=== PATIENT | female | born 1960 | race Caucasian/White ===

== ENCOUNTER 2020-09-02 09:09 | Outpatient (REF) | payer OTHER, SELFPAY ==
[2020-09-02 10:08] LABS: Estimated Average Glucose 140 mg/dL; Hemoglobin A1c % 6.5 %
[2020-09-02 11:08] LABS: Cholesterol 171 mg/dL; HDL Cholesterol 54 mg/dL; LDL Cholesterol Calculated 91 mg/dl; Triglycerides 130 mg/dL
[2020-09-03 11:12] LABS: Prolactin 9.6 ng/mL
== END 2020-09-02 09:10 | disposition home or self-care (01) ==
LOC: HO.LAB 09:09
PROVIDERS: PCP Internal Medicine; Visit Provider Internal Medicine
DX: E11.29 Type 2 diabetes mellitus with other diabetic kidney complication (principal)
CPT/HCPCS: 80061; 83036; 84146

== ENCOUNTER 2021-10-20 10:05 | Outpatient (REF) | payer OTHER, SELFPAY ==
[2021-10-20 12:15] LABS: Alanine Aminotransferase 40 U/L (0-31); Albumin Level 4.4 g/dL (3.5-5.0); Alkaline Phosphatase 80 U/L (39-117); Anion Gap 17 (12-20); Aspartate Amino Transferase 25 U/L (5-31); Bilirubin Total 0.5 mg/dL (0.0-1.0); Blood Urea Nitrogen 19 mg/dL (9-16); Calcium 10.1 mg/dL (8.4-10.2); Carbon Dioxide 27 mmol/L (22-29); Chloride 103 mmol/L (96-108); Cholesterol 171 mg/dL; Estimated Glomerular Filt Rate > 60; Glucose Fasting 125 mg/dL (60-99); HDL Cholesterol 50 mg/dL; LDL Cholesterol Calculated 96 mg/dl; Potassium 3.5 mmol/L (3.3-5.1); Sodium 143 mmol/L (135-145); Total Protein 7.7 g/dL (6.5-8.0); Triglycerides 127 mg/dL
[2021-10-20 13:30] LABS: Creatinine Urine 30.37 mg/dL; Microalbum/Creatinine Ratio Ur 391.8 ug/mg cr
== END 2021-10-20 10:06 | disposition home or self-care (01) ==
LOC: HO.LAB 10:05
PROVIDERS: PCP Internal Medicine; Visit Provider Internal Medicine
DX: E11.9 Type 2 diabetes mellitus without complications (principal); E78.5 Hyperlipidemia, unspecified
CPT/HCPCS: 36415; 80053; 80061; 82043

== ENCOUNTER 2021-11-12 10:55 | Outpatient (REF) | payer OTHER, SELFPAY | END 2021-11-12 10:56 | disposition home or self-care (01) | LOC: HO.HMGCLDS 10:55 | PROVIDERS: Visit Provider Internal Medicine | DX: Z20.822 Contact with and (suspected) exposure to COVID-19 (principal) | CPT/HCPCS: C9803; U0003; U0005 ==

== ENCOUNTER 2021-11-29 07:58 | Outpatient (REF) | payer OTHER, SELFPAY ==
--- NOTE | 2021-11-29 10:14 | PFT_ITS ---
INDICATION: Dyspnea. SPIROMETRY: FEV1 to FVC of 82% with an FEV1 of 1.87 L which is 81% predicted and FVC of 2.27 L which is 76% predicted. No significant response to bronchodilators noted. Maximum voluntary ventilation 104% predicted. LUNG VOLUMES: Total lung capacity 79% predicted with an expiratory reserve volume of 43% predicted. DIFFUSION CAPACITY: DLCO 75% predicted. COMPARISONS: None. INTERPRETATION: No obstructive ventilatory defect. No significant response to bronchodilators noted. Normal maximum voluntary ventilation suggesting good conditioning; however, the patient does have a mild restrictive ventilatory defect. In addition to that, has a decrease in the expiratory reserve volume secondary to an elevated BMI. Patient also has a mild diffusion impairment. Need to consider underlying parenchymal lung conditions and/or pulmonary vascular conditions. Should also correct for hemoglobin. Clinical correlation warranted. MD MIKY Carmona/MODL / [id number]
== END 2021-11-29 07:59 | disposition home or self-care (01) ==
LOC: HO.RESP 07:58
PROVIDERS: PCP Internal Medicine; Visit Provider Internal Medicine
DX: R06.00 Dyspnea, unspecified (principal)
CPT/HCPCS: 94060; 94727; 94729

== ENCOUNTER → 2021-12-28 13:23 | Outpatient (REF) | payer OTHER, SELFPAY ==
--- NOTE | 2021-12-28 13:25 | ECG_ITS ---
Hook-up date: 2021-12-28 13:39:00 Duration: 47:59:00 Test Indications: UNSPEC. TACHYCARDIA Medications: [id number] QRS complexes 401 Ventricular ectopics which represent <1 % of total QRS comp. 7827 Supraventricular ectopics which represent 3 % of total QRS comp. * Paced QRS complexs which represent % of total QRS comp. VENTRICULAR ECTOPY 392 Isolated 7 Bigeminal Cycles 1 Couplets 2 Runs 7 Beats in Runs 4 Beats LONGEST at 107 BPM at 05:43:24 2021-12-29 4 Beats FASTEST at 107 BPM at 05:43:24 2021-12-29 SUPRAVENTRICULAR ECTOPY 7622 Isolated 44 Couplets 27 Runs 117 Beats in Runs 14 Beats LONGEST at 108 BPM at 09:03:35 2021-12-30 3 Beats FASTEST at 151 BPM at 17:37:01 2021-12-29 HEART RATES 54 MIN at 06:33:55 2021-12-30 75 AVG 122 MAX at 13:41:04 2021-12-28 LONGEST RR 1.1120 secs at 09:58:27 2021-12-30 S-T LEVELS Channel 1 - 128 mm at 13:39:00 2021-12-28 - 128 mm at 13:39:00 2021-12-28 Channel 2 - 128 mm at 13:39:00 2021-12-28 - 128 mm at 13:39:00 2021-12-28 Channel 3 - 128 mm at 03:25:81 -- - 128 mm at 03:25:81 Underlying rhythm is sinus; Average ventricular rate 75/min; range 54-122/min; Frequent supraventricular ectopy (4% burden); short runs noted, longest 14 beats; Occasional ventricular ectopy; 2 short runs, longest 4 beats at 107/min; Symptoms documented include flutter, short of breath, chest pain, shoulder ache. Mostly corresponding to sinus and occasionally to atrial ectopy. Referred By: Rebecca Perera Overread By: JULIO CESAR HACKETT
== END ==
LOC: HO.CARD 13:23
PROVIDERS: PCP Internal Medicine; Visit Provider Internal Medicine
DX: R00.0 Tachycardia, unspecified (principal)
CPT/HCPCS: 93225; 93226

== ENCOUNTER → 2022-01-14 13:48 | Outpatient (REF) | payer OTHER, SELFPAY ==
--- NOTE | 2022-01-14 13:51 | CA_ITS ---
Transthoracic Echocardiogram Patient (Last, First, Middle): Taisha Berkowitz M Gender: Female Date of : 1960 Age: 61 Procedure Date: 01/14/2022 Procedure Type: Transthoracic Echocardiogram Location: OP Height: 154.94 cm Weight: 80.74 kg BSA: 1.80 m2 Heart Rate: bpm BP: 145 / 70 mmHg [employer]: ZULEYMA Referring MD: Rebecca Perera MD Symptoms: R01.1 - Cardiac murmur, unspecified Study Quality: Technically Difficult/contrast ECG Rhythm: Sinus Conclusions: - The left ventricular systolic function is hyperdynamic. The calculated ejection fraction is 71% by biplane method. - There is mild tricuspid valve regurgitation. Findings Procedure Information Contrast agent, definity, is being given per protocol without apparent complications. Left Ventricle Normal left ventricular cavity size. There is mildly increased left ventricular wall thickness. The left ventricular systolic function is hyperdynamic. The calculated ejection fraction is 71% by biplane method. There is no evidence of regional wall motion abnormalities. Diastolic function is normal for age. Right Ventricle Normal right ventricular cavity size and systolic function. Atria Both atria are normal in size. Aortic Valve There is a normal trileaflet aortic valve. There is no aortic valve stenosis. There is trace (trivial) aortic valve regurgitation. Mitral Valve The mitral valve appears normal. There is trace mitral valve regurgitation. There is no mitral valve stenosis. Pulmonic Valve The pulmonic valve is likely normal. Tricuspid Valve Normal tricuspid valve structure. There is mild tricuspid valve regurgitation. There is no evidence of pulmonary hypertension. Great Vessels The aortic annulus, sinuses of valsalva, and asc aorta are normal in size. Venous The inferior vena cava was not well visualized. Pericardium/Pleural There is no evidence of pericardial effusion. Prior Study Comparison No prior study available for comparison. Measurements 2D Linear Measurements IVSd: 1.03 0.6-0.9/0.6-1.0 cm LVIDd: 4.04 3.9-5.3/4.2-5.9 cm LVIDd Index: 2.24 2.4-3.2/2.2-3.1 cm/m2 LVIDs: 2.22 2.0-3.6 cm LVPWd: 1.08 0.7-1.1 cm Ao Root: 2.50 2.1-3.5 cm LA Diam: 3.70 2.7-3.8/3.0-4.0 cm LAIDs Index: 2.06 1.5-2.3 cm/m2 LV Mass: 173.34 67-162/88-224 g LV Mass Index: 96.30 43-95/49-115 g/m2 LVOT Diam: 2.00 3.0+(-)1.3 cm 2D Systolic Function EF 4C: 66.90 >55% EF 2C: 68.00 >55% EF BiP: 70.50 >55% Mitral Valve MV Pk E: 0.91 MV PK A: 0.85 MV Decel Time: 213.00 E/A: 1.10 E'Lateral: 7.83 E'Medial: 6.74 E/E' Med: 13.50 E/E' Lat: 11.60 PHT: 62.00 MVA PHT: 3.55 Decel Carroll: 4.27 Aortic Valve AoV Pk Hector: 1.54 AoV Mn Hector: 1.01 AoV VTI: 0.32 AoV Pk Grad: 9.00 Aov Mn Grad: 5.00 CAMERON Cont.VTI: 2.89 LVOT LVOT Pk Hector: 1.38 LVOT Mn Hector: 0.96 LVOT VTI: 0.29 LVOT Pk Grad: 8.00 LVOT Mn Grad: 4.00 LVOT Diam: 2.00 LVOT Area: 3.14 Diastolic Function MV Pk E: 0.91 MV Pk A: 0.85 E/A: 1.10 E'Medial: 6.74 E/E' Med: 13.50 E' Laterial: 7.83 E/E' Lat: 11.60 Right Ventricle TAPSE (mm): 20.30 TVS' Hector: 13.50 Tricuspid Valve TR Pk Hector: 2.84 TR Pk Grad: 32.00 Great Vessels Aorta Ao Root-2D: 2.50 2.0-3.7 cm Ao Asc: 2.70 2.1-3.4 cm Ao Arch: 3.30 Updated in Other Vendor System with Status of Final Dl Lee MD electronically signed on 01/15/2022 12:24:49 PM with status of Final
== END ==
LOC: HO.CARD 13:48
PROVIDERS: PCP Internal Medicine; Visit Provider Internal Medicine
DX: R01.1 Cardiac murmur, unspecified (principal)
CPT/HCPCS: 93306; Q9957

== ENCOUNTER → 2022-02-21 08:11 | Outpatient (BNVA) | payer OTHER, SELFPAY | PROVIDERS: PCP Internal Medicine; Referring Provider Internal Medicine; Visit Provider Nurse Practitioner | DX: Z13.89 Encounter for screening for other disorder (principal) ==

== ENCOUNTER → 2022-03-13 08:19 | Outpatient (BNVA) | payer OTHER, SELFPAY | PROVIDERS: PCP Internal Medicine; Referring Provider Internal Medicine; Visit Provider Internal Medicine Cardiovascular Disease | DX: I49.1 Atrial premature depolarization (principal); I07.1 Rheumatic tricuspid insufficiency; I10 Essential (primary) hypertension; R06.00 Dyspnea, unspecified | CPT/HCPCS: 93005 ==

== ENCOUNTER → 2022-03-14 10:24 | Outpatient (REF) | payer OTHER, SELFPAY ==
--- NOTE | 2022-03-14 10:28 | CA_ITS ---
Acquisition Time: 2022-03-14 10:30:55 Total Exercise Time: 00:03:20 Test Indications: Dyspnea Medications: SEE H Protocol: MANDO Max HR: 121 BPM 76% of Pred: 159 BPM Max BP: 190/070 mmHG Max Work Load: 5.0 METS Exercise stress test with exercise 3 min 20 sec of Mando protocol, achieving 70% MPHR, with moderate shortness of breath and request to stop exercise, once in recovery she did report anterior chest tightness with the sob, without arrythmia, with BP 148/60 at baseline and matt to 190/ 80 at start of recovery, with artifact at peak exercise and with EKG changes meeting criteria for ischemia in recovery: horizontal ST depressions 1.5 mm lead II, 1 mm leads III, aVF, V5-V6 with slow gradual improvement in recovery. Her symptoms resolved after 4 minutes of rest. EKG tracings reviewed with Dr Krause. Will cx nuclear stress test and plan for cardiac cath. Discussed findings and plan for cath with patient. She is agreeable to proceed. Will increase Atorvastatin to 40mg daily. Will add Imdur 30mg daily. Instructed on ED care if needed for symptoms not relieved with rest. Referred By: Lakhwinder Krause Overread By: KIM MURRAY
== END ==
LOC: HO.CARD 10:24
PROVIDERS: PCP Internal Medicine; Visit Provider Internal Medicine Cardiovascular Disease
DX: R06.00 Dyspnea, unspecified (principal); R07.9 Chest pain, unspecified
CPT/HCPCS: 93017; J0280; J2785

== ENCOUNTER → 2022-03-20 12:50 | Outpatient (BNVA) | payer OTHER, SELFPAY | PROVIDERS: PCP Internal Medicine; Referring Provider Internal Medicine; Visit Provider Internal Medicine Cardiovascular Disease | DX: I49.1 Atrial premature depolarization (principal) ==

== ENCOUNTER 2022-04-27 08:11 | Outpatient (REF) | payer OTHER, SELFPAY ==
[2022-04-27 09:43] LABS: Alanine Aminotransferase 23 U/L (0-31); Albumin Level 4.1 g/dL (3.5-5.0); Alkaline Phosphatase 92 U/L (39-117); Anion Gap 15 (12-20); Aspartate Amino Transferase 18 U/L (5-31); Bilirubin Total 0.5 mg/dL (0.0-1.0); Blood Urea Nitrogen 21 mg/dL (9-16); Calcium 9.2 mg/dL (8.4-10.2); Carbon Dioxide 26 mmol/L (22-29); Chloride 103 mmol/L (96-108); Cholesterol 141 mg/dL; Estimated Glomerular Filt Rate > 60; Glucose Fasting 137 mg/dL (60-99); HDL Cholesterol 43 mg/dL; LDL Cholesterol Calculated 81 mg/dl; Potassium 3.7 mmol/L (3.3-5.1); Sodium 140 mmol/L (135-145); Total Protein 7.3 g/dL (6.5-8.0); Triglycerides 86 mg/dL
[2022-04-27 10:18] LABS: Vitamin D 25-OH Total 46.8 ng/mL (>30)
[2022-04-27 10:19] LABS: Microalbum/Creatinine Ratio Ur 65.9 ug/mg cr
[2022-04-29 19:46] LABS: NT-proBNP 211 pg/mL
== END 2022-04-27 08:12 | disposition home or self-care (01) ==
LOC: HO.LAB 08:11
PROVIDERS: PCP Internal Medicine; Visit Provider Internal Medicine Cardiovascular Disease
DX: E55.9 Vitamin D deficiency, unspecified (principal); E11.9 Type 2 diabetes mellitus without complications; E78.5 Hyperlipidemia, unspecified; R01.1 Cardiac murmur, unspecified
CPT/HCPCS: 36415; 80053; 80061; 82043; 82306; 83880

== ENCOUNTER 2022-07-20 08:50 | Outpatient (REF) | payer OTHER, SELFPAY ==
[2022-07-20 10:03] LABS: Cholesterol 156 mg/dL; HDL Cholesterol 47 mg/dL; LDL Cholesterol Calculated 91 mg/dl; Triglycerides 93 mg/dL
== END 2022-07-20 08:51 | disposition home or self-care (01) ==
LOC: HO.LAB 08:50
PROVIDERS: PCP Internal Medicine; Visit Provider Internal Medicine Cardiovascular Disease
DX: I25.10 Atherosclerotic heart disease of native coronary artery without angina pectoris (principal)
CPT/HCPCS: 36415; 80061

== ENCOUNTER 2022-10-26 09:40 | Outpatient (REF) | payer OTHER, SELFPAY ==
[2022-10-26 11:09] LABS: Alanine Aminotransferase 23 U/L (0-31); Albumin Level 4.4 g/dL (3.5-5.0); Alkaline Phosphatase 82 U/L (39-117); Anion Gap 15 (12-20); Aspartate Amino Transferase 16 U/L (5-31); Bilirubin Total 0.4 mg/dL (0.0-1.0); Blood Urea Nitrogen 21 mg/dL (9-16); Calcium 9.7 mg/dL (8.4-10.2); Carbon Dioxide 25 mmol/L (22-29); Chloride 104 mmol/L (96-108); Cholesterol 132 mg/dL; Estimated Glomerular Filt Rate > 60; Glucose Fasting 138 mg/dL (60-99); HDL Cholesterol 46 mg/dL; Potassium 3.8 mmol/L (3.3-5.1); Sodium 140 mmol/L (135-145); Total Protein 7.5 g/dL (6.5-8.0); Vitamin D 25-OH Total 40.3 ng/mL (>30)
[2022-10-26 12:10] LABS: LDL Cholesterol Calculated 53 mg/dl; Triglycerides 166 mg/dL
== END 2022-10-26 09:41 | disposition home or self-care (01) ==
LOC: HO.LAB 09:40
PROVIDERS: Absent Provider Internal Medicine; PCP Internal Medicine; Visit Provider Internal Medicine Cardiovascular Disease
DX: I10 Essential (primary) hypertension (principal); E55.9 Vitamin D deficiency, unspecified; I25.10 Atherosclerotic heart disease of native coronary artery without angina pectoris
CPT/HCPCS: 36415; 80053; 80061; 82306

== ENCOUNTER → 2023-03-06 08:40 | Outpatient (BNVA) | payer OTHER, SELFPAY | PROVIDERS: PCP Internal Medicine; Referring Provider Internal Medicine; Visit Provider Internal Medicine Cardiovascular Disease | DX: I25.10 Atherosclerotic heart disease of native coronary artery without angina pectoris (principal); I49.1 Atrial premature depolarization; I10 Essential (primary) hypertension | CPT/HCPCS: 93005 ==

== ENCOUNTER 2023-05-03 09:25 | Outpatient (REF) | payer OTHER, SELFPAY ==
[2023-05-03 10:32] LABS: Alanine Aminotransferase 28 U/L (0-31); Albumin Level 4.1 g/dL (3.5-5.0); Alkaline Phosphatase 84 U/L (39-117); Anion Gap 17 (12-20); Aspartate Amino Transferase 18 U/L (5-31); Bilirubin Total 0.6 mg/dL (0.0-1.0); Blood Urea Nitrogen 16 mg/dL (9-16); Calcium 9.5 mg/dL (8.4-10.2); Carbon Dioxide 24 mmol/L (22-29); Chloride 101 mmol/L (96-108); Cholesterol 125 mg/dL; Estimated Glomerular Filt Rate > 60; Glucose Fasting 173 mg/dL (60-99); HDL Cholesterol 45 mg/dL; LDL Cholesterol Calculated 58 mg/dl; Potassium 3.6 mmol/L (3.3-5.1); Sodium 138 mmol/L (135-145); Total Protein 7.4 g/dL (6.5-8.0); Triglycerides 111 mg/dL
[2023-05-03 10:49] LABS: Vitamin D 25-OH Total 43.8 ng/mL (>30)
[2023-05-03 11:26] LABS: Creatinine Urine 47.51 mg/dL; Microalbum/Creatinine Ratio Ur 126.2 ug/mg cr
== END 2023-05-03 09:26 | disposition home or self-care (01) ==
LOC: HO.LAB 09:25
PROVIDERS: PCP Internal Medicine; Visit Provider Internal Medicine
DX: Z00.00 Encounter for general adult medical examination without abnormal findings (principal); E11.9 Type 2 diabetes mellitus without complications; E55.9 Vitamin D deficiency, unspecified; E78.5 Hyperlipidemia, unspecified
CPT/HCPCS: 36415; 80053; 80061; 82043; 82306

== ENCOUNTER 2023-12-19 08:16 | Outpatient (AMB) | payer OTHER, SELFPAY ==
[2023-12-19 08:34] VITALS: BP 112/68; PULSE 73; TEMP 36.4; O2SAT 98; BMI 31.0
--- NOTE | 2023-12-19 08:34 | AM.OFFWIN_ITS ---
Intake Vital Signs 12/19/23 08:34 Height 5 ft 1 in Weight 164 lb BMI 31.0 BP 112/68 Blood Pressure Location Lt brachial Position Sitting Pulse 73 Pulse Source Pulse Oximeter Temp 97.6 F Temp Source Temporal Artery Scan Pulse Oximetry (%) 98 Oxygen Delivery Method Room Air Intake Visit Reasons: EP ?Sinus infection [phone] Intake Note: pt is here today for sinus infection started yesterday Patient Tobacco Use Status: Former Tobacco user Allergies ciprofloxacin [From CIPRO] Allergy (Severe, Verified 12/19/23 08:35) ANAPHYLAXIS; RASH Do you need a note to return to daycare/school/sports/work: Yes HPI HPI Comments History of Present Illness Details This is a 63-year-old female who presents to the office complaining of sinus/nasal congestion, sore throat, bilateral otalgia, and headaches x 1 day. She states she started sneezing yesterday and then she developed sinus congestion with headache, mild sore throat, and ear pain last night. She denies any fever/chills. She denies any purulent nasal discharge. Patient is otherwise feeling well. [facility] Medical History CAD (coronary artery disease) Diabetes mellitus Dyslipidemia Dyspnea Encounter for diabetic foot exam High blood pressure High cholesterol Hypertension Microalbuminuria Murmur Obesity (BMI 30.0-34.9) PAC (premature atrial contraction) Physical exam Screen for colon cancer Tachycardia Tricuspid valve regurgitation Surgical History History of bladder surgery History of coronary artery stent placement History of hernia repair History of removal of cyst S/P skin biopsy S/P BLAIR-BSO (total abdominal hysterectomy and bilateral salpingo-oophorectomy) Stented coronary artery Family History Father CAD (coronary artery disease) CVD (cardiovascular disease) Myocardial infarction Substance use disorder Mother CVD (cardiovascular disease) Hypertension Brother Hypertension Sister Hypertension Daughter Obese Social History Housing: House Alcohol intake: current Alcohol intake frequency: holidays/special occasions only Alcohol type: hard liquor Patient Tobacco Use Status: Former Tobacco user Tobacco use type: Cigarette e-Cigarette/Vaping Use: Never Used Second Hand Smoke Exposure: No service: No Current occupational status: employed Current occupational exposures/hazards: No Cognitive needs: No Hearing needs: No Vision needs: Yes Review of Systems Const All systems reviewed & are unremarkable except as noted in HPI and below Reports no additional complaints Eyes Reports no additional complaints ENT Reports no additional complaints Card Reports no additional complaints Resp Reports no additional complaints GI Reports no additional complaints Reports no additional complaints Musc Reports no additional complaints Skin/Breast Reports system reviewed and no additional complaints, except as documented Neuro Reports no additional complaints Psych Reports no additional complaints Endo Reports no additional complaints Tee/Lymph Reports no additional complaints Aller/Immun Reports no additional complaints Physical Exam Vital Signs: Last Vital Signs Temp 97.6 F 12/19/23 08:34 Pulse 73 12/19/23 08:34 BP 112/68 12/19/23 08:34 Pulse Ox 98 12/19/23 08:34 Oxygen Delivery Method Room Air 12/19/23 08:34 BMI result Body Mass Index 31.0 Const Other: Vital signs reviewed. Constitutional: Non-toxic appearing. No acute distress. Well-developed and well-nourished. HEENT: Normocephalic and atraumatic. Tympanic membranes without erythema, edema, or bulging bilaterally. There is mild erythema and erythema of the external auditory canal bilaterally. Moist mucous membranes. Minimal posterior pharyngeal erythema without exudates, edema, or masses. Skin: Warm and dry. No rashes or lesions noted. Neck: Full and painless range of motion. No cervical lymphadenopathy. Cardio: Regular rate and rhythm. No murmurs, gallops, or rubs. No lower extremity edema. No JVD. Pulmonary: No respiratory distress. No accessory muscle usage. Clear to auscultation bilaterally without wheezing, crackles, or rhonchi. Gastrointestinal: Soft, nontender, and nondistended in all 4 quadrants. Musculoskeletal: Normal range of motion in joints throughout the body. No deformity or other signs of injury. Neuro: Alert and oriented x4. Cranial nerves 2-12 grossly intact. No focal deficits appreciated. Psych: Normal mood and affect. Assessment & Plan Assessment & Plan (1) Viral URI: Code(s): J06.9 - Acute upper respiratory infection, unspecified Plan This is a 63-year-old female who presented to the walk-in clinic complaining of mild viral URI symptoms including sinus/nasal congestion, sore throat, bilateral otalgia, and headaches. On physical examination, she has minimal posterior pharyngeal erythema as well as minimal erythema/edema of bilateral external auditory canals. Her history and physical are most consistent with acute res piratory tract infection versus acute viral rhinosinusitis versus acute otitis externa. Recommended symptomatic management including rest, increased fluids, advil/tylenol for pain/fever, over the counter throat lozenges/decongestants, fluticasone/normal saline nasal spray, and sinus rinses with a Neti pot. COVID/flu/RSV was sent. Patient advised to follow up here or go to the emergency room for worsening/persistent symptoms. Patient verbalized understanding and is agreeable with the plan. Orders: Orders SARS-CoV2/FLU/RSV Today R09.89 - Other specified symptoms and signs involving the circulatory and respiratory systems Medications: New [id number] 3.5-10,000-1 mg/mL-unit/mL-% 4 drps otic (ear) right QID 10 mL 0RF 10 days Coding Level of Care Code Est Pt Level 3 (25258) Diagnoses Viral URI J06.9
== END 2023-12-19 09:12 | disposition home or self-care (01) ==
PROVIDERS: PCP Internal Medicine; Visit Provider Physician Assistant Medical
DX: J06.9 Acute upper respiratory infection, unspecified (principal)
CPT/HCPCS: 99213

== ENCOUNTER 2023-12-19 15:16 | Outpatient (REF) | payer OTHER, SELFPAY ==
[2023-12-19 16:26] LABS: Influenza A PCR NEGATIVE (Negative); Influenza B PCR NEGATIVE (Negative); Resp Syncy Virus RNA Qual PCR NEGATIVE (Negative); SARS COV2 PCR INHOUSE POSITIVE (Negative)
== END 2023-12-19 15:17 | disposition home or self-care (01) ==
LOC: HO.HMGCLNP 15:16
PROVIDERS: Visit Provider Physician Assistant Medical
DX: Z11.52 Encounter for screening for COVID-19 (principal); Z20.822 Contact with and (suspected) exposure to COVID-19; R09.89 Other specified symptoms and signs involving the circulatory and respiratory systems
CPT/HCPCS: 0241U

== ENCOUNTER 2024-01-03 08:47 | Outpatient (REF) | payer OTHER, SELFPAY ==
[2024-01-03 10:38] LABS: Creatinine Urine 83.66 mg/dL; Microalbum/Creatinine Ratio Ur 108.7 ug/mg cr (<30)
[2024-01-03 10:43] LABS: Alanine Aminotransferase 19 U/L (0-31); Albumin Level 4.1 g/dL (3.5-5.0); Alkaline Phosphatase 83 U/L (39-117); Anion Gap 12 (12-20); Aspartate Amino Transferase 15 U/L (5-31); Bilirubin Total 0.5 mg/dL (0.0-1.0); Blood Urea Nitrogen 26 mg/dL (9-16); Calcium 9.5 mg/dL (8.4-10.2); Carbon Dioxide 29 mmol/L (22-29); Chloride 101 mmol/L (96-108); Cholesterol 129 mg/dL (<200); Estimated Glomerular Filt Rate > 60; Glucose Fasting 150 mg/dL (60-99); HDL Cholesterol 43 mg/dL (>40); LDL Cholesterol Calculated 65 mg/dL (<100); Sodium 139 mmol/L (135-145); Total Protein 7.6 g/dL (6.5-8.0); Triglycerides 105 mg/dL (<150)
[2024-01-03 10:58] LABS: Vitamin D 25-OH Total 37.1 ng/mL (>30)
== END 2024-01-03 08:48 | disposition home or self-care (01) ==
LOC: HO.LAB 08:47
PROVIDERS: PCP Internal Medicine; Visit Provider Internal Medicine
DX: E55.9 Vitamin D deficiency, unspecified (principal); E11.9 Type 2 diabetes mellitus without complications; E78.5 Hyperlipidemia, unspecified
CPT/HCPCS: 36415; 80053; 80061; 82043; 82306; 82570

== ENCOUNTER 2024-01-06 08:28 | Outpatient (AMB) | payer OTHER, SELFPAY ==
--- NOTE | 2024-01-06 08:35 | MHC.PC.OV ---
Vital Signs 01/06/24 08:41 Height 5 ft 1 in Weight 163 lb BMI 30.8 BP 118/64 Blood Pressure Location Rt brachial Position Sitting Intake Visit Reasons: Annual Exam Intake Note: Patient here for a physical exam, c/o dizziness after bending, sinuses, neuropathy on foot Manager Collection Required: No Accompanied by: Self / Same As Patient Allergies ciprofloxacin [From CIPRO] Allergy (Severe, Verified 01/06/24 08:53) ANAPHYLAXIS; RASH Medication List - Last Reconciled 01/06/24 by Rebecca Perera MD aspirin (Adult Low Dose Aspirin) 81 mg PO DAILY atorvastatin 40 mg PO DAILY 90 days blood sugar diagnostic (FreeStyle Lite Strips) Use 1 test strip once a day carvedilol 12.5 mg PO BID chlorthalidone 50 mg PO DAILY cholecalciferol (vitamin D3) 25 mcg PO DAILY 90 days dapagliflozin propanediol (Farxiga) 10 mg PO DAILY 30 days ezetimibe 10 mg PO DAILY fluticasone propionate 50 mcg/actuation (Flonase Allergy Relief) 2 sprays intranasal DAILY lancets (FreeStyle Lancets) Use 1 lancet once a day losartan 100 mg PO BID metformin ER 1,000 mg PO QPM Tobacco use date assessed: 01/06/24 Dental Screening Dental Screen Date: 01/06/24 Did you have a dental visit in the last 12 months?: No Did you have a dental problem in the last 6 months where you did not have access to dental care?: No Was dental information given to patient?: Patient has dentist HPI HPI Comments History of Present Illness Details This is a 63-year-old female with diabetes mellitus type 2 that comes for her physical exam. A1c slightly elevated and I will increase Farxiga from 5 mg to 10 mg. LDL within goal. Last mammogram was July 2023 and was normal. Had Cologuard 2022 that was negative. Had hysterectomy therefore no need to do Pap smears anymore. No chest pain or shortness of breath. Was positive for COVID-19 at the beginning of the month. Has some sinus pain with clear discharge. Has hearing loss and use hearing aids. Complains of dizziness when she moves her head while laying down. Will be referred to vestibular therapy. [facility] Medical History (Updated 01/06/24 @ 09:42 by Rebecca Perera MD) CAD (coronary artery disease) PAC (premature atrial contraction) Tricuspid valve regurgitation Physical exam Screen for colon cancer Tachycardia Murmur Dyspnea Microalbuminuria Obesity (BMI 30.0-34.9) Dyslipidemia Hypertension Encounter for diabetic foot exam High cholesterol High blood pressure Diabetes mellitus Surgical History Stented coronary artery History of coronary artery stent placement S/P skin biopsy History of hernia repair S/P BLAIR-BSO (total abdominal hysterectomy and bilateral salpingo-oophorectomy) History of removal of cyst History of bladder surgery Family History Father CAD (coronary artery disease) CVD (cardiovascular disease) Myocardial infarction Substance use disorder Mother CVD (cardiovascular disease) Hypertension Brother Hypertension Sister Hypertension Daughter Obese Social History Housing: House Alcohol intake: current Alcohol intake frequency: holidays/special occasions only Alcohol type: hard liquor Patient Tobacco Use Status: Former Tobacco user Tobacco use type: Cigarette e-Cigarette/Vaping Use: Never Used Second Hand Smoke Exposure: No service: No Current occupational status: employed Current occupational exposures/hazards: No Cognitive needs: No Hearing needs: No Vision needs: Yes Questionnaire PHQ-9 Over the last 2 weeks, how often have you been bothered by any of the following problems? 1. Little interest or pleasure in doing things: not at all 2. Feeling down, depressed, or hopeless: not at all 3. Trouble falling or staying asleep, or sleeping too much: not at all 4. Feeling tired or having little energy: not at all 5. Poor appetite or overeating: not at all 6. Feeling bad about yourself - or that you are a failure or have let yourself or your family down: not at all 7. Trouble concentrating on things, such as reading the newspaper or watching television: not at all 8. Moving or speaking so slowly that other people could have noticed. Or the opposite - being so fidgety or restless that you have been moving around a lot more than usual: not at all 9. Thoughts that you would be better off or of hurting yourself in some way: not at all Total score: 0 Depression Screening Interpretation: Negative Depression Screening Done: Yes 16476 - PHQ-9 Billing: Yes Source: Developed by Drs. Narendra Biggs, Puja Vidal, Edison Tapia and colleagues, with an educational leland from [employer]. Thrive Questionnaire Date Thrive assessed: 01/06/24 I am a: Patient What is your living situation today?: I have a steady place to live Within the past 12 months, did the food you bought not last and you didn't have the money to get more?: Never true Within the past 12 months, did you worry whether your food would run out before you got money to buy more?: Never true Do you have trouble paying for medicines?: No Do you have trouble getting transportation to medical appointments?: No Do you have trouble paying your heating and electricity bill?: No Do you have trouble taking care of your child, family member or friend?: No Do you have trouble with day-to-day activities such as bathing, preparing meals, shopping, managing finances, etc.?: No Are you currently unemployed and looking for a job?: No Are you interested in more education?: No Please select the resources that you would like help with: None Currently or been in a relationship where the following occur: no concerns reported THRIVE Score: 0 AUDIT C Alcohol Use Questionnaire (AUDIT-C) 1. How often do you have a drink containing alcohol?: Monthly or less 2. How many drinks containing alcohol do you have on a typical day when you are drinking?: 1 or 2 3. How often do you have six or more drinks on one occasion?: Never Total Score: 1 Score Reviewed/Action Taken: No ANDREA-7 AMB Questionnaire ANDREA-7 Date ANDREA - 7 assessed: 01/06/24 Feeling nervous, anxious, or on edge: 0 = Not at all Not being able to stop or control worryin = Not at all Worrying too much about different things: 0 = Not at all Trouble relaxin = Not at all Being so restless that it is hard to sit still: 0 = Not at all Becoming easily annoyed or irritable: 0 = Not at all Feeling afraid as if something awful might happen: 0 = Not at all Total ANDREA-7 score (0-4 normal; 5-9 mild; 10-14 moderate; 15-21 severe): 0 Source: Developed by Drs. Narendra Biggs, Puja Vidal, Edison Tapia and colleagues, with an educational leland from [employer]. ANDREA-7 Assessment Billing ANDREA-7 Assessment Tool: ANDREA-7 Assessment 01027 Review of Systems Const All systems reviewed & are unremarkable except as noted in HPI and below Eyes Reports no additional complaints, Denies change in vision and Denies other visual disturbances Card Denies chest pain at rest, Denies chest pain with activity, Denies edema, Denies irregular heart rhythm, Denies claudication, Denies dyspnea, Denies dyspnea on exertion, Denies orthopnea, Denies paroxysmal nocturnal dyspnea and Denies slow heart rate Resp Denies cough, Denies dyspnea and Denies dyspnea on exertion GI Denies abdominal pain, Denies change in bowel habits, Denies excessive flatus, Denies nausea and Denies vomiting Denies urinary incontinence, Denies urinary hesitancy and Denies urinary urgency Musc Denies abnormal gait, Denies atrophy, Denies deformity and Denies limited range of motion Skin/Breast Denies bleeding lesions, Denies changing lesions and Denies rash Neuro Denies abnormal gait, Denies behavioral changes, Denies confusion and Denies lack of coordination Psych Denies behavioral changes and Denies confusion Physical exam (Primary Care) Vital Signs: Last Vital Signs BP 118/64 01/06/24 08:41 BMI result Body Mass Index 30.8 Tobacco/Smoking Status: Tobacco use Status Tobacco use date assessed 01/06/24 01/06/24 08:47 Patient Tobacco Use Status Former Tobacco user 01/06/24 08:36 Tobacco use type Cigarette 01/06/24 08:36 e-Cigarette/Vaping Use Never Used 01/06/24 08:36 PHQ-9: PHQ-9 Score PHQ-9: Total score 0 01/06/24 09:03 Depression Screening Interpretation: Negative Thrive Assessment: Date of Thrive Assessment Date Thrive assessed 01/06/24 01/06/24 08:36 Currently or been in a relationship where the following occur: no concerns reported Const General: No confusion Orientation/consciousness: patient oriented x3 and No confusion HENMT Head: Yes normal to inspection, Yes normocephalic and Yes atraumatic Ears: external ears normal Eyes General: appearance normal, both eyes and all related structures Eyelids: Yes eyelids normal Conjunctivae: conjunctivae normal Neck Neck: Yes normal visual inspection and Yes supple Resp Effort & Inspection: normal respiratory effort Auscultation: clear to auscultation bilaterally Cardio Jugular venous distension: no JVD Rate: regular rate Rhythm: regular rhythm Heart sounds: S1 normal heart sound present and S2 normal heart sound present GI Inspection: Yes normal to inspection Palpation (GI): Soft to palpation and nontender Auscultation: normal bowel sounds Skin General skin exam: no rashes or lesions noted Neuro General: patient oriented x3, no focal motor deficits and No confusion Extrem General: Yes full ROM Psych Appearance: grossly normal Results AMB Hemoglobin A1c AMB Hemoglobin A1c 7.7 % Last Edit by KEILA Niño on 01/06/24 08:48 Results Reviewed Results Reviewed: Laboratory Last Values Hgb A1c (Clinic) 7.7 % (4.0-6.0) H 01/06/24 08:47 Assessment and Plan Assessment & Plan (1) Physical exam: Code(s): Z00.00 - Encounter for general adult medical examination without abnormal findings Plan: Repeat in a year. (2) Diabetes mellitus: Comment: has good control; doing well Code(s): E11.9 - Type 2 diabetes mellitus without complications Qualifiers: Diabetes mellitus type: type 2 Diabetes mellitus shelter insulin use: without intermediate manager use Diabetes mellitus complication status: without complication Qualified Code(s): E11.9 - Type 2 diabetes mellitus without complications Plan: Increase Farxiga. Continue metformin. A1c goal is equal or less than 7%. Diabetic eye exam was done recently. Orders: Orders PT Evaluation and Treatment Today H81.10 - Benign paroxysmal vertigo, unspecified ear Microalbumin, Random (w Creat) 6 Months E11.9 - Type 2 diabetes mellitus without complications Vitamin D 25-OH Total 6 Months E55.9 - Vitamin D deficiency, unspecified Comprehensive [place]. Panel Fast 6 Months Z00.00 - Encounter for general adult medical examination without abnormal findings AMB Hemoglobin A1c Today E11.9 - Type 2 diabetes mellitus without complications Lipid Panel 6 Months E78.5 - Hyperlipidemia, unspecified Medications: New dapagliflozin propanediol (Farxiga) 10 mg PO DAILY 30 tabs 6RF 30 days E11.9 - Type 2 diabetes mellitus without complications Changed From metformin ER 1,500 mg (3 x 500 mg) PO QPM 90 days 270 tabs 1RF To metformin ER 1,000 mg PO QPM Coding Level of Care Code Est Pt Prev Care 40-64y(98506) Diagnoses Physical exam Z00.00 Type 2 diabetes mellitus without complication, without long-term current use of insulin E11.9 Diabetes mellitus type: type 2 Diabetes mellitus intermediate manager insulin use: without intermediate manager use Diabetes mellitus complication status: without complication Additional Codes ANDREA-7 Assessment Billing - ANDREA-7 Assessment Tool: ANDREA-7 Assessment [id number] ([id number]) Time Spent (min) 33
[2024-01-06 08:41] VITALS: BP 118/64; BMI 30.8
== END 2024-01-06 09:12 | disposition home or self-care (01) ==
PROVIDERS: Visit Provider Internal Medicine
DX: Z00.00 Encounter for general adult medical examination without abnormal findings (principal); E11.9 Type 2 diabetes mellitus without complications
CPT/HCPCS: 83036; 99396

== ENCOUNTER 2024-02-26 09:00 | Outpatient (RCR) | payer OTHER, SELFPAY ==
[2024-02-16 08:03] VITALS: BP 105/55; PULSE 70
--- NOTE | 2024-02-18 14:34 | MHC.PT.EP ---
[facility] [place] Office [place] Office [place] Office [address] [phone] F: [phone] F: [phone] F: [phone] F: [phone] Physical Therapy Plan of Care Date of Evaluation: 02/16/24 Date of Surgery: Diagnosis: Benign paroxysmal vertigo, unspecified ear Vestibular therapy Assessment: Pt is a pleasant 63yo F who presents to PT with dizziness. Pt presents to PT with current impairments in dizziness, decreased balance/proprioception, and impaired gait. Upon assessment, pt tested positive for left posterior canal BPPV. She is limited functionally by bending forward, laying in bed, yoga. She is an excellent candidate for skilled PT in order to address current impairments and to treat BPPV. She is recommended to be seen 2x/week for 3 weeks and will be reassessed at that time Frequency and Duration: The patient will be seen 6 visits Short Term Goals: Pt will perform rolling in bed without dizziness or exacerbation of symptoms Pt will perform sit<>stand transfers without dizziness or instability Alf Goals: Pt will demonstrate ability to squat and parts picker object from the floor without reports of dizziness or instability Pt will return to her yoga routine without modification and without reports of dizziness or instability Treatment Plan: Modalities to reduce pain, spasms and effusion. Manual therapy to restore motion and function. Therapeutic exercise to improve strength and flexibility. Neuromuscular re-education for posture and balance. Therapeutic activities to return to functional activities of daily living. Electronically signed by: Karly Walls, PT, DPT Please sign and return to therapist. Thank you for your referral.
--- NOTE | 2024-06-21 08:47 | MHC.PT.DC ---
[facility] [place] Office [place] Office [place] Office [address] [phone] F: [phone] F: [phone] F: [phone] F: [phone] Physical Therapy Discharge Report Diagnosis: Benign paroxysmal vertigo, unspecified ear Vestibular therapy Date of Surgery: Date of Evaluation: 02/16/24 Date of Discharge: 06/21/24 Treatments to Date: 2 Cancellations to Date: No Shows to Date: Discharge Status: Discharge Summary: Pt was seen for PT from 02/16/24-02/24/24 for BPPV. At her last scheduled appointment on 02/24/24 she was feeling better and she tested negative for BPPV in all canals. Her chart was left open for 30 days in case her symptoms reoccurred however she is being D/C from PT as she did not call to schedule in that time Electronically signed by: Karly Walls, PT, DPT Please sign and return to therapist. Thank you for your referral.
== END 2024-06-21 08:47 | disposition home or self-care (01) ==
LOC: HO.PT 09:00
PROVIDERS: PCP Internal Medicine; Visit Provider Internal Medicine
DX: H81.10 Benign paroxysmal vertigo, unspecified ear (principal)
CPT/HCPCS: 95992; 97162; 97530

== ENCOUNTER 2024-03-15 08:44 | Outpatient (AMB) | payer OTHER, SELFPAY ==
[2024-03-15 08:49] VITALS: BP 110/66; PULSE 67; BMI 31.2
--- NOTE | 2024-03-15 08:49 | A.OFFVIS_ITS ---
Vital Signs 03/15/24 08:49 Height 5 ft 1 in Weight 165 lb 5.547 oz BMI 31.2 BP 110/66 Blood Pressure Location Rt brachial Position Sitting Pulse 67 Intake Visit Reasons: 1 YEAR FOLLOW UP Intake Note: 1 year follow-up with ekg feeling good Certified Orthotic Fitter Required: No Allergies ciprofloxacin [From CIPRO] Allergy (Severe, Verified 01/06/24 08:53) ANAPHYLAXIS; RASH Medication List - Last Reconciled 03/15/24 by Lakhwinder Krause MD ascorbic acid (vitamin C) mg PO aspirin (Adult Low Dose Aspirin) 81 mg PO DAILY atorvastatin 40 mg PO DAILY blood sugar diagnostic (FreeStyle Lite Strips) Use 1 test strip once a day carvedilol 12.5 mg PO BID chlorthalidone 50 mg PO DAILY cholecalciferol (vitamin D3) 25 mcg PO DAILY 90 days dapagliflozin propanediol (Farxiga) 10 mg PO DAILY 30 days ezetimibe 10 mg PO DAILY fluticasone propionate 50 mcg/actuation (Flonase Allergy Relief) 2 sprays intranasal DAILY lancets (FreeStyle Lancets) Use 1 lancet once a day losartan 100 mg PO BID metformin ER 1,000 mg PO QPM HPI Comments Details: Taisha comes for follow-up. Been noticing a little more shortness of breath with exertion recently over the last few months. No associated chest tightness. She denies any associated orthopnea, PND, leg edema. She has lost weight. However she has not been finding time to exercise routinely. Denies any prolonged palpitation irregular heartbeat. No lightheadedness, syncope. She has been taking all her medications. Last LDL is very well optimized. Hemoglobin A1c is at 7.7%. Denies any other new symptoms. [facility] Medical History CAD (coronary artery disease) PAC (premature atrial contraction) Tricuspid valve regurgitation Physical exam Screen for colon cancer Tachycardia Murmur Dyspnea Microalbuminuria Obesity (BMI 30.0-34.9) Dyslipidemia Hypertension Encounter for diabetic foot exam High cholesterol High blood pressure Diabetes mellitus Surgical History Stented coronary artery History of coronary artery stent placement S/P skin biopsy History of hernia repair S/P BLAIR-BSO (total abdominal hysterectomy and bilateral salpingo-oophorectomy) History of removal of cyst History of bladder surgery Family History Father CAD (coronary artery disease) CVD (cardiovascular disease) Myocardial infarction Substance use disorder Mother CVD (cardiovascular disease) Hypertension Brother Hypertension Sister Hypertension Daughter Obese Social History Housing: House Alcohol intake: current Alcohol intake frequency: holidays/special occasions only Alcohol type: hard liquor Patient Tobacco Use Status: Former Tobacco user Tobacco use type: Cigarette e-Cigarette/Vaping Use: Never Used Second Hand Smoke Exposure: No service: No Current occupational status: employed Current occupational exposures/hazards: No Cognitive needs: No Hearing needs: No Vision needs: Yes Review of Systems Const Denies chills, Denies fatigue, Denies fever(s), Denies frequent falls, Denies weakness, Denies weight gain and Denies weight loss ENT Denies dizziness Card Denies chest pain, Denies leg edema, Denies lightheadedness, Denies palpitations, Denies dyspnea, Denies dyspnea on exertion, Denies orthopnea and Denies other (loss of consciousness) Resp Denies cough, Denies dyspnea and Denies dyspnea on exertion GI Denies hematochezia and Denies change in stool character Musc Denies abnormal gait, Denies muscle weakness, Denies numbness, Denies radiating pain into limb and Denies tingling Neuro Denies Abnormal speech present, Denies abnormal gait, Denies dizziness, Denies frequent falls, Denies numbness, Denies tingling and Denies weakness Endo Denies fatigue and Denies palpitations Physical Exam Vital Signs: Last Vital Signs Pulse 67 03/15/24 08:49 BP 110/66 03/15/24 08:49 BMI result Body Mass Index 31.2 Const General: cooperative, comfortable, no acute distress, alert, awake, anxious and well groomed Nutritional Appearance: overweight Orientation/consciousness: patient oriented x3 Limitations: no limitations Neck Neck: Yes trachea midline, Yes supple and Yes no JVD Chest Chest palpation & inspection: normal inspection of the chest Resp Effort & Inspection: normal respiratory effort Auscultation: clear to auscultation bilaterally Cardio Jugular venous distension: no JVD Palpation: normal PMI Rate: regular rate Rhythm: regular rhythm Heart sounds: S1 normal heart sound present, S2 normal heart sound present, no click, no gallops, no murmurs and no rubs GI Auscultation: normal bowel sounds Skin General skin exam: no rashes or lesions noted Neuro General: patient oriented x3 and no focal motor deficits Speech: No Abnormal speech present Extrem General: Yes no clubbing, cyanosis or edema Psych Appearance: grossly normal Office Procedures EKG Details: EKG shows normal sinus rhythm with normal EKG [id number], Complete Assessment & Plan Assessment & Plan (1) SOB (shortness of breath) on exertion: Code(s): R06.02 - Shortness of breath Plan: New onset exertional shortness of breath in this middle-aged woman with mult ivessel PCI in the past along with risk factors for development further structural heart issues. Would suggest an echocardiogram to evaluate LV systolic and diastolic function to evaluate for worsening valvular issues and pulmonary hypertension. This test will be scheduled in near future. Will also suggest exercise myocardial perfusion imaging to rule out any significant myocardial ischemia. Management based on the finding of test results. Possible related to deconditioning. If cardiac tests are within normal limits would suggest to increase her activity level. (2) CAD (coronary artery disease): Code(s): I25.10 - Atherosclerotic heart disease of [place] coronary artery without angina pectoris Category: Medical Plan: CAD with PCI, last RCA in 2021. Symptoms exertional shortness of breath as above. Will pursue further workup with exercise myocardial perfusion imaging. Continue aspirin therapy for life. Continue intense lipid modification currently well optimized on ezetimibe and atorvastatin therapy. Recently for seizure was added to her regimen for better control of diabetes. Blood pressure is currently well optimized advised to monitor blood pressure at home maintain a log. Low-salt diet was discussed. Once the testing is completed and within acceptable limits advised to increase activity level and participate in further weight loss program. She understands agrees. Will follow up in the clinic in 1 year's time, sooner p.r.n.. Thank you for allowing me to partake in her care Coding Level of Care Code Est Pt Level 4 (69866) Diagnoses SOB (shortness of breath) on exertion R06.02 CAD (coronary artery disease) I25.10 CPT Codes EKG - CPT: 94449-[id number], Complete ([id number])
== END 2024-03-15 09:32 | disposition home or self-care (01) ==
PROVIDERS: Visit Provider Internal Medicine Cardiovascular Disease
DX: R06.02 Shortness of breath (principal); I25.10 Atherosclerotic heart disease of native coronary artery without angina pectoris
CPT/HCPCS: 93010; 99214

== ENCOUNTER → 2024-03-15 08:44 | Outpatient (BNVA) | payer OTHER, SELFPAY | PROVIDERS: Visit Provider Internal Medicine Cardiovascular Disease | DX: I25.10 Atherosclerotic heart disease of native coronary artery without angina pectoris (principal); R06.02 Shortness of breath; Z79.82 Long term (current) use of aspirin | CPT/HCPCS: 93005 ==

== ENCOUNTER 2024-07-03 09:00 | Outpatient (REF) | payer OTHER, SELFPAY ==
[2024-07-03 10:35] LABS: Creatinine Urine 110.28 mg/dL; Microalbum/Creatinine Ratio Ur 159.5 ug/mg cr (<30)
[2024-07-03 10:39] LABS: Alanine Aminotransferase 28 U/L (0-31); Albumin Level 4.2 g/dL (3.5-5.0); Alkaline Phosphatase 82 U/L (39-117); Anion Gap 15 (12-20); Aspartate Amino Transferase 21 U/L (5-31); Bilirubin Total 0.5 mg/dL (0.0-1.0); Blood Urea Nitrogen 18 mg/dL (9-16); Calcium 9.6 mg/dL (8.4-10.2); Carbon Dioxide 26 mmol/L (22-29); Chloride 102 mmol/L (96-108); Cholesterol 115 mg/dL (<200); Estimated Glomerular Filt Rate > 60; Glucose Fasting 176 mg/dL (60-99); HDL Cholesterol 44 mg/dL (>40); LDL Cholesterol Calculated 53 mg/dL (<100); Potassium 3.3 mmol/L (3.3-5.1); Sodium 140 mmol/L (135-145); Total Protein 7.6 g/dL (6.5-8.0); Triglycerides 91 mg/dL (<150)
[2024-07-03 10:56] LABS: Vitamin D 25-OH Total 39.9 ng/mL (>30)
== END 2024-07-03 09:01 | disposition home or self-care (01) ==
LOC: HO.LAB 09:00
PROVIDERS: PCP Internal Medicine; Visit Provider Internal Medicine
DX: Z00.00 Encounter for general adult medical examination without abnormal findings (principal); E78.5 Hyperlipidemia, unspecified; E11.9 Type 2 diabetes mellitus without complications; E55.9 Vitamin D deficiency, unspecified
CPT/HCPCS: 36415; 80053; 80061; 82043; 82306; 82570

== ENCOUNTER 2024-07-06 08:10 | Outpatient (AMB) | payer OTHER, SELFPAY ==
--- NOTE | 2024-07-06 08:13 | MHC.PC.OV ---
Vital Signs 07/06/24 08:20 Height 5 ft 1 in Weight 165 lb BMI 31.2 BP 120/68 Blood Pressure Location Rt brachial Position Sitting Intake Visit Reasons: 6mth f/u Intake Note: Patient here for a 6 month follow up Dampproofer Required: No Accompanied by: Self / Same As Patient Allergies ciprofloxacin [From CIPRO] Allergy (Severe, Verified 07/06/24 08:41) ANAPHYLAXIS; RASH Medication List - Last Reconciled 07/06/24 by Rebecca Perera MD ascorbic acid (vitamin C) mg PO aspirin (Adult Low Dose Aspirin) 81 mg PO DAILY atorvastatin 40 mg PO DAILY blood sugar diagnostic (FreeStyle Lite Strips) Use 1 test strip once a day carvedilol 12.5 mg PO BID chlorthalidone 50 mg PO DAILY cholecalciferol (vitamin D3) 25 mcg PO DAILY 90 days dapagliflozin propanediol (Farxiga) 10 mg PO DAILY 30 days ezetimibe 10 mg PO DAILY fluticasone propionate 50 mcg/actuation (Flonase Allergy Relief) 2 sprays intranasal DAILY lancets (FreeStyle Lancets) Use 1 lancet once a day losartan 100 mg PO BID metformin ER 1,000 mg PO QPM Tobacco use date assessed: 01/06/24 Dental Screening Dental Screen Date: 01/06/24 HPI HPI Comments History of Present Illness Details This is a 63-year-old female with diabetes mellitus type 2, hypertension, hyperlipidemia microalbuminuria that comes today for follow-up on her conditions. A1c elevated and I will add Rybelsus. I will not increase metformin because she used to be in 1500 mg and had diarrhea. Blood pressure stable. LDL within goal. Microalbumin has slightly worsened and this is follow by Nephrology. No chest pain or shortness on breath. [facility] Medical History CAD (coronary artery disease) PAC (premature atrial contraction) Tricuspid valve regurgitation Physical exam Screen for colon cancer Tachycardia Murmur Dyspnea Microalbuminuria Obesity (BMI 30.0-34.9) Dyslipidemia Hypertension Encounter for diabetic foot exam High cholesterol High blood pressure Diabetes mellitus Surgical History Stented coronary artery History of coronary artery stent placement S/P skin biopsy History of hernia repair S/P BLAIR-BSO (total abdominal hysterectomy and bilateral salpingo-oophorectomy) History of removal of cyst History of bladder surgery Family History Father CAD (coronary artery disease) CVD (cardiovascular disease) Myocardial infarction Substance use disorder Mother CVD (cardiovascular disease) Hypertension Brother Hypertension Sister Hypertension Daughter Obese Social History Housing: House Alcohol intake: current Alcohol intake frequency: holidays/special occasions only Alcohol type: hard liquor Patient Tobacco Use Status: Former Tobacco user Tobacco use type: Cigarette e-Cigarette/Vaping Use: Never Used Second Hand Smoke Exposure: No service: No Current occupational status: employed Current occupational exposures/hazards: No Cognitive needs: No Hearing needs: No Vision needs: Yes Questionnaire Thrive Questionnaire Date Thrive assessed: 01/06/24 ANDREA-7 AMB Questionnaire ANDREA-7 Date ANDREA - 7 assessed: 01/06/24 Source: Developed by Drs. Narendra Biggs, Puja Vidal, Edison Tapia and colleagues, with an educational leland from [employer]. Review of Systems Const All systems reviewed & are unremarkable except as noted in HPI and below Card Denies chest pain at rest, Denies chest pain with activity, Denies edema, Denies irregular heart rhythm, Denies claudication, Denies dyspnea, Denies dyspnea on exertion, Denies orthopnea, Denies paroxysmal nocturnal dyspnea and Denies slow heart rate Resp Denies cough, Denies dyspnea and Denies dyspnea on exertion Physical exam (Primary Care) Vital Signs: Last Vital Signs BP 120/68 07/06/24 08:20 BMI result Body Mass Index 31.2 BMI Assessment/Plan discussion: High BMI High, discussed plan: lifestyle, weight reduction, dietary and physical activity Tobacco/Smoking Status: Tobacco use Status Tobacco use date assessed 01/06/24 07/06/24 08:13 Patient Tobacco Use Status Former Tobacco user 07/06/24 08:13 Tobacco use type Cigarette 07/06/24 08:13 e-Cigarette/Vaping Use Never Used 07/06/24 08:13 Thrive Assessment: Date of Thrive Assessment Date Thrive assessed 01/06/24 07/06/24 08:13 Resp Effort & Inspection: normal respiratory effort Auscultation: clear to auscultation bilaterally Cardio Jugular venous distension: no JVD Rate: regular rate Rhythm: regular rhythm Heart sounds: S1 normal heart sound present and S2 normal heart sound present Extrem General: Yes full ROM Results AMB Hemoglobin A1c AMB Hemoglobin A1c 9.1 % Last Edit by KEILA Niño on 07/06/24 08:22 Results Reviewed Results Reviewed: Laboratory Last Values Hgb A1c (Clinic) 9.1 % (4.0-6.0) H 07/06/24 08:15 Assessment and Plan Assessment & Plan (1) Diabetes mellitus: Comment: has good control; doing well Code(s): E11.9 - Type 2 diabetes mellitus without complications Qualifiers: Diabetes mellitus type: type 2 Diabetes mellitus [facility] insulin use: without financial accounting manager use Diabetes mellitus complication status: without complication Qualified Code(s): E11.9 - Type 2 diabetes mellitus without complications Plan: Continue metformin and Farxiga. Start rybelsus. A1c goal is equal or less than 7%. (2) Hypertension: Code(s): I10 - Essential (primary) hypertension Qualifiers: Hypertension type: unspecified Qualified Code(s): I10 - Essential (primary) hypertension Plan: Continue chlorthalidone and losartan. Blood pressure goal is equal or less than 130/80. (3) Microalbuminuria: Code(s): R80.9 - Proteinuria, unspecified Plan: Follow-up with nephrology. (4) Hyperlipidemia LDL goal <70: Code(s): E78.5 - Hyperlipidemia, unspecified Plan: Continue statins. LDL goal is less than 70. Orders: Orders AMB Hemoglobin A1c Today E11.9 - Type 2 diabetes mellitus without complications Lipid Panel 4 Months E78.5 - Hyperlipidemia, unspecified Microalbumin, Random (w Creat) 4 Months E11.9 - Type 2 diabetes mellitus without complications Vitamin D 25-OH Total 4 Months E55.9 - Vitamin D deficiency, unspecified Comprehensive [place]. Panel Fast 4 Months E11.9 - Type 2 diabetes mellitus without complications Medications: New semaglutide (Rybelsus) 3 mg PO DAILY 30 days 30 tabs 0RF E11.9 - Type 2 diabetes mellitus without complications gabapentin 100 mg PO BEDTIME 90 days 90 caps 0RF Coding Level of Care Code Est Pt Level 4 (24521) Complex EM visit Add On G2211 Diagnoses Type 2 diabetes mellitus without complication, without long-term current use of insulin E11.9 Diabetes mellitus type: type 2 Diabetes mellitus financial accounting manager insulin use: without financial accounting manager use Diabetes mellitus complication status: without complication Hypertension, unspecified type I10 Hypertension type: unspecified Microalbuminuria R80.9 Hyperlipidemia LDL goal <70 E78.5 Time Spent (min) 23
[2024-07-06 08:20] VITALS: BP 120/68; BMI 31.2
== END 2024-07-06 09:00 | disposition home or self-care (01) ==
PROVIDERS: PCP Internal Medicine; Visit Provider Internal Medicine
DX: E11.9 Type 2 diabetes mellitus without complications (principal); I10 Essential (primary) hypertension; R80.9 Proteinuria, unspecified; E78.5 Hyperlipidemia, unspecified
CPT/HCPCS: 83036; 99214; G2211

== ENCOUNTER 2024-12-25 09:27 | Outpatient (REF) | payer OTHER, SELFPAY ==
--- OUTSIDE RECORDS SUMMARY | 2024-12-25 09:30 | XMS_ITS | Encounter Summary ---
Author Organization [facility] Address [address] [place] [address] Phone Care Team Providers Care Inspector Motor Vehicles Name Role Phone Rebecca Rudolph MD Primary Care Provider [phone] Encounter Details Date Type Department Care Team (Late st Contact Info) Description 05/24/2024 Documentation Only [facility] [address] [place] [address] Jojo Berry [address] [place] [address] Social History Tobacco Use Types Packs/Day Years Used Date Smoking Tobacco: Never Alcohol Use Standard Drinks/Week Comments No 0 (1 standard drink = 0.6 oz pure alcohol) Alcoholic Drinks/day: Occasional social drink Comments Unknown Sex and Gender Information Value Date Recorded Sex Assigned at Not on file Legal Sex Female 4:36 PM EST Gender Identity Not on file Sexual Orientation Not on file documented as of this encounter Plan of Treatment Upcoming Encounters Date Type Department Care Team (Late st Contact Info) Description 05/30/2025 3:30 PM EDT Office Visit [facility] [address] [place] [address] Jay Jay Jenkins MD [address] [place] [address] documented as of this encounter Visit Diagnoses Not on filedocumented in this encounter Care Teams Inspector Motor Vehicles Relationship Specialty Start Date End Date Rebecca Rudolph MD [address] [place] PCP - General Internal Medicine 01/10/22 documented as of this encounter
--- OUTSIDE RECORDS SUMMARY | 2024-12-25 09:30 | XMS_ITS | Encounter Summary ---
Author Organization [facility], Address [address] [place] [address] Phone Care Team Providers Care Software Test Automation Engineer Name Role Phone Rebecca Rduolph MD Primary Care Provider [phone] Encounter Details Date Type Department Care Team (Late st Contact Info) Description 12/17/2019 Orders Only [facility] [address] [place] [address] Jocelin Lester [address] [place] [phone] Social History Tobacco Use Types Packs/Day Years Used Date Smoking Tobacco: Never Alcohol Use Standard Drinks/Week Comments No 0 (1 standard drink = 0.6 oz pur e alcohol) Comments Unknown Sex and Gender Information Value Date Recorded Sex Assigned at Not on file Legal Sex Female 4:36 PM EST Gender Identity Not on file Sexual Orientation Not on file documented as of this encounter Plan of Treatment Upcoming Encounters Date Type Department Care Team (Late st Contact Info) Description 05/30/2025 3:30 PM EDT Office Visit [facility] [place], [address] [place] [address] Jay Jay Jenkins MD [address] [place] [address] documented as of this encounter Visit Diagnoses Not on filedocumented in this encounter Care Teams Software Test Automation Engineer Relationship Specialty Start Date End Date Rebecca Rudolph MD [address] [place] [address] PCP - General Internal Medicine 01/10/22 documented as of this encounter
--- OUTSIDE RECORDS SUMMARY | 2024-12-25 09:30 | XMS_ITS | Encounter Summary ---
Author Organization [facility], Address [address] [place] [address] Phone Care Team Providers Care Ditto Machine Operator Name Role Phone Rebecca Rudolph MD Primary Care Provider [phone] Reason for Visit * Reason Comments Med Refill Encounter Details Date Type Department Care Team (Late st Contact Info) Description 11/21/2024 Refill [facility] [place], [address] [place] [address] Jay Jay Jenkins MD [address] [place] [address] [place] [address] Social History Tobacco Use Types Packs/Day Years Used Date Smoking Tobacco: Former Cigarettes Alcohol Use Standard Drinks/Week Comments No 0 [...] Office Visit [facility] [address] [place] [address] Jay Jay Jenkins MD [address] [place] [address] documented as of this encounter Visit Diagnoses Not on filedocumented in this encounter Care Teams Ditto Machine Operator Relationship Specialty Start Date End Date Rebecca Rudolph MD [address] [place], [place] PCP - General Internal Medicine 01/10/22 documented as of this encounter
--- OUTSIDE RECORDS SUMMARY | 2024-12-25 09:30 | XMS_ITS | Encounter Summary ---
Author Organization [facility] [place], Address [address] [place] [address] Phone Care Team Providers Care Senior Manufacturing Engineer Name Role Phone Rebecca Rudolph MD Primary Care Provider [phone] Reason for Visit * Reason Onset Date Comments Med Refill 11/25/2024 Encounter Details Date Type Department Care Team (Late st Contact Info) Description 11/25/2024 Refill [facility] [place], [address] [address] Leena Rahman [address] [place] [phone] Social History Tobacco Use Types Packs/Day [...] Visit [facility] [place], [address] [facility] [address] Jay Jay Jenkins MD [address] [place] [address] documented as of this encounter Visit Diagnoses Not on filedocumented in this encounter Care Teams Senior Manufacturing Engineer Relationship Specialty Start Date End Date Roberto Trever, Rebecca, MD [address] [place], [place] PCP - General Internal Medicine 01/10/22 documented as of this encounter
--- OUTSIDE RECORDS SUMMARY | 2024-12-25 09:30 | XMS_ITS | Encounter Summary ---
Author Organization [facility] Address [address] [place] [address] Phone Care Team Providers Care Decorator Mannequin Name Role Phone Rebecca Rudolph MD Primary Care Provider [phone] Encounter Details Date Type Department Care Team (Late st Contact Info) Description 05/24/2024 Documentation Only [facility] [address] [place] [address] Jojo Berry [address] [place] [address] Social History Tobacco Use Types [...] Visit [facility] [address] [place] [address] Jay Jay Jenkins MD [address] [facility] [place] [address] documented as of this encounter Visit Diagnoses Not on filedocumented in this encounter Care Teams Decorator Mannequin Relationship Specialty Start Date End Date Rebecca Rudolph MD [address] [place] PCP - General Internal Medicine 01/10/22 documented as of this encounter
--- OUTSIDE RECORDS SUMMARY | 2024-12-25 09:30 | XMS_ITS | Patient Health Record ---
Author Organization [facility] Address [address] [place] [phone] Care Team Providers Care Load Out Supervisor Name Role Phone NONE, NONE Primary Care Provider Narendra Wilson Unavailable [phone] REASON FOR REFERRAL No Information SOCIAL HISTORY Sex Assigned At : Social History Observation Description Sex Assigned At Unknown PLAN OF TREATMENT No Information
--- OUTSIDE RECORDS SUMMARY | 2024-12-25 09:31 | XMS_ITS | Encounter Summary ---
Author Organization [facility], Address [address] [place] [address] Phone Care Team Providers Care Computer Operations Supervisor Name Role Phone Rebecca Rudolph MD Primary Care Provider [phone] Reason for Visit * Reason Comments Med Change Request Encounter Details Date Type Department Care Team (Late st Contact Info) Description 12/01/2024 Refill [facility] [address] [place] [address] Jay Jay Jenkins MD [address] [place] [address] [place] [address] Social History Tobacco Use Types [...] Office Visit [facility] [address] [place] [address] Jay Jay Jenkins MD [address] [place] [address] documented as of this encounter Visit Diagnoses Not on filedocumented in this encounter Care Teams Computer Operations Supervisor Relationship Specialty Start Date End Date Rebecca Rudolph MD [address] [place], [place] PCP - General Internal Medicine 01/10/22 documented as of this encounter
--- OUTSIDE RECORDS SUMMARY | 2024-12-25 09:31 | XMS_ITS | Encounter Summary ---
Author Organization [facility] [place], Address [address] [place] [address] Phone Care Team Providers Care Bee Breeder Name Role Phone Rebecca Rudolph MD Primary Care Provider [phone] Reason for Visit * Reason Onset Date Comments Med Refill 11/25/2024 Encounter Details Date Type Department Care Team (Late st Contact Info) Description 11/25/2024 Refill [facility] [place], [address] [place] [address] Jojo Berry [address] [place] [phone] Social History Tobacco Use Types Packs/Day [...] Visit [facility] [place], [address] [place] [place] [address] Jay Jay Jenkins MD [address] [place] [address] documented as of this encounter Visit Diagnoses Not on filedocumented in this encounter Care Teams Bee Breeder Relationship Specialty Start Date End Date Rebecca Rudolph MD [address] [place], [place] PCP - General Internal Medicine 01/10/22 documented as of this encounter
--- OUTSIDE RECORDS SUMMARY | 2024-12-25 09:31 | XMS_ITS | Encounter Summary ---
Author Organization [facility] [place], Address [address] [place] [address] Phone Care Team Providers Care Family Court Justice Name Role Phone Rebecca Rudolph MD Primary Care Provider [phone] Encounter Details Date Type Department Care Team (Late st Contact Info) Description 12/01/2024 Office Communication [facility] [place], [address] [place] [address] Jojo Berry [address] [place] [address] Social History Tobacco Use Types [...] on file documented as of this encounter Miscellaneous Notes * Telephone Encounter - Jojo Berry - 12/14/2024 4:33 PM EST Patient received Farxiga from pharmacy on 11/21. * Telephone Encounter - Destiney Phelps - 12/01/2024 2:46 PM EST The farxiga is covered, insurance says it is too soon to fill. Pharmacy will run when due. documented in this encounter Plan of Treatment Upcoming Encounters Date Type Department Care Team (Late st Contact Info) Description 05/30/2025 3:30 PM EDT Office Visit [facility] [address] [place] [address] Jay Jay Jenkins MD [address] [place] [address] [place] [phone] documented as of this encounter Visit Diagnoses Not on filedocumented in this encounter Care Teams Family Court Justice Relationship Specialty Start Date End Date Rebecca Rudolph MD [address] [place] [address] PCP - General Internal Medicine 01/10/22 documented as of this encounter
--- OUTSIDE RECORDS SUMMARY | 2024-12-25 09:31 | XMS_ITS | Encounter Summary ---
Author Organization [facility] [place], Address [address] [place] [address] Phone Care Team Providers Care Machinist Bench Name Role Phone Rebecca Rudolph MD Primary Care Provider [phone] Encounter Details Date Type Department Care Team (Late st Contact Info) Description 11/30/2024 Documentation Only [facility] [address] [place] [address] Jojo Berry [address] [place] [address] Social History Tobacco Use Types [...] Visit [facility] [address] [place] [address] Jay Jay Jenkins MD [address] [place] [address] [place] [address] documented as of this encounter Visit Diagnoses Not on filedocumented in this encounter Care Teams Machinist Bench Relationship Specialty Start Date End Date Rebecca Rudolph MD [address] [place], [place] PCP - General Internal Medicine 01/10/22 documented as of this encounter
--- OUTSIDE RECORDS SUMMARY | 2024-12-25 09:31 | XMS_ITS | Encounter Summary ---
Author Organization [facility], Address [address] [place] [address] Phone Care Team Providers Care Clinical Laboratory Technician Name Role Phone Rebecca Rudolph MD Primary Care Provider Encounter Details Date Type Department Care Team (Late st Contact Info) Description 11/29/2024 3:00 PM EST Office Visit [facility], [address] [place] [phone] Jose A Valdivia MD [address] [place] [address] Persistent proteinuria (Primary Dx) Social History Tobacco Use Types Packs/Day Years [...] on file documented as of this encounter Progress Notes * Jose A Valdivia MD - 11/29/2024 3:00 PM EST PATIENT: Taisha Berkowitz : 1960 ENCOUNTER: 11/29/2024 PCP: Rebecca Rudolph MD HPI: Taisha Berkowitz is a 64 y.o. year old female with a history of of mild proteinuria in the setting of metabolic syndrome. I have the pleasure of seeing her for a routine follow up of this. ROS: Constitutional: No fever. Respiratory: No shortness of breath. Cardiovascular: No chest pain. Gastrointestinal: No abdominal pain, nausea or vomiting. Genitourinary: No hematuria. All other systems reviewed and are negative. PAST MEDICAL HISTORY: Patient Active Problem List Diagnosis Date Noted Type 2 diabetes mellitus (HCC) Persistent proteinuria Microalbuminuria Dyslipidemia Hypercholesterolemia Essential (primary) hypertension 05/30/2020 PAST SURGICAL HISTORY: Past Surgical History: Procedure Laterality Date BLADDER SURGERY CORONARY STENT PLACEMENT HERNIA REPAIR OTHER SURGICAL HISTORY removal of cyst from unspecified location TOTAL ABDOMINAL HYSTERECTOMY W/ BILATERAL SALPINGOOPHORECTOMY SOCIAL HISTORY: Social History Tobacco Use Smoking status: Former Types: Cigarettes Smokeless tobacco: Not on file Substance Use Topics Alcohol use: No Comment: Alcoholic Drinks/day: Occasional social drink FAMILY HISTORY: Family History Problem Relation Age of Onset Other Mother cardiovascular disease Hypertension Mother Coronary artery disease Father Other Father cardiovascular disease, substance use disorder Heart attack Father Hypertension Sister Hypertension Brother MEDICATIONS: Outpatient Encounter Medications as of 11/29/2024 Medication Sig Dispense Refill carvedilol (COREG) 12.5 MG tablet Take 1 tablet (12.5 mg total) by mouth in the morning and 1 tablet (12.5 mg total) in the evening. Take with meals. 180 tablet 3 Dapagliflozin Propanediol (Farxiga) 5 MG tablet Take 5 mg by mouth 1 (one) time each day 30 tablet 11 aspirin 81 MG chewable tablet Chew 1 tablet 1 (one) time each day atorvastatin (LIPITOR) 10 MG tablet Comments: Filled Date: Jun 07 2017 12:00AM Patient Notes: TAKE 1 TABLET BY MOUTH EVERY DAY Duration: 30 chlorthalidone 25 MG tablet Take 2 tablets (50 mg total) by mouth 1 (one) time each day 60 tablet 11 ezetimibe (ZETIA) 10 MG tablet Take 10 mg by mouth 1 (one) time each day losartan (COZAAR) 100 MG tablet TAKE 1/2 TABLET BY MOUTH EVERY MORNING AND 1 TABLET EVERY NIGHT AT BEDTIME 135 tablet 3 metFORMIN XR (GLUCOPHATE-XR) 500 MG 24 hr tablet TAKE 2 TABLETS BY MOUTH EVERY DAY WITH EVENING MEAL No facility-administered encounter medications on file as of 11/29/2024. MEDICATION REVIEW: I have reviewed the patient's current medications. ALLERGIES: is allergic to ciprofloxacin, procardia [nifedipine], and sulfadiazine. PHYSICAL EXAM: There were no vitals taken for this visit. Constitutional: No apparent distress Cardiovascular: No friction rub. Pulmonary/Chest: No rales. Abdominal: Soft and non-tender. Extremities: Edema None LABS: Chemistry Lab Units 11/25/23 1607 CREATININE MG/DL 0.8 BUN MG/DL 19 POTASSIUM MMOL/L 3.8 SODIUM MMOL/L 141 CO2 MMOL/L 25 CHLORIDE MMOL/L 103 ALBUMIN GM/DL 4.4 EGFRNAFR ML/MIN/1.73 M2 87 HEMOGLOBIN A1C % 7.2* WBC AUTO K/MM3 13.3* HEMATOCRIT % 41.1 HEMOGLOBIN GM/DL 13.2 PLATELETS AUTO K/MM3 402 Bone Mineral Lab Units 11/25/23 1607 CALCIUM MG/DL 9.3 PHOSPHORUS MG/DL 2.5 VITAMIN D NG/ML 34.7 Urine Lab Units 11/25/23 1607 ALB MG/G CREAT UR MG/DL 438.2* 41.6 LABORATORY REVIEW: I have reviewed the labs noted above as well as in the chart, in CIS and in Care Everywhere. DOCUMENTATION REVIEW: I have reviewed the applicable outside notes located in the chart, in CIS and in Care Everywhere. ASSESSMENT: 1. Persistent proteinuria 64 year old lady we are seeing for proteinuria in the setting of metabolic syndrome. She is with hypertension. Proteinuria She is currently tolerating her losartan and dapagliflozin and denies any syncope or presyncope. She is with 0.7 grams of proteinuria when it was last checked. She has been on dapagliflozin with her losartan. No utis or rashes. 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 Her losartan carvedilol and chlorthalidone with some help from dapagliflozin is maintaining her at goal. I won't make any changes at this time. PLAN It's time for a repeat p/cr Return in 6 months to determine need for further intervention Jose A Valdivia MD Orders Placed This Encounter Urine Protein / creatinine ratio Urine Albumin / Creatinine Ratio Cosigned by Jay Jay Jenkins MD at 12/20/2024 8:11 AM EST Associated attestation - Jay Jay Jenkins MD - 12/20/2024 8:11 AM EST RENAL ATTENDING ADDENDUM: I have seen and evaluated this patient. I have discussed the case and itsmanagement with the resident/team as documented in the resident/team note on the day of service. The details of the case including pertinent labs and clinical findings were confirmed by me. The plan was formulated with the student/resident/fellow/PA/TYPIST as outlined below. documented in this encounter Plan of Treatment Upcoming Encounters Date Type Department Care Team (Late st Contact Info) Description 05/30/2025 3:30 PM EDT Office Visit [facility] [place], [address] [place] [phone] Jay Jay Jenkins MD [address] [place] [phone] Scheduled Orders Name Type Priority Associated Diagnoses Orde r Schedule Urine Protein / creatinine ratio Lab Routine Persistent proteinuria Expected: 11/29/2024, Expires: 12/30/2025 Urine Albumin / Creatinine Ratio Lab Routine Persistent proteinuria Expected: 11/29/2024, Expires: 12/30/2025 documented as of this encounter Visit Diagnoses Diagnosis Persistent proteinuria- Primary documented in this encounter Care Teams Clinical Laboratory Technician Relationship Specialty Start Date End Date Rebecca Rudolph MD [address] [place] [address] PCP - General Internal Medicine 01/10/22 documented as of this encounter
--- OUTSIDE RECORDS SUMMARY | 2024-12-25 09:31 | XMS_ITS | Clinical Summary ---
Author Organization [facility], Address [address] [place] [address] Phone Care Team Providers Care Office Clinician Name Role Phone Rebecca Rudolph MD Primary Care Provider [phone] Allergies Active Allergy Reactions Criticality Noted Date Comments Ciprofloxacin 01/10/2020 Nifedipine 01/10/2020 Sulfadiazine 11/23/2009 Other reaction(s): reash Medications aspirin 81 MG chewable tablet Chew 1 tablet 1 (one) time each day Active atorvastatin (LIPITOR) 10 MG tablet Comments: Filled Date: Jun 07 2017 12:00AM Patient Notes: TAKE 1 TABLET BY MOUTH EVERY DAY Duration: 30 08/12/2016 Active metFORMIN XR (GLUCOPHATE-XR) 500 MG 24 hr tablet TAKE 2 TABLETS BY MOUTH EVERY DAY WITH EVENING MEAL 01/24/2020 Active chlorthalidone 25 MG tablet Take 2 tablets (50 mg total) by mouth 1 (one) time each day 60 tablet 11 03/15/2024 Active losartan (COZAAR) 100 MG tablet TAKE 1/2 TABLET BY MOUTH EVERY MORNING AND 1 TABLET EVERY NIGHT AT BEDTIME 135 tablet 3 08/17/2024 Active carvedilol (COREG) 12.5 MG tablet Take 1 tablet (12.5 mg total) by mouth in the morning and 1 tablet (12.5 mg total) in the evening. Take with meals. 180 tablet 3 11/25/2024 11/25/19 26 Active Dapagliflozin Propanediol (Farxiga) 5 MG tablet Take 5 mg by mouth 1 (one) time each day 30 tablet 11 11/25/2024 Active ezetimibe (ZETIA) 10 MG tablet Take 10 mg by mouth 1 (one) time each day Active Active Problems Problem Noted Date Diagnosed Date Essential (primary) hypertension 05/30/2020 Type 2 diabetes mellitus Persistent proteinuria Microalbuminuria Dyslipidemia Hypercholesterolemia Encounters Date Type Department Care Team Description 12/14/2024 Documentation Only [facility] [address] [place] [address] KristiJojo bashir 12/01/2024 Refill [facility] [address] [place] [address] Jay Jay Jenkins MD 12/01/2024 Office Communication [facility] [address] [place] [address] KristiJojo bashir 11/30/2024 Documentation Only [facility] [address] [place] [address] KristiJojo bashir 11/29/2024 3:00 PM EST Office Visit [facility] [address] [place] [address] Jose A Valdivia MD Persistent proteinuria (Primary Dx) 11/25/2024 Refill [facility] [address] [place] [address] Jay Jay Jenkins MD 11/25/2024 Refill [facility] [address] [place] [address] KristiJojo bashir 11/25/2024 Refill [facility] [address] [place] [address] Rahman, Leena 11/21/2024 Refill [facility] [place] [address] [place] [address] Jay Jay Jenkins MD from Last 3 Months Immunizations Name Administration Dates Next Due Influenza, MDCK, PF, Quadrivalent 08/26/2020 Influenza, Unspecified 09/18/2021,11/24/2009 Liane SARS-COV-2 02/18/2021 Moderna SARS-COV-2 06/01/2022,12/08/2021 Pneumococcal Polysaccharide 11/17/2010 Shingrix 04/05/2018 Tdap 11/17/2010 Zoster 09/12/2018 Family History Medical History Relation Comments Hypertension Brother Coronary artery disease Father Heart attack Father Other Father cardiovascular d isease, substance use disorder Hypertension Mother Other Mother cardiovascular d isease Hypertension Sister Relation Status Comments Brother Father Mother Alive Sister Social History Tobacco Use Types Packs/Day Years Used Date Smoking Tobacco: Former Cigarettes Tobacco Cessation:Counseling Given: Not Answered Alcohol Use Standard Drinks/Week Comments No 0 (1 standard drink = 0.6 oz pure alcohol) Alcoholic Drinks/day: Occasional social drink Comments Unknown Sex and Gender Information Value Date Recorded Sex Assigned at Not on file Legal Sex Female 4:36 PM EST Gender Identity Not on file Sexual Orientation Not on file Last Filed Vital Signs Vital Sign Reading Time Taken Comments Blood Pressure 122/62 05/25/2024 4:10 PM EDT Pulse 63 11/25/2023 3:55 PM EST Temperature - - Respiratory Rate - - Oxygen Saturation - - Inhaled Oxygen Concentration - - Weight 77.6 kg (171 lb) 09/29/2019 12:00 PM EST Height 160 cm (5' 3 ) 09/29/2019 12:00 PM EST Body Mass Index 30.29 09/29/2019 12:00 PM EST Plan of Treatment Upcoming Encounters Date Type Department Care Team (Late st Contact Info) Description 05/30/2025 3:30 PM EDT Office Visit [facility] [place], [address] [place] [address] Jay Jay Jenkins MD [address] [place] [address] Health Maintenance Due Date Last Done Comments Breast Cancer Screening 1960 Colorectal Cancer Screening: Annual FOBT 2009 Colorectal Cancer Screening: Colonoscopy 2009 Colorectal Cancer Screening: Sigmoidoscopy 2009 Pneumococcal Vaccine: Pediatrics (0 to 5 Years) and At-Risk Patients (6 to 64 Years) (2 of 2 - PCV) 11/17/2011 11/17/2010 Diabetes: Ophthalmology Exam 02/07/2020 Diabetes: Pedal Pulse Checked 02/07/2020 Diabetes: Sensory Foot Exam 02/07/2020 Diabetes: Visual Foot Exam 02/07/2020 Diabetes: Hemoglobin A1C 02/24/2024 024, 02/21/2021 Influenza Vaccine (#1) 2024 1, 08/26/2020, 11/24/2009 Hepatitis B Vaccine Aged Out No longe r eligible based on patient's age to complete this topic Procedures Procedure Name Priority Date/Time Associated Diagnosis Comments HEMOGLOBIN A1C Routine 11/25/2023 4:07 PM EST Persistent proteinuria from Last 3 Months or Most Recently Relevant to Health Maintenance Results * (ABNORMAL) Hemoglobin A1c (11/25/2023 4:07 PM EST) Hemoglobin A1C 7.2(H) (4.0-5.6) % [facility] Comment: MONITORING: In known diabetic patients, hemoglobin A1c targets should be discussed with health care provider. DIAGNOSTIC USE: ??The [place] Diabetes Association (ADA) and the World Health Organization (WHO) recommend the use of HbA1c to diagnose diabetes using a threshold of 6.5%. Patients who have an HbA1c between 5.7% and 6.4% are considered at increased risk for developing diabetes in the future. CAUTION: Falsely low HbA1c results may be observed in patients with hemolytic anemia, homozygous forms of abnormal hemoglobin (e.g. SS, CC, SC), , recent blood loss or hemoglobin F greater than 7%. Fructosamine may be used as an alternate test in these cases. REFERENCE: ADA: Standards of Medical Care in Diabetes 2020, The Journal of Clinical and Applied Research and Education Volume 43, Supplement 1 Testing performed or reported by [facility], a Service of [facility], [address] [place] [address] Moi Apple MD, Language Pathologist [facility]# [id number] Blood (Blood, Venous) 11/25/2023 4:07 PM EST 11/25/2023 4:08 PM EST us Jay Jay Jenkins MD LAB BLOOD ORDERABLES Final Re sult [facility] from Last 3 Months or Most Recently Relevant to Health Maintenance Insurance [facility] Care Teams Office Clinician Relationship Specialty Start Date End Date Rebecca Rudolph MD [address] [place], [place] PCP - General Internal Medicine 01/10/22
--- OUTSIDE RECORDS SUMMARY | 2024-12-25 09:31 | XMS_ITS | Encounter Summary ---
Author Organization [facility], Address [address] [place] [address] Phone Care Team Providers Care Gear Changer Name Role Phone Rebecca Rudolph MD Primary Care Provider [phone] Reason for Visit * Reason Comments Med Change Request Encounter Details Date Type Department Care Team (Late st Contact Info) Description 11/25/2024 Refill [facility] [address] [address] Jay Jay Jenkins MD [address] [place] [address] [place] [address] Social History Tobacco Use Types [...] Office Visit [facility] [address] [place] [address] Jay Jay Jenkins MD [address] [place] [address] documented as of this encounter Visit Diagnoses Not on filedocumented in this encounter Care Teams Gear Changer Relationship Specialty Start Date End Date Rebecca Rudolph MD [address] [place], [place] PCP - General Internal Medicine 01/10/22 documented as of this encounter
--- OUTSIDE RECORDS SUMMARY | 2024-12-25 09:31 | XMS_ITS | Encounter Summary ---
Author Organization [facility] [place], Address [address] [place] [address] Phone Care Team Providers Care Sock Mender Name Role Phone Rebecca Rudolph MD Primary Care Provider [phone] Encounter Details Date Type Department Care Team (Late st Contact Info) Description 12/14/2024 Documentation Only [facility] [address] [place] [address] Jojo Berry [address] [place] [address] Social History Tobacco Use Types [...] Visit [facility] [address] [place] [address] Jay Jay Jenkins MD [address] [place] [address] [place] [address] documented as of this encounter Visit Diagnoses Not on filedocumented in this encounter Care Teams Sock Mender Relationship Specialty Start Date End Date Rebecca Rudolph MD [address] [place], [place] PCP - General Internal Medicine 01/10/22 documented as of this encounter
[2024-12-25 11:38] LABS: Creatinine Urine 92.68 mg/dL; Microalbum/Creatinine Ratio Ur 116.5 ug/mg cr (<30); Total Protein Urine Random 20 mg/dL (<12)
[2024-12-25 11:54] LABS: Alanine Aminotransferase 28 U/L (0-31); Albumin Level 4.4 g/dL (3.5-5.0); Alkaline Phosphatase 88 U/L (39-117); Anion Gap 14 (12-20); Aspartate Amino Transferase 21 U/L (5-31); Bilirubin Total 0.5 mg/dL (0.0-1.0); Blood Urea Nitrogen 27 mg/dL (9-16); Calcium 9.8 mg/dL (8.4-10.2); Carbon Dioxide 26 mmol/L (22-29); Chloride 105 mmol/L (96-108); Cholesterol 144 mg/dL (<200); Estimated Glomerular Filt Rate 56; Glucose Fasting 209 mg/dL (60-99); HDL Cholesterol 45 mg/dL (>40); LDL Cholesterol Calculated 76 mg/dL (<100); Potassium 3.5 mmol/L (3.3-5.1); Sodium 141 mmol/L (135-145); Total Protein 8.2 g/dL (6.5-8.0); Triglycerides 117 mg/dL (<150)
[2024-12-25 11:56] LABS: Vitamin D 25-OH Total 56.1 ng/mL (>30)
== END 2024-12-25 09:28 | disposition home or self-care (01) ==
LOC: HO.LAB 09:27
PROVIDERS: PCP Internal Medicine; Referring Provider Internal Medicine; Visit Provider Student in an Organized Health Care Education/Training Program
DX: E11.9 Type 2 diabetes mellitus without complications (principal); E78.5 Hyperlipidemia, unspecified; E55.9 Vitamin D deficiency, unspecified; R80.1 Persistent proteinuria, unspecified
CPT/HCPCS: 36415; 80053; 80061; 82043; 82306; 82570; 84156

== ENCOUNTER 2025-01-11 08:29 | Outpatient (AMB) | payer OTHER, SELFPAY ==
--- NOTE | 2025-01-11 08:31 | A.OFFPC_ITS ---
Vital Signs 01/11/25 08:34 Height 5 ft 1 in Weight 165 lb BMI 31.2 BP 128/70 Blood Pressure Location Lt brachial Position Sitting Intake Visit Reasons: Annual exam Intake Note: Patient here for an annual physical exam Psychologist Developmental Required: No Accompanied by: Self / Same As Patient Allergies ciprofloxacin [From CIPRO] Allergy (Severe, Verified 01/11/25 08:44) ANAPHYLAXIS; RASH semaglutide [From Rybelsus] Adverse Reaction (Intermediate, Verified 01/11/25 08:50) blurry vision Medication List - Last Reconciled 01/11/25 by Rebecca Perera MD ascorbic acid (vitamin C) mg PO aspirin (Adult Low Dose Aspirin) 81 mg PO DAILY atorvastatin 40 mg PO DAILY blood sugar diagnostic (FreeStyle Lite Strips) Use 1 test strip once a day carvedilol 12.5 mg PO BID chlorthalidone 50 mg PO DAILY cholecalciferol (vitamin D3) 25 mcg PO DAILY 90 days dapagliflozin propanediol (Farxiga) 10 mg PO DAILY 30 days ezetimibe 10 mg PO DAILY fluticasone propionate 50 mcg/actuation (Flonase Allergy Relief) 2 sprays intranasal DAILY gabapentin 100 mg PO BEDTIME 90 days lancets (FreeStyle Lancets) Use 1 lancet once a day losartan 100 mg PO BID metformin ER 1,000 mg (2 x 500 mg) PO QPM semaglutide (Rybelsus) 3 mg PO DAILY 30 days Tobacco use date assessed: 01/11/25 Fall risk assessment: No Falls in past year Last assessed Fall Risk: 01/11/25 Dental Screening Dental Screen Date: 01/11/25 Did you have a dental visit in the last 12 months?: Yes Did you have a dental problem in the last 6 months where you did not have access to dental care?: No Was dental information given to patient?: Patient has dentist HPI HPI Comments History of Present Illness Details The patient is a 64-year-old female presenting for a physical examination. Her medical history includes Diabetes Mellitus, which has shown a progression of worsened glycemic control with an A1c increase from 9.1 in June to 9.9 currently. Management has likely involved lifestyle modifications and potentially pharmacologic measures, though specific treatments were not mentioned in the discussion. She has also been managing microalbuminuria, with a protein level of 108 mg/dL in the urine, and follows with nephrology for this condition. Her most recent nephrology visit was last month, indicating continued monitoring and treatment, though specific details were not provided in the conversation. Additionally, there are no immediate complications or symptoms associated with her diabetes that were noted in this visit. Has skin lesions diffuse throughout the body and needs referral to Dermatology. - Last Tdap vaccination was in 2010. - Last mammogram in October, result neg ative. - Cologuard test was negative in 2022; t he next Cologuard is recommended for 2025. - LDL cholesterol level is 76 mg/dL, marin se to therapeutic target. - Bone density results not available; to be ordered. - Chronic disease management for Diabete s Mellitus with emphasis on glycemic control; HbA1c currently 9.9. [facility] Medical History CAD (coronary artery disease) PAC (premature atrial contraction) Tricuspid valve regurgitation Physical exam Screen for colon cancer Tachycardia Murmur Dyspnea Microalbuminuria Obesity (BMI 30.0-34.9) Dyslipidemia Hypertension Encounter for diabetic foot exam High cholesterol High blood pressure Diabetes mellitus Surgical History Stented coronary artery History of coronary artery stent placement S/P skin biopsy History of hernia repair S/P BLAIR-BSO (total abdominal hysterectomy and bilateral salpingo-oophorectomy) History of removal of cyst History of bladder surgery Family History Father CAD (coronary artery disease) CVD (cardiovascular disease) Myocardial infarction Substance use disorder Mother CVD (cardiovascular disease) Hypertension Brother Hypertension Sister Hypertension Daughter Obese Social History Housing: House Alcohol intake: current Alcohol intake frequency: holidays/special occasions only Alcohol type: hard liquor Patient Tobacco Use Status: Former Tobacco user Tobacco use type: Cigarette e-Cigarette/Vaping Use: Never Used Second Hand Smoke Exposure: No service: No Current occupational status: employed Current occupational exposures/hazards: No Cognitive needs: No Hearing needs: No Vision needs: Yes Questionnaire PHQ-9 Over the last 2 weeks, how often have you been bothered by any of the following problems? 1. Little interest or pleasure in doing things: not at all 2. Feeling down, depressed, or hopeless: not at all 3. Trouble falling or staying asleep, or sleeping too much: not at all 4. Feeling tired or having little energy: not at all 5. Poor appetite or overeating: not at all 6. Feeling bad about yourself - or that you are a failure or have let yourself or your family down: not at all 7. Trouble concentrating on things, such as reading the newspaper or watching television: not at all 8. Moving or speaking so slowly that other people could have noticed. Or the opposite - being so fidgety or restless that you have been moving around a lot more than usual: not at all 9. Thoughts that you would be better off or of hurting yourself in some way: not at all Total score: 0 Depression Screening Interpretation: Negative Depression Screening Done: Yes 66480 - PHQ-9 Billing: Yes Source: Developed by Drs. Narendra Biggs, Puja Vidal, Edison Tapia and colleagues, with an educational leland from [employer]. Thrive Questionnaire Date Thrive assessed: 01/11/25 I am a: Patient What is your living situation today?: I have a steady place to live Within the past 12 months, did the food you bought not last and you didn't have the money to get more?: Never true Within the past 12 months, did you worry whether your food would run out before you got money to buy more?: Never true Do you have trouble paying for medicines?: No Do you have trouble getting transportation to medical appointments?: No Do you have trouble paying your heating and electricity bill?: No Do you have trouble taking care of your child, family member or friend?: No Do you have trouble with day-to-day activities such as bathing, preparing meals, shopping, managing finances, etc.?: No Are you currently unemployed and looking for a job?: No Are you interested in more education?: No Please select the resources that you would like help with: None Currently or been in a relationship where the following occur: No concerns reported THRIVE Score: 0 AUDIT C Alcohol Use Questionnaire (AUDIT-C) 1. How often do you have a drink containing alcohol?: Monthly or less 2. How many drinks containing alcohol do you have on a typical day when you are drinking?: 1 or 2 3. How often do you have six or more drinks on one occasion?: Never Total Score: 1 Score Reviewed/Action Taken: No ANDREA-7 AMB Questionnaire ANDREA-7 Date ANDREA - 7 assessed: 01/11/25 Feeling nervous, anxious, or on edge: 0 = Not at all Not being able to stop or control worryin = Not at all Worrying too much about different things: 0 = Not at all Trouble relaxin = Not at all Being so restless that it is hard to sit still: 0 = Not at all Becoming easily annoyed or irritable: 0 = Not at all Feeling afraid as if something awful might happen: 0 = Not at all Total ANDREA-7 score (0-4 normal; 5-9 mild; 10-14 moderate; 15-21 severe): 0 Source: Developed by Drs. Narendra Biggs, Puja Vidal, Edison Tapia and colleagues, with an educational leland from [employer]. ANDREA-7 Assessment Billing ANDREA-7 Assessment Tool: ANDREA-7 Assessment 99458 Review of Systems Const All systems reviewed & are unremarkable except as noted in HPI and below Card Denies chest pain at rest, Denies chest pain with activity, Denies edema, Denies irregular heart rhythm, Denies claudication, Denies dyspnea, Denies dyspnea on exertion, Denies orthopnea, Denies paroxysmal nocturnal dyspnea and Denies slow heart rate Resp Denies cough, Denies dyspnea and Denies dyspnea on exertion GI Denies abdominal pain, Denies change in bowel habits, Denies excessive flatus, Denies nausea and Denies vomiting Denies urinary incontinence, Denies urinary hesitancy and Denies urinary urgency Musc Denies abnormal gait, Denies atrophy, Denies deformity and Denies limited range of motion Skin/Breast Denies bleeding lesions, Denies changing lesions and Denies rash Neuro Denies abnormal gait, Denies behavioral changes, Denies confusion and Denies lack of coordination Psych Denies behavioral changes and Denies confusion Physical exam (Primary Care) Vital Signs: Last Vital Signs BP 128/70 01/11/25 08:34 BMI result Body Mass Index 31.2 BMI Assessment/Plan discussion: High BMI High, discussed plan: lifestyle, weight reduction, dietary and physical activity Tobacco/Smoking Status: Tobacco use Status Tobacco use date assessed 01/11/25 01/11/25 08:38 Patient Tobacco Use Status Former Tobacco user 01/11/25 08:32 Tobacco use type Cigarette 01/11/25 08:32 e-Cigarette/Vaping Use Never Used 01/11/25 08:32 PHQ-9: PHQ-9 Score PHQ-9: Total score 0 01/11/25 09:03 Depression Screening Interpretation: Negative Thrive Assessment: Date of Thrive Assessment Date Thrive assessed 01/11/25 01/11/25 08:38 Currently or been in a relationship where the following occur: No concerns reported Const General: No confusion Orientation/consciousness: patient oriented x3 and No confusion HENMT Other: Bilateral hearing aids Head: Yes normal to inspection, Yes normocephalic and Yes atraumatic Ears: external ears normal Eyes General: appearance normal, both eyes and all related structures Eyelids: Yes eyelids normal Conjunctivae: conjunctivae normal Neck Neck: Yes normal visual inspection and Yes supple Resp Effort & Inspection: normal respiratory effort Auscultation: clear to auscultation bilaterally Cardio Jugular venous distension: no JVD Rate: regular rate Rhythm: regular rhythm Heart sounds: S1 normal heart sound present and S2 normal heart sound present GI Inspection: Yes normal to inspection Palpation (GI): Soft to palpation and nontender Auscultation: normal bowel sounds Skin General skin exam: no rashes or lesions noted Neuro General: patient oriented x3, no focal motor deficits and No confusion Extrem General: Yes full ROM Psych Appearance: grossly normal Results AMB Hemoglobin A1c AMB Hemoglobin A1c 9.9 % Last Edit by KEILA Niño on 01/11/25 08:4 2 Immunizations Boostrix Tdap 2.5 Lf unit-8 mcg-5 Lf/0.5 mL intramuscular syringe Performing Provider: Rebecca Perera MD Per[facility] Administered by: KEILA Niño on 01/11/25 09:03 Dose Route Admin Location Dispensed Lot Number Expiration Date [facility] Advertising Account Manager 0.5 mL IM Left Deltoid 0.5 mL [id number] 03/05/27 [id number] Facio VIS Given Date VIS Provided VIS Publication Date 01/11/25 Single Vaccine 21 Eligibility Eligibility Date Funding Source Not [facility] Eligible 01/11/25 Private Results Reviewed Results Reviewed: Laboratory Last Values Hgb A1c (Clinic) 9.9 % (4.0-6.0) H 01/11/25 08:31 Coding Level of Care Code Est Pt Level 3 (21937) Est Pt Prev Care 40-64y(61992) Diagnoses Physical exam Z00.00 Type 2 diabetes mellitus without complication, without long-term current use of insulin E11.9 Diabetes mellitus complication status: without complication Diabetes mellitus intermediate card tender insulin use: without intermediate card tender use Diabetes mellitus type: type 2 Skin lesion L98.9 Additional Codes ANDREA-7 Assessment Billing - ANDREA-7 Assessment Tool: ANDREA-7 Assessment 24325 ([id number]) PHQ-9 - 93033 - PHQ-9 Billing: Yes ([id number]) Time Spent (min) 33 Assessment & Plan Assessment & Plan (1) Physical exam: Code(s): Z00.00 - Encounter for general adult medical examination without abnormal findings Category: Medical (2) Diabetes mellitus: Comment: has good control; doing well Code(s): E11.9 - Type 2 diabetes mellitus without complications Category: Medical Qualifiers: Diabetes mellitus complication status: without complication Diabetes mellitus intermediate card tender insulin use: without intermediate card tender use Diabetes mellitus type: type 2 Qualified Code(s): E11.9 - Type 2 diabetes mellitus without complications (3) Skin lesion: Code(s): L98.9 - Disorder of the skin and subcutaneous tissue, unspecified Category: Medical Plan - Order bone density test due to absence of recent results. - Continue current management for Diabetes Mellitus, focusing on improved glycemic control. Referred to Endocrinology. A1c goal is equal or less than 7%. - Continue nephrology follow-up for microalbuminuria. - Schedule the next Cologuard screening for 2025. - Refer to Dermatology for skin lesion. Patient was informed and verbally consented to the use of an ambient scribe for clinic note documentation during this visit. I discussed with the patient the importance of maintaining glycemic control, considering the increase in her HbA1c level. We reviewed the current management strategies and emphasized the need for adhering to diabetic care, although specific medications were not mentioned. The role of nephrology in monitoring her microalbuminuria was reinforced. Additionally, I ensured that the patient was aware of the scheduling for her next mammogram and Cologuard screening. I informed her that we need to order a bone density test, since no recent results were available, to manage potential osteoporosis risk given her age and diabetic status. Orders: Orders Microalbumin, Random (w Creat) 4 Months R80.9 - Proteinuria, unspecified Comprehensive [place]. Panel Fast 4 Months E78.5 - Hyperlipidemia, unspecified TDaP Immunization Today Z23 - Encounter for immunization AMB Hemoglobin A1c Today E11.9 - Type 2 diabetes mellitus without complications XR DEXA axial skeleton Today Z78.0 - Asymptomatic menopausal state Vitamin D 25-OH Total 4 Months E55.9 - Vitamin D deficiency, unspecified Lipid Panel 4 Months E78.5 - Hyperlipidemia, unspecified Referrals Endocrinology Referral E11.9 - Type 2 diabetes mellitus without complications Dermatology Referral L98.9 - Disorder of the skin and subcutaneous tissue, unspecified Medications: New fluconazole 150 mg PO Q3D 2 tabs 0RF 2 doses Patient Instructions: - Continue monitoring blood glucose levels and follow diabetic management plan a s advised. - Adhere to any steps advised by nephrology for kidney health. - Schedule and attend next Cologuard screening in 2025. - Await call for scheduling bone density test.
[2025-01-11 08:34] VITALS: BP 128/70; BMI 31.2
--- OUTSIDE RECORDS SUMMARY | 2025-01-11 08:59 | XMS_ITS | Encounter Summary ---
Author Organization [facility] Address [address] [place] [address] Phone Care Team Providers Care Mailroom Manager Name Role Phone Rebecca Rudolph MD Primary Care Provider Encounter Details Date Type Department Care Team (Late st Contact Info) Description 05/24/2024 Documentation Only [facility] [address] [place] [address] Jojo Berry [address] [place] [address] Social History Tobacco Use Types [...] Visit [facility] [address] [place] [address] Jay Jay Jenkins MD [address] [place] [address] documented as of this encounter Visit Diagnoses Not on filedocumented in this encounter Care Teams Mailroom Manager Relationship Specialty Start Date End Date Rebecca Rudolph MD [address] [place] PCP - General Internal Medicine 01/10/22 documented as of this encounter
--- OUTSIDE RECORDS SUMMARY | 2025-01-11 08:59 | XMS_ITS | Encounter Summary ---
Author Organization [facility] [place], Address [address] [place] [address] Phone Care Team Providers Care Belt Loop Machine Operator Name Role Phone Rebecca Rudolph MD Primary Care Provider Encounter Details Date Type Department Care Team (Late st Contact Info) Description 12/14/2024 Documentation Only [facility] [address] [place] [address] Jojo Berry [address] [place] [address] Social History Tobacco Use Types [...] Visit [facility] [address] [place] [address] Jay Jay Jenkins MD [address] [place] [address] [place] [address] documented as of this encounter Visit Diagnoses Not on filedocumented in this encounter Care Teams Belt Loop Machine Operator Relationship Specialty Start Date End Date Rebecca Rudolph MD [address] [place], [place] PCP - General Internal Medicine 01/10/22 documented as of this encounter
--- OUTSIDE RECORDS SUMMARY | 2025-01-11 08:59 | XMS_ITS | Encounter Summary ---
Author Organization [facility], Address [address] [place] [address] Phone Care Team Providers Care String Top Sealer Name Role Phone Rebecca Rudolph MD Primary Care Provider [phone] Reason for Visit * Reason Comments Med Refill Encounter Details Date Type Department Care Team (Late st Contact Info) Description 11/21/2024 Refill [facility] [place], [address] [place] [address] Jay Jay Jenkins MD [address] [place] [address] [place] [address] Social History Tobacco Use Types [...] Office Visit [facility] [address] [place] [address] Jay Jay Jenkins MD [address] [facility] [place] [address] documented as of this encounter Visit Diagnoses Not on filedocumented in this encounter Care Teams String Top Sealer Relationship Specialty Start Date End Date Rebecca Rudolph MD [address] [place], [place] PCP - General Internal Medicine 01/10/22 documented as of this encounter
--- OUTSIDE RECORDS SUMMARY | 2025-01-11 08:59 | XMS_ITS | Patient Health Record ---
Author Organization [facility] Address [address] [place] [address] Care Team Providers Care Vat House Supervisor Name Role Phone NONE, NONE Primary Care Provider Narendra Wilson Unavailable [phone] REASON FOR REFERRAL No Information SOCIAL HISTORY Sex Assigned At : Social History Observation Description Sex Assigned At Unknown PLAN OF TREATMENT No Information
--- OUTSIDE RECORDS SUMMARY | 2025-01-11 08:59 | XMS_ITS | Encounter Summary ---
Author Organization [facility] Address [address] [place] [address] Phone Care Team Providers Care Obstetrical Tech Name Role Phone Rebecca Rudolph MD Primary Care Provider [phone] Encounter Details Date Type Department Care Team (Late st Contact Info) Description 05/24/2024 Documentation Only [facility] [address] [place] [place] [address] Jojo Berry [address] [place] [address] Social History Tobacco Use Types [...] Visit [facility] [address] [place] [address] Jay Jay Jenkins MD [address] [place] [address] documented as of this encounter Visit Diagnoses Not on filedocumented in this encounter Care Teams Obstetrical Tech Relationship Specialty Start Date End Date Rebecca Rudolph MD [address] [place] PCP - General Internal Medicine 01/10/22 documented as of this encounter
--- OUTSIDE RECORDS SUMMARY | 2025-01-11 08:59 | XMS_ITS | Encounter Summary ---
Author Organization [facility], Address [address] [place] [address] Phone Care Team Providers Care Performance Tester Name Role Phone Rebecca Rudolph MD Primary Care Provider [phone] Reason for Visit * Reason Comments Med Change Request Encounter Details Date Type Department Care Team (Late st Contact Info) Description 12/01/2024 Refill [facility] [address] [place] [address] Jay Jay Jenkins MD [address] [place] [address] [place] [address] Social History Tobacco Use Types [...] Office Visit [facility] [address] [place] [address] Jay Jay Jenkins MD [address] [facility] [place] [address] documented as of this encounter Visit Diagnoses Not on filedocumented in this encounter Care Teams Performance Tester Relationship Specialty Start Date End Date Rebecca Rudolph MD [address] [place], [place] PCP - General Internal Medicine 01/10/22 documented as of this encounter
--- OUTSIDE RECORDS SUMMARY | 2025-01-11 08:59 | XMS_ITS | Encounter Summary ---
Author Organization [facility], Address [address] [place] [address] Phone Care Team Providers Care Sailing Officer Name Role Phone Rebecca Rudolph MD Primary Care Provider [phone] Reason for Visit * Reason Comments Med Change Request Encounter Details Date Type Department Care Team (Late st Contact Info) Description 11/25/2024 Refill [facility] [address] [place] [address] Jay Jay Jenkins MD [address] [place] [address] [place] [address] Social History Tobacco Use Types [...] Office Visit [facility] [address] [place] [address] Jay Jay Jenkins MD [address] [place] [address] documented as of this encounter Visit Diagnoses Not on filedocumented in this encounter Care Teams Sailing Officer Relationship Specialty Start Date End Date Rebecca Rudolph MD [address] [place], [place] PCP - General Internal Medicine 01/10/22 documented as of this encounter
--- OUTSIDE RECORDS SUMMARY | 2025-01-11 08:59 | XMS_ITS | Encounter Summary ---
Author Organization [facility], Address [address] [place] [address] Phone Care Team Providers Care Protection Mgr Name Role Phone Rebecca Rudolph MD Primary Care Provider [phone] Encounter Details Date Type Department Care Team (Late st Contact Info) Description 12/17/2019 Orders Only [facility] [address] [place] [address] Jocelin Lester [address] [place] [phone] Social History Tobacco Use Types Packs/Day Years [...] Visit [facility] [place], [address] [place] [address] Jay Jay Jenkins MD [address] [place] [address] documented as of this encounter Visit Diagnoses Not on filedocumented in this encounter Care Teams Protection Mgr Relationship Specialty Start Date End Date Rebecca Rudolph MD [address] [place] [address] PCP - General Internal Medicine 01/10/22 documented as of this encounter
--- OUTSIDE RECORDS SUMMARY | 2025-01-11 08:59 | XMS_ITS | Encounter Summary ---
Author Organization [facility] [place], Address [address] [place] [address] Phone Care Team Providers Care Hydrometeorological Technician Name Role Phone Rebecca Rudolph MD Primary Care Provider [phone] Encounter Details Date Type Department Care Team (Late st Contact Info) Description 11/30/2024 Documentation Only [facility] [address] [place] [address] Jojo Berry [address] [place] [address] Social History Tobacco Use Types [...] Visit [facility] [address] [place] [address] Jay Jay Jenkins MD [address] [place] [address] [place] [address] documented as of this encounter Visit Diagnoses Not on filedocumented in this encounter Care Teams Hydrometeorological Technician Relationship Specialty Start Date End Date Rebecca Rudolph MD [address] [place], [place] PCP - General Internal Medicine 01/10/22 documented as of this encounter
--- OUTSIDE RECORDS SUMMARY | 2025-01-11 08:59 | XMS_ITS | Clinical Summary ---
Author Organization [facility], Address [address] [place] [address] Phone Care Team Providers Care Gardening Supervisor Name Role Phone Rebecca Rudolph MD Primary Care Provider Allergies Active Allergy Reactions Criticality Noted Date [...] Only [facility] [address] [place] [address] KristiJojo bashir 12/01/2024 Refill [facility] [address] [place] [address] Jay Jay Jenkins MD 12/01/2024 Office Communication [facility] [address] [place] [address] KristiJojo bashir 11/30/2024 Documentation Only [facility] [address] [place] [address] KristiJojo bashir 11/29/2024 3:00 PM EST Office Visit [facility] [address] [place] [address] Jose A Valdivia MD Persistent proteinuria (Primary Dx) 11/25/2024 Refill [facility] [address] [place] [address] Jay Jay Jenkins MD 11/25/2024 Refill [facility] [address] [place] [address] KristiJojo bashir 11/25/2024 Refill [facility] [address] [place] [address] Rahman, Leena 11/21/2024 Refill [facility] [address] [place] [address] Jay Jay Jenkins MD from Last 3 [...] Visit [facility] [place], [address] [place] [address] Jay Jay Jenkins MD [address] [place] [address] Health Maintenance Due Date [...] PM EST) Hemoglobin A1C 7.2(H) (4.0-5.6) % [facility] Comment: MONITORING: In known diabetic patients, hemoglobin A1c targets should be discussed with health care provider. DIAGNOSTIC USE: ??The [place] Diabetes Association (ADA) and the World Health [...] Supplement 1 Testing performed or reported by [facility], a Service of [facility], [address] [place] [address] Moi Apple MD, Rifle Case Repairer [facility]# [id number] Blood (Blood, Venous) 11/25/2023 4:07 PM EST 11/25/2023 4:08 PM EST us Jay Jay Jenkins MD LAB BLOOD ORDERABLES Final Re sult [facility] from Last 3 Months or Most Recently Relevant to Health Maintenance Insurance [facility] Care Teams Gardening Supervisor Relationship Specialty Start Date End Date Rebecca Rudolph MD [address] [place], [place] PCP - General Internal Medicine 01/10/22
--- OUTSIDE RECORDS SUMMARY | 2025-01-11 08:59 | XMS_ITS | Encounter Summary ---
Author Organization [facility] [place], Address [address] [place] [address] Phone Care Team Providers Care Cloth Cutting Inspector Name Role Phone Rebecca Rudolph MD Primary Care Provider [phone] Encounter Details Date Type Department Care Team (Late st Contact Info) Description 12/01/2024 Office Communication [facility] [place], [address] [place] [address] Jojo Berry [address] [place] [address] Social History Tobacco Use Types [...] Visit [facility] [address] [place] [address] Jay Jay Jenkins MD [address] [place] [address] [place] [id number] documented as of this encounter Visit Diagnoses Not on filedocumented in this encounter Care Teams Cloth Cutting Inspector Relationship Specialty Start Date End Date Rebecca Rudolph MD [address] [place] [address] PCP - General Internal Medicine 01/10/22 documented as of this encounter
== END 2025-01-11 09:34 | disposition home or self-care (01) ==
PROVIDERS: PCP Internal Medicine; Visit Provider Internal Medicine
DX: Z00.00 Encounter for general adult medical examination without abnormal findings (principal); E11.9 Type 2 diabetes mellitus without complications; L98.9 Disorder of the skin and subcutaneous tissue, unspecified; Z23 Encounter for immunization

== ENCOUNTER → 2025-01-11 08:29 | Outpatient (BNVA) | payer OTHER, SELFPAY | PROVIDERS: PCP Internal Medicine; Visit Provider Internal Medicine | DX: Z00.00 Encounter for general adult medical examination without abnormal findings (principal); Z23 Encounter for immunization; E11.9 Type 2 diabetes mellitus without complications; L98.9 Disorder of the skin and subcutaneous tissue, unspecified | CPT/HCPCS: 83036; 90471; 90715; 96127 ==

== ENCOUNTER 2025-01-24 08:24 | Outpatient (AMB) | payer OTHER, SELFPAY ==
[2025-01-24 08:28] VITALS: BP 116/60; PULSE 65; O2SAT 95; BMI 30.8
--- NOTE | 2025-01-24 08:28 | A.OFFVIS_ITS ---
Vital Signs 01/24/25 08:28 Height 5 ft 1 in Weight 163 lb 2.273 oz BMI 30.8 BP 116/60 Blood Pressure Location Rt brachial Position Sitting Pulse 65 Pulse Source Pulse Oximeter Pulse Oximetry (%) 95 Oxygen Delivery Method Room Air Intake Visit Reasons: Type 2 diabetes mellitus without complications Intake Note: NEW Patient presents today to establish treatment for Type 2 Diabetes Mellitus: Last Diabetic eye exam was on: April, Last Podiatry exam was on: Patient does not see a Overlock Hemmer Most recent HbA1c: 9.9%, 01/11/2025 Random Glucose- 358 mg/dL, Today Medical Clerical Assistant Required: No Accompanied by: Self / Same As Patient Allergies ciprofloxacin [From CIPRO] Allergy (Severe, Verified 01/24/25 08:36) ANAPHYLAXIS; RASH semaglutide [From Rybelsus] Adverse Reaction (Intermediate, Verified 01/24/25 08:36) blurry vision Medication List - Last Reconciled 01/24/25 by Cass Bateman PA-C ascorbic acid (vitamin C) mg PO aspirin (Adult Low Dose Aspirin) 81 mg PO DAILY atorvastatin 40 mg PO DAILY blood sugar diagnostic (FreeStyle Lite Strips) Use 1 test strip once a day carvedilol 12.5 mg PO BID chlorthalidone 50 mg PO DAILY cholecalciferol (vitamin D3) 25 mcg PO DAILY 90 days dapagliflozin propanediol (Farxiga) 10 mg PO DAILY 30 days ezetimibe 10 mg PO DAILY fluticasone propionate 50 mcg/actuation (Flonase Allergy Relief) 2 sprays intranasal DAILY gabapentin 100 mg PO BEDTIME 90 days lancets (FreeStyle Lancets) Use 1 lancet once a day losartan 100 mg PO BID metformin ER 1,000 mg (2 x 500 mg) PO QPM HPI HPI Type 2 diabetes mellitus without complications: Details: Patient is a 64-year-old female with a significant past medical history of hypertension, dyslipidemia, CAD, proteinuria, ckd and type 2 diabetes presenting today for an initial visit regarding her diabetes. Endo: Dm-diagnosed with diabetes around 2018 per pt. Last A1c was 9.9. She is currently on metformin 1000 mg nightly, farixga 10 mg daily. She does not tolerate higher doses of metformin. She has tried Farxiga in the past and was having UTIs and yeast infections so was taken off of this but recently restarted on it. She does want to stay on this. She does not like the idea of doing injections. She does report many dietary indiscretions. -rybelsus caused blurry vision (did see ophthamology who reports normal exam) Fam hx of t2dm CV: Blood pressure is managed with losartan 100 mg twice a day, carvedilol 12.5 mg twice a day, and chlorthalidone 50 mg daily. She is on atorvastatin 40 mg and Zetia 10 mg. Takes a daily aspirin. [facility] Medical History (Updated 01/24/25 @ 08:41 by Cass Bateman PA-C) CAD (coronary artery disease) PAC (premature atrial contraction) Tricuspid valve regurgitation Physical exam Screen for colon cancer Tachycardia Murmur Dyspnea Microalbuminuria Obesity (BMI 30.0-34.9) Dyslipidemia Hypertension Encounter for diabetic foot exam High cholesterol High blood pressure Diabetes mellitus Surgical History Stented coronary artery History of coronary artery stent placement S/P skin biopsy History of hernia repair S/P BLAIR-BSO (total abdominal hysterectomy and bilateral salpingo-oophorectomy) History of removal of cyst History of bladder surgery Family History Father CAD (coronary artery disease) CVD (cardiovascular disease) Myocardial infarction Substance use disorder Mother CVD (cardiovascular disease) Hypertension Brother Hypertension Sister Hypertension Daughter Obese Social History Housing: House Alcohol intake: current Alcohol intake frequency: holidays/special occasions only Alcohol type: hard liquor Patient Tobacco Use Status: Former Tobacco user Tobacco use type: Cigarette e-Cigarette/Vaping Use: Never Used Second Hand Smoke Exposure: No service: No Current occupational status: employed Current occupational exposures/hazards: No Cognitive needs: No Hearing needs: No Vision needs: Yes Physical Exam Const Orientation/consciousness: patient oriented x3 Neck Neck: Yes no lymphadenopathy Thyroid: Thyroid normal Carotids: no bruits Resp Auscultation: clear to auscultation bilaterally Cardio Rate: regular rate Rhythm: regular rhythm Heart sounds: S1 normal heart sound present and S2 normal heart sound present Peripheral pulses: dorsalis pedis present Neuro General: patient oriented x3, gait normal and no focal motor deficits Extrem Other: Monofilament sensation intact bilaterally. Vibratory sensation intact bilaterally. Skin intact. General: Yes normal to inspection Results Reviewed Results Reviewed: Laboratory Tests 07/03/24 07/06/24 12/25/24 09:12 08:15 10:33 Sodium 141 Potassium 3.5 Chloride 105 Carbon Dioxide 26 Anion Gap 14 BUN 27 H Creatinine 1.00 Estimated GFR > 60 56 Fasting Glucose 209 H Hgb A1c (Clinic) 9.1 H AST 21 ALT 28 Triglycerides 117 Cholesterol 144 LDL Cholesterol, Calc 76 HDL Cholesterol 45 01/11/25 08:31 Sodium Potassium Chloride Carbon Dioxide Anion Gap BUN Creatinine Estimated GFR Fasting Glucose Hgb A1c (Clinic) 9.9 H AST ALT Triglycerides Cholesterol LDL Cholesterol, Calc HDL Cholesterol Assessment & Plan Assessment & Plan (1) Uncontrolled type 2 diabetes mellitus with hyperglycemia: Code(s): E11.65 - Type 2 diabetes mellitus with hyperglycemia Category: Medical Plan: 75 minutes spent today in [id number] time with patient reviewing pathophysiology of diabetes, differences between type 1 and type 2 diabetes, complications associated with diabetes including but not limited to kidney disease, blindness, amputations, risk of infections, heart attacks and strokes. Labs ordered. We will start patient on Trulicity. We discussed risks and benefits and adverse effects such as nausea, vomiting, increased risk of pancreatitis. She will start Lantus daily at 10 units. Reviewed insulin pens and how to inject. She will continue with the metformin and Farxiga. She is aware that her blood sugars are high for her to take Farxiga. We did discuss that she has an increased risk of UTIs and yeast infections. We reviewed diet significantly and advised her to increase protein, reduce carbohydrate and sugar intake. Encouraged increased walking. She was provided a [employer] Chloe 3 and I applied it for her today. I did donovan nload the vielka on her phone for and paired it with the device. We reviewed how to use the vielka. Sensors ordered Rule of 15 discussed. Glucose tabs ordered (2) Microalbuminuria: Code(s): R80.9 - Proteinuria, unspecified Category: Medical Plan: Following with Nephrology (3) Hypertension: Code(s): I10 - Essential (primary) hypertension Category: Medical Qualifiers: Hypertension type: unspecified Qualified Code(s): I10 - Essential (primary) hypertension Plan: WNL. Continue current regimen (4) Hyperlipidemia LDL goal <70: Code(s): E78.5 - Hyperlipidemia, unspecified Category: Medical Plan: Close to goal but not yet at goal. Orders: Orders C Peptide Today E11.65 - Type 2 diabetes mellitus with hyperglycemia Insulinoma associated 2 aatb Today E11.65 - Type 2 diabetes mellitus with hyperglycemia Islet Cell Antibody Scrn/Titer Today E11.65 - Type 2 diabetes mellitus with hyperglycemia Comprehensive Central. Panel Fast Today E11.65 - Type 2 diabetes mellitus with hyperglycemia Referrals Diabetes Education Referral E11.65 - Type 2 diabetes mellitus with hyperglycemia Medications: New dulaglutide (Trulicity) 0.75 mg (0.5 mL) subcut QWEEK 2 mL 1RF glucose (Dex4 Glucose) until symptoms of low blood sugar are controlled 16 grams (4 x 4 gram) PO Q15M PRN 100 tabs 0RF hypoglycemia pen needle, diabetic (BD Betty 2nd Gen Pen Needle) Use daily As directed 100 ea 3RF blood-glucose sensor (FreeStyle Chloe 3 Plus Sensor device) Use daily As directed to monitor glucose 2 ea 5RF E08.29 - Diabetes mellitus due to underlying condition with other diabetic kidney complication, R80.9 - Proteinuria, unspecified, Z79.4 - superintendent marine oil terminal (current) use of insulin insulin glargine (Lantus Solostar U-100 Insulin) 10 units (0.1 mL) subcut QAM 15 mL 2RF Coding Level of Care Code New Pt Level 5 (37976) Complex EM visit Add On G2211 Diagnoses Uncontrolled type 2 diabetes mellitus with hyperglycemia E11.65 Microalbuminuria R80.9 Hypertension, unspecified type I10 Hypertension type: unspecified Hyperlipidemia LDL goal <70 E78.5
--- OUTSIDE RECORDS SUMMARY | 2025-01-24 08:34 | XMS_ITS | Clinical Summary ---
Author Organization [facility], Address [address] [place] [address] Phone Care Team Providers Care Professor Of Vegetable Science Name Role Phone Rebecca Rudolph MD Primary Care Provider [phone] Allergies Active Allergy Reactions Criticality Noted Date [...] Only [facility] [address] [place] [address] KristiJojo bashir 12/01/2024 Refill [facility] [address] [place] [address] Jay Jay Jenkins MD 12/01/2024 Office Communication [facility] [address] [place] [address] KristiJojo bashir 11/30/2024 Documentation Only [facility] [address] [place] [address] KristiJojo bashir 11/29/2024 3:00 PM EST Office Visit [facility] [address] [place] [address] Jose A Valdivia MD Persistent proteinuria (Primary Dx) 11/25/2024 Refill [facility] [address] [place] [address] Jay Jay Jenkins MD 11/25/2024 Refill [facility] [address] [place] [address] KristiJojo bashir 11/25/2024 Refill [facility] [address] [place] [address] Rahman, Leena 11/21/2024 Refill [facility] [address] [place] [address] Jay Jay Jenkins MD from Last 3 [...] Visit [facility] [place], [address] [place] [address] Jay Jay Jenkins MD [address] [place] [address] Health Maintenance Due Date [...] PM EST) Hemoglobin A1C 7.2(H) (4.0-5.6) % [facility] Comment: MONITORING: In known diabetic patients, hemoglobin A1c targets should be discussed with health care provider. DIAGNOSTIC USE: ??The [place] Diabetes Association (ADA) and the World Health [...] Supplement 1 Testing performed or reported by [facility], a Service of [facility], [address] [place] [address] Moi Apple MD, Associate Teacher [facility]# [id number] Blood (Blood, Venous) 11/25/2023 4:07 PM EST 11/25/2023 4:08 PM EST us Jay Jay Jenkins MD LAB BLOOD ORDERABLES Final Re sult [facility] from Last 3 Months or Most Recently Relevant to Health Maintenance Insurance [facility] Care Teams Professor Of Vegetable Science Relationship Specialty Start Date End Date Rebecca Rudolph MD [address] [place], [place] PCP - General Internal Medicine 01/10/22
--- OUTSIDE RECORDS SUMMARY | 2025-01-24 08:34 | XMS_ITS | Encounter Summary ---
Author Organization [facility] [place], Address [address] [place] [address] Phone Care Team Providers Care Project Surveyor Name Role Phone Rebecca Rudolph MD Primary Care Provider [phone] Encounter Details Date Type Department Care Team (Late st Contact Info) Description 12/17/2019 Orders Only [facility] [place] [address] [place] [address] Jocelin Lester [address] [place] [phone] Social History Tobacco Use Types Packs/Day Years [...] Visit [facility] [place], [address] [place] [address] Jay Jay Jenkins MD [address] [address] [place] [address] documented as of this encounter Visit Diagnoses Not on filedocumented in this encounter Care Teams Project Surveyor Relationship Specialty Start Date End Date Rebecca Rudolph MD [address] [place] [address] PCP - General Internal Medicine 01/10/22 documented as of this encounter
--- OUTSIDE RECORDS SUMMARY | 2025-01-24 08:34 | XMS_ITS | Encounter Summary ---
Author Organization [facility], Address [address] [place] [address] Phone Care Team Providers Care Base Wad Operator Adjuster Name Role Phone Rebecca Rudolph MD Primary Care Provider Reason for Visit * Reason Comments Med Refill Encounter Details Date Type Department Care Team (Late st Contact Info) Description 11/21/2024 Refill [facility] [address] [place] [address] Jay Jay Jenkins MD [address] [place] [address] [place] [address] Social History Tobacco Use Types [...] Office Visit [facility] [address] [place] [address] Jay Jay Jenkins MD [address] [facility] [place] [address] documented as of this encounter Visit Diagnoses Not on filedocumented in this encounter Care Teams Base Wad Operator Adjuster Relationship Specialty Start Date End Date Rebecca Rudolph MD [address] [place], [place] PCP - General Internal Medicine 01/10/22 documented as of this encounter
--- OUTSIDE RECORDS SUMMARY | 2025-01-24 08:34 | XMS_ITS | Encounter Summary ---
Author Organization [facility] Address [address] [place] [address] Phone Care Team Providers Care Dead Mail Checker Name Role Phone Rebecca Rudolph MD Primary Care Provider [phone] Encounter Details Date Type Department Care Team (Late st Contact Info) Description 05/24/2024 Documentation Only [facility] [address] [place] [address] Jojo Berry [address] [place] [address] Social History Tobacco Use Types [...] Visit [facility] [address] [place] [address] Jay Jay Jenkins MD [address] [place] [address] documented as of this encounter Visit Diagnoses Not on filedocumented in this encounter Care Teams Dead Mail Checker Relationship Specialty Start Date End Date Rebecca Rudolph MD [address] [place] PCP - General Internal Medicine 01/10/22 documented as of this encounter
--- OUTSIDE RECORDS SUMMARY | 2025-01-24 08:34 | XMS_ITS | Encounter Summary ---
Author Organization [facility], Address [address] [place] [address] Phone Care Team Providers Care Director Employment Name Role Phone Rebecca Rudolph MD Primary Care Provider [phone] Reason for Visit * Reason Comments Med Change Request Encounter Details Date Type Department Care Team (Late st Contact Info) Description 11/25/2024 Refill [facility] [address] [place] [address] Jay Jay Jenkins MD [address] [place] [address] [place] [address] Social History Tobacco Use Types [...] Office Visit [facility] [address] [place] [address] Jay Jay Jenkins MD [address] [place] [address] documented as of this encounter Visit Diagnoses Not on filedocumented in this encounter Care Teams Director Employment Relationship Specialty Start Date End Date Rebecca Rudolph MD [address] [place], [place] PCP - General Internal Medicine 01/10/22 documented as of this encounter
--- OUTSIDE RECORDS SUMMARY | 2025-01-24 08:34 | XMS_ITS | Encounter Summary ---
Author Organization [facility] [place], Address [address] [place] [address] Phone Care Team Providers Care Energy Professional Name Role Phone Rebecca Rudolph MD Primary Care Provider [phone] Encounter Details Date Type Department Care Team (Late st Contact Info) Description 12/14/2024 Documentation Only [facility] [address] [place] [place] [address] Jojo Berry [address] [place] [address] Social History Tobacco Use Types [...] Visit [facility] [address] [place] [address] Jay Jay Jenkins MD [address] [place] [address] [place] [address] documented as of this encounter Visit Diagnoses Not on filedocumented in this encounter Care Teams Energy Professional Relationship Specialty Start Date End Date Rebecca Rudolph MD [address] [place], [place] PCP - General Internal Medicine 01/10/22 documented as of this encounter
--- OUTSIDE RECORDS SUMMARY | 2025-01-24 08:34 | XMS_ITS | Encounter Summary ---
Author Organization [facility] Address [address] [place] [address] Phone Care Team Providers Care Mountain Guide Name Role Phone Rebecca Rudolph MD Primary Care Provider [phone] Encounter Details Date Type Department Care Team (Late st Contact Info) Description 05/24/2024 Documentation Only [facility] [address] [place] [address] Jojo Berry [address] [place] [address] Social History Tobacco Use Types [...] Visit [facility] [address] [place] [address] Jay Jay Jenkins MD [address] [place] [address] documented as of this encounter Visit Diagnoses Not on filedocumented in this encounter Care Teams Mountain Guide Relationship Specialty Start Date End Date Rebecca Rudolph MD [address] [place] PCP - General Internal Medicine 01/10/22 documented as of this encounter
--- OUTSIDE RECORDS SUMMARY | 2025-01-24 08:34 | XMS_ITS | Patient Health Record ---
Author Organization [facility] Address [address] [place] [address] Care Team Providers Care Hospitality Job Titles Name Role Phone NONE, NONE Primary Care Provider Narendra Wilson Unavailable [phone] Reason For Referral No Information Plan Of Treatment No Information
--- OUTSIDE RECORDS SUMMARY | 2025-01-24 08:35 | XMS_ITS | Encounter Summary ---
Author Organization [facility], Address [address] [place] [address] Phone Care Team Providers Care Casualty Insurance Claim Adjuster Name Role Phone Rebecca Rudolph MD Primary Care Provider [phone] Reason for Visit * Reason Comments Med Change Request Encounter Details Date Type Department Care Team (Late st Contact Info) Description 12/01/2024 Refill [facility] [address] [address] Jay Jay Jenkins MD [address] [place] [address] [place] [address] Social History Tobacco Use Types [...] Office Visit [facility] [address] [address] Jay Jay Jenkins MD [address] [place] [address] documented as of this encounter Visit Diagnoses Not on filedocumented in this encounter Care Teams Casualty Insurance Claim Adjuster Relationship Specialty Start Date End Date Rebecca Rudolph MD [address] [place], [place] PCP - General Internal Medicine 01/10/22 documented as of this encounter
--- OUTSIDE RECORDS SUMMARY | 2025-01-24 08:35 | XMS_ITS | Encounter Summary ---
Author Organization [facility] [place], Address [address] [place] [address] Phone Care Team Providers Care Tank Car Loader Name Role Phone Rebecca Rudolph MD Primary Care Provider [phone] Encounter Details Date Type Department Care Team (Late st Contact Info) Description 11/30/2024 Documentation Only [facility] [address] [place] [address] Jojo Berry [address] [place] [address] Social History Tobacco Use Types [...] Visit [facility] [address] [place] [address] Jay Jay Jenkins MD [address] [place] [address] [place] [address] documented as of this encounter Visit Diagnoses Not on filedocumented in this encounter Care Teams Tank Car Loader Relationship Specialty Start Date End Date Rebecca Rudolph MD [address] [place], [place] PCP - General Internal Medicine 01/10/22 documented as of this encounter
[2025-01-24 08:44] LABS: Glucose, Whole Blood 358 mg/dL (60-115)
== END 2025-01-24 09:32 | disposition home or self-care (01) ==
PROVIDERS: PCP Internal Medicine; Visit Provider Physician Assistant
DX: E11.65 Type 2 diabetes mellitus with hyperglycemia (principal); R80.9 Proteinuria, unspecified; I10 Essential (primary) hypertension; E78.5 Hyperlipidemia, unspecified

== ENCOUNTER → 2025-01-24 08:24 | Outpatient (BNVA) | payer OTHER, SELFPAY | PROVIDERS: PCP Internal Medicine; Visit Provider Physician Assistant | DX: E11.65 Type 2 diabetes mellitus with hyperglycemia (principal); E11.22 Type 2 diabetes mellitus with diabetic chronic kidney disease; E78.5 Hyperlipidemia, unspecified; I25.10 Atherosclerotic heart disease of native coronary artery without angina pectoris; R80.9 Proteinuria, unspecified; I12.9 Hypertensive chronic kidney disease with stage 1 through stage 4 chronic kidney disease, or unspecified chronic kidney disease; N18.9 Chronic kidney disease, unspecified | CPT/HCPCS: 82947 ==

== ENCOUNTER 2025-02-02 08:33 | Outpatient (REF) | payer OTHER, SELFPAY ==
--- NOTE | ~2025-02-02 | MM_ITS ---
EXAMINATION: DXA BONE DENSITY AXIAL HISTORY: Estrogen deficiency TECHNIQUE: [employer] Dual energy absorptiometry (DEXA) of the lumbar spine, total left hip, and femoral neck was performed. COMPARISON: There are no prior studies for comparison. FINDINGS: The bone mineral density of the lumbar spine is 1.509 with a T-score of 2.7, and a Z-score of 4.0. This is indicative of normal bone mineral density. The bone mineral density of the left total hip is 0.938 with a T-score of -0.6, and a Z-score of 0.4. This is indicative of normal bone mineral density. The bone mineral density of the left femoral neck is 0.894 with a T-score of -1.0, and a Z-score of 0.2. This is indicative of normal bone mineral density. MM/XR DEXA axial skeleton IMPRESSION: Based on bone mineral density, and according to World Health Organization (WHO) criteria, the diagnosis is consistent with normal bone mineral density. All bone density values are in grams per centimeter squared (g/cm2). Statistically, 68% of repeat scans fall within 1 SD (+/- 0.010 g/cm2 for AP spine L1-L4) and 1 SD (+/- 0.012 g/cm2 for femur total) FRAX is a trademark of the [employer] Metabolic Bone Disease, a World Health Organization (WHO) Collaborating Center. Electronically signed by: Narendra Land MD 02/02/2025 09:52 AM EDT
== END 2025-02-02 08:34 | disposition home or self-care (01) ==
LOC: HO.MAMMO 08:33
PROVIDERS: PCP Internal Medicine; Visit Provider Internal Medicine
DX: Z13.820 Encounter for screening for osteoporosis (principal); Z78.0 Asymptomatic menopausal state
CPT/HCPCS: 77080

== ENCOUNTER → 2025-02-02 08:45 | Outpatient (BNV) | payer OTHER, SELFPAY | PROVIDERS: PCP Internal Medicine; Visit Provider Radiology Diagnostic Radiology | DX: E28.39 Other primary ovarian failure (principal) | CPT/HCPCS: 77080 ==

== ENCOUNTER 2025-02-05 09:26 | Outpatient (REF) | payer OTHER, SELFPAY ==
[2025-02-05 10:55] LABS: Alanine Aminotransferase 37 U/L (0-31); Albumin Level 4.3 g/dL (3.5-5.0); Alkaline Phosphatase 84 U/L (39-117); Anion Gap 16 (12-20); Aspartate Amino Transferase 32 U/L (5-31); Bilirubin Total 0.7 mg/dL (0.0-1.0); Blood Urea Nitrogen 23 mg/dL (9-16); Calcium 9.7 mg/dL (8.4-10.2); Carbon Dioxide 25 mmol/L (22-29); Chloride 100 mmol/L (96-108); Estimated Glomerular Filt Rate > 60; Glucose Fasting 174 mg/dL (60-99); Potassium 3.2 mmol/L (3.3-5.1); Sodium 138 mmol/L (135-145); Total Protein 8.3 g/dL (6.5-8.0)
[2025-02-07 11:59] LABS: C Peptide 5.16 ng/mL (0.80-3.85)
[2025-02-11 03:14] LABS: Islet Cell Antibody Screen NEGATIVE (NEGATIVE)
[2025-02-11 22:53] LABS: Insulinoma associated 2 aatb <5.4 U/mL (<5.4)
== END 2025-02-05 09:27 | disposition home or self-care (01) ==
LOC: HO.LAB 09:26
PROVIDERS: PCP Internal Medicine; Visit Provider Physician Assistant
DX: E11.65 Type 2 diabetes mellitus with hyperglycemia (principal)
CPT/HCPCS: 36415; 80053; 84681; 86341

== ENCOUNTER 2025-02-07 07:30 | Outpatient (AMB) | payer OTHER, SELFPAY ==
--- NOTE | 2025-02-07 08:22 | A.OFFVIS_ITS ---
Vital Signs 02/07/25 08:27 Height 5 ft 1 in Weight 163 lb 2.273 oz BMI 30.8 BP 120/58 L Blood Pressure Location Rt brachial Position Sitting Pulse 60 Pulse Source Pulse Oximeter Pulse Oximetry (%) 98 Oxygen Delivery Method Room Air Intake Visit Reasons: T2DM Intake Note: Patient presents today for a follow-up on Type 2 Diabetes Mellitus: Last Diabetic eye exam was on: April, Last Podiatry exam was on: Patient does not see a Straightener Most recent HbA1c: 9.9%, 01/11/2025 Random Glucose- 218 mg/dL, Today Track Service Person Required: No Accompanied by: Self / Same As Patient Allergies ciprofloxacin [From CIPRO] Allergy (Severe, Verified 02/07/25 08:23) ANAPHYLAXIS; RASH semaglutide [From Rybelsus] Adverse Reaction (Intermediate, Verified 02/07/25 08:23) blurry vision HPI HPI T2DM: Details: Patient is a 64-year-old female with a significant past medical history of hypertension, dyslipidemia, CAD, proteinuria, ckd and type 2 diabetes presenting today for a diabetic consultation. She did just see diabetic Education prior to today's appointment. Endo: Dm-diagnosed with diabetes around 2018 per pt. Last A1c was 9.9. She is currently on metformin 1000 mg nightly, farixga 10 mg daily and I started her on trulicity 0.75 mg weekly and semglee 10 units daily. She states that she just started the Trulicity this week and appears to be tolerating it well. She is doing well with the daily insulin and has not noted any low blood sugars. She does not tolerate higher doses of metformin. She has tried Farxiga in the past and was having UTIs and yeast infections so was taken off of this but recently restarted on it. She does want to stay on this. -rybelsus caused blurry vision (did see ophthamology who reports normal exam) cgm-usage 98%, average glucose 177, G mi 7.5%, variability 23%. Very hyperglycemic 7%, hyperglycemic 29%, in range 64%, hypoglycemia 0 Most of the hyperglycemia is around mealtimes 09:00, 15:00, 21:00. Fam hx of t2dm CV: Blood pressure today is 120/58 and is managed with losartan 100 mg twice a day, carvedilol 12.5 mg twice a day, and chlorthalidone 50 mg daily. She is on atorvastatin 40 mg and Zetia 10 mg. Takes a daily aspirin. [facility] Medical History (Updated 02/07/25 @ 08:26 by Cass Bateman PA-C) CAD (coronary artery disease) PAC (premature atrial contraction) Tricuspid valve regurgitation Physical exam Screen for colon cancer Tachycardia Murmur Dyspnea Microalbuminuria Obesity (BMI 30.0-34.9) Dyslipidemia Hypertension Encounter for diabetic foot exam High cholesterol High blood pressure Diabetes mellitus Surgical History Stented coronary artery History of coronary artery stent placement S/P skin biopsy History of hernia repair S/P BLAIR-BSO (total abdominal hysterectomy and bilateral salpingo-oophorectomy) History of removal of cyst History of bladder surgery Family History Father CAD (coronary artery disease) CVD (cardiovascular disease) Myocardial infarction Substance use disorder Mother CVD (cardiovascular disease) Hypertension Brother Hypertension Sister Hypertension Daughter Obese Social History Housing: House Alcohol intake: current Alcohol intake frequency: holidays/special occasions only Alcohol type: hard liquor Patient Tobacco Use Status: Former Tobacco user Tobacco use type: Cigarette e-Cigarette/Vaping Use: Never Used Second Hand Smoke Exposure: No service: No Current occupational status: employed Current occupational exposures/hazards: No Cognitive needs: No Hearing needs: No Vision needs: Yes Physical Exam Const Orientation/consciousness: patient oriented x3 Neck Neck: Yes no lymphadenopathy Thyroid: Thyroid normal Carotids: no bruits Resp Auscultation: clear to auscultation bilaterally Cardio Rate: regular rate Rhythm: regular rhythm Heart sounds: S1 normal heart sound present and S2 normal heart sound present Peripheral pulses: dorsalis pedis present Neuro General: patient oriented x3, gait normal and no focal motor deficits Extrem Other: Monofilament sensation intact bilaterally. Vibratory sensation intact bilaterally. Skin intact. General: Yes normal to inspection Results Reviewed Results Reviewed: Laboratory Tests 12/25/24 12/25/24 01/11/25 10:04 10:33 08:31 Sodium Potassium Chloride Carbon Dioxide Anion Gap BUN Creatinine Estimated GFR Fasting Glucose Hgb A1c (Clinic) 9.9 H C-Peptide Calcium Total Bilirubin AST ALT Alkaline Phosphatase Total Protein Albumin Triglycerides 117 Cholesterol 144 LDL Cholesterol, Calc 76 HDL Cholesterol 45 U Random Total Protein 20 H Urine Creatinine 92.68 Urine Microalbumin 108.0 Microalb/Creat Ratio 116.5 H Islet Cell Ab Screen Islet Cell Ab Titer Anti-IA2 Antibody 02/05/25 09:38 Sodium 138 Potassium 3.2 L Chloride 100 Carbon Dioxide 25 Anion Gap 16 BUN 23 H Creatinine 0.84 Estimated GFR > 60 Fasting Glucose 174 H Hgb A1c (Clinic) C-Peptide Pending Calcium 9.7 Total Bilirubin 0.7 AST 32 H ALT 37 H Alkaline Phosphatase 84 Total Protein 8.3 H Albumin 4.3 Triglycerides Cholesterol LDL Cholesterol, Calc HDL Cholesterol U Random Total Protein Urine Creatinine Urine Microalbumin Microalb/Creat Ratio Islet Cell Ab Screen Pending Islet Cell Ab Titer Pending Anti-IA2 Antibody Pending Assessment & Plan Assessment & Plan (1) Uncontrolled type 2 diabetes mellitus with hyperglycemia: Code(s): E11.65 - Type 2 diabetes mellitus with hyperglycemia Category: Medical Plan: Continue current regimen (2) Hyperlipidemia LDL goal <70: Code(s): E78.5 - Hyperlipidemia, unspecified Category: Medical Plan: LDL not quite at goal. Continue on the atorvastatin 40 mg and zeita. She does have CAD and we did discuss possibly increasing the atorvastatin to 80 mg but she does not want to do this yet and has an upcoming appointment with Cardio logy. We did discuss monitoring this closely if the LDL is not less than 70 by the next time she should increase the atorvastatin. (3) Microalbuminuria: Code(s): R80.9 - Proteinuria, unspecified Category: Medical Plan: Following with Nephrology. (4) Elevated LFTs: Code(s): R79.89 - Other specified abnormal findings of blood chemistry Category: Medical Plan: Ultrasound ordered. We will follow up pending test results. Discussed the importance of a low-fat diet, reducing carbohydrates and weight loss. (5) Elevated total protein: Code(s): R77.8 - Other specified abnormalities of plasma proteins Category: Medical Plan: We will recheck when I check the potassium. She does have chronic hip and back pain without any changes. It was not every day. (6) Hypokalemia: Code(s): E87.6 - Hypokalemia Category: Medical Plan: Likely related to the chlorthalidone. Advised to increase potassium rich foods. Recheck in a couple weeks. Have ordered this for her today but advised that she should follow up with her PCP. (7) Hypertension: Code(s): I10 - Essential (primary) hypertension Category: Medical Qualifiers: Hypertension type: unspecified Qualified Code(s): I10 - Essential (p rimary) hypertension Plan: Continue current regimen at this point. Plan 60 minutes was spent today in ybto-sn-flow time discussing diet changes as listed below, signs and symptoms of hyper and hypoglycemia, reviewing labs, CGM and current medications. Orders: Orders Liver Panel Today E11.65 - Type 2 diabetes mellitus with hyperglycemia, E78.5 - Hyperlipidemia, unspecified, E87.6 - Hypokalemia, R77.8 - Other specified abnormalities of plasma proteins, R79.89 - Other specified abnormal findings of blood chemistry, R80.9 - Proteinuria, unspecified Basic Metabolic Panel Today E11.65 - Type 2 diabetes mellitus with hyperglycemia, E78.5 - Hyperlipidemia, unspecified, E87.6 - Hypokalemia, R77.8 - Other specified abnormalities of plasma proteins, R79.89 - Other specified abnormal findings of blood chemistry, R80.9 - Proteinuria, unspecified US abdomen comp w elastography Today E11.65 - Type 2 diabetes mellitus with hyperglycemia, E78.5 - Hyperlipidemia, unspecified, E87.6 - Hypokalemia, R77.8 - Other specified abnormalities of plasma proteins, R79.89 - Other specified abnormal findings of blood chemistry, R80.9 - Proteinuria, unspecified Complete Blood Count Auto Diff Today E11.65 - Type 2 diabetes mellitus with hyperglycemia, E87.6 - Hypokalemia, R77.8 - Other specified abnormalities of plasma proteins, R79.89 - Other specified abnormal findings of blood chemistry Patient Instructions: potassium is a little low please incorporate potassium rich foods such as avocados, leafy greens, legumes, coconut water etc. we will recheck this in 2-4 weeks Your total protein was a little bit elevated and has been the last couple times. Please make sure you are well hydrated I am going to recheck this at the same time as checking your potassium. If still elevated please follow with your primary care doctor to further discuss this. Summary your liver tests were a little elevated as well. As discussed work on the diet changes and controlling the diabetes as this is likely contributing. I have ordered a liver ultrasound and they will contact you about scheduling this. I will continue your current diabetic regimen as it appears to be working in you just started Trulicity. We will plan to follow up for diabetes in a couple of [facility] [place]. You will call me sooner if you develop any low blood sugars or high blood sugars or if you have any questions or concerns about the medications or any side effects. Coding Level of Care Code Est Pt Level 5 (25899) Complex EM visit Add On G2211 Diagnoses Uncontrolled type 2 diabetes mellitus with hyperglycemia E11.65 Hyperlipidemia LDL goal <70 E78.5 Microalbuminuria R80.9 Elevated LFTs R79.89 Elevated total protein R77.8 Hypokalemia E87.6 Hypertension, unspecified type I10 Hypertension type: unspecified
[2025-02-07 08:27] VITALS: BP 120/58; PULSE 60; O2SAT 98; BMI 30.8
[2025-02-07 08:35] LABS: Glucose, Whole Blood 218 mg/dL (60-115)
== END 2025-02-07 09:00 | disposition home or self-care (01) ==
LOC: HO.ENCR 07:31
PROVIDERS: PCP Internal Medicine; Visit Provider Physician Assistant
DX: E11.65 Type 2 diabetes mellitus with hyperglycemia (principal); E78.5 Hyperlipidemia, unspecified; R80.9 Proteinuria, unspecified; R79.89 Other specified abnormal findings of blood chemistry; R77.8 Other specified abnormalities of plasma proteins; E87.6 Hypokalemia; I10 Essential (primary) hypertension

== ENCOUNTER 2025-02-07 07:30 | Outpatient (AMB) | payer OTHER, SELFPAY ==
--- NOTE | 2025-02-07 07:46 | A.OFFVIS_ITS ---
Intake Intake Visit Reasons: T2DM Head Rigger Required: No Accompanied by: Self / Same As Patient Allergies ciprofloxacin [From CIPRO] Allergy (Severe, Verified 02/07/25 08:23) ANAPHYLAXIS; RASH semaglutide [From Rybelsus] Adverse Reaction (Intermediate, Verified 02/07/25 08:23) blurry vision HPI Comprehensive Diabetes Asmnt General Diabetes type type 2 Age of onset 55 Do any sikhism or cultural beliefs play a role in diabetes care No Comorbidities reports hypertension, hyperlipidemia, cardiovascular disease and obesity ANTONIETTA-I/ARB Yes Medications Current medications reviewed, see updated home meds list Long acting insulin treatment details Semglee 10 units daily Uses insulin pump No Past diabetes medications reports Metformin, SGLT-2 inhibitors, non-insulin injectables and long acting insulin Lifestyle Physical activity functional status independent ambulation Physical activity/Exercise details Pt reports she walks and does yoga Frequency 2-3 times weeky Most Recent Diabetes Results: Microalb/Creat Ratio 116.5 ug/mg cr (<30) H 12/25/24 Cholesterol 144 mg/dL (<200) 12/25/24 HDL Cholesterol 45 mg/dL (>40) 12/25/24 Triglycerides 117 mg/dL (<150) 12/25/24 Creatinine 0.84 mg/dL (0.5-1.4) 02/05/25 Blood Urea Nitrogen 23 mg/dL (9-16) H 02/05/25 Sodium 138 mmol/L (135-145) 02/05/25 Potassium 3.2 mmol/L (3.3-5.1) L 02/05/25 Chloride 100 mmol/L (96-108) 02/05/25 Carbon Dioxide 25 mmol/L (22-29) 02/05/25 Calcium 9.7 mg/dL (8.4-10.2) 02/05/25 AST 32 U/L (5-31) H 02/05/25 ALT 37 U/L (0-31) H 02/05/25 Total Protein 8.3 g/dL (6.5-8.0) H 02/05/25 Albumin 4.3 g/dL (3.5-5.0) 02/05/25 [facility] Medical History CAD (coronary artery disease) PAC (premature atrial contraction) Tricuspid valve regurgitation Physical exam Screen for colon cancer Tachycardia Murmur Dyspnea Microalbuminuria Obesity (BMI 30.0-34.9) Dyslipidemia Hypertension Encounter for diabetic foot exam High cholesterol High blood pressure Diabetes mellitus Surgical History Stented coronary artery History of coronary artery stent placement S/P skin biopsy History of hernia repair S/P BLAIR-BSO (total abdominal hysterectomy and bilateral salpingo-oophorectomy) History of removal of cyst History of bladder surgery Family History Father CAD (coronary artery disease) CVD (cardiovascular disease) Myocardial infarction Substance use disorder Mother CVD (cardiovascular disease) Hypertension Brother Hypertension Sister Hypertension Daughter Obese Social History Housing: House Alcohol intake: current Alcohol intake frequency: holidays/special occasions only Alcohol type: hard liquor Patient Tobacco Use Status: Former Tobacco user Tobacco use type: Cigarette e-Cigarette/Vaping Use: Never Used Second Hand Smoke Exposure: No service: No Current occupational status: employed Current occupational exposures/hazards: No Cognitive needs: No Hearing needs: No Vision needs: Yes Assessment & Plan Assessment & Plan (1) Uncontrolled type 2 diabetes mellitus with hyperglycemia: Code(s): E11.65 - Type 2 diabetes mellitus with hyperglycemia Plan: Diabetes self-management education and support participation record Assessment/scale: 1= needs instructed? 2= needs review? 3= comprehend keep point? 4= demonstrates understanding/ competent? NC= Not Covered Topics Learning Objective: Initial visit Initial or post srvc Initial or post srvc Initial or post srvc Initial or post srvc Initial or post srvc Post srvc Comments Pre Edu-assessment/plan Outcome or reassess Outcome or reassess Outcome or reassess Outcome or reassess Outcome or reassess Outcome or reassess Diabetes pathophysiology 1 Healthy eating 1 Being active 1 Taking medication 2 Monitoring glucose 2 Acute complication 1 Chronic complicated Lifestyle and healthy coping Diabetes distress in support 1 ?Diabetes pathophysiology: ?Defined diabetes med identify own type of diabetes; list 3 options for treating diabetes Healthy eating: ?Described effect of type, amount and ?timing of food on blood glucose; list 3 methods for planning meal Being active: ?State effect of exercise on blood glucose level Taking medication: ?State effect of diabetes medications on diabetes; name diabetes medications taking, action and side effects Monitoring glucose: ?Identify recommended blood glucose targets and personal target Acute complication: ?List symptoms and treatment of hyper and hypoglycemia, DKA, sick day guidelines and guidelines for severe weather or situations of crisis and diabetes supply manage Chronic complication: ?To find the relationship of blood glucose levels to long- term complications of diabetes in screening and preventative measures Lifestyle and healthy coping: ?Described lifestyle and healthy coping strategies to rule out diabetes self-management Diabetes to stress and support: ?Recognize Diabetes to stress and be able to identified support options Learning objectives: The patient was provided with verbal and written education on the following topics as outlined below. The patient met all learning objectives and was able to verbalize understanding and provide teach back of education topics discussed . The patient was provided with the opportunity to ask questions and all questions were answered. Patient Assessment Assess patient education level/literacy/barriers, patient lives with her who does the cooking in food shopping. Is diagnosed around 2018 Patient questions/concerns, patient's last A1c on 01/11/2025 9.9% Patient is currently on Trulicity 0.75 mg, weekly. Has only had 1 dose no complaint nausea vomiting or GI side Semglee 10 units daily Farxiga 10 mg daily Metformin 1000 mg daily, can not tolerate larger doses What is Diabetes? Pathophysiology How the body produces and uses insulin Identify type of DM Risk factors Signs of Diabetes Brief overview of Diabetes Management Monitoring blood sugar Following a meal plan Regular exercise Maintaining a healthy weight Taking medication as needed Members of the care team (PCP, RN, MA, RD, CDE, sdc teacher) Blood glucose monitoring When/how often to test Target blood sugar ranges Patient uses freestyle Chloe 3 sensor with phone Average glucose for past 14 days 177 mg/dL Patient above target 36% Patient at target 60% Below target 0% Introduction to Nutrition Importance of healthy diet in managing DM Diet is personalized to individual preference Review patient?s regular diet/food preferences Who prepares meals/does food shopping/ Dining out?/ Barriers? How diet effects glucose Eating 3 balanced meals a day with small, healthy snacks between meals Review food groups Carbohydrates: What is a carbohydrate/Which food/food groups are considered carbohydrates Effect of carbohydrates on blood glucose Portion sizes Reading food labels Basic carb counting (if applicable per nursing assessment) Plate method Meal planning Recommendations: Follow plate method, consistent carbs and read nutritional labels. Smart Goal: Patient will reduce portions to 30-45 g of carbohydrate per meal between now and next visit Educational Materials: The patient was provided with the following written educational materials: Planning Healthy Meals Handout Patient Response to instructions: Comprehension of Instructions: Fair Readiness to make changes: Contemplation How confident they feel about making changes: Positive Portions of this note were created using voice recognition software, please excuse any words or phrases that may have been misinterpreted. Patient Instructions: Include regular daily activity. ADA recommends 30 minutes of exercise 5 days a week. Weight loss talk to PCP or Director Of Strategic Programs before starting new plan. Test blood sugar as directed; Fasting and 2hpp largest meal. Watch trends in results. Utilize results and to assess how food, physical activity and medications affect blood sugar results. Bring glucometer or CGM to next visit. Be knowledgeable about diabetes medication, its action, side effects, efficacy, toxicity, prescribed dosage, appropriate timing and frequency of administration, effect of missed and delayed doses and instructions for storage, travel and safety. Problem solving techniques to monitor hypo/hyperglycemia episodes and treatments. Reduce risk reduction behaviors, smoking cessation, regular eye, foot and dental examinations. Coding Level of Care Code Est Pt Level 1 (44079) Diagnoses Uncontrolled type 2 diabetes mellitus with hyperglycemia E11.65
== END 2025-02-07 08:46 | disposition home or self-care (01) ==
LOC: HO.ENCR 07:31
PROVIDERS: PCP Internal Medicine; Visit Provider Registered Nurse Diabetes Educator
DX: E11.65 Type 2 diabetes mellitus with hyperglycemia (principal)

== ENCOUNTER → 2025-02-07 07:30 | Outpatient (BNVA) | payer OTHER, SELFPAY | PROVIDERS: PCP Internal Medicine; Visit Provider Physician Assistant | DX: E11.65 Type 2 diabetes mellitus with hyperglycemia (principal); E78.5 Hyperlipidemia, unspecified; R80.9 Proteinuria, unspecified; R79.89 Other specified abnormal findings of blood chemistry; R77.8 Other specified abnormalities of plasma proteins; E87.6 Hypokalemia; I10 Essential (primary) hypertension | CPT/HCPCS: 82947; 99211 ==

== ENCOUNTER 2025-03-05 10:00 | Outpatient (REF) | payer OTHER, SELFPAY ==
[2025-03-05 10:08] LABS: MANUAL DIFF FLAG NO
[2025-03-05 10:39] LABS: Basophils Absolute Auto 0.1 X10*3/uL (0.0-0.2); Basophils Percent Auto 0.6 % (0-2); Eosinophils Absolute Auto 0.1 X10*3/uL (0.0-0.4); Eosinophils Percent Auto 0.8 % (0-4); Hematocrit 44.2 % (37.0-47.0); Hemoglobin 14.7 g/dl (12.0-16.0); Imm Gran Abs Auto 0.03 X10*3/uL (0.00-0.03); Imm Gran Pct Auto 0.3 % (0.0-0.4); Lymphocytes Absolute Auto 3.6 X10*3/uL (1.2-4.9); Lymphocytes Percent Auto 32.5 % (20-40); Mean Corpuscular HGB Conc 33.3 g/dl (31.0-35.0); Mean Corpuscular Hemoglobin 29.5 pg (27.0-33.0); Mean Corpuscular Volume 88.8 fL (80.0-98.0); Mean Platelet Volume 9.4 fL (9.4-12.3); Monocytes Absolute Auto 0.7 X10*3/uL (0.1-1.2); Monocytes Percent Auto 6.7 % (2-11); Neutrophils Absolute Auto 6.5 x10*3/uL (2.0-8.3); Neutrophils Percent Auto 59.1 % (45-73); Platelet Count 370 X10*3/uL (160-400); Red Blood Count 4.98 X10*6/uL (4.20-5.50); Red Cell Distribution Width 12.6 % (11.0-16.0); White Blood Count 11.1 X10*3/uL (4.8-10.8)
[2025-03-05 11:13] LABS: Alanine Aminotransferase 22 U/L (0-31); Albumin Level 4.1 g/dL (3.5-5.0); Anion Gap 14 (12-20); Aspartate Amino Transferase 20 U/L (5-31); Bilirubin Direct 0.2 mg/dL (0.0-0.5); Bilirubin Total 0.5 mg/dL (0.0-1.0); Blood Urea Nitrogen 16 mg/dL (9-16); Calcium 9.5 mg/dL (8.4-10.2); Carbon Dioxide 26 mmol/L (22-29); Chloride 104 mmol/L (96-108); Estimated Glomerular Filt Rate > 60; Glucose Random 129 mg/dL (60-115); Potassium 3.1 mmol/L (3.3-5.1); Sodium 141 mmol/L (135-145); Total Protein 7.7 g/dL (6.5-8.0)
[2025-03-05 12:35] LABS: Alkaline Phosphatase 81 U/L (39-117)
== END 2025-03-05 10:01 | disposition home or self-care (01) ==
LOC: HO.LAB 10:00
PROVIDERS: PCP Internal Medicine; Visit Provider Physician Assistant
DX: E87.6 Hypokalemia (principal); R77.8 Other specified abnormalities of plasma proteins; R79.89 Other specified abnormal findings of blood chemistry; E11.65 Type 2 diabetes mellitus with hyperglycemia; E78.5 Hyperlipidemia, unspecified; R80.9 Proteinuria, unspecified
CPT/HCPCS: 36415; 80048; 80076; 85025

== ENCOUNTER 2025-03-10 08:00 | Outpatient (AMB) | payer OTHER, SELFPAY ==
--- OUTSIDE RECORDS SUMMARY | 2025-03-10 08:10 | XMS_ITS | Encounter Summary ---
Author Organization [facility] [place], Address [address] [place] [address] Phone Care Team Providers Care Senior Windows Administrator Name Role Phone Rebecca Rudolph MD Primary Care Provider [phone] Encounter Details Date Type Department Care Team (Late st Contact Info) Description 11/30/2024 Documentation Only [facility] [address] [place] [address] Jojo Berry [address] [place] [address] Social History Tobacco Use Types [...] Visit [facility] [address] [place] [address] Jay Jay Jenkins MD [address] [place] [address] [place] [address] documented as of this encounter Visit Diagnoses Not on filedocumented in this encounter Care Teams Senior Windows Administrator Relationship Specialty Start Date End Date Rebecca Rudolph MD [address] [place], [place] PCP - General Internal Medicine 01/10/22 documented as of this encounter
--- OUTSIDE RECORDS SUMMARY | 2025-03-10 08:10 | XMS_ITS | Clinical Summary ---
Author Organization [facility], Address [address] [place] [address] Phone Care Team Providers Care Youth Nutritional Monitor Name Role Phone Rebecca Rudolph MD Primary Care Provider [phone] Allergies Active Allergy Reactions Criticality Noted Date Comments Ciprofloxacin 01/10/2020 Nifedipine 01/10/2020 Sulfadiazine 11/23/2009 Other reaction(s): reash Medications aspirin 81 MG chewable tablet Chew 1 tablet 1 (one) time each day Active atorvastatin (LIPITOR) 10 MG tablet Comments: Filled Date: Jun 07 2017 12:00AM Patient Notes: TAKE 1 TABLET BY MOUTH EVERY DAY Duration: 30 6 Active metFORMIN XR (GLUCOPHATE-XR) 500 MG 24 hr tablet TAKE 2 TABLETS BY MOUTH EVERY DAY WITH EVENING MEAL 0 Active losartan (COZAAR) 100 MG tablet TAKE 1/2 TABLET BY MOUTH EVERY MORNING AND 1 TABLET EVERY NIGHT AT BEDTIME 135 tablet 3 4 Active carvedilol (COREG) 12.5 MG tablet Take 1 tablet (12.5 mg total) by mouth in the morning and 1 tablet (12.5 mg total) in the evening. Take with meals. 180 tablet 3 5 026 Active Dapagliflozin Propanediol (Farxiga) 5 MG tablet Take 5 mg by mouth 1 (one) time each day 30 tablet 11 5 Active ezetimibe (ZETIA) 10 MG tablet Take 10 mg by mouth 1 (one) time each day Active chlorthalidone 25 MG tablet TAKE 2 TABLETS BY MOUTH 1 TIME EACH DAY. 60 tablet 11 5 Active chlorthalidone 25 MG tablet Take 2 tablets (50 mg total) by mouth 1 (one) time each day 60 tablet 11 4 025 Discontinued Active Problems Problem Noted Date Diagnosed Date Essential (primary) hypertension 05/30/2020 Type 2 diabetes mellitus Persistent proteinuria Microalbuminuria Dyslipidemia Hypercholesterolemia Encounters Date Type Department Care Team Description 02/17/2025 Refill [facility] [address] [place] [id number] Jay Jay Jenkins MD 12/14/2024 Documentation Only [facility] [address] [place] [address] Jojo Berry from Last 3 Months Immunizations Immunization Administration Dates Next Due Influenza, MDCK, PF, [...] Visit [facility], [address] [place] [phone] Jay Jay Jenkins MD [address] [place] [phone] Health Maintenance Due Date Last Done Comments Breast Cancer Screening 1960 Colorectal Cancer Screening: Annual FOBT 2009 Colorectal Cancer Screening: Colonoscopy 2009 Colorectal Cancer Screening: Sigmoidoscopy 2009 Pneumococcal Vaccine: 50+ Years (2 of 2 - PCV) 11/17/2011 11/17/2010 Diabetes: Ophthalmology Exam 02/07/2020 Diabetes: Pedal Pulse Checked 02/07/2020 Diabetes: Sensory Foot Exam 02/07/2020 Diabetes: Visual Foot Exam 02/07/2020 Diabetes: Hemoglobin A1C 02/24/2024 024, 02/21/2021 Influenza Vaccine (Season Ended) 2025 09/18/2021, 08/26/2020, 11/24/2009 Pneumococcal Vaccine: Peds ( 0 to 5 Years) and At-Risk Patients (6 to 49 Years) Discontinued 11/17/2010 Hepatitis B Vaccine Aged Out No longe r eligible based on patient's age to complete this topic Procedures Procedure Name Priority Date/Time Associated Diagnosis Comments HEMOGLOBIN A1C Routine 11/25/2023 4:07 PM EST Persistent proteinuria from Last 3 Months or Most Recently Relevant to Health Maintenance Results * (ABNORMAL) Hemoglobin A1c (11/25/2023 4:07 PM EST) Hemoglobin A1C 7.2(H) (4.0-5.6) % [facility] Comment: MONITORING: In known diabetic patients, hemoglobin A1c targets should be discussed with health care provider. DIAGNOSTIC USE: ??The [place] Diabetes Association (ADA) and the World Health [...] Supplement 1 Testing performed or reported by [facility], a Service of [facility], [address] [place] [address] Moi Apple MD, Payroll Lead [facility]# [id number] Blood (Blood, Venous) 11/25/2023 4:07 PM EST 11/25/2023 4:08 PM EST us Jay Jay Jenkins MD LAB BLOOD ORDERABLES Final Re sult [facility] from Last 3 Months or Most Recently Relevant to Health Maintenance Insurance [id number] Care Teams Youth Nutritional Monitor Relationship Specialty Start Date End Date Rebecca Rudolph MD [address] [place] [address] PCP - General Internal Medicine 01/10/22
--- OUTSIDE RECORDS SUMMARY | 2025-03-10 08:10 | XMS_ITS | Encounter Summary ---
Author Organization [facility] [place], Address [address] [place] [address] Phone Care Team Providers Care Manager Of Change Name Role Phone Rebecca Rudolph MD Primary Care Provider [phone] Encounter Details Date Type Department Care Team (Late st Contact Info) Description 12/14/2024 Documentation Only [facility] [address] [place] [address] Jojo Berry [address] [place] [address] Social History Tobacco Use Types [...] Visit [facility] [address] [place] [address] Jay Jay Jenkins MD [address] [place] [address] [place] [address] documented as of this encounter Visit Diagnoses Not on filedocumented in this encounter Care Teams Manager Of Change Relationship Specialty Start Date End Date Rebecca Rudolph MD [address] [place], [place] PCP - General Internal Medicine 01/10/22 documented as of this encounter
--- OUTSIDE RECORDS SUMMARY | 2025-03-10 08:10 | XMS_ITS | Encounter Summary ---
Author Organization [facility], Address [address] [place] [address] Phone Care Team Providers Care Certified Home Health Aide Name Role Phone Rebecca Rudolph MD Primary Care Provider [phone] Reason for Visit * Reason Comments Med Change Request Encounter Details Date Type Department Care Team (Late st Contact Info) Description 11/25/2024 Refill [facility] [address] [place] [place] [address] Jay Jay Jenkins MD [address] [place] [address] [place] [address] Social History Tobacco Use Types [...] Office Visit [facility] [address] [place] [address] Jay Jay Jenkins MD [address] [place] [address] documented as of this encounter Visit Diagnoses Not on filedocumented in this encounter Care Teams Certified Home Health Aide Relationship Specialty Start Date End Date Rebecca Rudolph MD [address] [place], [place] PCP - General Internal Medicine 01/10/22 documented as of this encounter
--- OUTSIDE RECORDS SUMMARY | 2025-03-10 08:10 | XMS_ITS | Encounter Summary ---
Author Organization [facility], Address [address] [place] [address] Phone Care Team Providers Care General Accounting Manager Name Role Phone Rebecca Rudolph MD Primary Care Provider [phone] Reason for Visit * Reason Comments Med Refill Encounter Details Date Type Department Care Team (Late st Contact Info) Description 11/21/2024 Refill [facility] [address] [place] [address] Jay Jay Jenkins MD [address] [place] [address] [place] [address] Social History Tobacco Use Types [...] Office Visit [facility] [address] [place] [address] Jay Jay Jenkins MD [address] [place] [address] documented as of this encounter Visit Diagnoses Not on filedocumented in this encounter Care Teams General Accounting Manager Relationship Specialty Start Date End Date Rebecca Rudolph MD [address] [place], [place] PCP - General Internal Medicine 01/10/22 documented as of this encounter
--- OUTSIDE RECORDS SUMMARY | 2025-03-10 08:10 | XMS_ITS | Encounter Summary ---
Author Organization [facility] Address [address] [place] [address] Phone Care Team Providers Care Car Pre Cooler Name Role Phone Rebecca Rudolph MD Primary Care Provider [phone] Encounter Details Date Type Department Care Team (Late st Contact Info) Description 05/24/2024 Documentation Only [facility] [address] [place] [address] Jojo Berry [address] [place] [address] Social History Tobacco Use Types [...] Visit [facility] [address] [place] [address] Jay Jay Jenkins MD [address] [place] [address] documented as of this encounter Visit Diagnoses Not on filedocumented in this encounter Care Teams Car Pre Cooler Relationship Specialty Start Date End Date Rebecca Rudolph MD [address] [place] PCP - General Internal Medicine 01/10/22 documented as of this encounter
--- OUTSIDE RECORDS SUMMARY | 2025-03-10 08:10 | XMS_ITS | Encounter Summary ---
Author Organization [facility] [place], Address [address] [place] [address] Phone Care Team Providers Care Groover And Striper Operator Name Role Phone Rebecca Rudolph MD Primary Care Provider [phone] Encounter Details Date Type Department Care Team (Late st Contact Info) Description 12/17/2019 Orders Only [facility] [place] [address] [place] [address] Jocelin Lester [address] [place] [phone] Social History Tobacco Use Types Packs/Day Years [...] Visit [facility] [place], [address] [place] [address] Jay Jay Jenkins MD [address] [place] [address] documented as of this encounter Visit Diagnoses Not on filedocumented in this encounter Care Teams Groover And Striper Operator Relationship Specialty Start Date End Date Rebecca Rudolph MD [address] [place] [address] PCP - General Internal Medicine 01/10/22 documented as of this encounter
--- OUTSIDE RECORDS SUMMARY | 2025-03-10 08:10 | XMS_ITS | Patient Health Record ---
Author Organization [facility] Address [address] [place] [address] Care Team Providers Care Private Equity Analyst Name Role Phone NONE, NONE Primary Care Provider Narendra Wilson Unavailable [phone] Reason For Referral No Information Plan Of Treatment No Information
--- OUTSIDE RECORDS SUMMARY | 2025-03-10 08:10 | XMS_ITS | Encounter Summary ---
Author Organization [facility], Address [address] [place] [address] Phone Care Team Providers Care Commercial Roofing Estimator Name Role Phone Rebecca Rudolph MD Primary Care Provider [phone] Reason for Visit * Reason Comments Med Change Request Encounter Details Date Type Department Care Team (Late st Contact Info) Description 12/01/2024 Refill [facility] [address] [place] [address] Jay Jay Jenkins MD [address] [place] [address] [place] [address] Social History Tobacco Use Types [...] Office Visit [facility] [address] [place] [address] Jay Jay Jenkins MD [address] [place] [address] documented as of this encounter Visit Diagnoses Not on filedocumented in this encounter Care Teams Commercial Roofing Estimator Relationship Specialty Start Date End Date Rebecca Rudolph MD [address] [place], [place] PCP - General Internal Medicine 01/10/22 documented as of this encounter
--- OUTSIDE RECORDS SUMMARY | 2025-03-10 08:10 | XMS_ITS | Encounter Summary ---
Author Organization [facility] Address [address] [place] [address] Phone Care Team Providers Care Sales Enablement Lead Name Role Phone Rebecca Rudolph MD Primary Care Provider [phone] Encounter Details Date Type Department Care Team (Late st Contact Info) Description 05/24/2024 Documentation Only [facility] [address] [place] [address] Jojo Berry [address] [place] [address] Social History Tobacco Use Types [...] Visit [facility] [address] [place] [address] Jay Jay Jenkins MD [address] [facility] [place] [address] documented as of this encounter Visit Diagnoses Not on filedocumented in this encounter Care Teams Sales Enablement Lead Relationship Specialty Start Date End Date Rebecca Rudolph MD [address] [place] PCP - General Internal Medicine 01/10/22 documented as of this encounter
--- NOTE | 2025-03-10 08:15 | A.OFFVIS_ITS ---
Intake Intake Visit Reasons: 60 min Fire Control Mechanic Required: No Accompanied by: Self / Same As Patient Allergies ciprofloxacin [From CIPRO] Allergy (Severe, Verified 02/07/25 08:23) ANAPHYLAXIS; RASH semaglutide [From Rybelsus] Adverse Reaction (Intermediate, Verified 02/07/25 08:23) blurry vision HPI Comprehensive Diabetes Asmnt Most Recent Diabetes Results: 2 Hemoglobin A1c 5.8 % 01/29/20 Microalb/Creat Ratio 116.5 ug/mg cr (<30) H 12/25/24 Cholesterol 144 mg/dL (<200) 12/25/24 HDL Cholesterol 45 mg/dL (>40) 12/25/24 Triglycerides 117 mg/dL (<150) 12/25/24 Creatinine 0.78 mg/dL (0.5-1.4) 03/05/25 Blood Urea Nitrogen 16 mg/dL (9-16) 03/05/25 Sodium 141 mmol/L (135-145) 03/05/25 Potassium 3.1 mmol/L (3.3-5.1) L 03/05/25 Chloride 104 mmol/L (96-108) 03/05/25 Carbon Dioxide 26 mmol/L (22-29) 03/05/25 Calcium 9.5 mg/dL (8.4-10.2) 03/05/25 AST 20 U/L (5-31) 03/05/25 ALT 22 U/L (0-31) 03/05/25 Total Protein 7.7 g/dL (6.5-8.0) 03/05/25 Albumin 4.1 g/dL (3.5-5.0) 03/05/25 [facility] Medical History CAD (coronary artery disease) PAC (premature atrial contraction) Tricuspid valve regurgitation Physical exam Screen for colon cancer Tachycardia Murmur Dyspnea Microalbuminuria Obesity (BMI 30.0-34.9) Dyslipidemia Hypertension Encounter for diabetic foot exam High cholesterol High blood pressure Diabetes mellitus Surgical History Stented coronary artery History of coronary artery stent placement S/P skin biopsy History of hernia repair S/P BLAIR-BSO (total abdominal hysterectomy and bilateral salpingo-oophorectomy) History of removal of cyst History of bladder surgery Family History Father CAD (coronary artery disease) CVD (cardiovascular disease) Myocardial infarction Substance use disorder Mother CVD (cardiovascular disease) Hypertension Brother Hypertension Sister Hypertension Daughter Obese Social History Housing: House Alcohol intake: current Alcohol intake frequency: holidays/special occasions only Alcohol type: hard liquor Patient Tobacco Use Status: Former Tobacco user Tobacco use type: Cigarette e-Cigarette/Vaping Use: Never Used Second Hand Smoke Exposure: No service: No Current occupational status: employed Current occupational exposures/hazards: No Cognitive needs: No Hearing needs: No Vision needs: Yes Assessment & Plan Assessment & Plan (1) Uncontrolled type 2 diabetes mellitus with hyperglycemia: Code(s): E11.65 - Type 2 diabetes mellitus with hyperglycemia Plan: Diabetes self-management education and support participation record Assessment/scale: 1= needs instructed? 2= needs review? 3= comprehend keep point? 4= demonstrates understanding/ competent? NC= Not Covered Topics Learning Objective: Initial visit Initial or post srvc Initial or post srvc Initial or post srvc Initial or post srvc Initial or post srvc Post srvc Comments Pre Edu-assessment/plan Outcome or reassess O utcome or reassess Outcome or reassess Outcome or reassess Outcome or reassess Outcome or reassess Diabetes pathophysiology 1 3 Healthy eating 1 4 Being active 1 4 Taking medication 2 4 Monitoring glucose 2 4 Acute complication 1 3 Chronic complicated 1 Lifestyle and healthy coping 2 Diabetes distress in support 1 3 ?Diabetes pathophysiology: ?Defined diabetes med identify own type of diabetes; list 3 options for treating diabetes Healthy eating: ?Described effect of type, amount and ?timing of food on blood glucose; list 3 methods for planning meal Being active: ?State effect of exercise on blood glucose level Taking medication: ?State effect of diabetes medications on diabetes; name diabetes medications taking, action and side effects Monitoring glucose: ?Identify recommended blood glucose targets and personal target Acute complication: ?List symptoms and treatment of hyper and hypoglycemia, DKA, sick day guidelines and guidelines for severe weather or situations of crisis and diabetes supply manage Chronic complication: ?To find the relationship of blood glucose levels to long- term complications of diabetes in screening and preventative measures Lifestyle and healthy coping: ?Described lifestyle and healthy coping strategies to rule out diabetes self-management Diabetes to stress and support: ?Recognize Diabetes to stress and be able to identified support optionsLearning objectives: The patient was provided with verbal and written education on the following topics as outlined below. Patient has 1 episode of overnight hypoglycemia. Patient has low alert was off on in her cell phone vielka. turned it on at today's visit. Instructed patient if she continues or notices an increase pattern of hypoglycemia to contact provider or senior health educator for adjustment in basal insulin. The patient met all learning objectives and was able to verbalize understanding and provide teach back of education topics discussed . The patient was provided with the opportunity to ask questions and all questions were answered. Topics covered in today?s session included: Medications (If applicable) * Name of medication? * Dosing/administration instructions? * Mechanism of action? * Potential side effects? * Potential adverse reaction and appropriate treatment? * Review onset, peak, duration Assess for concerns re: insurance coverage, cost, barriers to compliance Insulin/Injectables (If applicable) * Storage/care of insulin?? * Injection sites? * Site rotation? * Onset, peak, duration * Drawing up insulin? * Injecting insulin/other injectables? * Sharps disposal Continuous blood glucose monitoring (if applicable) Hypoglycemia and Hyperglycemia * Signs and symptoms? * Causes?? * Treatment? * Preventing hypoglycemia? * When to seek medical attention Target Goals: * Blood glucose targets and how you feel when your blood glucose is in and out of your target ranges. * Monitoring and knowing your A1C. * What can make blood glucose go up and down and preventing high and low blood glucose. * Review of blood sugar targets in expected goal range and outside of expected goal range. * Problem solving and preventing hyper/hypoglycemia. * Sick day management of diabetes. * Using blood sugar results in decision making process in managing diabetes. ?Patient was receptive to information provided and participated in the discussion. Asked?appropriate questions and demonstrated good understanding of the topics discussed.? ? Educational Materials: The patient was provided with the following written educational materials: Target Goal handout Smart Goal Assessment:? Patient will reduce portions to 30-45 g of carbohydrate per meal between now and next visit Pt met goal 75% New Smart Goal:Pt will use rule of 15s to treat glucose levels under 70 mg/dL Patient Response to instructions: Comprehension of Instructions: good Readiness to make changes:? action How confident they feel about making changes:positive Portions of this note were created using voice recognition software, please excuse any words or phrases that may have been misinterpreted. Coding Level of Care Code Est Pt Level 1 (89597) Diagnoses Uncontrolled type 2 diabetes mellitus with hyperglycemia E11.65
== END 2025-03-10 08:47 | disposition home or self-care (01) ==
LOC: HO.ENCR 08:01
PROVIDERS: PCP Internal Medicine; Visit Provider Registered Nurse Diabetes Educator
DX: E11.65 Type 2 diabetes mellitus with hyperglycemia (principal)

== ENCOUNTER → 2025-03-10 08:00 | Outpatient (BNVA) | payer OTHER, SELFPAY | PROVIDERS: PCP Internal Medicine; Visit Provider Registered Nurse Diabetes Educator | DX: E11.65 Type 2 diabetes mellitus with hyperglycemia (principal) | CPT/HCPCS: 99211 ==

== ENCOUNTER 2025-03-15 08:25 | Outpatient (AMB) | payer OTHER, SELFPAY ==
[2025-03-15 08:28] VITALS: BP 120/72; PULSE 77; BMI 34.6
--- NOTE | 2025-03-15 08:28 | A.OFFVIS_ITS ---
Vital Signs 03/15/25 08:28 Height 5 ft 1 in Weight 182 lb 15.739 oz BMI 34.6 BP 120/72 Blood Pressure Location Lt brachial Position Sitting Pulse 77 Intake Visit Reasons: 1 yr /fup w/ ekg Intake Note: 1 year follow-up with ekg c/o sob and palpitations at times Diving Instructor Required: No Allergies ciprofloxacin [From CIPRO] Allergy (Severe, Verified 02/07/25 08:23) ANAPHYLAXIS; RASH semaglutide [From Rybelsus] Adverse Reaction (Intermediate, Verified 02/07/25 08:23) blurry vision Medication List - Last Reconciled 03/15/25 by Lakhwinder Krause MD aspirin (Adult Low Dose Aspirin) 81 mg PO DAILY atorvastatin 40 mg PO DAILY blood sugar diagnostic (FreeStyle Lite Strips) Use 1 test strip once a day blood-glucose sensor (Academicayle Chloe 3 Plus Sensor device) Use daily As directed to monitor glucose carvedilol 12.5 mg PO BID chlorthalidone 50 mg PO DAILY cholecalciferol (vitamin D3) 25 mcg PO DAILY 90 days dapagliflozin propanediol (Farxiga) 10 mg PO DAILY 30 days dulaglutide (Trulicity) 0.75 mg (0.5 mL) subcut QWEEK ezetimibe 10 mg PO DAILY fluticasone propionate 50 mcg/actuation (Flonase Allergy Relief) 2 sprays intranasal DAILY gabapentin 100 mg PO BEDTIME 90 days glucose (Dex4 Glucose) 16 grams (4 x 4 gram) PO Q15M PRN insulin glargine-yfgn (Semglee (insulin glargine-yfgn) Pen) 10 units (0.1 mL) subcut DAILY lancets (FreeStyle Lancets) Use 1 lancet once a day losartan 100 mg PO BID metformin ER 1,000 mg (2 x 500 mg) PO QPM pen needle, diabetic (BD Betty 2nd Gen Pen Needle) Use daily As directed HPI Comments Details: Taisha comes for follow-up. She continues to have symptoms exertional shortness of breath climbing a flight of stairs or walking a distance. She was no orthopnea, PND. No associated chest discomfort. Diabetes remains difficult to control. She also noticing increasing symptoms of palpitation with quick fast heart rate happening about once a week infrequently. Notices that her potassium level has been low for some time. She denies any lightheadedness, syncope. Takes all her medications. Last LDL is increased to 76 mg/dL but she says she eats eggs quite frequently. PENDING SALE TO [facility] Medical History CAD (coronary artery disease) PAC (premature atrial contraction) Tricuspid valve regurgitation Physical exam Screen for colon cancer Tachycardia Murmur Dyspnea Microalbuminuria Obesity (BMI 30.0-34.9) Dyslipidemia Hypertension Encounter for diabetic foot exam High cholesterol High blood pressure Diabetes mellitus Surgical History Stented coronary artery History of coronary artery stent placement S/P skin biopsy History of hernia repair S/P BLAIR-BSO (total abdominal hysterectomy and bilateral salpingo-oophorectomy) History of removal of cyst History of bladder surgery Family History Father CAD (coronary artery disease) CVD (cardiovascular disease) Myocardial infarction Substance use disorder Mother CVD (cardiovascular disease) Hypertension Brother Hypertension Sister Hypertension Daughter Obese Social History Housing: House Alcohol intake: current Alcohol intake frequency: holidays/special occasions only Alcohol type: hard liquor Patient Tobacco Use Status: Former Tobacco user Tobacco use type: Cigarette e-Cigarette/Vaping Use: Never Used Second Hand Smoke Exposure: No service: No Current occupational status: employed Current occupational exposures/hazards: No Cognitive needs: No Hearing needs: No Vision needs: Yes Review of Systems Const Denies chills, Denies fatigue, Denies fever(s), Denies frequent falls, Denies weakness, Denies weight gain and Denies weight loss ENT Denies dizziness Card Denies chest pain, Denies leg edema, Denies lightheadedness, Denies palpitations, Denies dyspnea, Denies dyspnea on exertion, Denies orthopnea and Denies other (loss of consciousness) Resp Denies cough, Denies dyspnea and Denies dyspnea on exertion GI Denies hematochezia and Denies change in stool character Musc Denies abnormal gait, Denies muscle weakness, Denies numbness, Denies radiating pain into limb and Denies tingling Neuro Denies Abnormal speech present, Denies abnormal gait, Denies dizziness, Denies frequent falls, Denies numbness, Denies tingling and Denies weakness Endo Denies fatigue and Denies palpitations Physical Exam Vital Signs: Last Vital Signs Pulse 77 03/15/25 08:28 BP 120/72 03/15/25 08:28 BMI result Body Mass Index 34.6 Const General: cooperative, comfortable, no acute distress, alert, awake, anxious and well groomed Nutritional Appearance: overweight Orientation/consciousness: patient oriented x3 Limitations: no limitations Neck Neck: Yes trachea midline, Yes supple and Yes no JVD Chest Chest palpation & inspection: normal inspection of the chest Resp Effort & Inspection: normal respiratory effort Auscultation: clear to auscultation bilaterally Cardio Jugular venous distension: no JVD Palpation: normal PMI Rate: regular rate Rhythm: regular rhythm Heart sounds: S1 normal heart sound present, S2 normal heart sound present, no click, no gallops, no murmurs and no rubs GI Auscultation: normal bowel sounds Skin General skin exam: no rashes or lesions noted Neuro General: patient oriented x3 and no focal motor deficits Speech: No Abnormal speech present Extrem General: Yes no clubbing, cyanosis or edema Psych Appearance: grossly normal Office Procedures EKG Details: EKG shows normal sinus rhythm nonspecific T-wave changes 69529-[id number], Complete Assessment & Plan Assessment & Plan (1) Short of breath on exertion: Code(s): R06.02 - Shortness of breath Category: Medical Plan: Persistent exertional shortness of breath with no so chest tightness with no signs or symptoms of heart failure. Need to rule out myocardial ischemia given her prior history of CAD with multivessel PCI. Recommend to undergo exercise myocardial perfusion imaging. Also suggest an echocardiogram to evaluate LV sy stolic and diastolic function to evaluate for pulmonary hypertension. These tests will be scheduled in near future. (2) CAD (coronary artery disease): Code(s): I25.10 - Atherosclerotic heart disease of [place] coronary artery without angina pectoris Category: Medical Plan: CAD with prior PCI last PCI to RCA in 2021. Symptoms as above will be worked up as above. Her LDL has risen. Most likely due to dietary indiscretion. Recommend to titrate up the diet. Continue high-intensity statin and ezetimibe therapy. Repeat lipids in 3 months. Also suggest to continue aggressive management diabetes goal hemoglobin A1c less than 7% being pursue through your office. Consider GLP 1 antagonist therapy. Blood pressure is well optimized although will change chlorthalidone 25 mg daily for her hypokalemia. See below. (3) PAC (premature atrial contraction): Code(s): I49.1 - Atrial premature depolarization Category: Medical Plan: Prior history of PACs with increasing symptoms of palpitations. Atrial fibrillation needs to be ruled out. Will suggest to week Holter monitor to assess for the same. Meanwhile hypokalemia probably makes her more excitable. At this point time would reduce chlorthalidone to 25 mg daily and add potassium supplement to her regimen. Repeat potassium level in 1 week's time. Also advise to monitor blood pressure at home maintain a log. If blood pressure starts increasing will need to add a potassium sparing diuretic such as spironolactone to her regimen in combination with hydrochlorothiazide. This was discussed with her. Will follow up in the clinic in 3 months time, sooner p.r.n.. Thank you for allowing me to partake in her care Orders: Orders CA stress test Today R06.02 - Shortness of breath ECG 14 day holter monitor Today I49.1 - Atrial premature depolarization Basic Metabolic Panel Today I10 - Essential (primary) hypertension NM cardiolite stress test 2 Weeks R06.02 - Shortness of breath, R07.9 - Chest pain, unspecified CA echo transthoracic complete Today R06.02 - Shortness of breath Medications: New potassium chloride 20 mEq PO DAILY 30 ea 2RF Changed From chlorthalidone 50 mg PO DAILY To chlorthalidone 25 mg PO DAILY Coding Level of Care Code Est Pt Level 4 (02985) Complex EM visit Add On G2211 Diagnoses Short of breath on exertion R06.02 CAD (coronary artery disease) I25.10 PAC (premature atrial contraction) I49.1 CPT Codes EKG - CPT: 77140-[id number], Complete ([id number])
--- OUTSIDE RECORDS SUMMARY | 2025-03-15 08:42 | XMS_ITS | Encounter Summary ---
Author Organization [facility], Address [address] [place] [address] Phone Care Team Providers Care Refrigeration Engineer Name Role Phone Rebecca Rudolph MD Primary Care Provider [phone] Encounter Details Date Type Department Care Team (Late st Contact Info) Description 12/17/2019 Orders Only [facility] [address] [place] [address] Jocelin Lester [address] [place] [phone] Social History Tobacco Use Types Packs/Day Years [...] Visit [facility], [address] [place] [address] Jay Jay Jenkins MD [address] [facility] [place] [address] documented as of this encounter Visit Diagnoses Not on filedocumented in this encounter Care Teams Refrigeration Engineer Relationship Specialty Start Date End Date Rebecca Rudolph MD [address] [place] [address] PCP - General Internal Medicine 01/10/22 documented as of this encounter
--- OUTSIDE RECORDS SUMMARY | 2025-03-15 08:43 | XMS_ITS | Encounter Summary ---
Author Organization [facility] Address [address] [place] [address] Phone Care Team Providers Care Parquet Floor Layer Name Role Phone Rebecca Rudolph MD Primary Care Provider [phone] Encounter Details Date Type Department Care Team (Late st Contact Info) Description 05/24/2024 Documentation Only [facility] [address] [place] [address] Jojo Berry [address] [place] [address] Social History Tobacco Use Types [...] Visit [facility] [address] [place] [address] Jay Jay Jenkins MD [address] [place] [address] documented as of this encounter Visit Diagnoses Not on filedocumented in this encounter Care Teams Parquet Floor Layer Relationship Specialty Start Date End Date Rebecca Rudolph MD [address] [place] PCP - General Internal Medicine 01/10/22 documented as of this encounter
--- OUTSIDE RECORDS SUMMARY | 2025-03-15 08:43 | XMS_ITS | Clinical Summary ---
Author Organization [facility], Address [address] [place] [address] Phone Care Team Providers Care Chain Maker Hand Name Role Phone Rebecca Rudolph MD Primary Care Provider [phone] Allergies Active Allergy Reactions Criticality Noted Date [...] 02/17/2025 Refill [facility], [address] [place] [address] Jay Jay Jenkins MD from Last 3 Months Immunizations Immunization Administration [...] Visit [facility] [place], [address] [place] [address] Jay Jay Jenkins MD [address] [place] [address] Health Maintenance Due Date Last Done [...] PM EST) Hemoglobin A1C 7.2(H) (4.0-5.6) % [facility] Comment: MONITORING: In known diabetic patients, hemoglobin A1c targets should be discussed with health care provider. DIAGNOSTIC USE: ??The Citizen [place] Diabetes Association (ADA) and the World Health [...] Supplement 1 Testing performed or reported by [facility], [facility], [address] [place] [address] Moi Apple MD, Car Dropper [facility]# [id number] Blood (Blood, Venous) 11/25/2023 4:07 PM EST 11/25/2023 4:08 PM EST us Jay Jay Jenkins MD LAB BLOOD ORDERABLES Final Re sult [facility] from Last 3 Months or Most Recently Relevant to Health Maintenance Insurance [facility] Care Teams Chain Maker Hand Relationship Specialty Start Date End Date Rebecca Rudolph MD [address] [place], [place] PCP - General Internal Medicine 01/10/22
--- OUTSIDE RECORDS SUMMARY | 2025-03-15 08:43 | XMS_ITS | Encounter Summary ---
Author Organization [facility], Address [address] [place] [address] Phone Care Team Providers Care Superintendent Stevedoring Name Role Phone Rebecca Rudolph MD Primary Care Provider [phone] Reason for Visit * Reason Comments Med Change Request Encounter Details Date Type Department Care Team (Late st Contact Info) Description 12/01/2024 Refill [facility] [address] [place] [address] Jay Jay Jenkins MD [address] [place] [address] [place] [address] Social History Tobacco Use Types [...] Office Visit [facility] [address] [place] [address] Jay Jay Jenkins MD [address] [place] [address] documented as of this encounter Visit Diagnoses Not on filedocumented in this encounter Care Teams Superintendent Stevedoring Relationship Specialty Start Date End Date Rebecca Rudolph MD [address] [place], [place] PCP - General Internal Medicine 01/10/22 documented as of this encounter
--- OUTSIDE RECORDS SUMMARY | 2025-03-15 08:43 | XMS_ITS | Encounter Summary ---
Author Organization [facility], Address [address] [place] [address] Phone Care Team Providers Care Design Assembler Name Role Phone Rebecca Rudolph MD Primary Care Provider [phone] Reason for Visit * Reason Comments Med Refill Encounter Details Date Type Department Care Team (Late st Contact Info) Description 11/21/2024 Refill [facility] [place], [address] [place] [address] Jay Jay Jenkins MD [address] [place] [address] [place] [address] Social History Tobacco Use Types [...] Office Visit [facility] [address] [place] [address] Jay Jay Jenkins MD [address] [facility] [place] [address] documented as of this encounter Visit Diagnoses Not on filedocumented in this encounter Care Teams Design Assembler Relationship Specialty Start Date End Date Rebecca Rudolph MD [address] [place], [place] PCP - General Internal Medicine 01/10/22 documented as of this encounter
--- OUTSIDE RECORDS SUMMARY | 2025-03-15 08:43 | XMS_ITS | Encounter Summary ---
Author Organization [facility] Address [address] [place] [address] Phone Care Team Providers Care Supervisor Road Administrator Name Role Phone Rebecca Rudolph MD Primary Care Provider [phone] Encounter Details Date Type Department Care Team (Late st Contact Info) Description 05/24/2024 Documentation Only [facility] [address] [place] [address] Jojo Berry [address] [place] [address] Social History Tobacco Use Types [...] Visit [facility] [address] [place] [address] Jay Jay Jenkins MD [address] [facility] [place] [address] documented as of this encounter Visit Diagnoses Not on filedocumented in this encounter Care Teams Supervisor Road Administrator Relationship Specialty Start Date End Date Rebecca Rudolph MD [address] [place] PCP - General Internal Medicine 01/10/22 documented as of this encounter
--- OUTSIDE RECORDS SUMMARY | 2025-03-15 08:43 | XMS_ITS | Encounter Summary ---
Author Organization [facility], Address [address] [place] [address] Phone Care Team Providers Care Environmental Services Worker Name Role Phone Rebecca Rudolph MD Primary Care Provider [phone] Reason for Visit * Reason Comments Med Change Request Encounter Details Date Type Department Care Team (Late st Contact Info) Description 11/25/2024 Refill [facility] [address] [place] [address] Jay Jay Jenkins MD [address] [place] [address] [place] [address] Social History Tobacco Use Types [...] Office Visit [facility] [address] [place] [address] Jay Jay Jenkins MD [address] [facility] [place] [address] documented as of this encounter Visit Diagnoses Not on filedocumented in this encounter Care Teams Environmental Services Worker Relationship Specialty Start Date End Date Rebecca Rudolph MD [address] [place], [place] PCP - General Internal Medicine 01/10/22 documented as of this encounter
--- OUTSIDE RECORDS SUMMARY | 2025-03-15 08:43 | XMS_ITS | Encounter Summary ---
Author Organization [facility] [place], Address [address] [place] [address] Phone Care Team Providers Care Temperature Regulator Pyrometer Name Role Phone Rebecca Rudolph MD Primary Care Provider Encounter Details Date Type Department Care Team (Late st Contact Info) Description 11/30/2024 Documentation Only [facility] [address] [place] [address] Jojo Berry [address] [place] [address] Social History Tobacco Use Types [...] Visit [facility] [address] [place] [address] Jay Jay Jenkins MD [address] [place] [address] [place] [address] documented as of this encounter Visit Diagnoses Not on filedocumented in this encounter Care Teams Temperature Regulator Pyrometer Relationship Specialty Start Date End Date Rebecca Rudolph MD [address] [place], [place] PCP - General Internal Medicine 01/10/22 documented as of this encounter
--- OUTSIDE RECORDS SUMMARY | 2025-03-15 08:43 | XMS_ITS | Encounter Summary ---
Author Organization [facility], Address [address] [place] [address] Phone Care Team Providers Care Horticultural Specialty Grower Inside Name Role Phone Rebecca Rudolph MD Primary Care Provider [phone] Encounter Details Date Type Department Care Team (Late st Contact Info) Description 12/14/2024 Documentation Only [facility] [address] [place] [address] Jojo Berry [address] [place] [address] Social History Tobacco Use Types [...] Visit [facility] [address] [place] [address] Jay Jay Jenkins MD [address] [place] [address] [place] [address] documented as of this encounter Visit Diagnoses Not on filedocumented in this encounter Care Teams Horticultural Specialty Grower Inside Relationship Specialty Start Date End Date Rebecca Rudolph MD [address] [place], [place] PCP - General Internal Medicine 01/10/22 documented as of this encounter
== END 2025-03-15 08:56 | disposition home or self-care (01) ==
LOC: HO.HCS 08:26
PROVIDERS: PCP Internal Medicine; Visit Provider Internal Medicine Cardiovascular Disease
DX: R06.02 Shortness of breath (principal); I25.10 Atherosclerotic heart disease of native coronary artery without angina pectoris; I49.1 Atrial premature depolarization
CPT/HCPCS: 93010; 99214; G2211

== ENCOUNTER → 2025-03-15 08:25 | Outpatient (BNVA) | payer OTHER, SELFPAY | PROVIDERS: PCP Internal Medicine; Visit Provider Internal Medicine Cardiovascular Disease | DX: R06.02 Shortness of breath (principal); I25.10 Atherosclerotic heart disease of native coronary artery without angina pectoris; I49.1 Atrial premature depolarization; Z79.899 Other long term (current) drug therapy | CPT/HCPCS: 93005 ==

== ENCOUNTER 2025-03-29 07:55 | Outpatient (REF) | payer OTHER, SELFPAY ==
--- NOTE | ~2025-03-29 | US_ITS ---
EXAMINATION: US ABDOMEN COMPLETE WITH LIVER ELASTOGRAPHY HISTORY: E87.6 - Hypokalemia TECHNIQUE: Real-time grayscale ultrasound imaging of the abdomen was performed and images were reviewed. COMPARISON: There are no prior studies for comparison. FINDINGS: Liver: The right lobe of the liver measures 15.7 cm in size. The left lobe of the liver measures 10.8 cm in size. The liver demonstrates increased echotexture, consistent with steatosis. No focal mass or intrahepatic biliary ductal dilatation is identified. There is normal hepatopedal flow in the portal vein. Ultrasound elastography of the liver was performed with 10 separate measurements of the liver parenchyma with the patient in the supine position. Measurements were obtained approximately 2 cm below Neftali's capsule and perpendicular to the capsule. Images are of satisfactory quality. The median shear wave velocity is 1.32 m/s. The interquartile range/median (IQR/median) is 0.31. Gallbladder and biliary tree: The gallbladder is unremarkable, without evidence of calculi, wall thickening, or pericholecystic fluid. There is no sonographic Ribeiro sign. The common bile duct is normal in caliber measuring 5 mm. Kidneys: The right kidney measures 14.1 cm in length and demonstrates a 6.7 x 6.2 x 6.2 cm upper pole cyst and a 1.0 x 0.8 x 1.2 cm lower pole cyst. The left kidney measures 12.4 cm in length and demonstrates a 1.1 x 0.8 x 0.8 cm hypoechoic focus with low-level internal echoes at the lower pole. No hydronephrosis or calculi are identified. Pancreas: The pancreatic head, neck, and body are hyperechoic and lobulated, but otherwise unremarkable in appearance. The pancreatic tail is obscured by bowel gas. Spleen: The spleen is normal in size and contour, measuring 9.6 cm in length. Abdominal aorta and inferior vena cava: The visualized portions of the abdominal aorta and inferior vena cava are normal in caliber. There is no free fluid in the abdomen. US/US abdomen comp w elastography IMPRESSION: 1. Hepatic steatosis. 2. 11 mm hypoechoic focus at the lower pole of the left kidney which could be a complicated cyst or possibly a small solid mass. Follow-up is recommended. The median shear wave velocity in the liver is 1.32 m/s, corresponding to a median liver stiffness of 5.2 kPa. The IQR/median value is 0.31. This is indicative of a poor quality data set, and the estimated liver stiffness may be unreliable. Findings are indicative of a low elastography value which rules out advanced chronic liver disease in asymptomatic patients. REFERENCE: Society of Radiologists in Ultrasound Liver Stiffness Thresholds (2019): LIVER STIFFNESS THRESHOLDS: *Shear wave velocity less than 1.3 m/s (Liver Stiffness equal or less than 5 kPa): High probability of being normal. *Shear wave velocity less than 1.7 m/s (Liver Stiffness less than 9 kPa): In the absence of other known clinical signs, rules out compensated advanced chronic liver disease. *Shear wave velocity between 1.7-2.1 m/s (Liver Stiffness 9-13 kPa): Suggestive of compensated advanced chronic liver disease but need further test for confirmation. *Shear wave velocity between 2.1-2.4 m/s (Liver Stiffness 13-17 kPa): Rules in compensated advanced chronic liver disease. *Shear wave velocity greater than 2.4 m/s (Liver Stiffness over 17 kPa): Suggestive of clinically significant portal hypertension. QUALITY OF DATA SET: *IQR/Median value equal or less than 0.30 implies a quality data set. *IQR/Median value over 0.30 implies a poor quality data set. SIGNIFICANT CHANGE FROM PRIOR EXAM: Significant change if liver stiffness measurement is 10% or greater from prior exam. OTHER CONSIDERATIONS: The stage of liver fibrosis may be overestimated in the setting of acute hepatitis, liver inflammation, elevated liver function tests, hepatic vascular congestion, obstructive cholestasis, non-fasting state, and infiltrative diseases such as amyloidosis and lymphoma. In some patients with NAFLD, the liver stiffness thresholds for compensated advanced chronic liver disease may be lower. In causes other than viral hepatitis and NAFLD, liver stiffness thresholds are not well established. Electronically signed by: Narendra Land MD 03/29/2025 08:42 AM EDT
--- OUTSIDE RECORDS SUMMARY | 2025-03-29 07:57 | XMS_ITS | Encounter Summary ---
Author Organization [facility] Address [address] [place] [address] Phone Care Team Providers Care Field Service Supervisor Name Role Phone Rebecca Rudolph MD Primary Care Provider [phone] Encounter Details Date Type Department Care Team (Late st Contact Info) Description 05/24/2024 Documentation Only [facility] [address] [place] [address] Jojo Berry [address] [place] [address] Social History Tobacco Use Types [...] Visit [facility] [address] [place] [address] Jay Jay Jenkins MD [address] [place] [address] documented as of this encounter Visit Diagnoses Not on filedocumented in this encounter Care Teams Field Service Supervisor Relationship Specialty Start Date End Date Rebecca Rudolph MD [address] [place] PCP - General Internal Medicine 01/10/22 documented as of this encounter
--- OUTSIDE RECORDS SUMMARY | 2025-03-29 07:57 | XMS_ITS | Encounter Summary ---
Author Organization [facility], Address [address] [place] [address] Phone Care Team Providers Care Ingot Weigher Name Role Phone Rebecca Rudolph MD Primary Care Provider [phone] Encounter Details Date Type Department Care Team (Late st Contact Info) Description 12/17/2019 Orders Only [facility] [address] [place] [address] Jocelin Lester [address] [place] [phone] Social History Tobacco Use Types Packs/Day Years [...] Visit [facility], [address] [place] [address] Jay Jay Jenkins MD [address] [place] [address] documented as of this encounter Visit Diagnoses Not on filedocumented in this encounter Care Teams Ingot Weigher Relationship Specialty Start Date End Date Rebecca Rudolph MD [address] [place] [address] PCP - General Internal Medicine 01/10/22 documented as of this encounter
--- OUTSIDE RECORDS SUMMARY | 2025-03-29 07:57 | XMS_ITS | Encounter Summary ---
Author Organization [facility] Address [address] [place] [address] Phone Care Team Providers Care Energy Operations Vice President Name Role Phone Rebecca Rudolph MD Primary Care Provider [phone] Encounter Details Date Type Department Care Team (Late st Contact Info) Description 05/24/2024 Documentation Only [facility] [address] [place] [place] [address] Jojo Berry [address] [place] [address] Social History Tobacco Use Types [...] [facility] [address] [place] [address] Jay Jay Jenkins MD [address] [facility] [place] [address] documented as of this encounter Visit Diagnoses Not on filedocumented in this encounter Care Teams Energy Operations Vice President Relationship Specialty Start Date End Date Rebecca Rudolph MD [address] [place] PCP - General Internal Medicine 01/10/22 documented as of this encounter
--- OUTSIDE RECORDS SUMMARY | 2025-03-29 07:57 | XMS_ITS | Patient Health Record ---
Author Organization [facility] Address [address] [place] [address] Care Team Providers Care Professor Of Industrial Technology Name Role Phone NONE, NONE Primary Care Provider Narendra Wilson Unavailable [phone] Reason For Referral No Information Plan Of Treatment No Information
--- OUTSIDE RECORDS SUMMARY | 2025-03-29 07:57 | XMS_ITS | Encounter Summary ---
Author Organization [facility] [place], Address [address] [place] [address] Phone Care Team Providers Care Textile Pin Worker Name Role Phone Rebecca Rudolph MD Primary Care Provider [phone] Encounter Details Date Type Department Care Team (Late st Contact Info) Description 12/14/2024 Documentation Only [facility] [address] [place] [address] Jojo Berry [address] [place] [address] Social History Tobacco Use Types [...] Visit [facility] [address] [place] [address] Jay Jay Jenkins MD [address] [place] [address] [place] [address] documented as of this encounter Visit Diagnoses Not on filedocumented in this encounter Care Teams Textile Pin Worker Relationship Specialty Start Date End Date Rebecca Rudolph MD [address] [place], [place] PCP - General Internal Medicine 01/10/22 documented as of this encounter
--- OUTSIDE RECORDS SUMMARY | 2025-03-29 07:57 | XMS_ITS | Encounter Summary ---
Author Organization [facility] [place], Address [address] [place] [address] Phone Care Team Providers Care Acid Mixer Name Role Phone Rebecca Rudolph MD Primary Care Provider [phone] Encounter Details Date Type Department Care Team (Late st Contact Info) Description 11/30/2024 Documentation Only [facility] [address] [place] [address] Jojo Berry [address] [place] [address] Social History Tobacco Use Types [...] Visit [facility] [address] [place] [address] Jay Jay Jenkins MD [address] [place] [address] [place] [address] documented as of this encounter Visit Diagnoses Not on filedocumented in this encounter Care Teams Acid Mixer Relationship Specialty Start Date End Date Rebecca Rudolph MD [address] [place], [place] PCP - General Internal Medicine 01/10/22 documented as of this encounter
--- OUTSIDE RECORDS SUMMARY | 2025-03-29 07:57 | XMS_ITS | Clinical Summary ---
Author Organization [facility], Address [address] [place] [address] Phone Care Team Providers Care Fusing Machine Tender Name Role Phone Rebecca Rudolph MD Primary Care Provider [phone] Allergies Active Allergy Reactions Criticality Noted Date [...] EVERY DAY WITH EVENING MEAL 01/24/2020 Active losartan (COZAAR) 100 MG tablet TAKE [...] 1 TIME EACH DAY. 60 tablet 11 02/22/2025 Active Active Problems Problem Noted Date Diagnosed Date Essential (primary) hypertension 05/30/2020 Type 2 diabetes mellitus Persistent proteinuria Microalbuminuria Dyslipidemia Hypercholesterolemia Encounters Date Type Department Care Team Description 02/17/2025 Refill [facility] [place], [address] [place] [address] Jay Jay Jenkins MD from Last 3 [...] [facility] [place], [address] [place] [phone] Jay Jay Jenkins MD [address] [place] [address] [place] [address] Health Maintenance Due Date Last Done Comments [...] PM EST) Hemoglobin A1C 7.2(H) (4.0-5.6) % [facility] Comment: MONITORING: In known diabetic patients, hemoglobin A1c targets should be discussed with health care provider. DIAGNOSTIC USE: ??The [place] Diabetes Association (ADA) and the World Health [...] Supplement 1 Testing performed or reported by [facility], a Service of [facility], [address] [place] [address] Moi Apple MD, Tie In Hand [facility]# [id number] Blood (Blood, Venous) 11/25/2023 4:07 PM EST 11/25/2023 4:08 PM EST us Jay Jay Jenkins MD LAB BLOOD ORDERABLES Final Re sult [facility] from Last 3 Months or Most Recently Relevant to Health Maintenance Insurance [facility] Care Teams Fusing Machine Tender Relationship Specialty Start Date End Date Rebecca Rudolph MD [address] [place] [address] PCP - General Internal Medicine 01/10/22
--- OUTSIDE RECORDS SUMMARY | 2025-03-29 07:57 | XMS_ITS | Encounter Summary ---
Author Organization [facility], Address [address] [place] [address] Phone Care Team Providers Care Ink Blender Name Role Phone Rebecca Rudolph MD Primary Care Provider [phone] Reason for Visit * Reason Comments Med Refill Encounter Details Date Type Department Care Team (Late st Contact Info) Description 11/21/2024 Refill [facility] [address] [place] [address] Jay Jay Jenkins MD [address] [place] [address] [place] [address] Social History Tobacco Use Types [...] Office Visit [facility] [address] [place] [address] Jay Jay Jenkins MD [address] [place] [address] documented as of this encounter Visit Diagnoses Not on filedocumented in this encounter Care Teams Ink Blender Relationship Specialty Start Date End Date Rebecca Rudolph MD [address] [place], [place] PCP - General Internal Medicine 01/10/22 documented as of this encounter
--- OUTSIDE RECORDS SUMMARY | 2025-03-29 07:57 | XMS_ITS | Encounter Summary ---
Author Organization [facility], Address [address] [place] [address] Phone Care Team Providers Care Bunch Breaker Name Role Phone Rebecca Rudolph MD Primary Care Provider [phone] Reason for Visit * Reason Comments Med Change Request Encounter Details Date Type Department Care Team (Late st Contact Info) Description 11/25/2024 Refill [facility] [address] [place] [address] Jay Jay Jenkins MD [address] [place] [address] [place] [address] Social History Tobacco Use Types [...] Office Visit [facility] [address] [place] [address] Jay Jay Jenkins MD [address] [place] [address] documented as of this encounter Visit Diagnoses Not on filedocumented in this encounter Care Teams Bunch Breaker Relationship Specialty Start Date End Date Rebecca Rudolph MD [address] [place], [place] PCP - General Internal Medicine 01/10/22 documented as of this encounter
--- OUTSIDE RECORDS SUMMARY | 2025-03-29 07:57 | XMS_ITS | Encounter Summary ---
Author Organization [facility], Address [address] [place] [address] Phone Care Team Providers Care Grouter Helper Name Role Phone Rebecca Rudolph MD Primary Care Provider [phone] Reason for Visit * Reason Comments Med Change Request Encounter Details Date Type Department Care Team (Late st Contact Info) Description 12/01/2024 Refill [facility] [address] [place] [address] Jay Jay Jenkins MD [address] [place] [address] [place] [address] Social History Tobacco Use Types [...] Office Visit [facility] [address] [place] [address] Jay Jay Jenkins MD [address] [place] [address] documented as of this encounter Visit Diagnoses Not on filedocumented in this encounter Care Teams Grouter Helper Relationship Specialty Start Date End Date Rebecca Rudolph MD [address] [place], [place] PCP - General Internal Medicine 01/10/22 documented as of this encounter
== END 2025-03-29 07:56 | disposition home or self-care (01) ==
LOC: HO.US 07:55
PROVIDERS: PCP Internal Medicine; Visit Provider Physician Assistant
DX: E87.6 Hypokalemia (principal); R77.8 Other specified abnormalities of plasma proteins; R79.89 Other specified abnormal findings of blood chemistry; E11.65 Type 2 diabetes mellitus with hyperglycemia; E78.5 Hyperlipidemia, unspecified; R80.9 Proteinuria, unspecified
CPT/HCPCS: 76700; 76981; 99211

== ENCOUNTER → 2025-03-29 07:56 | Outpatient (BNV) | payer OTHER, SELFPAY | PROVIDERS: PCP Internal Medicine; Visit Provider Radiology Diagnostic Radiology | DX: K76.0 Fatty (change of) liver, not elsewhere classified (principal); R93.422 Abnormal radiologic findings on diagnostic imaging of left kidney | CPT/HCPCS: 76700; 76981 ==

== ENCOUNTER 2025-03-29 12:20 | Outpatient (AMB) | payer OTHER, SELFPAY ==
--- NOTE | 2025-03-29 12:49 | A.OFFVIS_ITS ---
Intake Intake Visit Reasons: Issues with CGM Assistant Shift Supervisor Required: No Allergies ciprofloxacin [From CIPRO] Allergy (Severe, Verified 02/07/25 08:23) ANAPHYLAXIS; RASH semaglutide [From Rybelsus] Adverse Reaction (Intermediate, Verified 02/07/25 08:23) blurry vision HPI Comprehensive Diabetes Asmnt Most Recent Diabetes Results: Creatinine 0.78 mg/dL (0.5-1.4) 03/05/25 Blood Urea Nitrogen 16 mg/dL (9-16) 03/05/25 Sodium 141 mmol/L (135-145) 03/05/25 Potassium 3.1 mmol/L (3.3-5.1) L 03/05/25 Chloride 104 mmol/L (96-108) 03/05/25 Carbon Dioxide 26 mmol/L (22-29) 03/05/25 Calcium 9.5 mg/dL (8.4-10.2) 03/05/25 AST 20 U/L (5-31) 03/05/25 ALT 22 U/L (0-31) 03/05/25 Total Protein 7.7 g/dL (6.5-8.0) 03/05/25 Albumin 4.1 g/dL (3.5-5.0) 03/05/25 [facility] Medical History CAD (coronary artery disease) PAC (premature atrial contraction) Tricuspid valve regurgitation Physical exam Screen for colon cancer Tachycardia Murmur Dyspnea Microalbuminuria Obesity (BMI 30.0-34.9) Dyslipidemia Hypertension Encounter for diabetic foot exam High cholesterol High blood pressure Diabetes mellitus Surgical History Stented coronary artery History of coronary artery stent placement S/P skin biopsy History of hernia repair S/P BLAIR-BSO (total abdominal hysterectomy and bilateral salpingo-oophorectomy) History of removal of cyst History of bladder surgery Family History Father CAD (coronary artery disease) CVD (cardiovascular disease) Myocardial infarction Substance use disorder Mother CVD (cardiovascular disease) Hypertension Brother Hypertension Sister Hypertension Daughter Obese Social History Housing: House Alcohol intake: current Alcohol intake frequency: holidays/special occasions only Alcohol type: hard liquor Patient Tobacco Use Status: Former Tobacco user Tobacco use type: Cigarette e-Cigarette/Vaping Use: Never Used Second Hand Smoke Exposure: No service: No Current occupational status: employed Current occupational exposures/hazards: No Cognitive needs: No Hearing needs: No Vision needs: Yes Assessment & Plan Assessment & Plan (1) Uncontrolled type 2 diabetes mellitus with hyperglycemia: Code(s): E11.65 - Type 2 diabetes mellitus with hyperglycemia Plan: Patient was unable to use cell phone to start Chloe 3 sensor. She called [employer] and was told her cell phone is not compatible with cell phone vielka. Message sent to provider to send prescription for Chloe 3+ reader When patient gets reader she will contact staff development educator to set up appointment Coding Level of Care Code Est Pt Level 1 (78925) Diagnoses Uncontrolled type 2 diabetes mellitus with hyperglycemia E11.65
--- OUTSIDE RECORDS SUMMARY | 2025-03-29 13:28 | XMS_ITS | Encounter Summary ---
Author Organization [facility], Address [address] [place] [address] Phone Care Team Providers Care Journalism Professor Name Role Phone Rebecca Rudolph MD Primary Care Provider [phone] Reason for Visit * Reason Comments Med Change Request Encounter Details Date Type Department Care Team (Late st Contact Info) Description 11/25/2024 Refill [facility] [address] [place] [address] Jay Jay Jenkins MD [address] [place] [address] [place] [address] Social History Tobacco Use Types [...] Office Visit [facility] [address] [place] [address] Jay Jay Jenkins MD [address] [place] [address] documented as of this encounter Visit Diagnoses Not on filedocumented in this encounter Care Teams Journalism Professor Relationship Specialty Start Date End Date Rebecca Rudolph MD [address] [place], [place] PCP - General Internal Medicine 01/10/22 documented as of this encounter
--- OUTSIDE RECORDS SUMMARY | 2025-03-29 13:28 | XMS_ITS | Encounter Summary ---
Author Organization [facility] Address [address] [place] [address] Phone Care Team Providers Care Public Services Assistant Name Role Phone Rebecca Rudolph MD Primary Care Provider [phone] Encounter Details Date Type Department Care Team (Late st Contact Info) Description 05/24/2024 Documentation Only [facility] [address] [place] [address] Jojo Berry [address] [place] [address] Social History Tobacco Use Types [...] Visit [facility] [address] [address] Jay Jay Jenkins MD [address] [place] [address] documented as of this encounter Visit Diagnoses Not on filedocumented in this encounter Care Teams Public Services Assistant Relationship Specialty Start Date End Date Rebecca Rudolph MD [address] [place] PCP - General Internal Medicine 01/10/22 documented as of this encounter
--- OUTSIDE RECORDS SUMMARY | 2025-03-29 13:28 | XMS_ITS | Encounter Summary ---
Author Organization [facility], Address [address] [place] [address] Phone Care Team Providers Care Corporate Strategy Associate Name Role Phone Rebecca Rudolph MD Primary Care Provider [phone] Reason for Visit * Reason Comments Med Refill Encounter Details Date Type Department Care Team (Late st Contact Info) Description 11/21/2024 Refill [facility] [address] [place] [address] Jay Jay Jenkins MD [address] [place] [address] [place] [address] Social History Tobacco Use Types [...] Office Visit [facility] [address] [place] [address] Jay Jay Jenkins MD [address] [facility] [place] [address] documented as of this encounter Visit Diagnoses Not on filedocumented in this encounter Care Teams Corporate Strategy Associate Relationship Specialty Start Date End Date Rebecca Rudolph MD [address] [place], [place] PCP - General Internal Medicine 01/10/22 documented as of this encounter
--- OUTSIDE RECORDS SUMMARY | 2025-03-29 13:28 | XMS_ITS | Clinical Summary ---
Author Organization [facility], Address [address] [place] [address] Phone Care Team Providers Care Rivet Heater Gas Name Role Phone Rebecca Rudolph MD Primary Care Provider [phone] Allergies Active Allergy Reactions Criticality Noted Date [...] Refill [facility] [place], [address] [place] [address] Jay Jay Jenkins MD from Last [...] Visit [facility] [place], [address] [place] [address] Jay Jay Jenkins MD [address] [place] [address] [place] [address] Health Maintenance Due Date Last Done Comments [...] PM EST) Hemoglobin A1C 7.2(H) (4.0-5.6) % [facility] Comment: MONITORING: In known diabetic patients, hemoglobin A1c targets should be discussed with health care provider. DIAGNOSTIC USE: ??The [place] Diabetes Association (ADA) and the World Health [...] Supplement 1 Testing performed or reported by [facility], a Service of [facility], [address] [place] [address] Moi Apple MD, New Patient Escort [facility]# [id number] Blood (Blood, Venous) 11/25/2023 4:07 PM EST 11/25/2023 4:08 PM EST us Jay Jay Jenkins MD LAB BLOOD ORDERABLES Final Re sult [facility] from Last 3 Months or Most Recently Relevant to Health Maintenance Insurance [facility] Care Teams Rivet Heater Gas Relationship Specialty Start Date End Date Rebecca Rudolph MD [address] [place] [address] PCP - General Internal Medicine 01/10/22
--- OUTSIDE RECORDS SUMMARY | 2025-03-29 13:28 | XMS_ITS | Encounter Summary ---
Author Organization [facility] [place], Address [address] [place] [address] Phone Care Team Providers Care Designer Name Role Phone Rebecca Rudolph MD Primary Care Provider [phone] Encounter Details Date Type Department Care Team (Late st Contact Info) Description 12/14/2024 Documentation Only [facility] Of [address] [place] [address] Jojo Berry [address] [place] [address] Social History Tobacco Use Types [...] Visit [facility] [address] [place] [address] Jay Jay Jenkins MD [address] [place] [address] [place] [address] documented as of this encounter Visit Diagnoses Not on filedocumented in this encounter Care Teams Designer Relationship Specialty Start Date End Date Rebecca Rudolph MD [address] [place], [place] PCP - General Internal Medicine 01/10/22 documented as of this encounter
--- OUTSIDE RECORDS SUMMARY | 2025-03-29 13:28 | XMS_ITS | Encounter Summary ---
Author Organization [facility] Address [address] [place] [address] Phone Care Team Providers Care Truck Operator Name Role Phone Rebecca Rudolph MD Primary Care Provider [phone] Encounter Details Date Type Department Care Team (Late st Contact Info) Description 05/24/2024 Documentation Only [facility] Of [address] [place] [address] Jojo Berry [address] [place] [address] Social History Tobacco Use Types [...] Visit [facility] [address] [place] [address] Jay Jay Jenkins MD [address] [facility] [place] [address] documented as of this encounter Visit Diagnoses Not on filedocumented in this encounter Care Teams Truck Operator Relationship Specialty Start Date End Date Rebecca Rudolph MD [address] [place] PCP - General Internal Medicine 01/10/22 documented as of this encounter
--- OUTSIDE RECORDS SUMMARY | 2025-03-29 13:28 | XMS_ITS | Encounter Summary ---
Author Organization [facility] [place], Address [address] [place] [address] Phone Care Team Providers Care Train Crew Member Name Role Phone Rebecca Rudolph MD Primary Care Provider [phone] Encounter Details Date Type Department Care Team (Late st Contact Info) Description 12/17/2019 Orders Only [facility] [place] [address] [place] [address] Jocelin Lester [address] [place] [phone] Social History Tobacco Use Types Packs/Day Years [...] Visit [facility] [place], [address] [address] Jay Jay Jenkins MD [address] [place] [address] documented as of this encounter Visit Diagnoses Not on filedocumented in this encounter Care Teams Train Crew Member Relationship Specialty Start Date End Date Rebecca Rudolph MD [address] [place] [address] PCP - General Internal Medicine 01/10/22 documented as of this encounter
--- OUTSIDE RECORDS SUMMARY | 2025-03-29 13:28 | XMS_ITS | Encounter Summary ---
Author Organization [facility] [place], Address [address] [place] [address] Phone Care Team Providers Care Hydraulic Assembler Name Role Phone Rebecca Rudolph MD Primary Care Provider [phone] Encounter Details Date Type Department Care Team (Late st Contact Info) Description 11/30/2024 Documentation Only [facility] [address] [place] [address] Jojo Berry [address] [place] [address] Social History Tobacco Use Types [...] Visit [facility] Of [address] [place] [address] Jay Jay Jenkins MD [address] [place] [address] [place] [address] documented as of this encounter Visit Diagnoses Not on filedocumented in this encounter Care Teams Hydraulic Assembler Relationship Specialty Start Date End Date Rebecca Rudolph MD [address] [place], [place] PCP - General Internal Medicine 01/10/22 documented as of this encounter
--- OUTSIDE RECORDS SUMMARY | 2025-03-29 13:28 | XMS_ITS | Encounter Summary ---
Author Organization [facility], Address [address] [place] [address] Phone Care Team Providers Care Steel Chipper Name Role Phone Rebecca Rudolph MD Primary Care Provider [phone] Reason for Visit * Reason Comments Med Change Request Encounter Details Date Type Department Care Team (Late st Contact Info) Description 12/01/2024 Refill [facility] [address] [place] [address] Jay Jay Jenkins MD [address] [place] [address] [place] [address] Social History Tobacco Use Types [...] Office Visit [facility] [address] [place] [address] Jay Jay Jenkins MD [address] [facility] [place] [address] documented as of this encounter Visit Diagnoses Not on filedocumented in this encounter Care Teams Steel Chipper Relationship Specialty Start Date End Date Rebecca Rudolph MD [address] [place], [place] PCP - General Internal Medicine 01/10/22 documented as of this encounter
== END 2025-03-29 12:54 | disposition home or self-care (01) ==
LOC: HO.ENCR 12:20
PROVIDERS: PCP Internal Medicine; Visit Provider Registered Nurse Diabetes Educator
DX: E11.65 Type 2 diabetes mellitus with hyperglycemia (principal)

== ENCOUNTER 2025-04-08 07:59 | Outpatient (AMB) | payer OTHER, SELFPAY ==
--- OUTSIDE RECORDS SUMMARY | 2025-04-08 08:02 | XMS_ITS | Encounter Summary ---
Author Organization [facility], Address [address] [place] [address] Phone Care Team Providers Care Commercial Roofer Name Role Phone Rebecca Rudolph MD Primary Care Provider [phone] Encounter Details Date Type Department Care Team (Late st Contact Info) Description 12/17/2019 Orders Only [facility] [address] [place] [phone] Jocelin Lester [address] [place] [phone] Social History Tobacco Use Types Packs/Day Years [...] Visit [facility], [address] [place] [address] Jay Jay Jenkins MD [address] [place] [address] documented as of this encounter Visit Diagnoses Not on filedocumented in this encounter Care Teams Commercial Roofer Relationship Specialty Start Date End Date Rebecca Rudolph MD [address] [place] [address] PCP - General Internal Medicine 01/10/22 documented as of this encounter
[2025-04-08 08:04] VITALS: BP 124/54; PULSE 63; O2SAT 98; BMI 30.4
--- NOTE | 2025-04-08 08:04 | MHC.OFFVIS ---
Vital Signs 04/08/25 08:04 Height 5 ft 1 in Weight 161 lb 2.526 oz BMI 30.4 BP 124/54 L Blood Pressure Location Rt brachial Position Sitting Pulse 63 Pulse Source Pulse Oximeter Pulse Oximetry (%) 98 Oxygen Delivery Method Room Air Intake Visit Reasons: T2DM Intake Note: Patient present today for Type 2 Diabetes Mellitus Last Diabetic eye exam: 10/2024 Last Podiatry Visit: Doesn't have one Random Glucose: 188 mg/dl HgA1C: 6.9% Superintendent Horticulture Required: No Accompanied by: Self / Same As Patient Allergies ciprofloxacin [From CIPRO] Allergy (Severe, Verified 04/08/25 08:09) ANAPHYLAXIS; RASH semaglutide [From Rybelsus] Adverse Reaction (Intermediate, Verified 04/08/25 08:09) blurry vision Medication List - Last Reconciled 04/08/25 by Cass Bateman PA-C aspirin (Adult Low Dose Aspirin) 81 mg PO DAILY atorvastatin 40 mg PO DAILY blood sugar diagnostic (FreeStyle Lite Strips) Use 1 test strip once a day blood-glucose sensor (BloomerangStyle Chloe 3 Plus Sensor device) Use daily As directed to monitor glucose blood-glucose,welder shielded metal arc,cont (FreeStyle Chloe 3 [place]) Use daily As directed to monitor blood glucose carvedilol 12.5 mg PO BID chlorthalidone 25 mg PO DAILY cholecalciferol (vitamin D3) 25 mcg PO DAILY 90 days dapagliflozin propanediol (Farxiga) 10 mg PO DAILY 30 days ezetimibe 10 mg PO DAILY fluticasone propionate 50 mcg/actuation (Flonase Allergy Relief) 2 sprays intranasal DAILY gabapentin 100 mg PO BEDTIME 90 days glucose (Dex4 Glucose) 16 grams (4 x 4 gram) PO Q15M PRN insulin glargine-yfgn (Semglee (insulin glargine-yfgn) Pen) 10 units (0.1 mL) subcut DAILY lancets (FreeStyle Lancets) Use 1 lancet once a day losartan 100 mg PO BID metformin ER 1,000 mg (2 x 500 mg) PO QPM pen needle, diabetic (BD Betty 2nd Gen Pen Needle) Use daily As directed potassium chloride 20 mEq PO DAILY HPI HPI T2DM: Details: Patient is a 64-year-old female with a significant past medical history of hypertension, dyslipidemia, CAD, proteinuria, ckd and type 2 diabetes presenting today for a diabetic consultation. Endo: Dm-diagnosed with diabetes around 2018 per pt. A1c today is 6.9 (previous 9.9). She is currently on metformin 1000 mg nightly, farixga 10 mg daily and I started her on trulicity 0.75 mg weekly and semglee 8 units daily. She does not tolerate higher doses of metformin. She has tried Farxiga in the past and was having UTIs and yeast infections so was taken off of this but recently restarted on it. She does want to stay on this as no sx. -rybelsus caused blurry vision (did see ophthamology who reports normal exam) cgm-brought in her reader to pair with sensor today. does not know how to set this up. Fam hx of t2dm CV: Blood pressure today is 124/54 and is managed with losartan 100 mg twice a day, carvedilol 12.5 mg twice a day, and chlorthalidone 50 mg daily. She is on atorvastatin 40 mg and Zetia 10 mg. Takes a daily aspirin. [facility] Medical History CAD (coronary artery disease) PAC (premature atrial contraction) Tricuspid valve regurgitation Physical exam Screen for colon cancer Tachycardia Murmur Dyspnea Microalbuminuria Obesity (BMI 30.0-34.9) Dyslipidemia Hypertension Encounter for diabetic foot exam High cholesterol High blood pressure Diabetes mellitus Surgical History Stented coronary artery History of coronary artery stent placement S/P skin biopsy History of hernia repair S/P BLAIR-BSO (total abdominal hysterectomy and bilateral salpingo-oophorectomy) History of removal of cyst History of bladder surgery Family History Father CAD (coronary artery disease) CVD (cardiovascular disease) Myocardial infarction Substance use disorder Mother CVD (cardiovascular disease) Hypertension Brother Hypertension Sister Hypertension Daughter Obese Social History Housing: House Alcohol intake: current Alcohol intake frequency: holidays/special occasions only Alcohol type: hard liquor Patient Tobacco Use Status: Former Tobacco user Tobacco use type: Cigarette e-Cigarette/Vaping Use: Never Used Second Hand Smoke Exposure: No service: No Current occupational status: employed Current occupational exposures/hazards: No Cognitive needs: No Hearing needs: No Vision needs: Yes Physical Exam Vital Signs: Last Vital Signs Pulse 63 04/08/25 08:04 BP 124/54 L 04/08/25 08:04 Pulse Ox 98 04/08/25 08:04 Oxygen Delivery Method Room Air 04/08/25 08:04 BMI result Body Mass Index 30.4 Const Orientation/consciousness: patient oriented x3 HEENT Ears: hearing grossly normal bilaterally Neck Thyroid: Thyroid normal Lymphatic: no lymphadenopathy noted Resp Auscultation: clear to auscultation bilaterally Cardio Rate: regular rate Rhythm: regular rhythm Heart sounds: S1 normal heart sound present and S2 normal heart sound present Skin General skin exam: no rashes or lesions noted Neuro General: patient oriented x3, gait normal and no focal motor deficits Results AMB Hemoglobin A1c AMB Hemoglobin A1c 6.9 % Last Edit by KEILA Clay on 04/08/25 08:28 Results Reviewed Results Reviewed: Laboratory Last Values Glucose (Clinic) 188 mg/dL (60-115) H 04/08/25 08:11 Laboratory Tests 12/25/24 12/25/24 03/05/25 10:04 10:33 10:06 Estimated GFR > 60 Random Glucose 129 H AST 20 ALT 22 Alkaline Phosphatase 81 Triglycerides 117 Cholesterol 144 LDL Cholesterol, Calc 76 HDL Cholesterol 45 Urine Creatinine 92.68 Urine Microalbumin 108.0 Microalb/Creat Ratio 116.5 H Assessment & Plan Assessment & Plan (1) Uncontrolled type 2 diabetes mellitus with hyperglycemia: Code(s): E11.65 - Type 2 diabetes mellitus with hyperglycemia Category: Medical Plan: I will increase Trulicity to 1.5 mg weekly. We discussed when she gets the increased dose she will discontinue the insulin. She will continue with the metformin 1000 mg nightly and Farxiga 10 mg daily. I have applied the sensor to her arm today and set up the reader for her. We reviewed how to use this. She will bring this in to her next appointment. She would like a short term follow up as she has only recently been well-controlled and wants to make sure that she stays this way. We will do a 6 week follow up. Sooner if needed. Reviewed signs and symptoms of hyper and hypoglycemia that would require emergent medical treatment. (2) Dyslipidemia: Code(s): E78.5 - Hyperlipidemia, unspecified Category: Medical Plan: Well-controlled. Continue current regimen (3) Microalbuminuria: Code(s): R80.9 - Proteinuria, unspecified Category: Medical Plan: On Farxiga and losartan. BP WNL. Follows with Nephrology. (4) Hypertension: Code(s): I10 - Essential (primary) hypertension Category: Medical Qualifiers: Hypertension type: unspecified Qualified Code(s): I10 - Essential (primary) hypertension Plan: WNL. Continue current regimen Orders: Orders AMB Hemoglobin A1c Today E11.65 - Type 2 diabetes mellitus with hyperglycemia, Z13.9 - Encounter for screening, unspecified Medications: New dulaglutide (Trulicity) 1.5 mg (0.5 mL) subcut QWEEK 2 mL 3RF Changed From insulin glargine-yfgn (Semglee (insulin glargine-yfgn) Pen) 10 units (0.1 mL) subcut DAILY 15 mL 2RF To insulin glargine-yfgn (Semglee (insulin glargine-yfgn) Pen) 8 units (0.08 mL) subcut DAILY 15 mL 2RF Coding Level of Care Code Est Pt Level 4 (95056) Complex EM visit Add On G2211 Diagnoses Uncontrolled type 2 diabetes mellitus with hyperglycemia E11.65 Dyslipidemia E78.5 Microalbuminuria R80.9 Hypertension, unspecified type I10 Hypertension type: unspecified
[2025-04-08 08:15] LABS: Glucose, Whole Blood 188 mg/dL (60-115)
== END 2025-04-08 08:38 | disposition home or self-care (01) ==
LOC: HO.ENCR 08:00
PROVIDERS: PCP Internal Medicine; Visit Provider Physician Assistant
DX: E11.65 Type 2 diabetes mellitus with hyperglycemia (principal); E78.5 Hyperlipidemia, unspecified; R80.9 Proteinuria, unspecified; I10 Essential (primary) hypertension; Z13.9 Encounter for screening, unspecified

== ENCOUNTER → 2025-04-08 07:59 | Outpatient (BNVA) | payer OTHER, SELFPAY | PROVIDERS: PCP Internal Medicine; Visit Provider Physician Assistant | DX: E11.65 Type 2 diabetes mellitus with hyperglycemia (principal); E78.5 Hyperlipidemia, unspecified; R80.9 Proteinuria, unspecified; I10 Essential (primary) hypertension; Z79.84 Long term (current) use of oral hypoglycemic drugs; Z79.85 Long-term (current) use of injectable non-insulin antidiabetic drugs | CPT/HCPCS: 82947; 83036 ==

== ENCOUNTER → 2025-04-15 13:50 | Outpatient (REF) | payer OTHER, SELFPAY ==
--- NOTE | 2025-04-15 13:57 | CA_ITS ---
Transthoracic Echocardiogram Patient (Last, First, Middle): Taisha Berkowitz M Gender: Female Date of : 1960 Age: 64 Procedure Date: 04/15/2025 Procedure Type: Transthoracic Echocardiogram Location: OP Height: 154.94 cm Weight: 70.31 kg BSA: 1.70 m2 Heart Rate: bpm BP: 118 / 58 mmHg Heading Pinner: TO Referring MD: Lakhwinder Krause MD Publication Distributor: Lakhwinder Krause MD Symptoms: R06.02 - Shortness of breath Study Quality: Fair/Contrast ECG Rhythm: Sinus Conclusions: - 1. Normal LV ejection fraction of 60 65% with pseudonormal filling pattern 2. Normal cardiac valvular Dopplers next 3. Normal RV systolic pressure 4. No gross pericardial effusion Findings Procedure Information Contrast agent, definity, is being given per protocol without apparent complications. Left Ventricle Normal left ventricular size, thickness, and systolic function. The visually estimated ejection fraction is between 60-65%. Spectral Doppler is indicative of a pseudonormal filling pattern. Right Ventricle Normal right ventricular cavity size and systolic function. Atria Both atria are normal in size. There is no evidence of interatrial shunt. Aortic Valve Normal aortic valve structure and function. There is no aortic valve stenosis. There is no aortic valve regurgitation. Mitral Valve Normal mitral valve structure and function. There is trace mitral valve regurgitation. There is no mitral valve stenosis. Pulmonic Valve The pulmonic valve was not well visualized. Tricuspid Valve Normal tricuspid valve structure. There is trace tricuspid valve regurgitation. The right ventricular systolic pressure is normal. The right ventricular systolic pressure is 28 mmHg. Normal right atrial pressure. There is no evidence of pulmonary hypertension. Great Vessels All visible segments of the aorta are normal in size. The pulmonary artery was not well visualized. There is no dilatation of the ascending aorta measuring 2.60 cm. Venous The inferior vena cava is normal in size and collapses greater than 50% with inspiration. Pericardium/Pleural There is no evidence of pericardial effusion. Prior Study Comparison No significant change compared to prior study dated: 01/14/2022. Measurements 2D Linear Measurements IVSd: 0.86 0.6-0.9/0.6-1.0 cm LVIDd: 3.96 3.9-5.3/4.2-5.9 cm LVIDd Index: 2.33 2.4-3.2/2.2-3.1 cm/m2 LVIDs: 2.49 2.0-3.6 cm LVPWd: 0.86 0.7-1.1 cm LA Diam: 3.30 2.7-3.8/3.0-4.0 cm LAIDs Index: 1.94 1.5-2.3 cm/m2 LV Mass: 126.40 67-162/88-224 g LV Mass Index: 74.35 43-95/49-115 g/m2 LVOT Diam: 2.00 3.0+(-)1.3 cm 2D Systolic Function EF 4C: 61.90 >55% Mitral Valve MV Pk E: 0.78 MV PK A: 0.71 MV Decel Time: 295.00 E/A: 1.10 E'Lateral: 6.74 E'Medial: 5.22 E/E' Med: 14.90 E/E' Lat: 11.60 PHT: 87.00 MVA PHT: 2.53 Decel [place]: 2.64 Aortic Valve AoV Pk Hector: 1.57 AoV Mn Hector: 0.97 AoV VTI: 0.29 AoV Pk Grad: 10.00 Aov Mn Grad: 4.00 CAMERON Cont.VTI: 1.96 LVOT LVOT Pk Hector: 0.92 LVOT Mn Hector: 0.61 LVOT VTI: 0.18 LVOT Pk Grad: 3.00 LVOT Mn Grad: 2.00 LVOT Diam: 2.00 LVOT Area: 3.14 Diastolic Function MV Pk E: 0.78 MV Pk A: 0.71 E/A: 1.10 E'Medial: 5.22 E/E' Med: 14.90 E' Laterial: 6.74 E/E' Lat: 11.60 Right Ventricle TAPSE (mm): 17.50 TVS' Hector: 11.40 Tricuspid Valve TR Pk Hector: 2.52 TR Pk Grad: 25.00 RA Press: 3.00 RVSP: 28.00 Great Vessels Aorta Sinus of Valsalva: 2.52 2.0-3.5 cm Ao Asc: 2.60 2.1-3.4 cm Updated in Other Vendor System with Status of Final Lakhwinder Krause MD electronically signed on 04/16/2025 11:36:58 AM with status of Final
--- OUTSIDE RECORDS SUMMARY | 2025-04-15 13:58 | XMS_ITS | Encounter Summary ---
Author Organization [facility], Address [address] [place] [address] Phone Care Team Providers Care Laborer Poultry Hatchery Name Role Phone Rebecca Rudolph MD Primary Care Provider [phone] Encounter Details Date Type Department Care Team (Late st Contact Info) Description 12/17/2019 Orders Only [facility] [address] [place] [phone] Jocelin Lester [address] [place] [phone] Social History Tobacco Use Types Packs/Day Years [...] Visit [facility], [address] [place] [address] Jay Jay Jenkins MD [address] [place] [address] documented as of this encounter Visit Diagnoses Not on filedocumented in this encounter Care Teams Laborer Poultry Hatchery Relationship Specialty Start Date End Date Rebecca Rudolph MD [address] [place] [address] PCP - General Internal Medicine 01/10/22 documented as of this encounter
== END ==
LOC: HO.CARD 13:50
PROVIDERS: PCP Internal Medicine; Visit Provider Internal Medicine Cardiovascular Disease
DX: R06.02 Shortness of breath (principal); I49.1 Atrial premature depolarization
CPT/HCPCS: 93246; 93306; Q9957

== ENCOUNTER → 2025-04-15 13:57 | Outpatient (BNV) | payer OTHER, SELFPAY | PROVIDERS: PCP Internal Medicine; Visit Provider Internal Medicine Cardiovascular Disease | DX: R06.02 Shortness of breath (principal) | CPT/HCPCS: 93306 ==

== ENCOUNTER → 2025-05-02 08:17 | Outpatient (BNV) | payer OTHER, SELFPAY | PROVIDERS: PCP Physician Assistant; Visit Provider Radiology Diagnostic Radiology | DX: N28.1 Cyst of kidney, acquired (principal) | CPT/HCPCS: 74181 ==

== ENCOUNTER 2025-05-02 08:30 | Outpatient (REF) | payer OTHER, SELFPAY ==
--- NOTE | ~2025-05-02 | MR_ITS ---
CLINICAL HISTORY: N28.89 - Other specified disorders of kidney and ureter --- Additional Notes or Spe cial Instructions: No contrast administrated. Pt was claustrophobic, she aborted the scan after the 1 st picture. MR abdomen without gadolinium Comparison: None Findings: The visualized lungs are unremarkable. This is a markedly limited examination as the patient was claustrophobic and aborted the examination before completion. Only 1 sequences provided a coronal T2 weighted sequence demonstrating a large benign cyst arising from the upper pole of the right kidney measuring up to 6.6 cm in greatest diameter. A small hypointense lesion is seen in the lower pole of the left kidney measuring up to 9 mm in greatest diameter. This could represent a hemorrhagic cyst. The rest of the solid organs are unremarkable. The gallbladder is unremarkable. There are scattered colonic diverticula. No ascites. The patient is status post hysterectomy. The bones and soft tissues are within normal limits. IMPRESSION: Markedly limited study as above. Large right renal cyst. Small hypointense lesion lower pole left kidney is indeterminate but likely represents a hemorrhagic cyst. This document has been electronically signed by: Kiran Garcia MD on 05/02/2025 12:05:48
--- OUTSIDE RECORDS SUMMARY | 2025-05-02 08:56 | XMS_ITS | Encounter Summary ---
Author Organization [facility], Address [address] [place] [address] Phone Care Team Providers Care Oyster Planter Name Role Phone Rebecca Rudolph MD Primary Care Provider [phone] Encounter Details Date Type Department Care Team (Late st Contact Info) Description 12/17/2019 Orders Only [facility] [address] [place] [phone] Jocelin Lester [address] [place] [phone] Social History Tobacco Use Types Packs/Day Years [...] Visit [facility], [address] [address] Jay Jay Jenkins MD [address] [place] [address] documented as of this encounter Visit Diagnoses Not on filedocumented in this encounter Care Teams Oyster Planter Relationship Specialty Start Date End Date Rebecca Rudolph MD [address] [place] [address] PCP - General Internal Medicine 01/10/22 documented as of this encounter
== END 2025-05-02 08:31 | disposition home or self-care (01) ==
LOC: HO.MRI 08:30
PROVIDERS: PCP Physician Assistant; Visit Provider Physician Assistant
DX: N28.89 Other specified disorders of kidney and ureter (principal)
CPT/HCPCS: 74181

== ENCOUNTER 2025-05-07 08:28 | Outpatient (REF) | payer OTHER, SELFPAY ==
[2025-05-07 09:45] LABS: Creatinine Urine 103.37 mg/dL; Microalbum/Creatinine Ratio Ur 71.5 ug/mg cr (<30)
[2025-05-07 09:51] LABS: Alanine Aminotransferase 20 U/L (0-31); Albumin Level 4.3 g/dL (3.5-5.0); Alkaline Phosphatase 86 U/L (39-117); Anion Gap 12 (12-20); Aspartate Amino Transferase 19 U/L (5-31); Bilirubin Total 0.4 mg/dL (0.0-1.0); Blood Urea Nitrogen 20 mg/dL (9-16); Carbon Dioxide 27 mmol/L (22-29); Chloride 104 mmol/L (96-108); Cholesterol 109 mg/dL (<200); Estimated Glomerular Filt Rate > 60; Glucose Fasting 117 mg/dL (60-99); HDL Cholesterol 40 mg/dL (>40); LDL Cholesterol Calculated 51 mg/dL (<100); Potassium 3.2 mmol/L (3.3-5.1); Sodium 140 mmol/L (135-145); Total Protein 7.4 g/dL (6.5-8.0); Triglycerides 91 mg/dL (<150)
[2025-05-07 10:07] LABS: Vitamin D 25-OH Total 36.1 ng/mL (>30)
== END 2025-05-07 08:29 | disposition home or self-care (01) ==
LOC: HO.LAB 08:28
PROVIDERS: Absent Provider Internal Medicine Cardiovascular Disease; PCP Internal Medicine; Visit Provider Internal Medicine
DX: R80.9 Proteinuria, unspecified (principal); E78.5 Hyperlipidemia, unspecified; E55.9 Vitamin D deficiency, unspecified
CPT/HCPCS: 36415; 80053; 80061; 82043; 82306; 82570

== ENCOUNTER 2025-05-12 07:58 | Outpatient (AMB) | payer OTHER, SELFPAY ==
--- OUTSIDE RECORDS SUMMARY | 2025-05-12 08:05 | XMS_ITS | Encounter Summary ---
Author Organization [facility], Address [address] [place] [address] Phone Care Team Providers Care Contact Lens Technician Name Role Phone Rebecca Rudolph MD Primary Care Provider [phone] Encounter Details Date Type Department Care Team (Late st Contact Info) Description 12/17/2019 Orders Only [facility] [address] [place] [phone] Jocelin Lester [address] [place] [phone] Social History Tobacco Use Types Packs/Day Years [...] Visit [facility], [address] [place] [address] Jay Jay Jenkins MD [address] [address] [place] [address] documented as of this encounter Visit Diagnoses Not on filedocumented in this encounter Care Teams Contact Lens Technician Relationship Specialty Start Date End Date Rebecca Rudolph MD [address] [place] [address] PCP - General Internal Medicine 01/10/22 documented as of this encounter
--- NOTE | 2025-05-12 08:15 | A.OFFVIS_ITS ---
Intake Vital Signs 05/12/25 08:17 Weight 157 lb Intake Visit Reasons: 60 min Allergies ciprofloxacin (From CIPRO) Allergy (Severe, Verified 04/08/25 08:09) ANAPHYLAXIS; RASH semaglutide (From Rybelsus) Adverse Reaction (Intermediate, Verified 04/08/25 08:09) blurry vision HPI Comprehensive Diabetes Asmnt Most Recent Diabetes Results: Microalb/Creat Ratio, (<30) 71.5 ug/mg cr H 05/07/25 Cholesterol, (<200) 109 mg/dL 05/07/25 HDL Cholesterol, (>40) 40 mg/dL L 05/07/25 Triglycerides, (<150) 91 mg/dL 05/07/25 Creatinine, (0.5-1.4) 0.86 mg/dL 05/07/25 BUN, (9-16) 20 mg/dL H 05/07/25 Sodium, (135-145) 140 mmol/L 05/07/25 Potassium, (3.3-5.1) 3.2 mmol/L L 05/07/25 Chloride, (96-108) 104 mmol/L 05/07/25 Carbon Dioxide, (22-29) 27 mmol/L 05/07/25 Calcium, (8.4-10.2) 9.0 mg/dL 05/07/25 AST, (5-31) 19 U/L 05/07/25 ALT, (0-31) 20 U/L 05/07/25 Total Protein, (6.5-8.0) 7.4 g/dL 05/07/25 Albumin, (3.5-5.0) 4.3 g/dL 05/07/25 [facility] Medical History CAD (coronary artery disease) PAC (premature atrial contraction) Tricuspid valve regurgitation Physical exam Screen for colon cancer Tachycardia Murmur Dyspnea Microalbuminuria Obesity (BMI 30.0-34.9) Dyslipidemia Hypertension Encounter for diabetic foot exam High cholesterol High blood pressure Diabetes mellitus Surgical History Stented coronary artery History of coronary artery stent placement S/P skin biopsy History of hernia repair S/P BLAIR-BSO (total abdominal hysterectomy and bilateral salpingo-oophorectomy) History of removal of cyst History of bladder surgery Family History Father CAD (coronary artery disease) CVD (cardiovascular disease) Myocardial infarction Substance use disorder Mother CVD (cardiovascular disease) Hypertension Brother Hypertension Sister Hypertension Daughter Obese Social History Housing: House Alcohol intake: current Alcohol intake frequency: holidays/special occasions only Alcohol type: hard liquor Patient Tobacco Use Status: Former Tobacco user Tobacco use type: Cigarette e-Cigarette/Vaping Use: Never Used Second Hand Smoke Exposure: No service: No Current occupational status: employed Current occupational exposures/hazards: No Cognitive needs: No Hearing needs: No Vision needs: Yes Assessment & Plan Assessment & Plan (1) Uncontrolled type 2 diabetes mellitus with hyperglycemia: Code(s): E11.65 - Type 2 diabetes mellitus with hyperglycemia Plan: Diabetes self-management education and support participation record Assessment/scale: 1= needs instructed? 2= needs review? 3= comprehend keep point? 4= demonstrates understanding/ competent? NC= Not Covered Topics Learning Objective: Initial visit Initial or post srvc Initial or post srvc Initial or post srvc Initial or post srvc Initial or post srvc Post srvc Comments Pre Edu-assessment/plan Outcome or reassess Outcome or reassess Outcome or reassess Outcome or reassess Outcome or reassess Outcome or reassess Diabetes pathophysiology 1 3 Healthy eating 1 4 Being active 1 4 Taking medication 2 4 Monitoring glucose 2 4 Acute complication 1 3 Chronic complicated 1 3 Lifestyle and healthy coping 2 3 Diabetes distress in support 1 3 ?Diabetes pathophysiology: ?Defined diabetes med identify own type of diabetes; list 3 options for treating diabetes Healthy eating: ?Described effect of type, amount and ?timing of food on blood glucose; list 3 methods for planning meal Being active: ?State effect of exercise on blood glucose level Taking medication: ?State effect of diabetes medications on diabetes; name diabetes medications taking, action and side effects Monitoring glucose: ?Identify recommended blood glucose targets and personal target Acute complication: ?List symptoms and treatment of hyper and hypoglycemia, DKA, sick day guidelines and guidelines for severe weather or situations of crisis and diabetes supply manage Chronic complication: ?To find the relationship of blood glucose levels to long- term complications of diabetes in screening and preventative measures Lifestyle and healthy coping: ?Described lifestyle and healthy coping strategies to rule out diabetes self-management Diabetes to stress and support: ?Recognize Diabetes to stress and be able to identified support options Learning objectives: The patient was provided with verbal and written education on the following topics as outlined below. The patient met all learning objectives and was able to verbalize understanding and provide teach back of education topics discussed . The patient was provided with the opportunity to ask questions and all questions were answered. Patient Assessment Patient questions/concerns, patient's A1c on 01/24/2025 9.9% A1c on 04/08/25 6.9% Exercise Medical clearance Effect of exercise on blood sugar Start slowly and gradually increase pace/duration over time Goal amount of exercise Checking blood glucose/have a source of carbs with you Diabetes Complications: ?Nephropathy :Kidney Disease ?diabetes can damage the kidneys, which is not only can cause them to fail but can make them lose their ability to filter waste from the blood? ?Retinopathy: Eye complications ?Retinopathy? is the commonest long-term complication of diabetes. It is leading cause of blindness Besides, Retinopathy- People with diabetes? are also prone to cataract and Glaucoma. ?Neuropathy: Nerve damage -It involves temporary or permanent damage to nerve tissue. Nerve tissue gets injured mainly due to decreased blood flow and rise in blood glucose levels. This damage can lead to pain , or loss of sensation it can also include sexual dysfunction in both men and women ? Infections poor healing: People with diabetes? have increased susceptibility to various infections, such as? pneumonias, pyelonephritis, carbuncles and diabetic ulcers. This may be due to poor blood supply, reduced cellular immunity or hyperglycemia. ?Heart Disease And Stroke: People with diabetes are four times more prone to develop Heart disease than those who do not have diabetes ?Depression: Feeling down once in awhile is normal, but some people feel sadness that just won't go away. Life for them seems hopeless. Feeling this way most of the day for two weeks or more is a sign of serious depression ?Gum Disease: People get gum disease when plaque destroys the gums and bone around the teeth. People with diabetes can get gum disease from having high blood glucose levels for a long time Lifestyle * Work * Travel * Stress management * Problem solving Know your goals * A1C * Blood sugar targets * Blood pressure * Cholesterol/LDL Urine microalbumin Smart Goal Assessment: Patient will use rule 15 to treat hypoglycemia Pt met goal 100% Educational Materials: The patient was provided with the following written educational materials: ADCES 7 Healthy Behaviors Reducing Risks handout Patient Response to instructions: Comprehension of Instructions: good Readiness to make changes: action How confident they feel about making changes: Positive Letter of completion of diabetes Education program will be sent to referring provider Portions of this note were created using voice recognition software, please excuse any words or phrases that may have been misinterpreted. Patient Instructions: Include regular daily activity. ADA recommends 30 minutes of exercise 5 days a week. Weight loss talk to PCP or Steel Die Engraver before starting new plan. Test blood sugar as directed; Fasting and 2hpp largest meal. Watch trends in results. Utilize results and to assess how food, physical activity and medications affect blood sugar results. Bring glucometer or CGM to next visit. Be knowledgeable about diabetes medication, its action, side effects, efficacy, toxicity, prescribed dosage, appropriate timing and frequency of administration, effect of missed and delayed doses and instructions for storage, travel and safety. Problem solving techniques to monitor hypo/hyperglycemia episodes and treatments. Reduce risk reduction behaviors, smoking cessation, regular eye, foot and dental examinations. Coding Level of Care Code Est Pt Level 1 (79848) Diagnoses Uncontrolled type 2 diabetes mellitus with hyperglycemia E11.65
== END 2025-05-12 08:53 | disposition home or self-care (01) ==
LOC: HO.ENCR 07:59
PROVIDERS: PCP Internal Medicine; Visit Provider Registered Nurse Diabetes Educator
DX: E11.65 Type 2 diabetes mellitus with hyperglycemia (principal)

== ENCOUNTER → 2025-05-12 07:58 | Outpatient (BNVA) | payer OTHER, SELFPAY | PROVIDERS: PCP Internal Medicine; Visit Provider Registered Nurse Diabetes Educator | DX: E11.65 Type 2 diabetes mellitus with hyperglycemia (principal) | CPT/HCPCS: 99211 ==

== ENCOUNTER → 2025-05-18 09:37 | Outpatient (REF) | payer OTHER, SELFPAY ==
--- NOTE | ~2025-05-18 | NM_ITS ---
EXERCISE MYOCARDIAL PERFUSION STUDY INDICATION: Chest pain to evaluate for myocardial ischemia TECHNIQUE: The patient was brought in for an exercise perfusion study on May 18, 2025. Patient performed exercise as per Mando protocol and was injected 25 mCi of sestamibi once target heart rate was achieved. Images were obtained using the SPECT gamma camera interlaced with the gating device. Images were obtained in supine position. Resting perfusion study was performed on May 19, 2025. Patient was administered 25 mCi of sestamibi intravenously at rest. Images were then obtained in supine position. Images obtained without without CT attenuation. Total DLP 158 mGy-cm Images were processed with the software and compared side to side in short axis, horizontal long axis and vertical long axis views. FINDINGS: Raw images were reviewed The stress perfusion study showed nonattenuated show mildly to moderate intensity distal lateral as well as inferoapical reduced uptake. Remainder of the LV myocardium is normally perfused. There is suggestion of left ventricular hypertrophy. Attenuated corrected images show normal uptake in all segments of the LV myocardium. The gated study shows normal LV systolic function with calculated LVEF of 65%. LV cavity is normal in size. The gated study shows normal systolic wall thickening and contraction of segments. Resting study shows nonattenuated images show normal uptake of radiotracer in all segments of the LV myocardium. Gating at rest reveals normal systolic wall motion with ejection fraction at greater than 60%. The findings are consistent with small area of moderate intensity distal lateral and infero apical ischemia most likely in circumflex distribution. NM/NM cardiolite stress test IMPRESSION: 1. Myocardial perfusion imaging study shows small area of moderate intensity distal lateral and inferoapical ischemia. 2. Gated LVEF is 65%. 3. Transient ischemic dilatation not present. EKG revealed suggestive of ischemia. Electronically signed by: Lakhwinder Krause MD 05/19/2025 04:50 PM EDT
--- NOTE | 2025-05-18 09:39 | CA_ITS ---
Acquisition Time: 2025-05-18 09:54:03 Total Exercise Time: 00:07:15 Test Indications: CHEST PAIN Medications: CARVEDILOL ASA ATROVASTATIN METFORMIN Protocol: JAVI Max HR: 136 BPM 87% of Pred: 156 BPM Max BP: 138/80 mmHG Max Work Load: 8.3 METS Exercise stress tets with exercise 7 mins 15 secs of Javi Protocol, achieving 85% MPHR, with reports of SOB and 5/10 mid chest tightness, with isolated PVCs and frequent PVCs- atrial run max beat 4, with normotenisve response to exercise. With ST depression inferiorly and in leads V4 to V6, possibly suggesting ischemia. In recovery, pt's breathing returned to baseline and chest tightness resolved gradually. ST segment improved. Nuclear images pending. Test reviewed with Dr. Krause. Referred By: Lakhwinder Krause Electronically Signed By: Rick Wilkes
--- OUTSIDE RECORDS SUMMARY | 2025-05-18 09:57 | XMS_ITS | Patient Health Record ---
Author Organization [facility] Address [address] [place] [id number] Care Team Providers Care Rock Cutter Name Role Phone NONE, NONE Primary Care Provider Narendra Wilson Unavailable [phone] Reason For Referral No Information Plan Of Treatment No Information
--- OUTSIDE RECORDS SUMMARY | 2025-05-18 09:57 | XMS_ITS | Encounter Summary ---
Author Organization [facility], Address [address] [place] [address] Phone Care Team Providers Care Prototype Assembler Electronics Name Role Phone Rebecca Rudolph MD Primary Care Provider [phone] Encounter Details Date Type Department Care Team (Late st Contact Info) Description 12/17/2019 Orders Only [facility] [address] [place] [phone] Jocelin Lester [address] [place] [phone] Social History Tobacco Use Types Packs/Day Years [...] Visit [facility], [address] [place] [address] Jay Jay Jenkins MD [address] [place] [address] documented as of this encounter Visit Diagnoses Not on filedocumented in this encounter Care Teams Prototype Assembler Electronics Relationship Specialty Start Date End Date Rebecca Rudolph MD [address] [place] [address] PCP - General Internal Medicine 01/10/22 documented as of this encounter
== END ==
LOC: HO.CARD 09:37
PROVIDERS: PCP Internal Medicine; Visit Provider Internal Medicine Cardiovascular Disease
DX: R06.02 Shortness of breath (principal); R07.9 Chest pain, unspecified
CPT/HCPCS: 78452; 93017; A9500; J0280; J2785

== ENCOUNTER → 2025-05-18 09:39 | Outpatient (BNV) | payer OTHER, SELFPAY | PROVIDERS: PCP Internal Medicine | DX: I25.5 Ischemic cardiomyopathy (principal) | CPT/HCPCS: 78452; 93016; 93018 ==

== ENCOUNTER 2025-05-19 13:58 | Outpatient (AMB) | payer OTHER, SELFPAY ==
--- NOTE | 2025-05-19 13:59 | MHC.PC.OV ---
Vital Signs 05/19/25 14:00 Height 5 ft 1 in Weight 155 lb BMI 29.3 BP 130/62 Blood Pressure Location Lt brachial Position Sitting Intake Visit Reasons: dm Intake Note: Patient here for a follow up DM Mechanical Maintenance Supervisor Required: No Accompanied by: Self / Same As Patient Allergies ciprofloxacin (From CIPRO) Allergy (Severe, Verified 05/19/25 14:09) ANAPHYLAXIS; RASH semaglutide (From Rybelsus) Adverse Reaction (Intermediate, Verified 05/19/25 14:09) blurry vision Medication List - Last Reconciled 05/19/25 by Rebecca Perera MD aspirin (Adult Low Dose Aspirin) 81 mg PO DAILY atorvastatin 40 mg PO DAILY blood sugar diagnostic (FreeStyle Lite Strips) Use 1 test strip once a day blood-glucose sensor ([employer] Chloe 3 Plus Sensor device) Use daily As directed to monitor glucose blood-glucose,ultrasonic solderer,cont (FreeStyle Chloe 3 [place]) Use daily As directed to monitor blood glucose carvedilol 12.5 mg PO BID chlorthalidone 25 mg PO DAILY cholecalciferol (vitamin D3) 25 mcg PO DAILY 90 days dapagliflozin propanediol (Farxiga) 10 mg PO DAILY 30 days dulaglutide (Trulicity) 1.5 mg (0.5 mL) subcut QWEEK ezetimibe 10 mg PO DAILY fluticasone propionate 50 mcg/actuation (Flonase Allergy Relief) 2 sprays intranasal DAILY gabapentin 100 mg PO BEDTIME 90 days glucose (Dex4 Glucose) 16 grams (4 x 4 gram) PO Q15M PRN insulin glargine (Basaglar KwikPen U-100 Insulin) 8 units (0.08 mL) subcut DAILY lancets (FreeStyle Lancets) Use 1 lancet once a day losartan 100 mg PO BID metformin ER 1,000 mg (2 x 500 mg) PO QPM pen needle, diabetic (BD Betty 2nd Gen Pen Needle) Use daily As directed potassium chloride 20 mEq PO DAILY Tobacco use date assessed: 01/11/25 Fall risk assessment: No Falls in past year Last assessed Fall Risk: 05/19/25 Dental Screening Dental Screen Date: 05/19/25 Did you have a dental visit in the last 12 months?: Yes Did you have a dental problem in the last 6 months where you did not have access to dental care?: No Was dental information given to patient?: Patient has dentist HPI HPI Comments History of Present Illness Details The patient is a 64-year-old female presenting with follow-up for her chronic conditions, including diabetes and hyperlipidemia. Her diabetes management includes monitoring of her A1c, which was last recorded at 6.9% in March. She is currently on medications including Metformin and Trulicity, with adjustments made to her insulin regimen. The patient has hyperlipidemia, managed with atorvastatin and ezetimibe, resulting in an LDL level of 51 mg/dL. Her HDL cholesterol is 40 mg/dL, which is within normal limits. She has a history of hypertension, currently managed with carvedilol, chlorthalidone, and losartan. Adjustments were made to her chlorthalidone dosage due to low potassium levels. The patient has renal cysts identified on an MRI, with a follow-up appointment scheduled with urology. She experiences hypokalemia, with recent potassium levels at 3.2 mmol/L, and continues potassium supplementation. Dietary modifications have been attempted to increase potassium intake. The patient is on baby aspirin for secondary prophylaxis of coronary artery disease. She underwent a recent stress test and resting scans. [facility] Medical History (Updated 05/19/25 @ 14:24 by Rebecca Perera MD) CAD (coronary artery disease) PAC (premature atrial contraction) Tricuspid valve regurgitation Physical exam Screen for colon cancer Tachycardia Murmur Dyspnea Microalbuminuria Obesity (BMI 30.0-34.9) Dyslipidemia Hypertension Encounter for diabetic foot exam High cholesterol High blood pressure Diabetes mellitus Surgical History Stented coronary artery History of coronary artery stent placement S/P skin biopsy History of hernia repair S/P BLAIR-BSO (total abdominal hysterectomy and bilateral salpingo-oophorectomy) History of removal of cyst History of bladder surgery Family History Father CAD (coronary artery disease) CVD (cardiovascular disease) Myocardial infarction Substance use disorder Mother CVD (cardiovascular disease) Hypertension Brother Hypertension Sister Hypertension Daughter Obese Social History Housing: House Alcohol intake: current Alcohol intake frequency: holidays/special occasions only Alcohol type: hard liquor Patient Tobacco Use Status: Former Tobacco user Tobacco use type: Cigarette e-Cigarette/Vaping Use: Never Used Second Hand Smoke Exposure: No service: No Current occupational status: employed Current occupational exposures/hazards: No Cognitive needs: No Hearing needs: No Vision needs: Yes Questionnaire PHQ-9 Over the last 2 weeks, how often have you been bothered by any of the following problems? 1. Little interest or pleasure in doing things: not at all 2. Feeling down, depressed, or hopeless: not at all 3. Trouble falling or staying asleep, or sleeping too much: not at all 4. Feeling tired or having little energy: not at all 5. Poor appetite or overeating: not at all 6. Feeling bad about yourself - or that you are a failure or have let yourself or your family down: not at all 7. Trouble concentrating on things, such as reading the newspaper or watching television: not at all 8. Moving or speaking so slowly that other people could have noticed. Or the opposite - being so fidgety or restless that you have been moving around a lot more than usual: not at all 9. Thoughts that you would be better off or of hurting yourself in some way: not at all Total score: 0 Depression Screening Interpretation: Negative Depression Screening Done: Yes 22196 - PHQ-9 Billing: Yes Source: Developed by Drs. Narendra Biggs, Edison August and colleagues, with an educational leland from [employer]. Thrive Questionnaire Date Thrive assessed: 01/11/25 ANDREA-7 AMB Questionnaire ANDREA-7 Date ANDREA - 7 assessed: 01/11/25 Source: Developed by Drs. Narendra Biggs, Edison August and colleagues, with an educational leland from [employer]. Review of Systems Const All systems reviewed & are unremarkable except as noted in HPI and below Card Denies chest pain at rest, Denies chest pain with activity, Denies edema, Denies irregular heart rhythm, Denies claudication, Denies dyspnea, Denies dyspnea on exertion, Denies orthopnea, Denies paroxysmal nocturnal dyspnea and Denies slow heart rate Resp Denies cough, Denies dyspnea and Denies dyspnea on exertion GI Denies abdominal pain, Denies change in bowel habits, Denies excessive flatus, Denies nausea and Denies vomiting Denies urinary incontinence, Denies urinary hesitancy and Denies urinary urgency Physical exam (Primary Care) Vital Signs: Last Vital Signs BP 130/62 05/19/25 14:00 BMI result Body Mass Index 29.3 Tobacco/Smoking Status: Tobacco use Status Tobacco use date assessed 01/11/25 05/19/25 14:05 Patient Tobacco Use Status Former Tobacco user 05/19/25 14:05 Tobacco use type Cigarette 05/19/25 14:05 e-Cigarette/Vaping Use Never Used 05/19/25 14:05 PHQ-9: PHQ-9 Score PHQ-9: Total score 0 05/19/25 14:05 Depression Screening Interpretation: Negative Thrive Assessment: Date of Thrive Assessment Date Thrive assessed 01/11/25 05/19/25 14:05 Resp Effort & Inspection: normal respiratory effort Auscultation: clear to auscultation bilaterally Cardio Jugular venous distension: no JVD Rate: regular rate Rhythm: regular rhythm Heart sounds: S1 normal heart sound present and S2 normal heart sound present Extrem General: Yes full ROM Coding Level of Care Code Est Pt Level 4 (94418) Complex EM visit Add On G2211 Diagnoses Diabetes mellitus, without long-term current use of insulin E11.9 Hyperlipidemia LDL goal <70 E78.5 Hypertension, unspecified type I10 Hypertension type: unspecified CAD (coronary artery disease) I25.10 Left renal mass N28.89 Additional Codes PHQ-9 - 26058 - PHQ-9 Billing: Yes ([id number]) Time Spent (min) 22 Assessment & Plan Assessment & Plan (1) Diabetes mellitus, without long-term current use of insulin: Code(s): E11.9 - Type 2 diabetes mellitus without complications Category: Medical (2) Hyperlipidemia LDL goal <70: Code(s): E78.5 - Hyperlipidemia, unspecified Category: Medical (3) Hypertension: Code(s): I10 - Essential (primary) hypertension Category: Medical Qualifiers: Hypertension type: unspecified Qualified Code(s): I10 - Essential (primary) hypertension (4) CAD (coronary artery disease): Code(s): I25.10 - Atherosclerotic heart disease of [place] coronary artery without angina pectoris Category: Medical (5) Left renal mass: Code(s): N28.89 - Other specified disorders of kidney and ureter Category: Medical Plan The patient's diabetes management will continue with current medications, including Metformin and Trulicity, with a plan to monitor A1c levels in the future. Her hyperlipidemia is well-controlled with atorvastatin and ezetimibe, maintaining LDL levels below 70 mg/dL. For hypertension, adjustments to chlorthalidone have been made to address hypokalemia, with continued monitoring of potassium levels. The patient is advised to continue dietary modifications to increase potassium intake. The renal cysts will be further evaluated by urology, with an appointment scheduled for June. The patient is on baby aspirin for coronary artery disease prophylaxis and has recently undergone a stress test and resting scans. Patient was informed and verbally consented to the use of an ambient scribe for clinic note documentation during this visit. Orders: Orders Vitamin D 25-OH Total 4 Months E55.9 - Vitamin D deficiency, unspecified Lipid Panel 4 Months E78.5 - Hyperlipidemia, unspecified Microalbumin, Random (w Creat) 4 Months R80.9 - Proteinuria, unspecified Comprehensive [place]. Panel Fast 4 Months E11.65 - Type 2 diabetes mellitus with hyperglycemia Medications: New benzonatate 100 mg PO BID PRN 10 caps 0RF cough 5 days Changed From chlorthalidone 25 mg PO DAILY To chlorthalidone 25 mg PO DAILY 90 tabs 1RF 90 days Refilled potassium chloride 20 mEq PO DAILY 30 ea 2RF Discontinued insulin glargine (Basaglar KwikPen U-100 Insulin) Discontinued Reason: Patient Completed Course 8 units (0.08 mL) subcut DAILY 15 mL 3RF
[2025-05-19 14:00] VITALS: BP 130/62; BMI 29.3
--- OUTSIDE RECORDS SUMMARY | 2025-05-19 14:00 | XMS_ITS | Encounter Summary ---
Author Organization [facility], Address [address] [place] [address] Phone Care Team Providers Care Avionics Technician Name Role Phone Rebecca Rudolph MD Primary Care Provider [phone] Encounter Details Date Type Department Care Team (Late st Contact Info) Description 12/17/2019 Orders Only [facility] [address] [place] [phone] Jocelin Lester [address] [place] [phone] Social History Tobacco Use Types Packs/Day Years [...] Visit [facility], [address] [place] [address] Jay Jay Jenkins MD [address] [place] [address] documented as of this encounter Visit Diagnoses Not on filedocumented in this encounter Care Teams Avionics Technician Relationship Specialty Start Date End Date Rebecca Rudolph MD [address] [place] [address] PCP - General Internal Medicine 01/10/22 documented as of this encounter
--- OUTSIDE RECORDS SUMMARY | 2025-05-19 14:01 | XMS_ITS | Patient Health Record ---
Author Organization [facility] Address [address] [place] [id number] Care Team Providers Care Fit Model Name Role Phone NONE, NONE Primary Care Provider Narendra Wilson Unavailable [phone] Reason For Referral No Information Plan Of Treatment No Information
== END 2025-05-19 14:22 | disposition home or self-care (01) ==
LOC: HO.HMCH 13:58
PROVIDERS: PCP Internal Medicine; Visit Provider Internal Medicine
DX: E11.9 Type 2 diabetes mellitus without complications (principal); E78.5 Hyperlipidemia, unspecified; I10 Essential (primary) hypertension; I25.10 Atherosclerotic heart disease of native coronary artery without angina pectoris; N28.89 Other specified disorders of kidney and ureter

== ENCOUNTER → 2025-05-19 13:58 | Outpatient (BNVA) | payer OTHER, SELFPAY | PROVIDERS: PCP Internal Medicine; Visit Provider Internal Medicine | DX: E11.65 Type 2 diabetes mellitus with hyperglycemia (principal); E78.5 Hyperlipidemia, unspecified; I10 Essential (primary) hypertension; I25.10 Atherosclerotic heart disease of native coronary artery without angina pectoris; E87.6 Hypokalemia; N28.89 Other specified disorders of kidney and ureter; E55.9 Vitamin D deficiency, unspecified; R80.9 Proteinuria, unspecified | CPT/HCPCS: 96127 ==

== ENCOUNTER 2025-06-06 08:11 | Outpatient (AMB) | payer OTHER, SELFPAY ==
[2025-06-06 08:15] VITALS: BP 126/66; PULSE 78
--- NOTE | 2025-06-06 08:15 | A.OFFVIS_ITS ---
Vital Signs 06/06/25 08:15 Height 5 ft 1 in Weight 158 lb 11.725 oz BMI 30.0 BP 126/66 Blood Pressure Location Rt brachial Position Sitting Pulse 78 Pulse Source Pulse Oximeter Intake Visit Reasons: T2DM Intake Note: Patient present today for Type 2 Diabetes Mellitus Last Diabetic eye exam: 09/2024 Last Podiatry Visit: no Random Glucose: 198 mg/dL HgA1C: 6.9% 04/08/25 Communications Superintendent Required: No Accompanied by: Self / Same As Patient Allergies ciprofloxacin (From CIPRO) Allergy (Severe, Verified 06/06/25 08:21) ANAPHYLAXIS; RASH semaglutide (From Rybelsus) Adverse Reaction (Intermediate, Verified 06/06/25 08:21) blurry vision Medication List - Last Reconciled 06/06/25 by Cass Bateman PA-C aspirin (Adult Low Dose Aspirin) 81 mg PO DAILY atorvastatin 40 mg PO DAILY benzonatate 100 mg PO BID PRN 5 days blood sugar diagnostic (FreeStyle Lite Strips) Use 1 test strip once a day blood-glucose sensor (FreeStyle Chloe 3 Plus Sensor device) Use daily As directed to monitor glucose blood-glucose,seat cover installer,cont (FreeStyle Chloe 3 [place]) Use daily As directed to monitor blood glucose carvedilol 12.5 mg PO BID chlorthalidone 25 mg PO DAILY 90 days cholecalciferol (vitamin D3) 25 mcg PO DAILY 90 days dapagliflozin propanediol (Farxiga) 10 mg PO DAILY 30 days ezetimibe 10 mg PO DAILY fluticasone propionate 50 mcg/actuation (Flonase Allergy Relief) 2 sprays intranasal DAILY gabapentin 100 mg PO BEDTIME 90 days glucose (Dex4 Glucose) 16 grams (4 x 4 gram) PO Q15M PRN lancets (FreeStyle Lancets) Use 1 lancet once a day losartan 100 mg PO BID metformin ER 1,000 mg (2 x 500 mg) PO QPM pen needle, diabetic (BD Betty 2nd Gen Pen Needle) Use daily As directed potassium chloride 20 mEq PO DAILY HPI HPI T2DM: Details: Patient is a 64-year-old female with a significant past medical history of hypertension, dyslipidemia, CAD, proteinuria, ckd and type 2 diabetes presenting today for a diabetic consultation. Endo: Dm-diagnosed with diabetes around 2018 per pt. A1c today is 6.9 (previous 9.9). She is currently on metformin 1000 mg nightly, farixga 10 mg daily and trulicity 1.5 mg weekly. -she does have nausea with the Trulicity at the higher doses. She says that she does feel sick for a few days with it and would be worried to increase her dose She does not tolerate higher doses of metformin. Tried semaglutide in the past and was very nauseous with this and had blurred vision with a Rybelsus. She has tried Farxiga in the past and was having UTIs and yeast infections so was taken off of this but recently restarted on it. She does not have any more sx. -rybelsus caused blurry vision (did see ophthamology who reports normal exam) cgm-avg glucose 127, gmi 6.3%, variability 22%. 0% very hyperglycemic. 7% hyperglycemic, 93% in range, 0% hypoglycemia States that sometimes her sensor tells her that she is low at night but when she checks her blood sugars she is really 120. Fam hx of t2dm CV: Blood pressure today is 126/66 and is managed with losartan 100 mg twice a day, carvedilol 12.5 mg twice a day, and chlorthalidone 50 mg daily. She is on atorvastatin 40 mg and Zetia 10 mg. Takes a daily aspirin. [facility] Medical History CAD (coronary artery disease) PAC (premature atrial contraction) Tricuspid valve regurgitation Physical exam Screen for colon cancer Tachycardia Murmur Dyspnea Microalbuminuria Obesity (BMI 30.0-34.9) Dyslipidemia Hypertension Encounter for diabetic foot exam High cholesterol High blood pressure Diabetes mellitus Surgical History Stented coronary artery History of coronary artery stent placement S/P skin biopsy History of hernia repair S/P BLAIR-BSO (total abdominal hysterectomy and bilateral salpingo-oophorectomy) History of removal of cyst History of bladder surgery Family History Father CAD (coronary artery disease) CVD (cardiovascular disease) Myocardial infarction Substance use disorder Mother CVD (cardiovascular disease) Hypertension Brother Hypertension Sister Hypertension Daughter Obese Social History Housing: House Alcohol intake: current Alcohol intake frequency: holidays/special occasions only Alcohol type: hard liquor Patient Tobacco Use Status: Former Tobacco user Tobacco use type: Cigarette e-Cigarette/Vaping Use: Never Used Second Hand Smoke Exposure: No service: No Current occupational status: employed Current occupational exposures/hazards: No Cognitive needs: No Hearing needs: No Vision needs: Yes Physical Exam Vital Signs: Last Vital Signs Pulse 78 06/06/25 08:15 BP 126/66 06/06/25 08:15 Const Orientation/consciousness: patient oriented x3 HEENT Ears: hearing grossly normal bilaterally Neck Thyroid: Thyroid normal Lymphatic: no lymphadenopathy noted Resp Auscultation: clear to auscultation bilaterally Cardio Rate: regular rate Rhythm: regular rhythm Heart sounds: S1 normal heart sound present and S2 normal heart sound present GI Inspection: Yes normal to inspection Palpation (GI): Soft to palpation and Other GI palpation findings present (nontender, no cva tenderness) Auscultation: normoactive bowel sounds Rectal Exam - Female: deferred Skin General skin exam: no rashes or lesions noted Neuro General: patient oriented x3, gait normal and no focal motor deficits Results Reviewed Results Reviewed: Laboratory Tests 04/08/25 05/07/25 05/07/25 08:14 08:49 08:50 Sodium 140 Potassium 3.2 L Chloride 104 Carbon Dioxide 27 Anion Gap 12 BUN 20 H Creatinine 0.86 Estimated GFR > 60 Fasting Glucose 117 H Hgb A1c (Clinic) 6.9 H Calcium 9.0 Total Bilirubin 0.4 AST 19 ALT 20 Alkaline Phosphatase 86 Total Protein 7.4 Albumin 4.3 Triglycerides 91 Cholesterol 109 LDL Cholesterol, Calc 51 HDL Cholesterol 40 L Urine Creatinine 103.37 Urine Microalbumin 74.0 Microalb/Creat Ratio 71.5 H Assessment & Plan Assessment & Plan (1) Uncontrolled type 2 diabetes mellitus with hyperglycemia: Code(s): E11.65 - Type 2 diabetes mellitus with hyperglycemia Category: Medical Plan: We will stop the Trulicity and switch to Mounjaro. We discussed risks and benefits and adverse effects of this medication. Given the better control of her blood sugars and lower glucose readings in the evening I will reduce her dose of metformin to 500 mg as she also recently just started the increased dosage of Farxiga yesterday I will have her do a short term follow up to be reassessed or sooner if needed (2) Hypertension: Code(s): I10 - Essential (primary) hypertension Category: Medical Qualifiers: Hypertension type: unspecified Qualified Code(s): I10 - Essential (primary) hypertension Plan: WNL. Continue current regimen (3) Hyperlipidemia LDL goal <70: Code(s): E78.5 - Hyperlipidemia, unspecified Category: Medical Plan: At goal. Medications: New tirzepatide (Mounjaro) for 4 weeks 2.5 mg (0.5 mL) subcut QWEEK 2 mL 3RF Changed From metformin ER 1,000 mg (2 x 500 mg) PO QPM 90 tabs 5RF To metformin ER 500 mg PO QPM 90 tabs 5RF Patient Instructions: switch from trulicity to mounajro take 500 mg of metformin at night (reduced from 1000 mg aka 2 pills) start farxiga tomorrow morning at 10 mg follow up in 6 weeks Coding Level of Care Code Est Pt Level 4 (57359) Complex EM visit Add On G2211 Diagnoses Uncontrolled type 2 diabetes mellitus with hyperglycemia E11.65 Hypertension, unspecified type I10 Hypertension type: unspecified Hyperlipidemia LDL goal <70 E78.5
--- OUTSIDE RECORDS SUMMARY | 2025-06-06 08:16 | XMS_ITS | Patient Health Record ---
Author Organization [facility] Address [address] [place] [phone] Care Team Providers Care Channel Lip Wetter Name Role Phone NONE, NONE Primary Care Provider Narendra Wilson Unavailable [phone] Reason For Referral No Information Plan Of Treatment No Information
--- OUTSIDE RECORDS SUMMARY | 2025-06-06 08:16 | XMS_ITS | Encounter Summary ---
Author Organization [facility], Address [address] [place] [address] Phone Care Team Providers Care Chip Machine Operator Name Role Phone Rebecca Rudolph MD Primary Care Provider [phone] Encounter Details Date Type Department Care Team (Late st Contact Info) Description 12/17/2019 Orders Only [facility] [address] [place] [phone] Jocelin Lester [address] [place] [phone] Social History Tobacco Use Types Packs/Day Years [...] Care Team (Late st Contact Info) Description 11/24/2025 3:45 PM EST Office Visit [facility], [address] [place] [address] Jay Jay Jenkins MD [address] [place] [address] documented as of this encounter Visit Diagnoses Not on filedocumented in this encounter Care Teams Chip Machine Operator Relationship Specialty Start Date End Date Rebecca Rudolph MD [address] [place], [place] PCP - General Internal Medicine 01/10/22 documented as of this encounter
[2025-06-06 08:22] LABS: Glucose, Whole Blood 198 mg/dL (60-115)
== END 2025-06-06 08:44 | disposition home or self-care (01) ==
LOC: HO.ENCR 08:12
PROVIDERS: PCP Internal Medicine; Visit Provider Physician Assistant
DX: E11.65 Type 2 diabetes mellitus with hyperglycemia (principal); I10 Essential (primary) hypertension; E78.5 Hyperlipidemia, unspecified

== ENCOUNTER → 2025-06-06 08:11 | Outpatient (BNVA) | payer OTHER, SELFPAY | PROVIDERS: PCP Internal Medicine; Visit Provider Physician Assistant | DX: E11.22 Type 2 diabetes mellitus with diabetic chronic kidney disease (principal); E11.65 Type 2 diabetes mellitus with hyperglycemia; I12.9 Hypertensive chronic kidney disease with stage 1 through stage 4 chronic kidney disease, or unspecified chronic kidney disease; N18.9 Chronic kidney disease, unspecified; E78.5 Hyperlipidemia, unspecified; I25.10 Atherosclerotic heart disease of native coronary artery without angina pectoris; R80.9 Proteinuria, unspecified; Z79.84 Long term (current) use of oral hypoglycemic drugs | CPT/HCPCS: 82947 ==

== ENCOUNTER 2025-06-07 14:48 | Outpatient (AMB) | payer OTHER, SELFPAY ==
[2025-06-07 15:05] VITALS: BP 118/60; PULSE 89; BMI 29.2
--- NOTE | 2025-06-07 15:05 | MHC.OFFVIS ---
Vital Signs 06/07/25 15:05 Height 5 ft 1 in Weight 154 lb 5.177 oz BMI 29.2 BP 118/60 Blood Pressure Location Lt brachial Position Sitting Pulse 89 Pulse Source Pulse Oximeter Intake Visit Reasons: 3 mth s/p mibi/ echo/ meds/ labs NS Allergies ciprofloxacin (From CIPRO) Allergy (Severe, Verified 06/06/25 08:21) ANAPHYLAXIS; RASH semaglutide (From Rybelsus) Adverse Reaction (Intermediate, Verified 06/06/25 08:21) blurry vision Medication List - Last Reconciled 06/07/25 by Rick Wilkse NP aspirin (Adult Low Dose Aspirin) 81 mg PO DAILY atorvastatin 40 mg PO DAILY benzonatate 100 mg PO BID PRN 5 days blood sugar diagnostic (FreeStyle Lite Strips) Use 1 test strip once a day blood-glucose sensor (Easy TempoStyle Chloe 3 Plus Sensor device) Use daily As directed to monitor glucose blood-glucose,cartridge loader,cont (FreeStyle Chloe 3 [place]) Use daily As directed to monitor blood glucose carvedilol 12.5 mg PO BID chlorthalidone 25 mg PO DAILY 90 days cholecalciferol (vitamin D3) 25 mcg PO DAILY 90 days dapagliflozin propanediol (Farxiga) 10 mg PO DAILY 30 days ezetimibe 10 mg PO DAILY fluticasone propionate 50 mcg/actuation (Flonase Allergy Relief) 2 sprays intranasal DAILY gabapentin 100 mg PO BEDTIME 90 days glucose (Dex4 Glucose) 16 grams (4 x 4 gram) PO Q15M PRN lancets (FreeStyle Lancets) Use 1 lancet once a day losartan 100 mg PO BID metformin ER 500 mg PO QPM pen needle, diabetic (BD Betty 2nd Gen Pen Needle) Use daily As directed potassium chloride 20 mEq PO DAILY tirzepatide (Mounjaro) 2.5 mg (0.5 mL) subcut QWEEK HPI Comments Details: This is a 64-year-old female patient coming in for a follow-up visit. Patient with a history of hypertension, hyperlipidemia, coronary artery disease with prior PCI in 2021, and diabetes. Patient was previously seen in the office for shortness of breath with exertion for which patient underwent Holter, echo, and a myocardial perfusion study. Today, patient is here to review those results. Patient continues to report the shortness of breath with exertion with no associated symptoms of chest pain, palpitations, dizziness, orthopnea, PND, leg edema, presyncope or syncope. Patient is reporting compliance with all her medications. [facility] Medical History CAD (coronary artery disease) PAC (premature atrial contraction) Tricuspid valve regurgitation Physical exam Screen for colon cancer Tachycardia Murmur Dyspnea Microalbuminuria Obesity (BMI 30.0-34.9) Dyslipidemia Hypertension Encounter for diabetic foot exam High cholesterol High blood pressure Diabetes mellitus Surgical History Stented coronary artery History of coronary artery stent placement S/P skin biopsy History of hernia repair S/P BLAIR-BSO (total abdominal hysterectomy and bilateral salpingo-oophorectomy) History of removal of cyst History of bladder surgery Family History Father CAD (coronary artery disease) CVD (cardiovascular disease) Myocardial infarction Substance use disorder Mother CVD (cardiovascular disease) Hypertension Brother Hypertension Sister Hypertension Daughter Obese Social History Housing: House Alcohol intake: current Alcohol intake frequency: holidays/special occasions only Alcohol type: hard liquor Patient Tobacco Use Status: Former Tobacco user Tobacco use type: Cigarette e-Cigarette/Vaping Use: Never Used Second Hand Smoke Exposure: No service: No Current occupational status: employed Current occupational exposures/hazards: No Cognitive needs: No Hearing needs: No Vision needs: Yes Review of Systems Const Denies weakness ENT Denies dizziness Card Denies chest pain, Denies chest pain with activity, Denies syncope, Denies rapid heart rate, Denies pedal edema, Denies edema, Denies leg edema, Denies lightheadedness, Denies palpitations, Denies dyspnea, Denies dyspnea on exertion and Denies orthopnea Resp Denies cough, Denies dyspnea and Denies dyspnea on exertion GI Denies hematochezia and Denies change in stool character Musc Denies abnormal gait, Denies muscle cramps, Denies muscle weakness, Denies numbness, Denies radiating pain into limb and Denies tingling Neuro Denies abnormal gait, Denies dizziness, Denies syncope, Denies numbness, Denies tingling and Denies weakness Endo Denies palpitations Physical Exam Vital Signs: Last Vital Signs Pulse 89 06/07/25 15:05 BP 118/60 06/07/25 15:05 BMI result Body Mass Index 29.2 Const General: cooperative, healthy appearing, comfortable and no acute distress Orientation/consciousness: patient oriented x3 HEENT Head: Yes normal to inspection Neck Neck: Yes normal visual inspection, Yes trachea midline and Yes supple Chest Chest palpation & inspection: normal inspection of the chest Resp Effort & Inspection: normal respiratory effort Auscultation: clear to auscultation bilaterally, no crackles, no rales, no rhonchi and no wheezes Cardio Jugular venous distension: no JVD Palpation: normal PMI Rate: regular rate Rhythm: regular rhythm Heart sounds: S1 normal heart sound present, S2 normal heart sound present, no click, no gallops, no murmurs and no rubs Peripheral pulses: Peripheral pulses 2+ throughout GI Inspection: Yes normal to inspection Palpation (GI): Soft to palpation Auscultation: normal bowel sounds Skin General skin exam: no rashes or lesions noted Neuro General: patient oriented x3 Extrem General: Yes normal to inspection, No no pedal edema and No calf tenderness Psych Appearance: grossly normal Mental Status: mental status grossly normal Speech and movement: Normal speech and movement present Assessment & Plan Assessment & Plan (1) Short of breath on exertion: Code(s): R06.02 - Shortness of breath Category: Medical Plan: 04/15/2025-echo study showed a normal LV systolic function with an ejection fraction between 60-65% with pseudo normal filling pattern. 05/18/2025-myocardial perfusion study showed a small area of moderate intensity distal lateral and inferior apical ischemia. For the stress portion of the test, patient developed shortness of breath and chest tightness with ST-depression inferiorly and in leads V4 to V6. Given above findings and ongoing symptoms of shortness of breath with exertion, we will proceed with a cardiac catheterization to further assess the coronary arteries and evaluate the extent of ischemic changes. The procedure along with its indications, risks, and potential benefits was thoroughly discussed with the patient. The patient was informed about potential need for stent placement. Patient expresses understanding and agrees to proceed with the planned cardiac catheterization. Patient with a history of coronary artery disease with prior PCI to RCA and LCX [place] [address] Sanchez. Patient would like to pursue the repeat cardiac catheterization with their office. I have personally contacted Dr. Hoffmann's office in regards to this. Continue aspirin couple atorvastatin, Zetia, and carvedilol therapy. We will also start patient on isosorbide in the meanwhile. (2) Abnormal stress ECG: Code(s): R94.39 - Abnormal result of other cardiovascular function study Category: Medical Plan: As above. (3) CAD (coronary artery disease): Code(s): I25.10 - Atherosclerotic heart disease of [place] coronary artery without angina pectoris Category: Medical Plan: As above. (4) Hypertension: Code(s): I10 - Essential (primary) hypertension Category: Medical Qualifiers: Hypertension type: unspecified Qualified Code(s): I10 - Essential (primary) hypertension Plan: Blood pressure is within normal limits. Continue current regimen. Advised monitoring blood pressure with a goal less than 130/80. (5) PAC (premature atrial contraction): Code(s): I49.1 - Atrial premature depolarization Category: Medical Plan: History of PACs. 04/15/2025-Holter study showed baseline rhythm of sinus with an average rate of 71 beats per minute, rare supraventricular ectopy with a burden of 0.9%, short runs noted, and rare ventricular ectopies. Patient previously had a lower potassium levels for which she was started on potassium chloride. We will recheck labs. Advised heart healthy diet, laying low until further examination, medication compliance, and management of vascular risk factors. Follow-up after cardiac catheterization. In the interim, patient will call the office with any concerns or change in symptoms. Advised to seek ER care in case of exertional chest pain not resolved with rest. This note was generated using voice recognition software. While every effort has been made to ensure accuracy and proper shooter's helper, there may be occasional errors that could affect the content or meaning of the described symptoms. Orders: Orders Cardiac Cath LT w PCI Today I25.10 - Atherosclerotic heart disease of [place] coronary artery without angina pectoris, R06.02 - Shortness of breath Basic Metabolic Panel Today I25.10 - Atherosclerotic heart disease of [place] coronary artery without angina pectoris, R06.02 - Shortness of breath Complete Blood Count no Diff Today R06.02 - Shortness of breath Prothrombin Time INR Today R06.02 - Shortness of breath Medications: New isosorbide mononitrate ER 30 mg PO DAILY 90 tabs 3RF Coding Level of Care Code Est Pt Level 4 (98888) Complex EM visit Add On G2211 Diagnoses Short of breath on exertion R06.02 Abnormal stress ECG R94.39 CAD (coronary artery disease) I25.10 Hypertension, unspecified type I10 Hypertension type: unspecified PAC (premature atrial contraction) I49.1 Time Spent (min) 34 Comment Time spent in reviewing the chart, test results, assessment, counseling and documentation.
--- OUTSIDE RECORDS SUMMARY | 2025-06-07 15:56 | XMS_ITS | Encounter Summary ---
Author Organization [facility], Address [address] [place] [address] Phone Care Team Providers Care Pelt Salter Name Role Phone Rebecca Rudolph MD Primary Care Provider [phone] Encounter Details Date Type Department Care Team (Late st Contact Info) Description 12/17/2019 Orders Only [facility] [address] [place] [phone] Jocelin Lester [address] [place] [phone] Social History Tobacco Use Types Packs/Day Years [...] Visit [facility], [address] [place] [address] Jay Jay Jenkins MD [address] [place] [address] documented as of this encounter Visit Diagnoses Not on filedocumented in this encounter Care Teams Pelt Salter Relationship Specialty Start Date End Date Rebecca Rudolph MD [address] [place], [place] PCP - General Internal Medicine 01/10/22 documented as of this encounter
--- OUTSIDE RECORDS SUMMARY | 2025-06-07 15:57 | XMS_ITS | Patient Health Record ---
Author Organization [facility] Address [address] [place] [address] Care Team Providers Care Site Operations Manager Name Role Phone NONE, NONE Primary Care Provider Narendra Wilson Unavailable [phone] Reason For Referral No Information Plan Of Treatment No Information
== END 2025-06-07 15:46 | disposition home or self-care (01) ==
LOC: HO.HCS 14:49
PROVIDERS: PCP Internal Medicine
DX: R06.02 Shortness of breath (principal); R94.39 Abnormal result of other cardiovascular function study; I25.10 Atherosclerotic heart disease of native coronary artery without angina pectoris; I10 Essential (primary) hypertension; I49.1 Atrial premature depolarization
CPT/HCPCS: 99214; G2211

== ENCOUNTER 2025-06-22 07:45 | Inpatient (IN) | payer OTHER, SELFPAY ==
--- NOTE | 2025-06-22 | ECG_ITS ---
Test Reason : rule out prolonged QTC Blood Pressure : */* mmHG Vent. Rate : 61 BPM Atrial Rate : 61 BPM P-R Int : 164 ms QRS Dur : 88 ms QT Int : 404 ms P-R-T Axes : 66 -10 4 degrees QTcB Int : 406 ms Artifact in tracing Normal sinus rhythm Nonspecific ST abnormality Abnormal ECG When compared with ECG of 06-Oct-2015 07:23, No significant change was found Referred By: Venita Hargrove Electronically Signed By: JULIO CESAR HACKETT
[2025-06-22 07:52] VITALS: BP 180/76; PULSE 56; RESP 18; TEMP 36.6; O2SAT 98; BMI 27.6
[2025-06-22 08:00] VITALS: RESP 16
--- NOTE | 2025-06-22 08:20 | PC.NURSE ---
Taisha comes to the ED today reporting increasing life stressors that are causing her to have vague suicidal thoughts. She reports to this RN that she is feeling more overwhelmed lately and has thoughts of not wanting to live anymore but denies plan/intent to harm herself. Pt denies HI as well. Pt is calm and cooperative, currently resting in bed with her brother at the bedside.
[2025-06-22 08:38] LABS: Appearance Urine Clear; Glucose Urine UA >=1000 mg/dL (Negative); PH 7.5 (5.0-9.0); Specific Gravity - Urine 1.025 (1.005-1.025); UMIC TRIGGER UACC YES
[2025-06-22 08:46] LABS: MANUAL DIFF FLAG NO
[2025-06-22 08:49] LABS: Cannabinoid Screen Urine Not Detected (Not Detect)
[2025-06-22 08:49] LABS: Hematocrit 45.2 % (37.0-47.0); Hemoglobin 15.6 g/dl (12.0-16.0); Imm Gran Abs Auto 0.03 X10*3/uL (0.00-0.03); Imm Gran Pct Auto 0.2 % (0.0-0.4); Lymphocytes Absolute Auto 2.7 X10*3/uL (1.2-4.9); Mean Corpuscular HGB Conc 34.5 g/dl (31.0-35.0); Mean Corpuscular Hemoglobin 28.1 pg (27.0-33.0); Mean Corpuscular Volume 81.4 fL (80.0-98.0); NRBC Abs Auto 0.000 X10*3/uL (0.0-0.012); NRBC Pct Auto 0.0 /100WBC (0.0-0.2); Platelet Count 390 X10*3/uL (160-400); Red Blood Count 5.55 X10*6/uL (4.20-5.50); White Blood Count 12.2 X10*3/uL (4.8-10.8)
--- NOTE | 2025-06-22 09:00 | ED_ITS ---
HPI - General Adult General Chief complaint: Psychiatric Symptoms Stated complaint: Crisis, Weak, Med reaction? Time Seen by Provider: 06/22/25 08:59 Source: patient Mode of arrival: ambulatory Limitations: no limitations History of Present Illness ED Provider: Venita Hargrove PA-C HPI narrative: Patient is a 64 year old assigned female at with a history of DM, BPPV, HTN, and dyslipidemia presenting to the emergency department today with increased stress and suicidal ideation. Patient states that she has had a lot going on and has thoughts of hurting herself but not others. Patient denies any dizziness, lightheadedness, abdominal pain, nausea, vomiting, fever, chills, blurry vision, double vision, loss of vision, chest pain, difficulty breathing, shortness of breath, back pain, night sweats, pain with urination, increased urinary frequency, increased urinary urgency, blood in her urine or stool, syncope or a near syncopal episode, recent trauma or falls, bowel incontinence, bladder incontinence, or any other complaints at this time. Relieving factors: none Exacerbating factors: none Associated symptoms: denies other symptoms Treatments prior to arrival: none Related Data Home Medications ?Medication ?Instructions ?Recorded ?Confirmed aspirin 81 mg tablet,delayed 81 mg PO DAILY 09/29/20 0 06/22/25 release (Adult Low Dose Aspirin) losartan 100 mg tablet 100 mg PO BEDTIME 03/13/22 0 06/22/25 carvedilol 12.5 mg tablet 12.5 mg PO BIDWM 12/19/23 atorvastatin 40 mg tablet 40 mg PO BEDTIME 06/22/25 losartan 50 mg tablet 50 mg PO DAILY 06/22/2505/11 Previous Rx's ?Medication ?Instructions ?Recorded dapagliflozin propanediol 10 mg 10 mg PO DAILY 30 days #30 tabs 01/06/24 tablet (Farxiga) ezetimibe 10 mg tablet 10 mg PO DAILY #90 tabs 12/18 chlorthalidone 25 mg tablet 25 mg PO DAILY 90 days #90 tabs 05/19/25 potassium chloride 20 mEq oral 20 meq PO DAILY #30 ea 05/19/25 packet metformin 500 mg tablet,extended 500 mg PO QPM #90 tab s 06/06/25 release 24 hr tirzepatide 2.5 mg/0.5 mL 2.5 mg (0.5 mL) subcut QWEEK #2 mL 06/06/25 subcutaneous pen injector (Mounjaro) isosorbide mononitrate 30 mg 30 mg PO DAILY #90 tabs 0 06/07/25 tablet,extended release 24 hr Allergies Allergy/AdvReac Type Severity Reaction Status Date / Time ciprofloxacin (From CIPRO) Allergy Severe ANAPHYLAXIS; Verified 06/22/25 07:54 RASH semaglutide (From Rybelsus) AdvReac Intermediate blurry Verified 06/22/25 07:54 vision Review of Systems 2 Constitutional: Constitutional: Reports no additional constitutional complaints, Denies chills, Denies fever(s) and Denies night sweats Eyes: Eyes: Reports no additional eye complaints, Denies blurry vision, Denies change in vision, Denies diplopia, Denies eye discharge, Denies loss of vision and Denies eye pain ENT: Denies dizziness Cardiovascular: Cardiovascular: Reports no additional cardiovascular complaints, Denies chest pain, Denies lightheadedness, Denies Loss of Consciousness and Denies dyspnea Respiratory: Respiratory: Reports no additional respiratory complaints and Denies dyspnea Gastrointestinal: Gastrointestinal: Reports no additional gastrointestinal complaints, Denies abdominal pain, Denies melena, Denies hematochezia, Denies change in bowel habits and Denies change in stool character Genitourinary: Genitourinary: Denies hematuria, Denies urinary frequency, Denies dysuria, Denies urinary incontinence, Denies urinary hesitancy and Denies urinary urgency Musculoskeletal: Musculoskeletal: Reports no additional musculoskeletal complaints, Denies numbness and Denies tingling Neurologic: Denies dizziness, Denies loss of vision, Denies numbness and Denies tingling Psychiatric: Psychiatric: Reports depression, Denies homicidal ideation and Reports suicidal ideation Endocrine: Endocrine: Reports no additional endocrine complaints Hematologic/Lymphatic: Hematologic/Lymphatic: Reports no additional hematologic/lymphatic complaints Allergic/Immunologic: Allergic/Immunologic: Reports no additional allergic/immunologic complaints PMFSH Past Medical History Attestation statement: The following information was validated with the patient. Source: old records reviewed and nursing notes reviewed Medical History CAD (coronary artery disease) PAC (premature atrial contraction) Tricuspid valve regurgitation Physical exam Screen for colon cancer Tachycardia Murmur Dyspnea Microalbuminuria Obesity (BMI 30.0-34.9) Dyslipidemia Hypertension Encounter for diabetic foot exam High cholesterol High blood pressure Diabetes mellitus Surgical History Stented coronary artery History of coronary artery stent placement S/P skin biopsy History of hernia repair S/P BLAIR-BSO (total abdominal hysterectomy and bilateral salpingo-oophorectomy) History of removal of cyst History of bladder surgery Family History Family History Father CAD (coronary artery disease) CVD (cardiovascular disease) Myocardial infarction Substance use disorder Mother CVD (cardiovascular disease) Hypertension Brother Hypertension Sister Hypertension Daughter Obese Social History Social History Household Members: Spouse Housing: [facility] Do you presently have visiting nurse or other home services: No Alcohol intake: current Alcohol intake frequency: holidays/special occasions only Alcohol type: hard liquor Patient Tobacco Use Status: Never used Tobacco Tobacco use type: Cigarette Smoked in Last 30 Days: No e-Cigarette/Vaping Use: Never Used Patient Interested in Nicotine Replacement: No Patient Given Instructions on How to Stop Smoking: No Second Hand Smoke Exposure: No Use of substances other than those prescribed or required for medical reasons: No Have you been hit, kicked, punched, or otherwise hurt by someone within the past year? If so, by whom?: No Do you feel safe in your current relationship?: Yes Is there a partner from a previous relationship who is making you feel unsafe now?: No Are you made to feel afraid or neglected: No Advance Directives: No Advance Directives Information Provided: Yes Do you have a plan to hurt others: No Plan Recently lost weight without trying: Yes How much weight loss: 2-13 pounds Eating poorly because of decreased appetite: No Nutrition screen score: 3 Nutrition Risks: No Nutritional Risk Patient : No : No Poor oral hygiene: No service: No Current occupational status: employed Current occupational exposures/hazards: No Cognitive needs: No Hearing needs: No Vision needs: Yes Physical Exam ED Vital Signs: Vital Signs - 24 hr 06/22/25 07:52 06/22/25 08:00 Temperature 98 F Pulse Rate 56 Respiratory Rate 18 16 Blood Pressure 180/76 H Pulse Oximetry 98 Oxygen Delivery Method Room Air BMI result Body Mass Index 27.6 Const General: cooperative, no acute distress, alert and awake Nutritional Appearance: well nourished Orientation/consciousness: patient oriented x3 HENMT Head: Yes normal to inspection and Yes atraumatic Ears: hearing grossly normal bilaterally and external ears normal General nose exam: Normal external nose present, no nasal discharge noted and no epistaxis Face and sinus: Yes normal facial exam, No abrasion and No laceration Mouth: Normal oral and palatal mucosa present, no drooling and no muffled voice Eyes General: appearance normal, both eyes and all related structures Periorbital: periorbital findings normal Eyelids: Yes eyelids normal Conjunctivae: conjunctivae normal Pupils: Equal, round and reactive pupils present EOM: EOMs intact bilaterally Neck Neck: Yes normal visual inspection, Yes full ROM and Yes no lymphadenopathy Resp Effort & Inspection: normal respiratory effort and able to speak in complete sentences Neuro General: patient oriented x3, moves all extremities and CN's II-XI intact bilaterally Cranial nerves: Yes Equal, round and reactive pupils present Cognition (Neuro): normal cognition Extrem General: Yes normal to inspection, Yes full ROM and Yes capillary refill normal Psych Appearance: grossly normal Mental Status: mental status grossly normal Affect: Sad affect present Thought content: Suicidality present Medications Administered Discontinued Medications Generic Name Dose Route Start Last Admin Trade Name Freq PRN Reason Stop Dose Admin Potassium Chloride 40 meq 06/22/25 09:29 06/22/25 09:39 Potassium Chloride Er 20 Meq Tab.Er.Prt PO 06/22/25 09:30 40 meq ONCE ONE Administration Potassium Chloride 40 meq 06/22/25 09:29 06/22/25 09:39 Potassium Chloride Packet 20 Meq Packet PO 06/22/25 09:30 40 meq ONCE ONE Administration Medical Decision Making Medical Decision Making MDM Narrative: Patient is a 64 year old assigned female at with a history of DM, BPPV, HTN, and dyslipidemia presenting to the emergency department today with increased stress and suicidal ideation. Patient's physical exam was as noted in the physical exam portion of this note. Patient's blood work showed a potassium of 2.9 and sodium of 130 but otherwise normal. Patient's urine showed no acute process. Patient was given a total of 80meq of potassium. Patient is medically cleared. Patient's disposition is pending CARE team evaluation. Observation started 0900 on 06/22/2025. 06/22/2025 1055 Venita Hargrove PA-C ---> Patient evaluated by the CARE team. Patient will be either admitted to the psychiatric floor here at [facility] or transferred to an appropriate inpatient psychiatric unit. 06/22/2025 1204 Venita CECILIA Hargrove ---> Patient admitted to the [facility] psychiatric floor. Observation ended at 1204 given the patient met inpatient psychiatric criteria and was accepted here at [facility]. Differential Diagnosis Differential Diagnoses: The differential diagnosis associated with the presentation includes SI Depression Hypokalemia Admission/Observation Consideration of admission/observation: Escalation of care including admission/observation considered Patient admitted to [facility] Psychiatry as noted in the MDM Rationale portion of this note. Consult Healthcare Provider Management of the patient was discussed with: Behavioral Health Provider (Spoke with the CARE team who recommended inpatient level of psychiatric care. ) Lab Data [facility] Lab Attestation statement: I reviewed the patient's lab results. My interpretation of these results are in the MDM Rationale portion of this note. 06/22/25 08:41 06/22/25 13:36 Labs: Lab Results 06/22/25 06/22/25 Range/Units 08:27 08:41 WBC 12.2 H (4.8-10.8) X10*3/uL RBC 5.55 H (4.20-5.50) X10*6/uL Hgb 15.6 (12.0-16.0) g/dl Hct 45.2 (37.0-47.0) % MCV 81.4 (80.0-98.0) fL MCH 28.1 (27.0-33.0) pg MCHC 34.5 (31.0-35.0) g/dl RDW 13.4 (11.0-16.0) % Plt Count 390 (160-400) X10*3/uL MPV 8.6 L (9.4-12.3) fL Immature Gran % (Auto) 0.2 (0.0-0.4) % Neut % (Auto) 68.1 (45-73) % Lymph % (Auto) 22.1 (20-40) % [place] % (Auto) 8.7 (2-11) % Eos % (Auto) 0.2 (0-4) % Baso % (Auto) 0.7 (0-2) % Lymph # (Auto) 2.7 (1.2-4.9) X10*3/uL [place] # (Auto) 1.1 (0.1-1.2) X10*3/uL Eos # (Auto) 0.0 (0.0-0.4) X10*3/uL Baso # (Auto) 0.1 (0.0-0.2) X10*3/uL Abs Immat Gran (auto) 0.03 (0.00-0.03) X10*3/uL Absolute Neuts (auto) 8.3 (2.0-8.3) x10*3/uL Absolute Nucleated RBC 0.000 (0.0-0.012) X10*3/uL Nucleated RBC % (auto) 0.0 (0.0-0.2) /100WBC Sodium 130 L (135-145) mmol/L Potassium 2.9 L* (3.3-5.1) mmol/L Chloride 96 (96-108) mmol/L Carbon Dioxide 22 (22-29) mmol/L Anion Gap 15 (12-20) BUN 14 (9-16) mg/dL Creatinine 0.76 (0.5-1.4) mg/dL Estim Creat Clear Calc 65.1 Estimated GFR > 60 Random Glucose 146 H (60-115) mg/dL Calcium 9.5 (8.4-10.2) mg/dL Magnesium 1.7 (1.6-2.6) mg/dL Urine Color Yellow Urine Appearance Clear Urine pH 7.5 (5.0-9.0) Ur Specific [place] 1.025 (1.005-1.025) Urine Protein Trace (Neg-Trace) mg/dL Urine Glucose (UA) >=1000 H (Negative) mg/dL Urine Ketones Negative (Negative) mg/dL Urine Blood Negative (Negative) Urine Nitrite Negative (Negative) Ur Leukocyte Esterase Negative (Negative) Urine RBC 0-2 (0-2) /HPF Urine WBC 0-5 (0-5) /HPF Ur Squamous Epith Cells 3-5 (0-2) /HPF Urine Bacteria None Seen (None Seen) Hyaline Casts 0-2 (0-2) /LPF Salicylates < 5.0 L (15-30) mg/dL Urine Opiates Screen Not Detected (Not Detect) Ur Buprenorphine Scrn Not Detected (Not Detect) ng/mL Ur Oxycodone Screen Not Detected (Not Detect) ng/mL Urine Methadone Screen Not Detected (Not Detect) ng/mL Urine Fentanyl Screen Not Detected (Not Detect) Acetaminophen < 3 (<30) mcg/mL Ur Barbiturates Screen Not Detected (Not Detect) Ur Phencyclidine Scrn Not Detected (Not Detect) Ur Amphetamines Screen Not Detected (Not Detect) U Benzodiazepines Scrn Not Detected (Not Detect) Urine Cocaine Screen Not Detected (Not Detect) U Marijuana (THC) Screen Not Detected (Not Detect) Ethyl Alcohol < 10 mg/dL Critical Care Time Critical Care Time Critical Care Time: Yes Total Critical Care Time: 31 Attestation: I spent 31 minutes of Critical Care Time with this patient. This does not include time spent on separately reported billable procedures. Discharge Plan Discharge Clinical Impression: Depression, Suicidal ideation, Acute hypokalemia Patient Disposition: Admitted As Inpatient Interventions: [place]-Suicide Risk Severity Scale Last Done: 06/22/25 16:00 Admission Worksheet (ED) Last Done: 06/22/25 12:47 Discharge Date/Time: 06/22/25 12:48
[2025-06-22 09:17] LABS: Acetaminophen LAB < 3 mcg/mL (<30); Salicylate < 5.0 mg/dL (15-30)
[2025-06-22 09:21] LABS: Anion Gap 15 (12-20); Blood Urea Nitrogen 14 mg/dL (9-16); Calcium 9.5 mg/dL (8.4-10.2); Carbon Dioxide 22 mmol/L (22-29); Chloride 96 mmol/L (96-108); Creatinine Clr Calc Pharmacy 65.1; Estimated Glomerular Filt Rate > 60; Potassium 2.9 mmol/L (3.3-5.1); Sodium 130 mmol/L (135-145)
[2025-06-22] MEDS: Potassium Chloride ER 20 MEQ TAB.ER.PRT 40 MEQ PO (09:39)
[2025-06-22] MEDS: Potassium Chloride Packet 20 MEQ PACKET 40 MEQ PO (09:39)
--- NOTE | 2025-06-22 09:43 | PC.NURSE ---
pt given potassium supplement
[2025-06-22 10:00] LABS: Magnesium 1.7 mg/dL (1.6-2.6)
--- OUTSIDE RECORDS SUMMARY | 2025-06-22 10:31 | XMS_ITS | Patient Health Record ---
Author Organization [facility] Address [address] [place] [id number] Care Team Providers Care Fishing Rod Trimmer Name Role Phone NONE, NONE Primary Care Provider Narendra Wilson Unavailable [phone] Reason For Referral No Information Plan Of Treatment No Information
--- OUTSIDE RECORDS SUMMARY | 2025-06-22 10:31 | XMS_ITS | Encounter Summary ---
Author Organization [facility], Address [address] [place] [address] Phone Care Team Providers Care Faculty Dean Name Role Phone Rebecca Rudolph MD Primary Care Provider [phone] Encounter Details Date Type Department Care Team (Late st Contact Info) Description 12/17/2019 Orders Only [facility] [address] [place] [phone] Jocelin Lester [address] [place] [phone] Social History Tobacco Use Types Packs/Day Years [...] Visit [facility], [address] [place] [address] Jay Jay Jenkins MD [address] [place] [address] documented as of this encounter Visit Diagnoses Not on filedocumented in this encounter Care Teams Faculty Dean Relationship Specialty Start Date End Date Rebecca Rudolph MD [address] [place], [place] PCP - General Internal Medicine 01/10/22 documented as of this encounter
--- NOTE | 2025-06-22 11:05 | MHC.CARE ---
Pt meets the criteria for IPLOC. Section 12a in chart although Pt is voluntary for TX. ED provider in agreement.
--- NOTE | 2025-06-22 11:32 | PC.NURSE ---
RE: med rec This RN completed med rec with patient verbal verification as well as medical records. Pt reports her metformin dose has been decreased from 1,000mg to 500mg at bedtime. She also reports she has stopped her Trulicity with Mounjaro replacing it which she takes on Sundays. Pt also reports she is still taking Farxiga daily (picks up from [facility] [address]) For the Losartan dose, instructions state to take 1/2 tablet (50mg) in am and 1 tablet (100mg) pm, this was reflected with two separate doses in the med rec
--- NOTE | 2025-06-22 13:05 | P.HPPS_ITS ---
HPI Date of Service: 06/22/25 Chief Complaint: SI Sources of Information: patient interviewed, chart reviewed and crisis/core team assessment reviewed HPI Subjective Notes: Lai Warning and Conditional Voluntary Narrative: Patient is a 64 year old woman with no prior psychiatric history who self presented to ER endorsing vague SI with no plan or intent secondary to increased life stressors. Per crisis report, patient reports thoughts of not wanting to live anymore due to feeling overwhelmed with life stressors. Patient is currently being evicted from her apartment secondary to her wandering into other tenants apartments. She reports increased depression, anxiety, racing thoughts and poor sleep. She denied SI/HI/VH/AH. Patient reports she has never received mental health treatment of any kind. Denies history of substance use. Denies history of trauma. During admission assessment, patient presents alert and oriented x3. Calm and cooperative. Patient reports feeling depressed; patient stated, our landlord is trying to evict us. My went into my neighbor's house without being invited. I don't know why he was doing that, he may have dementia. We have to leave in 30 days . Patient denies SI/HI/VH/AH. Patient stated, I felt like I did not want to live, but I didn't have a plan or anything. I have never felt suicidal in the past. I'm feeling hopeful since I'm here to get help . Patient reports difficulty staying asleep. She would like a referral to an outpatient therapist. Discussed starting on Remeron; risks/benefits reviewed, pt agreed to trial. Past Psychiatric History: denies psychiatric hx. denies hx of psychiatric medications denies hx of SA/SIB. Medical Evaluation Reviewed: Yes [facility] Medical History CAD (coronary artery disease) PAC (premature atrial contraction) Tricuspid valve regurgitation Physical exam Screen for colon cancer Tachycardia Murmur Dyspnea Microalbuminuria Obesity (BMI 30.0-34.9) Dyslipidemia Hypertension Encounter for diabetic foot exam High cholesterol High blood pressure Diabetes mellitus Surgical History Stented coronary artery History of coronary artery stent placement S/P skin biopsy History of hernia repair S/P BLAIR-BSO (total abdominal hysterectomy and bilateral salpingo-oophorectomy) History of removal of cyst History of bladder surgery Family History: denies Social History: Lives with ( for 46 years), 1 adult daughter. some college. 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 Substance History: denies Trauma History: denies Diagnostics Vital Signs (24Hr): Vital Signs - 24 hr 06/22/25 07:52 06/22/25 08:00 Temperature 98 F Pulse Rate 56 Respiratory Rate 18 16 Blood Pressure 180/76 H Pulse Oximetry 98 Oxygen Delivery Method Room Air BMI result Body Mass Index 27.6 Labs 06/22/25 08:41 06/22/25 08:41 Labs: Laboratory Results - last 48 hr 06/22/25 06/22/25 08:27 08:41 WBC 12.2 H RBC 5.55 H Hgb 15.6 Hct 45.2 MCV 81.4 MCH 28.1 MCHC 34.5 RDW 13.4 Plt Count 390 MPV 8.6 L Immature Gran % (Auto) 0.2 Neut % (Auto) 68.1 Lymph % (Auto) 22.1 Iron % (Auto) 8.7 Eos % (Auto) 0.2 Baso % (Auto) 0.7 Lymph # (Auto) 2.7 Iron # (Auto) 1.1 Eos # (Auto) 0.0 Baso # (Auto) 0.1 Abs Immat Gran (auto) 0.03 Absolute Neuts (auto) 8.3 Absolute Nucleated RBC 0.000 Nucleated RBC % (auto) 0.0 Sodium 130 L Potassium 2.9 L* Chloride 96 Carbon Dioxide 22 Anion Gap 15 BUN 14 Creatinine 0.76 Estim Creat Clear Calc 65.1 Estimated GFR > 60 Random Glucose 146 H Calcium 9.5 Magnesium 1.7 Urine Color Yellow Urine Appearance Clear Urine pH 7.5 Ur Specific [place] 1.025 Urine Protein Trace Urine Glucose (UA) >=1000 H Urine Ketones Negative Urine Blood Negative Urine Nitrite Negative Ur Leukocyte Esterase Negative Urine RBC 0-2 Urine WBC 0-5 Ur Squamous Epith Cells 3-5 Urine Bacteria None Seen Hyaline Casts 0-2 Salicylates < 5.0 L Urine Opiates Screen Not Detected Ur Buprenorphine Scrn Not Detected Ur Oxycodone Screen Not Detected Urine Methadone Screen Not Detected Urine Fentanyl Screen Not Detected Acetaminophen < 3 Ur Barbiturates Screen Not Detected Ur Phencyclidine Scrn Not Detected Ur Amphetamines Screen Not Detected U Benzodiazepines Scrn Not Detected Urine Cocaine Screen Not Detected U Marijuana (THC) Screen Not Detected Ethyl Alcohol < 10 Meds/Allergies Meds Home Medications ?Medication ?Instructions ?Recorded ?Confirmed ?Type aspirin 81 mg tablet,delayed 81 mg PO DAILY 09/29/20 0 06/22/25 History release (Adult Low Dose Aspirin) losartan 100 mg tablet 100 mg PO BEDTIME 03/13/22 0 06/22/25 History carvedilol 12.5 mg tablet 12.5 mg PO BIDWM 12/19/23 History atorvastatin 40 mg tablet 40 mg PO BEDTIME 06/22/25 History losartan 50 mg tablet 50 mg PO DAILY 06/22/2505/11 History Allergies Allergies Allergy/AdvReac Type Severity Reaction Status Date / Time ciprofloxacin (From CIPRO) Allergy Severe ANAPHYLAXIS; Verified 06/22/25 07:54 RASH semaglutide (From Rybelsus) AdvReac Intermediate blurry Verified 06/22/25 07:54 vision Mental Status Exam Mental Status Exam Narrative: Pt is alert and oriented; behavior is cooperative and calm; dressed in casual attire; mood is described as good ; eye contact appropriate; Speech is normal rate, volume and not pressured; thought process is organized; Thought content is on tx; denies SI/HI/VH/AH. Assessment & Plan Assessment & Plan (1) Adjustment disorder: Status: Acute Code(s): F43.20 - Adjustment disorder, unspecified Plan Patient is a 64 year old woman with no prior psychiatric history who self presented to ER endorsing vague SI with no plan or intent secondary to increased life stressors. Plan: CV 15 minute safety checks Obtain collateral Start: Remeron 7.5mg PO bedtime; risk/benefits reviewed, pt agreed to trial Referral to outpatient psychiatric provider Encourage groups Discharge planning Patient educated on: diagnosis and medication risk/benefits Reason for continued inpatient stay Substantial Risk for: med/psych decompensation Statement Statement: I have reviewed the history and physical and performed a pertinent examination on my patient. No changes have occurred unless specified. If the History and Physical was not performed prior to admission, the Hospitalist's service will be consulted for completing the admission physical. Time Spent With Patient Time: Total time managing care of this patient today _60___ minutes.
[2025-06-22 13:26] VITALS: BP 157/70; PULSE 59; RESP 17; TEMP 36.4; O2SAT 99; BMI 28.2
[2025-06-22 13:59] LABS: Alanine Aminotransferase 33 U/L (0-31); Albumin Level 4.4 g/dL (3.5-5.0); Alkaline Phosphatase 77 U/L (39-117); Anion Gap 14 (12-20); Aspartate Amino Transferase 26 U/L (5-31); Blood Urea Nitrogen 14 mg/dL (9-16); Calcium 8.9 mg/dL (8.4-10.2); Carbon Dioxide 24 mmol/L (22-29); Chloride 94 mmol/L (96-108); Creatinine Clr Calc Pharmacy 63.2; Estimated Glomerular Filt Rate > 60; Magnesium 1.6 mg/dL (1.6-2.6); Potassium 3.6 mmol/L (3.3-5.1); Sodium 128 mmol/L (135-145); Total Protein 7.5 g/dL (6.5-8.0)
--- NOTE | 2025-06-22 16:53 | PC.ADMIT ---
Patient is a 64 year old female admitted from the ED POD on a CV with a dx of Unspecified Anxiety and Depressive Disorder. Patient self presented to the ED with vague SI without a plan secondary to increased recent life stressors, of which include being evicted from her house after her with Parkinson's (and possibly Dementia) has been wandering into other apartments. Upon assessment, patient is pleasant, calm and cooperative. She is A&Ox4 with clear and linear thought process. Patient's insight and judgment are fair, but she reports difficulty sleeping at night, and poor appetite (which she believes is related to recently starting Mounjaro for her diabetes). Patient denies SI/HI/AVH, endorses mild depression r/t adjusting to the unit , as this is her first inpatient psychiatric admission. Patient stated I think I was just overwhelmed about everything going on at home. I don't feel depressed or want to hurt myself . Patient denies any hx of trauma or substance use, and UTOX was negative. Skin check unremarkable and pt placed on 15 minute checks for safety.
[2025-06-22 18:12] VITALS: BP 156/70; PULSE 74
[2025-06-22 19:00] VITALS: BP 134/61; PULSE 72; RESP 16; TEMP 36.4; O2SAT 97
[2025-06-22 21:46] VITALS: BP 149/72
[2025-06-23] VITALS (7 sets, daily range): BP systolic 108–153; BP diastolic 53–67; PULSE 71–73; RESP 16–20; TEMP 36.6–36.7; O2SAT 98; BMI 27.1
[2025-06-23 08:39] LABS: Alanine Aminotransferase 39 U/L (0-31); Albumin Level 4.6 g/dL (3.5-5.0); Alkaline Phosphatase 83 U/L (39-117); Anion Gap 13 (12-20); Aspartate Amino Transferase 30 U/L (5-31); Blood Urea Nitrogen 14 mg/dL (9-16); Calcium 9.3 mg/dL (8.4-10.2); Carbon Dioxide 26 mmol/L (22-29); Chloride 95 mmol/L (96-108); Cholesterol 103 mg/dL (<200); Creatinine Clr Calc Pharmacy 59.5; Estimated Glomerular Filt Rate > 60; HDL Cholesterol 41 mg/dL (>40); Hemoglobin A1C 198.7154 umol/L; Potassium 3.4 mmol/L (3.3-5.1); Sodium 131 mmol/L (135-145); Total Hemoglobin (HGBA1C) 4019.5969 umol/L; Total Protein 7.8 g/dL (6.5-8.0); Triglycerides 91 mg/dL (<150)
--- NOTE | 2025-06-23 08:53 | P.PNPSI_ITS ---
Subjective Subjective Date of Service: 06/23/25 Reason For Visit: SI Subjective Notes: 3 Day Interim History: Active on unit. social with peers. attending groups. signed 3 day notice, up on 06/28/25. Patient reports feeling better ; pt stated, I slept great last night. The medication worked well . Per nursing, slept 8 hours last night. denies any side effects. denies SI/HI/VH/AH. Continue current tx plan. Medication Compliance: Yes Side effects from medications: No Attending Groups: Yes Mental Status Exam Mental Status Exam Narrative: Pt is alert and oriented; behavior is cooperative and calm; dressed in casual attire; mood is described as better ; eye contact appropriate; Speech is normal rate, volume and not pressured; thought process is organized; Thought content is on tx; denies SI/HI/VH/AH. Diagnostics Vital Signs (24Hr): Vital Signs - 24 hr 06/22/25 13:26 06/22/25 18:12 06/22/25 19:00 Temperature 97.5 F 97.5 F Pulse Rate 59 74 72 Respiratory Rate 17 16 Blood Pressure 157/70 H 156/70 H 134/61 Pulse Oximetry 99 97 Oxygen Delivery Method Room Air Room Air 06/22/25 21:46 06/23/25 07:39 Temperature 97.8 F Pulse Rate 73 Respiratory Rate 20 Blood Pressure 149/72 H 153/67 H Pulse Oximetry 98 Oxygen Delivery Method Room Air BMI result Body Mass Index 28.2 Labs 06/22/25 08:41 06/23/25 07:56 Labs: Laboratory Results - last 48 hr 06/22/25 06/22/25 06/22/25 08:27 08:41 13:36 WBC 12.2 H RBC 5.55 H Hgb 15.6 Hct 45.2 MCV 81.4 MCH 28.1 MCHC 34.5 RDW 13.4 Plt Count 390 MPV 8.6 L Immature Gran % (Auto) 0.2 Neut % (Auto) 68.1 Lymph % (Auto) 22.1 [place] % (Auto) 8.7 Eos % (Auto) 0.2 Baso % (Auto) 0.7 Lymph # (Auto) 2.7 [place] # (Auto) 1.1 Eos # (Auto) 0.0 Baso # (Auto) 0.1 Abs Immat Gran (auto) 0.03 Absolute Neuts (auto) 8.3 Absolute Nucleated RBC 0.000 Nucleated RBC % (auto) 0.0 Sodium 130 L 128 L Potassium 2.9 L* 3.6 D Chloride 96 94 L Carbon Dioxide 22 24 Anion Gap 15 14 BUN 14 14 Creatinine 0.76 0.79 Estim Creat Clear Calc 65.1 63.2 Estimated GFR > 60 > 60 Random Glucose 146 H 148 H Estimat Average Glucose Hemoglobin A1c % Calcium 9.5 8.9 D Magnesium 1.7 1.6 Total Bilirubin 0.7 AST 26 ALT 33 H Alkaline Phosphatase 77 Total Protein 7.5 Albumin 4.4 Triglycerides Cholesterol LDL Cholesterol, Calc HDL Cholesterol Urine Color Yellow Urine Appearance Clear Urine pH 7.5 Ur Specific [place] 1.025 Urine Protein Trace Urine Glucose (UA) >=1000 H Urine Ketones Negative Urine Blood Negative Urine Nitrite Negative Ur Leukocyte Esterase Negative Urine RBC 0-2 Urine WBC 0-5 Ur Squamous Epith Cells 3-5 Urine Bacteria None Seen Hyaline Casts 0-2 Salicylates < 5.0 L Urine Opiates Screen Not Detected Ur Buprenorphine Scrn Not Detected Ur Oxycodone Screen Not Detected Urine Methadone Screen Not Detected Urine Fentanyl Screen Not Detected Acetaminophen < 3 Ur Barbiturates Screen Not Detected Ur Phencyclidine Scrn Not Detected Ur Amphetamines Screen Not Detected U Benzodiazepines Scrn Not Detected Urine Cocaine Screen Not Detected U Marijuana (THC) Screen Not Detected Ethyl Alcohol < 10 06/23/25 07:56 WBC RBC Hgb Hct MCV MCH MCHC RDW Plt Count MPV Immature Gran % (Auto) Neut % (Auto) Lymph % (Auto) [place] % (Auto) Eos % (Auto) Baso % (Auto) Lymph # (Auto) [place] # (Auto) Eos # (Auto) Baso # (Auto) Abs Immat Gran (auto) Absolute Neuts (auto) Absolute Nucleated RBC Nucleated RBC % (auto) Sodium 131 L Potassium 3.4 Chloride 95 L Carbon Dioxide 26 Anion Gap 13 BUN 14 Creatinine 0.84 Estim Creat Clear Calc 59.5 Estimated GFR > 60 Random Glucose 123 H Estimat Average Glucose 146 Hemoglobin A1c % 6.7 H Calcium 9.3 Magnesium Total Bilirubin 0.8 AST 30 ALT 39 H Alkaline Phosphatase 83 Total Protein 7.8 Albumin 4.6 Triglycerides 91 Cholesterol 103 LDL Cholesterol, Calc 44 HDL Cholesterol 41 Urine Color Urine Appearance Urine pH Ur Specific [place] Urine Protein Urine Glucose (UA) Urine Ketones Urine Blood Urine Nitrite Ur Leukocyte Esterase Urine RBC Urine WBC Ur Squamous Epith Cells Urine Bacteria Hyaline Casts Salicylates Urine Opiates Screen Ur Buprenorphine Scrn Ur Oxycodone Screen Urine Methadone Screen Urine Fentanyl Screen Acetaminophen Ur Barbiturates Screen Ur Phencyclidine Scrn Ur Amphetamines Screen U Benzodiazepines Scrn Urine Cocaine Screen U Marijuana (THC) Screen Ethyl Alcohol Medications Medications Current Medications Acetaminophen (Acetaminophen 325 Mg Tablet) 650 mg PO Q6H PRN PRN Reason: Headache/Pain, Scale 1-10 Al Hydroxide/Mg Hydroxide (Magnesium Hydrox/Alum Hydrox 30 Ml Oral.Susp) 30 ml PO Q6H PRN PRN Reason: Heartburn/Nausea Aspirin (Aspirin Enteric Coated 81 Mg Tablet.Dr) 81 mg PO DAILY [facility] Atorvastatin Calcium (Atorvastatin Calcium 40 Mg Tablet) 40 mg PO BEDTIME [facility] Last Admin: 06/22/25 21:45 Dose: 40 mg Carvedilol (Carvedilol 12.5 Mg Tablet) 12.5 mg PO BIDWM [facility]; Protocol Last Admin: 06/22/25 18:13 Dose: 12.5 mg Ezetimibe (Ezetimibe 10 Mg Tablet) 10 mg PO DAILY [facility] Empagliflozin (Empagliflozin 10 Mg Tablet) 10 mg PO DAILY [facility] Hydrochlorothiazide (Hydrochlorothiazide 25 Mg Tablet) 25 mg PO DAILY [facility] Hydroxyzine HCl (Hydroxyzine Hcl 25 Mg Tablet) 25 mg PO Q6H PRN PRN Reason: mild anxiety Isosorbide Mononitrate (Isosorbide Mononitrate 30 Mg Tab.Er.24h) 30 mg PO DAILY [facility]; Protocol Losartan Potassium (Losartan Potassium 50 Mg Tablet) 50 mg PO DAILY [facility]; Protocol Losartan Potassium (Losartan Potassium 50 Mg Tablet) 100 mg PO BEDTIME [facility]; Protocol Last Admin: 06/22/25 21:46 Dose: 100 mg Magnesium Hydroxide (Milk Of Magnesia 30 Ml Oral.Susp) 30 ml PO DAILY PRN PRN Reason: Constipation Metformin HCl (Metformin Hcl Er 500 Mg Tab.Er.24h) 500 mg PO DAILY@1800 [facility] Last Admin: 06/22/25 18:13 Dose: 500 mg Mirtazapine (Mirtazapine 7.5 Mg Tablet) 7.5 mg PO BEDTIME [facility] Last Admin: 06/22/25 21:45 Dose: 7.5 mg Nicotine Polacrilex (Nicotine Polacrilex 2 Mg Gum) 4 mg BUCCAL Q2H PRN PRN Reason: Nicotine Cravings Non-Formulary Medication (Tirzepatide [Mounjaro]) 2.5 mg SUBCUT Q7D [facility] Potassium Chloride (Potassium Chloride Packet 20 Meq Packet) 20 meq PO DAILY [facility] Trazodone HCl (Trazodone Hcl 50 Mg Tablet) 50 mg PO BEDTIME MRX1 PRN PRN Reason: Insomnia Allergies Allergies Allergy/AdvReac Type Severity Reaction Status Date / Time ciprofloxacin (From CIPRO) Allergy Severe ANAPHYLAXIS; Verified 06/22/25 07:54 RASH semaglutide (From Rybelsus) AdvReac Intermediate blurry Verified 06/22/25 07:54 vision Assessment & Plan Assessment & Plan (1) Adjustment disorder: Status: Acute Code(s): F43.20 - Adjustment disorder, unspecified Plan Patient is a 64 year old woman with no prior psychiatric history who self presented to ER endorsing vague SI with no plan or intent secondary to increased life stressors. Plan: CV 15 minute safety checks Obtain collateral Start: Remeron 7.5mg PO bedtime; risk/benefits reviewed, pt agreed to trial Referral to outpatient psychiatric provider Encourage groups Discharge planning 06/23: Active on unit. social with peers. attending groups. signed 3 day notice, up on 06/28/25. Patient reports feeling better ; pt stated, I slept great last night. The medication worked well . Per nursing, slept 8 hours last night. denies any side effects. denies SI/HI/VH/AH. Continue current tx plan. Patient educated on: diagnosis and medication risk/benefits Reason for continued inpatient stay Substantial Risk for: med/psych decompensation Time Spent With Patient Time: Total time managing care of this patient today _20___ minutes.
[2025-06-23] MEDS: Aspirin Enteric Coated 81 MG TABLET.DR PO (09:14)
[2025-06-23] MEDS: Potassium Chloride Packet 20 MEQ PACKET PO (09:15)
[2025-06-24 08:42] VITALS: BP 144/67; PULSE 66; RESP 16; TEMP 36.3; O2SAT 100
[2025-06-24] MEDS: Aspirin Enteric Coated 81 MG TABLET.DR PO (08:54)
[2025-06-24] MEDS: Potassium Chloride Packet 20 MEQ PACKET PO (08:54)
--- NOTE | 2025-06-24 10:25 | HO.PSYCHPN ---
Subjective Subjective Date of Service: 06/24/25 Reason For Visit: SI Subjective Notes: 3 Day Interim History: Active on unit. social with peers. attending groups. 3 day notice up on 06/28/25. Patient reports feeling good ; denies SI/HI/VH/AH. plan to discharge on Friday if continues to improve over the weekend; pt aware. Continue current tx plan. Medication Compliance: Yes Side effects from medications: No Attending Groups: Yes Mental Status Exam Mental Status Exam Narrative: Pt is alert and oriented; behavior is cooperative and calm; dressed in casual attire; mood is described as good ; eye contact appropriate; Speech is normal rate, volume and not pressured; thought process is organized; Thought content is on discharge; denies SI/HI/VH/AH. Diagnostics Vital Signs (24Hr): Vital Signs - 24 hr 06/23/25 17:45 06/23/25 20:00 06/23/25 21:59 Temperature 98.0 F Pulse Rate 71 73 Respiratory Rate 16 Blood Pressure 127/61 108/53 L 122/64 Pulse Oximetry 98 Oxygen Delivery Method Room Air 06/24/25 08:42 Temperature 97.4 F Pulse Rate 66 Respiratory Rate 16 Blood Pressure 144/67 H Pulse Oximetry 100 Oxygen Delivery Method Room Air BMI result Body Mass Index 27.1 Labs 06/22/25 08:41 06/23/25 07:56 Labs: Laboratory Results - last 48 hr 06/22/25 06/23/25 13:36 07:56 Sodium 128 L 131 L Potassium 3.6 D 3.4 Chloride 94 L 95 L Carbon Dioxide 24 26 Anion Gap 14 13 BUN 14 14 Creatinine 0.79 0.84 Estim Creat Clear Calc 63.2 59.5 Estimated GFR > 60 > 60 Random Glucose 148 H 123 H Estimat Average Glucose 146 Hemoglobin A1c % 6.7 H Calcium 8.9 D 9.3 Magnesium 1.6 Total Bilirubin 0.7 0.8 AST 26 30 ALT 33 H 39 H Alkaline Phosphatase 77 83 Total Protein 7.5 7.8 Albumin 4.4 4.6 Triglycerides 91 Cholesterol 103 LDL Cholesterol, Calc 44 HDL Cholesterol 41 Medications Medications Current Medications Acetaminophen (Acetaminophen 325 Mg Tablet) 650 mg PO Q6H PRN PRN Reason: Headache/Pain, Scale 1-10 Al Hydroxide/Mg Hydroxide (Magnesium Hydrox/Alum Hydrox 30 Ml Oral.Susp) 30 ml PO Q6H PRN PRN Reason: Heartburn/Nausea Aspirin (Aspirin Enteric Coated 81 Mg Tablet.Dr) 81 mg PO DAILY [facility] Last Admin: 06/24/25 08:54 Dose: 81 mg Atorvastatin Calcium (Atorvastatin Calcium 40 Mg Tablet) 40 mg PO BEDTIME [facility] Last Admin: 06/23/25 22:11 Dose: 40 mg Carvedilol (Carvedilol 12.5 Mg Tablet) 12.5 mg PO BIDWM [facility]; Protocol Last Admin: 06/24/25 08:54 Dose: 12.5 mg Ezetimibe (Ezetimibe 10 Mg Tablet) 10 mg PO DAILY [facility] Last Admin: 06/24/25 08:55 Dose: 10 mg Empagliflozin (Empagliflozin 10 Mg Tablet) 10 mg PO DAILY [facility] Last Admin: 06/24/25 08:54 Dose: 10 mg Hydrochlorothiazide (Hydrochlorothiazide 25 Mg Tablet) 25 mg PO DAILY [facility] Last Admin: 06/24/25 08:55 Dose: 25 mg Hydroxyzine HCl (Hydroxyzine Hcl 25 Mg Tablet) 25 mg PO Q6H PRN PRN Reason: mild anxiety Isosorbide Mononitrate (Isosorbide Mononitrate 30 Mg Tab.Er.24h) 30 mg PO DAILY [facility]; Protocol Last Admin: 06/24/25 08:56 Dose: 30 mg Losartan Potassium (Losartan Potassium 50 Mg Tablet) 50 mg PO DAILY [facility]; Protocol Last Admin: 06/24/25 08:58 Dose: 50 mg Losartan Potassium (Losartan Potassium 50 Mg Tablet) 100 mg PO BEDTIME [facility]; Protocol Last Admin: 06/23/25 22:13 Dose: 100 mg Magnesium Hydroxide (Milk Of Magnesia 30 Ml Oral.Susp) 30 ml PO DAILY PRN PRN Reason: Constipation Metformin HCl (Metformin Hcl Er 500 Mg Tab.Er.24h) 500 mg PO DAILY@1800 [facility] Last Admin: 06/23/25 17:45 Dose: 500 mg Mirtazapine (Mirtazapine 7.5 Mg Tablet) 7.5 mg PO BEDTIME [facility] Last Admin: 06/23/25 21:59 Dose: 7.5 mg Nicotine Polacrilex (Nicotine Polacrilex 2 Mg Gum) 4 mg BUCCAL Q2H PRN PRN Reason: Nicotine Cravings Non-Formulary Medication (Tirzepatide [Mounjaro]) 2.5 mg SUBCUT Q7D [facility] Potassium Chloride (Potassium Chloride Packet 20 Meq Packet) 20 meq PO DAILY [facility] Last Admin: 06/24/25 08:54 Dose: 20 meq Trazodone HCl (Trazodone Hcl 50 Mg Tablet) 50 mg PO BEDTIME MRX1 PRN PRN Reason: Insomnia Allergies Allergies Allergy/AdvReac Type Severity Reaction Status Date / Time ciprofloxacin (From CIPRO) Allergy Severe ANAPHYLAXIS; Verified 06/22/25 07:54 RASH semaglutide (From Rybelsus) AdvReac Intermediate blurry Verified 06/22/25 07:54 vision Assessment & Plan Assessment & Plan (1) Adjustment disorder: Status: Acute Code(s): F43.20 - Adjustment disorder, unspecified Plan Patient is a 64 year old woman with no prior psychiatric history who self presented to ER endorsing vague SI with no plan or intent secondary to increased life stressors. Plan: CV 15 minute safety checks Obtain collateral Start: Remeron 7.5mg PO bedtime; risk/benefits reviewed, pt agreed to trial Referral to outpatient psychiatric provider Encourage groups Discharge planning 06/23: Active on unit. social with peers. attending groups. signed 3 day notice, up on 06/28/25. Patient reports feeling better ; pt stated, I slept great last night. The medication worked well . Per nursing, slept 8 hours last night. denies any side effects. denies SI/HI/VH/AH. Continue current tx plan. 06/24: Active on unit. social with peers. attending groups. 3 day notice up on 06/28/25. Patient reports feeling good ; denies SI/HI/VH/AH. plan to discharge on Friday if continues to improve over the weekend; pt aware. Continue current tx plan. Patient educated on: diagnosis, medication risk/benefits and therapeutic strategies Reason for continued inpatient stay Substantial Risk for: med/psych decompensation Time Spent With Patient Time: Total time managing care of this patient today _20___ minutes.
[2025-06-24 17:21] VITALS: BP 140/63; PULSE 64
[2025-06-24 20:29] VITALS: BP 141/68; PULSE 62; RESP 16; TEMP 36.3; O2SAT 94
[2025-06-25 07:10] VITALS: BP 155/71; PULSE 68; RESP 20; TEMP 36.8; O2SAT 98
[2025-06-25 08:58] VITALS: BP 155/71; PULSE 68
[2025-06-25 09:01] VITALS: BP 155/71
[2025-06-25 09:02] VITALS: BP 155/71
[2025-06-25] MEDS: Aspirin Enteric Coated 81 MG TABLET.DR PO (09:02)
[2025-06-25] MEDS: Potassium Chloride Packet 20 MEQ PACKET PO (09:03)
--- NOTE | 2025-06-25 09:47 | P.PNPSI_ITS ---
Subjective Subjective Date of Service: 06/25/25 Reason For Visit: SI Subjective Notes: Conditional Voluntary and 3 Day Interim History: Patient was seen and discussed in rounds today. Records and plans were reviewed. She has been stable, eating and sleeping adequately. Brighter affect. Medication compliant with no side effects. She talked about being very anxious last night after an interaction with her roommate but does not want me to change anything. No SI. No changes were made today Review of Systems Review of Systems Yes all other systems are reviewed and are negative Mental Status Exam Mental Status Exam Narrative: In today's visit she is alert, oriented and pleasant. Normal speech. Good eye contact. Affect is appropriate and subdued. No acute signs of psychosis. No AVH. No changes were made today Diagnostics Vital Signs (24Hr): Vital Signs - 24 hr 06/24/25 17:21 06/24/25 20:29 06/25/25 07:10 Temperature 97.4 F 98.2 F Pulse Rate 64 62 68 Respiratory Rate 16 20 Blood Pressure 140/63 H 141/68 H 155/71 H Pulse Oximetry 94 98 Oxygen Delivery Method Room Air Room Air 06/25/25 08:58 06/25/25 09:01 06/25/25 09:01 Temperature Pulse Rate 68 Respiratory Rate Blood Pressure 155/71 H 155/71 H 155/71 H Pulse Oximetry Oxygen Delivery Method 06/25/25 09:02 Temperature Pulse Rate Respiratory Rate Blood Pressure 155/71 H Pulse Oximetry Oxygen Delivery Method BMI result Body Mass Index 27.1 Labs 06/22/25 08:41 06/23/25 07:56 Medications Medications Current Medications Acetaminophen (Acetaminophen 325 Mg Tablet) 650 mg PO Q6H PRN PRN Reason: Headache/Pain, Scale 1-10 Al Hydroxide/Mg Hydroxide (Magnesium Hydrox/Alum Hydrox 30 Ml Oral.Susp) 30 ml PO Q6H PRN PRN Reason: Heartburn/Nausea Aspirin (Aspirin Enteric Coated 81 Mg Tablet.) 81 mg PO DAILY [facility] Last Admin: 06/25/25 09:02 Dose: 81 mg Atorvastatin Calcium (Atorvastatin Calcium 40 Mg Tablet) 40 mg PO BEDTIME [facility] Last Admin: 06/24/25 21:15 Dose: 40 mg Carvedilol (Carvedilol 12.5 Mg Tablet) 12.5 mg PO BIDWM [facility]; Protocol Last Admin: 06/25/25 08:58 Dose: 12.5 mg Ezetimibe (Ezetimibe 10 Mg Tablet) 10 mg PO DAILY [facility] Last Admin: 06/25/25 09:00 Dose: 10 mg Empagliflozin (Empagliflozin 10 Mg Tablet) 10 mg PO DAILY [facility] Last Admin: 06/25/25 09:00 Dose: 10 mg Hydrochlorothiazide (Hydrochlorothiazide 25 Mg Tablet) 25 mg PO DAILY [facility] Last Admin: 06/25/25 09:01 Dose: 25 mg Hydroxyzine HCl (Hydroxyzine Hcl 25 Mg Tablet) 25 mg PO Q6H PRN PRN Reason: mild anxiety Isosorbide Mononitrate (Isosorbide Mononitrate 30 Mg Tab.Er.24h) 30 mg PO DAILY [facility]; Protocol Last Admin: 06/25/25 09:02 Dose: 30 mg Losartan Potassium (Losartan Potassium 50 Mg Tablet) 50 mg PO DAILY [facility]; Protocol Last Admin: 06/25/25 09:01 Dose: 50 mg Losartan Potassium (Losartan Potassium 50 Mg Tablet) 100 mg PO BEDTIME [facility]; Protocol Last Admin: 06/24/25 21:16 Dose: 100 mg Magnesium Hydroxide (Milk Of Magnesia 30 Ml Oral.Susp) 30 ml PO DAILY PRN PRN Reason: Constipation Metformin HCl (Metformin Hcl Er 500 Mg Tab.Er.24h) 500 mg PO DAILY@1800 [facility] Last Admin: 06/24/25 17:21 Dose: 500 mg Mirtazapine (Mirtazapine 7.5 Mg Tablet) 7.5 mg PO BEDTIME [facility] Last Admin: 06/24/25 21:16 Dose: 7.5 mg Nicotine Polacrilex (Nicotine Polacrilex 2 Mg Gum) 4 mg BUCCAL Q2H PRN PRN Reason: Nicotine Cravings Non-Formulary Medication (Tirzepatide [Mounjaro]) 2.5 mg SUBCUT Q7D [facility] Potassium Chloride (Potassium Chloride Packet 20 Meq Packet) 20 meq PO DAILY [facility] Last Admin: 06/25/25 09:03 Dose: 20 meq Trazodone HCl (Trazodone Hcl 50 Mg Tablet) 50 mg PO BEDTIME MRX1 PRN PRN Reason: Insomnia Allergies Allergies Allergy/AdvReac Type Severity Reaction Status Date / Time ciprofloxacin (From CIPRO) Allergy Severe ANAPHYLAXIS; Verified 06/22/25 07:54 RASH semaglutide (From Rybelsus) AdvReac Intermediate blurry Verified 06/22/25 07:54 vision Assessment & Plan Assessment & Plan (1) Adjustment disorder: Status: Acute Code(s): F43.20 - Adjustment disorder, unspecified Plan Patient is a 64 year old woman with no prior psychiatric history who self presented to ER endorsing vague SI with no plan or intent secondary to increased life stressors. Plan: CV 15 minute safety checks Obtain collateral Start: Remeron 7.5mg PO bedtime; risk/benefits reviewed, pt agreed to trial Referral to outpatient psychiatric provider Encourage groups Discharge planning 06/23: Active on unit. social with peers. attending groups. signed 3 day notice, up on 06/28/25. Patient reports feeling better ; pt stated, I slept great last night. The medication worked well . Per nursing, slept 8 hours last night. denies any side effects. denies SI/HI/VH/AH. Continue current tx plan. 06/24: Active on unit. social with peers. attending groups. 3 day notice up on 06/28/25. Patient reports feeling good ; denies SI/HI/VH/AH. plan to discharge on Friday if continues to improve over the weekend; pt aware. Continue current tx plan. 06/25: Continue current regimen and plans Reason for continued inpatient stay Substantial Risk for: med/psych decompensation Time Spent With Patient Time: Total time managing care of this patient today ____ minutes.
[2025-06-25 12:01] LABS: Glucose, Whole Blood 129 mg/dL (60-115)
[2025-06-25 17:00] LABS: Glucose, Whole Blood 117 mg/dL (60-115)
[2025-06-25 17:38] VITALS: BP 143/65; PULSE 67
[2025-06-25 21:43] VITALS: BP 133/60; PULSE 67; RESP 16; TEMP 36.6; O2SAT 98
[2025-06-25 22:36] LABS: Glucose, Whole Blood 124 mg/dL (60-115)
[2025-06-26 07:10] VITALS: BP 121/58; PULSE 67; RESP 16; TEMP 36.3; O2SAT 99
[2025-06-26 07:22] LABS: Glucose, Whole Blood 141 mg/dL (60-115)
[2025-06-26 08:41] VITALS: BP 121/58
[2025-06-26] MEDS: Aspirin Enteric Coated 81 MG TABLET.DR PO (08:41)
[2025-06-26] MEDS: Potassium Chloride Packet 20 MEQ PACKET PO (08:41)
[2025-06-26 08:42] VITALS: BP 121/58; PULSE 67
--- NOTE | 2025-06-26 08:45 | P.PNPSI_ITS ---
Subjective Subjective Date of Service: 06/26/25 Reason For Visit: SI Subjective Notes: Conditional Voluntary and 3 Day Interim History: Patient was seen and discussed in rounds today. Records and plans were reviewed. She had a better day yesterday. Decreased anxiety. No issues with her roommate or other patients. Her blood sugars have been within acceptable range. Still endorses some anxiety and depression but improved. Slept 8 hours. Affect is. No SI. No changes were made today Review of Systems Review of Systems Yes all other systems are reviewed and are negative Mental Status Exam Mental Status Exam Narrative: In today's visit she is alert, oriented and pleasant. Normal speech. Good eye contact. Affect is appropriate and improved. No acute signs of psychosis. No AVH. Cognitively intact. Judgment is intact Diagnostics Vital Signs (24Hr): Vital Signs - 24 hr 06/25/25 08:58 06/25/25 09:01 06/25/25 09:01 Temperature Pulse Rate 68 Respiratory Rate Blood Pressure 155/71 H 155/71 H 155/71 H Pulse Oximetry Oxygen Delivery Method 06/25/25 09:02 06/25/25 17:38 06/25/25 21:43 Temperature 98 F Pulse Rate 67 67 Respiratory Rate 16 Blood Pressure 155/71 H 143/65 H 133/60 Pulse Oximetry 98 Oxygen Delivery Method Room Air 06/26/25 07:10 Temperature 97.3 F Pulse Rate 67 Respiratory Rate 16 Blood Pressure 121/58 L Pulse Oximetry 99 Oxygen Delivery Method Room Air BMI result Body Mass Index 27.1 Labs 06/22/25 08:41 06/23/25 07:56 Labs: Laboratory Results - last 48 hr 06/25/25 06/25/25 06/25/25 11:56 16:51 22:30 POC Glucose 129 H 117 H 124 H 06/26/25 07:13 POC Glucose 141 H Medications Medications Current Medications Acetaminophen (Acetaminophen 325 Mg Tablet) 650 mg PO Q6H PRN PRN Reason: Headache/Pain, Scale 1-10 Al Hydroxide/Mg Hydroxide (Magnesium Hydrox/Alum Hydrox 30 Ml Oral.Susp) 30 ml PO Q6H PRN PRN Reason: Heartburn/Nausea Aspirin (Aspirin Enteric Coated 81 Mg Tablet.) 81 mg PO DAILY [facility] Last Admin: 06/25/25 09:02 Dose: 81 mg Atorvastatin Calcium (Atorvastatin Calcium 40 Mg Tablet) 40 mg PO BEDTIME [facility] Last Admin: 06/25/25 21:46 Dose: 40 mg Carvedilol (Carvedilol 12.5 Mg Tablet) 12.5 mg PO BIDWM [facility]; Protocol Last Admin: 06/25/25 17:38 Dose: 12.5 mg Ezetimibe (Ezetimibe 10 Mg Tablet) 10 mg PO DAILY [facility] Last Admin: 06/25/25 09:00 Dose: 10 mg Empagliflozin (Empagliflozin 10 Mg Tablet) 10 mg PO DAILY [facility] Last Admin: 06/25/25 09:00 Dose: 10 mg Hydrochlorothiazide (Hydrochlorothiazide 25 Mg Tablet) 25 mg PO DAILY [facility] Last Admin: 06/25/25 09:01 Dose: 25 mg Hydroxyzine HCl (Hydroxyzine Hcl 25 Mg Tablet) 25 mg PO Q6H PRN PRN Reason: mild anxiety Isosorbide Mononitrate (Isosorbide Mononitrate 30 Mg Tab.Er.24h) 30 mg PO DAILY [facility]; Protocol Last Admin: 06/25/25 09:02 Dose: 30 mg Lactic Acid (Ammonium Lactate 12 % Cream 140 Gm Tube) 1 appl TOPICAL BID PRN; Protocol PRN Reason: Dry Skin Losartan Potassium (Losartan Potassium 50 Mg Tablet) 50 mg PO DAILY [facility]; Protocol Last Admin: 06/25/25 09:01 Dose: 50 mg Losartan Potassium (Losartan Potassium 50 Mg Tablet) 100 mg PO BEDTIME [facility]; Protocol Last Admin: 06/25/25 21:45 Dose: 100 mg Magnesium Hydroxide (Milk Of Magnesia 30 Ml Oral.Susp) 30 ml PO DAILY PRN PRN Reason: Constipation Metformin HCl (Metformin Hcl Er 500 Mg Tab.Er.24h) 500 mg PO DAILY@1800 [facility] Last Admin: 06/25/25 17:38 Dose: 500 mg Mirtazapine (Mirtazapine 7.5 Mg Tablet) 7.5 mg PO BEDTIME [facility] Last Admin: 06/25/25 21:45 Dose: 7.5 mg Nicotine Polacrilex (Nicotine Polacrilex 2 Mg Gum) 4 mg BUCCAL Q2H PRN PRN Reason: Nicotine Cravings Non-Formulary Medication (Tirzepatide [Mounjaro]) 2.5 mg SUBCUT Q7D [facility] Potassium Chloride (Potassium Chloride Packet 20 Meq Packet) 20 meq PO DAILY [facility] Last Admin: 06/25/25 09:03 Dose: 20 meq Trazodone HCl (Trazodone Hcl 50 Mg Tablet) 50 mg PO BEDTIME MRX1 PRN PRN Reason: Insomnia Allergies Allergies Allergy/AdvReac Type Severity Reaction Status Date / Time ciprofloxacin (From CIPRO) Allergy Severe ANAPHYLAXIS; Verified 06/22/25 07:54 RASH semaglutide (From Rybelsus) AdvReac Intermediate blurry Verified 06/22/25 07:54 vision Assessment & Plan Assessment & Plan (1) Adjustment disorder: Status: Acute Code(s): F43.20 - Adjustment disorder, unspecified Plan Patient is a 64 year old woman with no prior psychiatric history who self presented to ER endorsing vague SI with no plan or intent secondary to increased life stressors. Plan: CV 15 minute safety checks Obtain collateral Start: Remeron 7.5mg PO bedtime; risk/benefits reviewed, pt agreed to trial Referral to outpatient psychiatric provider Encourage groups Discharge planning 06/23: Active on unit. social with peers. attending groups. signed 3 day notice, up on 06/28/25. Patient reports feeling better ; pt stated, I slept great last night. The medication worked well . Per nursing, slept 8 hours last night. denies any side effects. denies SI/HI/VH/AH. Continue current tx plan. 06/24: Active on unit. social with peers. attending groups. 3 day notice up on 06/28/25. Patient reports feeling good ; denies SI/HI/VH/AH. plan to discharge on Friday if continues to improve over the weekend; pt aware. Continue current tx plan. 06/25: Continue current regimen and plans 06/26: Continue current plans and regimen Reason for continued inpatient stay Substantial Risk for: med/psych decompensation Time Spent With Patient Time: Total time managing care of this patient today ____ minutes.
[2025-06-26 11:49] LABS: Glucose, Whole Blood 128 mg/dL (60-115)
[2025-06-26 16:33] LABS: Glucose, Whole Blood 160 mg/dL (60-115)
[2025-06-26 17:20] VITALS: BP 146/64; PULSE 67
[2025-06-26 20:00] VITALS: BP 140/67; PULSE 58; RESP 16; TEMP 36.6; O2SAT 99
[2025-06-27 07:30] VITALS: BP 129/61; PULSE 65; RESP 16; TEMP 36.4; O2SAT 98
[2025-06-27 07:36] LABS: Glucose, Whole Blood 158 mg/dL (60-115)
[2025-06-27 08:06] VITALS: BP 129/61
[2025-06-27 08:07] VITALS: BP 129/61; PULSE 65
[2025-06-27] MEDS: Potassium Chloride Packet 20 MEQ PACKET PO (08:08)
[2025-06-27] MEDS: Aspirin Enteric Coated 81 MG TABLET.DR PO (08:08)
--- NOTE | 2025-06-27 08:51 | P.DS_ITS ---
DS: Providers Provider Date of Service: 06/27/25 Date of admission: 06/22/25 12:04 Date of discharge: 06/27/25 Primary care physician: Jose Antonio Mejia MD Admitting clinician: Neeru Keys Attending physician on admission: Yuriy Castillo Attending physician on discharge: Yuriy Castillo Discharging clinician: Neeru Keys DS: Diagnosis Discharge Diagnosis (1) Adjustment disorder: Status: Acute DS: Medications Discharge Medications Home Medications: Home Medications ?Medication ?Instructions ?Recorded ?Confirmed aspirin 81 mg tablet,delayed 81 mg PO DAILY 09/29/20 0 06/22/25 release (Adult Low Dose Aspirin) losartan 100 mg tablet 100 mg PO BEDTIME 03/13/22 0 06/22/25 carvedilol 12.5 mg tablet 12.5 mg PO BIDWM 12/19/23 atorvastatin 40 mg tablet 40 mg PO BEDTIME 06/22/25 losartan 50 mg tablet 50 mg PO DAILY 06/22/2505/11 Previous Rx's ?Medication ?Instructions ?Recorded dapagliflozin propanediol 10 mg 10 mg PO DAILY 30 days #30 tabs 01/06/24 tablet (Farxiga) ezetimibe 10 mg tablet 10 mg PO DAILY #90 tabs 12/18 chlorthalidone 25 mg tablet 25 mg PO DAILY 90 days #90 tabs 05/19/25 potassium chloride 20 mEq oral 20 meq PO DAILY #30 ea 05/19/25 packet metformin 500 mg tablet,extended 500 mg PO QPM #90 tab s 06/06/25 release 24 hr tirzepatide 2.5 mg/0.5 mL 2.5 mg (0.5 mL) subcut QWEEK #2 mL 06/06/25 subcutaneous pen injector (Mounjaro) isosorbide mononitrate 30 mg 30 mg PO DAILY #90 tabs 0 06/07/25 tablet,extended release 24 hr Mental Status Exam Mental Status Exam Narrative: Pt is alert and oriented; behavior is cooperative and calm; dressed in casual attire; mood is described as good ; eye contact appropriate; Speech is normal rate, volume and not pressured; thought process is organized; Thought content is on discharge; denies SI/HI/VH/AH. Data Data Completed and Pending Completed studies during hospitalization [Text1]: 06/22/25 06/22/25 06/22/25 08:27 08:41 13:36 WBC 12.2 H RBC 5.55 H Hgb 15.6 Hct 45.2 MCV 81.4 MCH 28.1 MCHC 34.5 RDW 13.4 Plt Count 390 MPV 8.6 L Immature Gran % (Auto) 0.2 Neut % (Auto) 68.1 Lymph % (Auto) 22.1 Henderson % (Auto) 8.7 Eos % (Auto) 0.2 Baso % (Auto) 0.7 Lymph # (Auto) 2.7 Henderson # (Auto) 1.1 Eos # (Auto) 0.0 Baso # (Auto) 0.1 Abs Immat Gran (auto) 0.03 Absolute Neuts (auto) 8.3 Absolute Nucleated RBC 0.000 Nucleated RBC % (auto) 0.0 Sodium 130 L 128 L Potassium 2.9 L* 3.6 D Chloride 96 94 L Carbon Dioxide 22 24 Anion Gap 15 14 BUN 14 14 Creatinine 0.76 0.79 Estim Creat Clear Calc 65.1 63.2 Estimated GFR > 60 > 60 POC Glucose Random Glucose 146 H 148 H Estimat Average Glucose Hemoglobin A1c % Calcium 9.5 8.9 D Magnesium 1.7 1.6 Total Bilirubin 0.7 AST 26 ALT 33 H Alkaline Phosphatase 77 Total Protein 7.5 Albumin 4.4 Triglycerides Cholesterol LDL Cholesterol, Calc HDL Cholesterol Urine Color Yellow Urine Appearance Clear Urine pH 7.5 Ur Specific Sterling 1.025 Urine Protein Trace Urine Glucose (UA) >=1000 H Urine Ketones Negative Urine Blood Negative Urine Nitrite Negative Ur Leukocyte Esterase Negative Urine RBC 0-2 Urine WBC 0-5 Ur Squamous Epith Cells 3-5 Urine Bacteria None Seen Hyaline Casts 0-2 Salicylates < 5.0 L Urine Opiates Screen Not Detected Ur Buprenorphine Scrn Not Detected Ur Oxycodone Screen Not Detected Urine Methadone Screen Not Detected Urine Fentanyl Screen Not Detected Acetaminophen < 3 Ur Barbiturates Screen Not Detected Ur Phencyclidine Scrn Not Detected Ur Amphetamines Screen Not Detected U Benzodiazepines Scrn Not Detected Urine Cocaine Screen Not Detected U Marijuana (THC) Screen Not Detected Ethyl Alcohol < 10 06/23/25 06/25/25 06/25/25 07:56 11:56 16:51 WBC RBC Hgb Hct MCV MCH MCHC RDW Plt Count MPV Immature Gran % (Auto) Neut % (Auto) Lymph % (Auto) Henderson % (Auto) Eos % (Auto) Baso % (Auto) Lymph # (Auto) Henderson # (Auto) Eos # (Auto) Baso # (Auto) Abs Immat Gran (auto) Absolute Neuts (auto) Absolute Nucleated RBC Nucleated RBC % (auto) Sodium 131 L Potassium 3.4 Chloride 95 L Carbon Dioxide 26 Anion Gap 13 BUN 14 Creatinine 0.84 Estim Creat Clear Calc 59.5 Estimated GFR > 60 POC Glucose 129 H 117 H Random Glucose 123 H Estimat Average Glucose 146 Hemoglobin A1c % 6.7 H Calcium 9.3 Magnesium Total Bilirubin 0.8 AST 30 ALT 39 H Alkaline Phosphatase 83 Total Protein 7.8 Albumin 4.6 Triglycerides 91 Cholesterol 103 LDL Cholesterol, Calc 44 HDL Cholesterol 41 Urine Color Urine Appearance Urine pH Ur Specific Sterling Urine Protein Urine Glucose (UA) Urine Ketones Urine Blood Urine Nitrite Ur Leukocyte Esterase Urine RBC Urine WBC Ur Squamous Epith Cells Urine Bacteria Hyaline Casts Salicylates Urine Opiates Screen Ur Buprenorphine Scrn Ur Oxycodone Screen Urine Methadone Screen Urine Fentanyl Screen Acetaminophen Ur Barbiturates Screen Ur Phencyclidine Scrn Ur Amphetamines Screen U Benzodiazepines Scrn Urine Cocaine Screen U Marijuana (THC) Screen Ethyl Alcohol 06/25/25 06/26/25 06/26/25 22:30 07:13 11:45 WBC RBC Hgb Hct MCV MCH MCHC RDW Plt Count MPV Immature Gran % (Auto) Neut % (Auto) Lymph % (Auto) Henderson % (Auto) Eos % (Auto) Baso % (Auto) Lymph # (Auto) Henderson # (Auto) Eos # (Auto) Baso # (Auto) Abs Immat Gran (auto) Absolute Neuts (auto) Absolute Nucleated RBC Nucleated RBC % (auto) Sodium Potassium Chloride Carbon Dioxide Anion Gap BUN Creatinine Estim Creat Clear Calc Estimated GFR POC Glucose 124 H 141 H 128 H Random Glucose Estimat Average Glucose Hemoglobin A1c % Calcium Magnesium Total Bilirubin AST ALT Alkaline Phosphatase Total Protein Albumin Triglycerides Cholesterol LDL Cholesterol, Calc HDL Cholesterol Urine Color Urine Appearance Urine pH Ur Specific Sterling Urine Protein Urine Glucose (UA) Urine Ketones Urine Blood Urine Nitrite Ur Leukocyte Esterase Urine RBC Urine WBC Ur Squamous Epith Cells Urine Bacteria Hyaline Casts Salicylates Urine Opiates Screen Ur Buprenorphine Scrn Ur Oxycodone Screen Urine Methadone Screen Urine Fentanyl Screen Acetaminophen Ur Barbiturates Screen Ur Phencyclidine Scrn Ur Amphetamines Screen U Benzodiazepines Scrn Urine Cocaine Screen U Marijuana (THC) Screen Ethyl Alcohol 06/26/25 06/27/25 16:30 07:30 WBC RBC Hgb Hct MCV MCH MCHC RDW Plt Count MPV Immature Gran % (Auto) Neut % (Auto) Lymph % (Auto) Henderson % (Auto) Eos % (Auto) Baso % (Auto) Lymph # (Auto) Henderson # (Auto) Eos # (Auto) Baso # (Auto) Abs Immat Gran (auto) Absolute Neuts (auto) Absolute Nucleated RBC Nucleated RBC % (auto) Sodium Potassium Chloride Carbon Dioxide Anion Gap BUN Creatinine Estim Creat Clear Calc Estimated GFR POC Glucose 160 H 158 H Random Glucose Estimat Average Glucose Hemoglobin A1c % Calcium Magnesium Total Bilirubin AST ALT Alkaline Phosphatase Total Protein Albumin Triglycerides Cholesterol LDL Cholesterol, Calc HDL Cholesterol Urine Color Urine Appearance Urine pH Ur Specific Sterling Urine Protein Urine Glucose (UA) Urine Ketones Urine Blood Urine Nitrite Ur Leukocyte Esterase Urine RBC Urine WBC Ur Squamous Epith Cells Urine Bacteria Hyaline Casts Salicylates Urine Opiates Screen Ur Buprenorphine Scrn Ur Oxycodone Screen Urine Methadone Screen Urine Fentanyl Screen Acetaminophen Ur Barbiturates Screen Ur Phencyclidine Scrn Ur Amphetamines Screen U Benzodiazepines Scrn Urine Cocaine Screen U Marijuana (THC) Screen Ethyl Alcohol DS: Summary Hospital Course Hospital Course: Patient is a 64 year old woman with no prior psychiatric history who self presented to ER endorsing vague SI with no plan or intent secondary to increased life stressors. Per crisis report, patient reports thoughts of not wanting to live anymore due to feeling overwhelmed with life stressors. Patient is currently being evicted from her apartment secondary to her wandering into other tenants apartments. She reports increased depression, anxiety, racing thoughts and poor sleep. She denied SI/HI/VH/AH. Patient reports she has never received mental health treatment of any kind. Denies history of substance use. Denies history of trauma. During admission assessment, patient presents alert and oriented x3. Calm and cooperative. Patient reports feeling depressed; patient stated, our landlord is trying to evict us. My went into my neighbor's house without being invited. I don't know why he was doing that, he may have dementia. We have to leave in 30 days . Patient denies SI/HI/VH/AH. Patient stated, I felt like I did not want to live, but I didn't have a plan or anything. I have never felt suicidal in the past. I'm feeling hopeful since I'm here to get help . Patient reports difficulty staying asleep. She would like a referral to an outpatient therapist. Discussed starting on Remeron; risks/benefits reviewed, pt agreed to trial. Plan: CV 15 minute safety checks Obtain collateral Start: Remeron 7.5mg PO bedtime; risk/benefits reviewed, pt agreed to trial Referral to outpatient psychiatric provider Encourage groups Discharge planning Active on unit. social with peers. attending groups. signed 3 day notice, up on 06/28/25. Patient reports feeling better ; pt stated, I slept great last night. The medication worked well . Per nursing, slept 8 hours last night. denies any side effects. denies SI/HI/VH/AH. Continue current tx plan. Active on unit. social with peers. attending groups. 3 day notice up on 06/28/25. Patient reports feeling good ; denies SI/HI/VH/AH. plan to discharge on Friday if continues to improve over the weekend; pt aware. Continue current tx plan. She has been stable, eating and sleeping adequately. Brighter affect. Medication compliant with no side effects. She talked about being very anxious last night after an interaction with her roommate but does not want me to change anything. No SI. She had a better day yesterday. Decreased anxiety. No issues with her roommate or other patients. Her blood sugars have been within acceptable range. Still endorses some anxiety and depression but improved. Slept 8 hours. No SI. No changes were made today. Patient reports feeling good and ready to return home. denies SI/HI/VH/AH. Patient reports she plans on following up with her outpatient providers. Status at Discharge Cognitive/behavioral status at discharge: Patient has insight and demonstrates good judgment in terms of wanting to pursue treatment. Patient has a safety plan that includes presenting to the closest ER or calling 911 if feeling unsafe. Functional status at discharge: independent ambulation Overall status at discharge: patient is back to baseline Time Spent with Patient Time attestation: Total time managing care of this patient today __20__ minutes. Time spent: Less than 30 minutes Discharge Plan Discharge Anticipated Discharge Date/Time: 06/27/25 11:30 Patient Disposition: Home, Self-Care Discharge Diagnosis: Adjustment d/o Referrals: Micki Carter (Therapy) [Other] - 07/01/25 10:00 am Referral Note: TELEHEALTH APPOINTMENT -You can talk with the therapist during this appointment regarding future vielka ointments taking place in the office. [facility] ([facility]) [Other] - 1 Week Referral Note: *Please follow up with the agency listed above for resources and support in the community. Rebecca Rudolph MD [Physician, Internal Medicine] - 1 Week Referral Note: 06-23-25 Your primary care physician has been notified of your discharge and will be in contact with the date and time of your follow up appt. Discharge Medications: New mirtazapine 7.5 mg Tablet 7.5 mg PO BEDTIME 30 Days Qty: 30 0RF Continued ezetimibe 10 mg tablet 10 mg PO DAILY Qty: 90 3RF atorvastatin 40 mg tablet 40 mg PO BEDTIME losartan 50 mg Tablet 50 mg PO DAILY aspirin [Adult Low Dose Aspirin] 81 mg tablet,delayed release (DR/EC) 81 mg PO DAILY losartan 100 mg tablet 100 mg PO BEDTIME carvedilol 12.5 mg tablet 12.5 mg PO BIDWM dapagliflozin propanediol [Farxiga] 10 mg tablet 10 mg PO DAILY 30 Days Qty: 30 6RF isosorbide mononitrate 30 mg tablet extended release 24 hr 30 mg PO DAILY Qty: 90 3RF Mounjaro 2.5 mg/0.5 mL pen injector 2.5 mg subcut QWEEK Qty: 2 3RF Rx Instructions: for 4 weeks metformin 500 mg tablet extended release 24 hr 500 mg PO QPM Qty: 90 5RF potassium chloride 20 mEq packet 20 meq PO DAILY Qty: 30 2RF chlorthalidone 25 mg tablet 25 mg PO DAILY 90 Days Qty: 90 1RF Discharge Orders: Discharge Order (Routine); Ordered 06/27/25 Ordered By: Neeru Keys Diet: Regular diet Activity on Discharge: As tolerated Stand Alone Forms: Patient Portal Discharge page, Community Support Print Language: Sinhala Care Plan Goals: Maintain mood and safe behaviors Take medications as prescribed Practice coping skills Continue with outpatient providers and reach out to them as needed Health Concerns: Mood stability and behaviors Plan of Treatment: Follow up with your PCP, psychiatric provider and other outpatient providers regarding above concerns Take medications as prescribed Assessment: Patient has insight and demonstrates good judgment in terms of wanting to pursue treatment. Patient has a safety plan that includes presenting to the closest ER or calling 911 if feeling unsafe.
== END 2025-06-27 10:33 | disposition home or self-care (01) | DRG 882 ==
LOC: HO.ED 10:01 → HO.PADLT16 12:18
PROVIDERS: Physician Assistant Medical; Admitting Provider Registered Nurse; Emergency Provider Emergency Medicine; PCP Student in an Organized Health Care Education/Training Program; Responsible Provider Registered Nurse; Visit Provider Psychiatry & Neurology Psychiatry
DX: F43.20 Adjustment disorder, unspecified (principal); R45.851 Suicidal ideations; Z59.811 Housing instability, housed, with risk of homelessness; I25.10 Atherosclerotic heart disease of native coronary artery without angina pectoris; E11.9 Type 2 diabetes mellitus without complications; I10 Essential (primary) hypertension; E87.6 Hypokalemia; Z79.84 Long term (current) use of oral hypoglycemic drugs; Z79.899 Other long term (current) drug therapy
CPT/HCPCS: 36415; 80048; 80053; 80061; 80143; 80179; 80307; 81001; 82947; 83036; 83735; 85025; 93005; 99285; S9485

== ENCOUNTER 2025-06-22 12:04 | Outpatient (BNV) | payer OTHER, SELFPAY | END 2025-06-22 16:39 | PROVIDERS: Admitting Provider Registered Nurse; Emergency Provider Emergency Medicine; PCP Student in an Organized Health Care Education/Training Program; Responsible Provider Registered Nurse; Visit Provider Internal Medicine | DX: R94.31 Abnormal electrocardiogram [ECG] [EKG] (principal); Z13.6 Encounter for screening for cardiovascular disorders | CPT/HCPCS: 93010 ==

== ENCOUNTER → 2025-06-22 12:04 | Outpatient (BNV) | payer OTHER, SELFPAY | PROVIDERS: Admitting Provider Registered Nurse; Emergency Provider Emergency Medicine; PCP Student in an Organized Health Care Education/Training Program; Responsible Provider Registered Nurse; Visit Provider Registered Nurse | DX: F43.20 Adjustment disorder, unspecified (principal) | CPT/HCPCS: 90792 ==

== ENCOUNTER 2025-07-08 10:59 | Outpatient (AMB) | payer OTHER, SELFPAY ==
--- OUTSIDE RECORDS SUMMARY | 2025-07-08 11:05 | XMS_ITS | Encounter Summary ---
Author Organization [facility], Address [address] [place] [address] Phone Care Team Providers Care Analytical Lead Name Role Phone Rebecca Rudolph MD Primary Care Provider [phone] Encounter Details Date Type Department Care Team (Late st Contact Info) Description 12/17/2019 Orders Only [facility] [address] [place] [id number] Jocelin Lester [address] [place] [phone] Social History Tobacco Use Types Packs/Day Years [...] Visit [facility], [address] [place] [address] Jay Jay Jenkins MD [address] [place] [address] documented as of this encounter Visit Diagnoses Not on filedocumented in this encounter Care Teams Analytical Lead Relationship Specialty Start Date End Date Rebecca Rudolph MD [address] [place], [place] PCP - General Internal Medicine 01/10/22 documented as of this encounter
--- OUTSIDE RECORDS SUMMARY | 2025-07-08 11:05 | XMS_ITS | Patient Health Record ---
Author Organization [facility] Address [address] [place] [id number] Care Team Providers Care Steamfitter Name Role Phone NONE, NONE Primary Care Provider Narendra Wilson Unavailable [phone] Reason For Referral No Information Plan Of Treatment No Information
--- NOTE | 2025-07-08 11:10 | A.OFFPC_ITS ---
Vital Signs 07/08/25 11:11 Height 5 ft 1 in Weight 148 lb 4 oz BMI 28.0 BP 120/60 Blood Pressure Location Rt brachial Position Sitting Pulse 72 Pulse Source Pulse Oximeter Temp 97.1 F Temp Source Temporal Artery Scan Pulse Oximetry (%) 98 Oxygen Delivery Method Room Air Intake Visit Reasons: [facility] 06/27 Psych Intake Note: Patient is here for hospital discharge follow up. Patient was discharged from [facility] on 06/27/25. Eye Dropper Assembler Required: No Associate Veterinarian: Not Required per policy Accompanied by: Self / Same As Patient Allergies ciprofloxacin (From CIPRO) Allergy (Severe, Verified 07/08/25 11:11) ANAPHYLAXIS; RASH semaglutide (From Rybelsus) Adverse Reaction (Intermediate, Verified 07/08/25 11:11) blurry vision Medication List - Last Reconciled 07/08/25 by Ayah Rhodes NP atorvastatin 40 mg PO BEDTIME carvedilol 12.5 mg PO BIDWM chlorthalidone 25 mg PO DAILY 90 days dapagliflozin propanediol (Farxiga) 10 mg PO DAILY 30 days escitalopram oxalate 5 mg PO DAILY ezetimibe 10 mg PO DAILY isosorbide mononitrate ER 30 mg PO DAILY losartan 50 mg PO DAILY losartan 100 mg PO BEDTIME metformin ER 500 mg PO QPM potassium chloride 20 mEq PO DAILY tirzepatide (Mounjaro) 2.5 mg (0.5 mL) subcut QWEEK Tobacco use date assessed: 07/08/25 Fall risk assessment: No Falls in past year Last assessed Fall Risk: 07/08/25 Dental Screening Dental Screen Date: 05/19/25 HPI HPI Comments History of Present Illness Details 64 y/o Female patient who presents to [facility] today for HDF. Pt was admitted at [facility] on 06/22 -06/27 after presenting herself to the ED endorsing vague SI with no plan or intent secondary to increased life stressors. She is currently receiving care at [facility] - she was started on Escitalopram 5 mg daily. She is waiting to establish care with in-person Therapist. Today denies SA or SI. [facility] Medical History CAD (coronary artery disease) PAC (premature atrial contraction) Tricuspid valve regurgitation Physical exam Screen for colon cancer Tachycardia Murmur Dyspnea Microalbuminuria Obesity (BMI 30.0-34.9) Dyslipidemia Hypertension Encounter for diabetic foot exam High cholesterol High blood pressure Diabetes mellitus Surgical History Stented coronary artery History of coronary artery stent placement S/P skin biopsy History of hernia repair S/P BLAIR-BSO (total abdominal hysterectomy and bilateral salpingo-oophorectomy) History of removal of cyst History of bladder surgery Family History Father CAD (coronary artery disease) CVD (cardiovascular disease) Myocardial infarction Substance use disorder Mother CVD (cardiovascular disease) Hypertension Brother Hypertension Sister Hypertension Daughter Obese Social History Household Members: Spouse Housing: Condominium Do you presently have visiting nurse or other home services: No Alcohol intake: current Alcohol intake frequency: holidays/special occasions only Alcohol type: hard liquor Patient Tobacco Use Status: Never used Tobacco Tobacco use type: Cigarette e-Cigarette/Vaping Use: Never Used Second Hand Smoke Exposure: No service: No Current occupational status: employed Current occupational exposures/hazards: No Sexual orientation: Straight/Heterosexual Cognitive needs: No Hearing needs: No Vision needs: Yes Questionnaire Thrive Questionnaire Date Thrive assessed: 06/23/25 ANDREA-7 AMB Questionnaire ANDREA-7 Date ANDREA - 7 assessed: 01/11/25 Source: Developed by Drs. Narendra Biggs, Puja Vidal, Edison Tapia and colleagues, with an educational leland from [email or web address]. Review of Systems Const All systems reviewed & are unremarkable except as noted in HPI and below Physical exam (Primary Care) Vital Signs: Last Vital Signs Temp 97.1 F 07/08/25 11:11 Pulse 72 07/08/25 11:11 BP 120/60 07/08/25 11:11 Pulse Ox 98 07/08/25 11:11 Oxygen Delivery Method Room Air 07/08/25 11:11 BMI result Body Mass Index 28.0 Tobacco/Smoking Status: Tobacco use Status Tobacco use date assessed 07/08/25 07/08/25 11:15 Patient Tobacco Use Status Never used Tobacco 07/08/25 11:15 Tobacco use type Cigarette 07/08/25 11:15 e-Cigarette/Vaping Use Never Used 07/08/25 11:15 Thrive Assessment: Date of Thrive Assessment Date Thrive assessed 06/23/25 07/08/25 11:15 Const General: no acute distress Nutritional Appearance: overweight Orientation/consciousness: patient oriented x3 Resp Effort & Inspection: normal respiratory effort Auscultation: clear to auscultation bilaterally Cardio Heart sounds: S1 normal heart sound present and S2 normal heart sound present Neuro General: patient oriented x3, gait normal and moves all extremities Psych Speech and movement: Normal speech and movement present Affect: Sad affect present Thought process: Normal thought process present Thought content: Normal thought content present, suicidality and no homicidality Insight: Good insight present (Psych) Judgement: Good judgement present (Psych) Coding Level of Care Code Est Pt Level 4 (12214) Diagnoses Adjustment disorder with anxiety F43.22 Adjustment disorder type: with anxiety Time Spent (min) 20 Assessment & Plan Assessment & Plan (1) Adjustment disorder: Code(s): F43.20 - Adjustment disorder, unspecified Category: Medical Qualifiers: Adjustment disorder type: with anxiety Qualified Code(s): F43.22 - Adjustment disorder with anxiety Plan: Stable, denies SA or SI. Continue following with [facility] clinic. Continue taking Escitalopram as prescribed. Medications: Discontinued mirtazapine Discontinued Reason: Doctor's Order 7.5 mg PO BEDTIME 30 days 30 tabs 0RF
[2025-07-08 11:11] VITALS: BP 120/60; PULSE 72; TEMP 36.2; O2SAT 98; BMI 28.0
== END 2025-07-08 12:32 | disposition home or self-care (01) ==
LOC: HO.HMCH 10:59
PROVIDERS: PCP Internal Medicine; Visit Provider Nurse Practitioner Family
DX: F43.22 Adjustment disorder with anxiety (principal)

== ENCOUNTER 2025-07-22 09:39 | Outpatient (REF) | payer OTHER, SELFPAY ==
--- OUTSIDE RECORDS SUMMARY | 2025-07-22 10:23 | XMS_ITS | Clinical Summary ---
Author Organization [facility], Address [address] [place] [address] Phone Care Team Providers Care Investor Relations Specialist Name Role Phone Rebecca Rudolph MD Primary Care Provider [phone] Allergies Active Allergy Reactions Criticality Noted Date [...] 180 tablet 3 11/25/2024 11/25/19 26 Active ezetimibe (ZETIA) 10 MG tablet Take 10 mg by mouth 1 (one) time each day Active chlorthalidone 25 MG tablet TAKE 2 TABLETS BY MOUTH 1 TIME EACH DAY. 60 tablet 11 02/22/2025 Active Dapagliflozin Propanediol 10 MG tablet Take 10 mg by mouth 1 (one) time each day in the morning 30 tablet 11 05/30/2025 Active Active Problems Problem Noted Date Diagnosed Date Essential (primary) hypertension 05/30/2020 Type 2 diabetes mellitus Persistent proteinuria Microalbuminuria Dyslipidemia Hypercholesterolemia Encounters Date Type Department Care Team Description 07/06/2025 Documentation Only [facility] [address] [place] [address] Jojo Berry 06/02/2025 Documentation Only [facility] [address] [place] [address] Jojo Berry 05/30/2025 3:30 PM EDT Office Visit [facility] [address] [place] [phone] Jay Jay Jenkins MD Persistent proteinuria (Primary Dx) from Last 3 Months Immunizations Immunization Administration [...] Visit [facility] [place], [address] [place] [address] Jay Jay Jenkins MD [address] [place] [phone] Health Maintenance Due Date Last Done Comments Breast Cancer Screening 1960 Colorectal Cancer Screening: Annual FOBT 2009 Colorectal Cancer Screening: Colonoscopy 2009 Colorectal Cancer Screening: Sigmoidoscopy 2009 Pneumococcal Vaccine: 50+ Years (2 of 2 - PCV) 11/17/2011 11/17/2010 Diabetes: Ophthalmology Exam 02/07/2020 Diabetes: Pedal Pulse Checked 02/07/2020 Diabetes: Sensory Foot Exam 02/07/2020 Diabetes: Visual Foot Exam 02/07/2020 Diabetes: Hemoglobin A1C 02/24/2024 11/25/2023, 0405/2021 Influenza Vaccine (#1) 2025 , 08/26/2020, 08/23/2018, Additional history exists Pneumococcal Vaccine: Peds (0 to 5 Years) and At-Risk Patients [...] PM EST) Hemoglobin A1C 7.2(H) (4.0-5.6) % [facility] Comment: MONITORING: In known diabetic patients, hemoglobin A1c targets should be discussed with health care provider. DIAGNOSTIC USE: The [place] Diabetes Association (ADA) and the World Health [...] Supplement 1 Testing performed or reported by [facility] Reference [employer], a Service of [facility], [address] [place] [address] Moi Apple MD, Construction Plumber [facility]# [id number] Blood specimen (specimen) Venous blood / Unknown 11/25/2023 4:07 PM EST 11/25/2023 4:08 PM EST us Jay Jay Jenkins MD LAB BLOOD ORDERABLES Final Re sult [facility] from Last 3 Months or Most Recently Relevant to Health Maintenance Insurance [facility] Care Teams Investor Relations Specialist Relationship Specialty Start Date End Date Rebecca Rudolph MD [address] [place] [address] PCP - General Internal Medicine 01/10/22
--- OUTSIDE RECORDS SUMMARY | 2025-07-22 10:23 | XMS_ITS | Encounter Summary ---
Author Organization [facility] [place], Address [address] [place] [address] Phone Care Team Providers Care Tire Care Manager Name Role Phone Rebecca Rudolph MD Primary Care Provider [phone] Encounter Details Date Type Department Care Team (Late st Contact Info) Description 12/14/2024 Documentation Only [facility] [address] [place] [address] Jojo Berry [address] [place] [phone] Social History Tobacco Use Types Packs/Day [...] Visit [facility] [address] [address] Jay Jay Jenkins MD [address] [place] [address] [place] [address] documented as of this encounter Visit Diagnoses Not on filedocumented in this encounter Care Teams Tire Care Manager Relationship Specialty Start Date End Date Rebecca Rudolph MD [address] [place], [place] PCP - General Internal Medicine 01/10/22 documented as of this encounter
--- OUTSIDE RECORDS SUMMARY | 2025-07-22 10:23 | XMS_ITS | Encounter Summary ---
Author Organization [facility] Address [address] [place] [address] Phone Care Team Providers Care Bridge Club Manager Name Role Phone Rebecca Rudolph MD Primary Care Provider [phone] Reason for Visit * Reason Comments Med Change Request Encounter Details Date Type Department Care Team (Late st Contact Info) Description 11/25/2024 Refill [facility] [address] [place] [address] Jay Jay Jenkins MD [address] [place] [address] Social History Tobacco Use Types [...] Office Visit [facility] [address] [place] [address] Jay Jay Jenkins MD [address] [facility] [address] [place] [address] documented as of this encounter Visit Diagnoses Not on filedocumented in this encounter Care Teams Bridge Club Manager Relationship Specialty Start Date End Date Rebecca Rudolph MD [address] [place], [place] PCP - General Internal Medicine 01/10/22 documented as of this encounter
--- OUTSIDE RECORDS SUMMARY | 2025-07-22 10:23 | XMS_ITS | Encounter Summary ---
Author Organization [facility] [place], Address [address] [place] [address] Phone Care Team Providers Care Agribusiness Professor Name Role Phone Rebecca Rudolph MD Primary Care Provider [phone] Encounter Details Date Type Department Care Team (Late st Contact Info) Description 05/24/2024 Documentation Only [facility] [address] [place] [address] Jojo Berry [address] [place] [phone] Social History Tobacco Use Types Packs/Day [...] Visit [facility] [address] [place] [address] Jay Jay Jenkins MD [address] [place] [address] [place] [address] documented as of this encounter Visit Diagnoses Not on filedocumented in this encounter Care Teams Agribusiness Professor Relationship Specialty Start Date End Date Rebecca Rudolph MD [address] [place], [place] PCP - General Internal Medicine 01/10/22 documented as of this encounter
--- OUTSIDE RECORDS SUMMARY | 2025-07-22 10:23 | XMS_ITS | Encounter Summary ---
Author Organization [facility] [place], Address [address] [place] [address] Phone Care Team Providers Care Swimming Pool Plasterer Helper Name Role Phone Rebecca Rudolph MD Primary Care Provider [phone] Encounter Details Date Type Department Care Team (Late st Contact Info) Description 05/24/2024 Documentation Only [facility] [address] [place] [address] Jojo Berry [address] [place] [phone] Social History Tobacco Use Types Packs/Day [...] [facility] [address] [place] [address] Jay Jay Jenkins MD [address] [place] [address] [place] [address] documented as of this encounter Visit Diagnoses Not on filedocumented in this encounter Care Teams Swimming Pool Plasterer Helper Relationship Specialty Start Date End Date Rebecca Rudolph MD [address] [place], [place] PCP - General Internal Medicine 01/10/22 documented as of this encounter
--- OUTSIDE RECORDS SUMMARY | 2025-07-22 10:23 | XMS_ITS | Encounter Summary ---
Author Organization [facility] [place], Address [address] [place] [address] Phone Care Team Providers Care Health Type Technician Name Role Phone Rebecca Rudolph MD Primary Care Provider [phone] Encounter Details Date Type Department Care Team (Late st Contact Info) Description 12/17/2019 Orders Only [facility] [place] [address] [place] [phone] Jocelin Lester [address] [place] [phone] Social History Tobacco Use Types Packs/Day Years [...] [facility] [place], [address] [place] [address] Jay Jay Jenkins MD [address] [place] [address] documented as of this encounter Visit Diagnoses Not on filedocumented in this encounter Care Teams Health Type Technician Relationship Specialty Start Date End Date Rebecca Rudolph MD [address] [place], [place] PCP - General Internal Medicine 01/10/22 documented as of this encounter
--- OUTSIDE RECORDS SUMMARY | 2025-07-22 10:23 | XMS_ITS | Patient Health Record ---
Author Organization [facility] Address [address] [place] [address] Care Team Providers Care Tire Building Supervisor Name Role Phone NONE, NONE Primary Care Provider Narendra Wilson Unavailable [phone] Reason For Referral No Information Plan Of Treatment No Information
--- OUTSIDE RECORDS SUMMARY | 2025-07-22 10:23 | XMS_ITS | Encounter Summary ---
Author Organization [facility] Address [address] [place] [address] Phone Care Team Providers Care Asian Art Curator Name Role Phone Rebecca Rudolph MD Primary Care Provider [phone] Reason for Visit * Reason Comments Med Refill Encounter Details Date Type Department Care Team (Late st Contact Info) Description 11/21/2024 Refill [facility] [address] [place] [address] Jay Jay Jenkins MD [address] [place] [address] Social History Tobacco Use Types [...] Office Visit [facility] [address] [place] [place] [address] Jay Jay Jenkins MD [address] [place] [address] documented as of this encounter Visit Diagnoses Not on filedocumented in this encounter Care Teams Asian Art Curator Relationship Specialty Start Date End Date Rebecca Rudolph MD [address] [place], [place] PCP - General Internal Medicine 01/10/22 documented as of this encounter
--- OUTSIDE RECORDS SUMMARY | 2025-07-22 10:23 | XMS_ITS | Encounter Summary ---
Author Organization [facility] [place], Address [address] [place] [address] Phone Care Team Providers Care Wholesale Manager Name Role Phone Rebecca Rudolph MD Primary Care Provider [phone] Encounter Details Date Type Department Care Team (Late st Contact Info) Description 07/06/2025 Documentation Only [facility] [address] [place] [address] Jojo Berry [address] [place] [phone] Social History Tobacco Use Types Packs/Day [...] Visit [facility] [address] [place] [address] Jay Jay Jenkins MD [address] [place] [address] [place] [address] documented as of this encounter Visit Diagnoses Not on filedocumented in this encounter Care Teams Wholesale Manager Relationship Specialty Start Date End Date Rebecca Rudolph MD [address] [place], [place] PCP - General Internal Medicine 01/10/22 documented as of this encounter
--- OUTSIDE RECORDS SUMMARY | 2025-07-22 10:23 | XMS_ITS | Encounter Summary ---
Author Organization [facility] [place], Address [address] [place] [address] Phone Care Team Providers Care Lubrication Technician Name Role Phone Rebecca Rudolph MD Primary Care Provider [phone] Encounter Details Date Type Department Care Team (Late st Contact Info) Description 06/02/2025 Documentation Only [facility] [address] [place] [address] Jojo Berry [address] [place] [phone] Social History Tobacco Use Types Packs/Day [...] Visit [facility] [address] [place] [address] Jay Jay Jenkins MD [address] [place] [address] [place] [address] documented as of this encounter Visit Diagnoses Not on filedocumented in this encounter Care Teams Lubrication Technician Relationship Specialty Start Date End Date Rebecca Rudolph MD [address] [place], [place] PCP - General Internal Medicine 01/10/22 documented as of this encounter
--- OUTSIDE RECORDS SUMMARY | 2025-07-22 10:23 | XMS_ITS | Encounter Summary ---
Author Organization [facility] [place], Address [address] [place] [address] Phone Care Team Providers Care Sexual Assault Response Coordinator Name Role Phone eRbecca Rudolph MD Primary Care Provider Encounter Details Date Type Department Care Team (Late st Contact Info) Description 11/30/2024 Documentation Only [facility] [address] [place] [address] Jojo Berry [address] [place] [phone] Social History Tobacco Use Types Packs/Day [...] Visit [facility] [address] [place] [address] Jay Jay Jenkins MD [address] [place] [address] [place] [address] documented as of this encounter Visit Diagnoses Not on filedocumented in this encounter Care Teams Sexual Assault Response Coordinator Relationship Specialty Start Date End Date Rebecca Rudolph MD [address] [place], [place] PCP - General Internal Medicine 01/10/22 documented as of this encounter
--- OUTSIDE RECORDS SUMMARY | 2025-07-22 10:23 | XMS_ITS | Encounter Summary ---
Author Organization [facility] Address [address] [place] [address] Phone Care Team Providers Care Wax Engraver Name Role Phone Rebecca Rudolph MD Primary Care Provider [phone] Reason for Visit * Reason Comments Med Change Request Encounter Details Date Type Department Care Team (Late st Contact Info) Description 12/01/2024 Refill [facility] [address] [place] [address] Jay Jay Jenkins MD [address] [facility] [facility] [place] [address] Social History Tobacco Use Types [...] Office Visit [facility] [address] [place] [address] Jay Jay Jenkins MD [address] [place] [address] documented as of this encounter Visit Diagnoses Not on filedocumented in this encounter Care Teams Wax Engraver Relationship Specialty Start Date End Date Rebecca Rudolph MD [address] [place], [place] PCP - General Internal Medicine 01/10/22 documented as of this encounter
[2025-07-22 10:31] LABS: Hematocrit 46.6 % (37.0-47.0); Hemoglobin 15.7 g/dl (12.0-16.0); Mean Corpuscular HGB Conc 33.7 g/dl (31.0-35.0); Mean Corpuscular Hemoglobin 28.8 pg (27.0-33.0); Mean Corpuscular Volume 85.3 fL (80.0-98.0); NRBC Abs Auto 0.000 X10*3/uL (0.0-0.012); NRBC Pct Auto 0.0 /100WBC (0.0-0.2); Platelet Count 385 X10*3/uL (160-400); Red Blood Count 5.46 X10*6/uL (4.20-5.50); White Blood Count 10.8 X10*3/uL (4.8-10.8)
[2025-07-22 10:39] LABS: INTERNATIONAL NORM RATIO 1.0 (0.9-1.1); Prothrombin Time 11.9 SEC (10.9-12.4)
[2025-07-22 10:52] LABS: Anion Gap 15 (12-20); Blood Urea Nitrogen 16 mg/dL (9-16); Calcium 9.5 mg/dL (8.4-10.2); Carbon Dioxide 27 mmol/L (22-29); Chloride 100 mmol/L (96-108); Estimated Glomerular Filt Rate > 60; Potassium 3.4 mmol/L (3.3-5.1); Sodium 139 mmol/L (135-145)
== END 2025-07-22 09:40 | disposition home or self-care (01) ==
LOC: HO.LAB 09:39
PROVIDERS: PCP Internal Medicine
DX: R06.02 Shortness of breath (principal); I25.10 Atherosclerotic heart disease of native coronary artery without angina pectoris
CPT/HCPCS: 36415; 80048; 85027; 85610

== ENCOUNTER 2025-08-15 09:24 | Outpatient (AMB) | payer OTHER, SELFPAY ==
--- NOTE | 2025-08-15 09:26 | A.OFFVIS_ITS ---
Vital Signs 08/15/25 09:27 Height 5 ft 1 in Weight 143 lb 4.807 oz BMI 27.1 BP 95/43 L Blood Pressure Location Rt brachial Position Sitting Pulse 72 Pulse Source Pulse Oximeter Pulse Oximetry (%) 97 Oxygen Delivery Method Room Air Intake Visit Reasons: DM Intake Note: Patient present today for Type 2 Diabetes Mellitus Last Diabetic eye exam: 09/2024 Last Podiatry Visit: Patient does not see a Upholstery Parts Sorter Random Glucose: 153 mg/dL HgA1C: 6.7%, 06/23/2025 Operations Research Analyst Required: No Accompanied by: Self / Same As Patient Allergies ciprofloxacin (From CIPRO) Allergy (Severe, Verified 07/08/25 11:11) ANAPHYLAXIS; RASH semaglutide (From Rybelsus) Adverse Reaction (Intermediate, Verified 07/08/25 11:11) blurry vision Medication List - Last Reconciled 08/15/25 by Cass Bateman PA-C atorvastatin 40 mg PO BEDTIME blood sugar diagnostic (FreeStyle Lite Strips) Use 1 test strip once a day blood-glucose sensor (FreeStyle Chloe 3 Plus Sensor device) Use daily As di rected to monitor glucose carvedilol 12.5 mg PO BIDWM chlorthalidone 25 mg PO DAILY 90 days dapagliflozin propanediol (Farxiga) 10 mg PO DAILY 30 days escitalopram oxalate 5 mg PO DAILY ezetimibe 10 mg PO DAILY isosorbide mononitrate ER 30 mg PO DAILY losartan 50 mg PO DAILY losartan 100 mg PO BEDTIME metformin ER 500 mg PO QPM potassium chloride 20 mEq PO DAILY tirzepatide (Mounjaro) 2.5 mg (0.5 mL) subcut QWEEK HPI HPI DM: Details: Patient is a 65-year-old female with a significant past medical history of hypertension, dyslipidemia, CAD, proteinuria, ckd and type 2 diabetes presenting today for a diabetic consultation. Endo: Dm-diagnosed with diabetes around 2018 per pt. A1c was 6.9. She is currently on metformin 500 mg nightly, farixga 10 mg daily and mounjaro 2.5 mg weekly. -she does have nausea with the Trulicity at the higher doses. She says that she does feel sick for a few days with it and would be worried to increase her dose She does not tolerate higher doses of metformin. Tried semaglutide in the past and was very nauseous with this and had blurred vision with a Rybelsus. She has tried Farxiga in the past and was having UTIs and yeast infections so was taken off of this but recently restarted on it. She does not have any more sx. -rybelsus caused blurry vision (did see ophthamology who reports normal exam) cgm-avg glucose 128, gmi 6.3%, variability 22%. 0% very hyperglycemic. 5% hyperglycemic, 95% in range, 0% hypoglycemia States that sometimes her sensor tells her that she is low at night but when she checks her blood sugars she is really 120. Fam hx of t2dm CV: Blood pressure today is 95/43 and is managed with losartan 150 mg a day, carvedilol 12.5 mg twice a day, and chlorthalidone 50 mg daily. She is on atorvastatin 40 mg and Zetia 10 mg. Takes a daily aspirin. [facility] Medical History CAD (coronary artery disease) PAC (premature atrial contraction) Tricuspid valve regurgitation Physical exam Screen for colon cancer Tachycardia Murmur Dyspnea Microalbuminuria Obesity (BMI 30.0-34.9) Dyslipidemia Hypertension Encounter for diabetic foot exam High cholesterol High blood pressure Diabetes mellitus Surgical History Stented coronary artery History of coronary artery stent placement S/P skin biopsy History of hernia repair S/P BLAIR-BSO (total abdominal hysterectomy and bilateral salpingo-oophorectomy) History of removal of cyst History of bladder surgery Family History Father CAD (coronary artery disease) CVD (cardiovascular disease) Myocardial infarction Substance use disorder Mother CVD (cardiovascular disease) Hypertension Brother Hypertension Sister Hypertension Daughter Obese Social History (Reviewed 07/08/25 @ 11:10 by ROSS Oleary Household Members: Spouse Housing: Condominium Do you presently have visiting nurse or other home services: No Alcohol intake: current Alcohol intake frequency: holidays/special occasions only Alcohol type: hard liquor Patient Tobacco Use Status: Never used Tobacco Tobacco use type: Cigarette e-Cigarette/Vaping Use: Never Used Second Hand Smoke Exposure: No service: No Current occupational status: employed Current occupational exposures/hazards: No Sexual orientation: Straight/Heterosexual Cognitive needs: No Hearing needs: No Vision needs: Yes Physical Exam Vital Signs: Last Vital Signs Pulse 72 08/15/25 09:27 BP 95/43 L 08/15/25 09:27 Pulse Ox 97 08/15/25 09:27 Oxygen Delivery Method Room Air 08/15/25 09:27 BMI result Body Mass Index 27.1 Const Orientation/consciousness: patient oriented x3 HEENT Ears: hearing grossly normal bilaterally Neck Thyroid: Thyroid normal Lymphatic: no lymphadenopathy noted Resp Auscultation: clear to auscultation bilaterally Cardio Rate: regular rate Rhythm: regular rhythm Heart sounds: S1 normal heart sound present and S2 normal heart sound present Skin General skin exam: no rashes or lesions noted Neuro General: patient oriented x3, gait normal and no focal motor deficits Assessment & Plan Assessment & Plan (1) Uncontrolled type 2 diabetes mellitus with hyperglycemia: Code(s): E11.65 - Type 2 diabetes mellitus with hyperglycemia Category: Medical Plan: d/c metformin continue [facility] and edin (2) Hypotension: Code(s): I95.9 - Hypotension, unspecified Category: Medical Plan: will d/c losartan 50 mg tab she will follow up with cardiology short term follow up 1 month Medications: Discontinued metformin ER Discontinued Reason: Change Referral Type 500 mg PO QPM 90 tabs 5RF Patient Instructions: hold losartan 100 mg tonight check bp and if less than 100/60 also hold carvedilol tonight as well tomorrow: take bp - call pcp or cardiology if you are questioning take chlorathalidone 25 mg carvedilol 12.5 mg isosorbide STOP LOSARTAN 50 mg tab take PM bp meds as directed losartan 100 mg carvediolol 12.5 mg Coding Level of Care Code Est Pt Level 4 (03891) Complex EM visit Add On G2211 Diagnoses Uncontrolled type 2 diabetes mellitus with hyperglycemia E11.65 Hypotension I95.9
[2025-08-15 09:27] VITALS: BP 95/43; PULSE 72; O2SAT 97; BMI 27.1
[2025-08-15 09:36] LABS: Glucose, Whole Blood 154 mg/dL (60-115)
--- OUTSIDE RECORDS SUMMARY | 2025-08-15 10:10 | XMS_ITS | Clinical Summary ---
Author Organization [facility], Address [address] [place] [address] Phone Care Team Providers Care Unemployment Benefits Claims Taker Name Role Phone Rebecca Rudolph MD Primary Care Provider [phone] Allergies Active Allergy Reactions Criticality Noted Date [...] EVERY DAY WITH EVENING MEAL 0 Active carvedilol (COREG) 12.5 MG tablet Take 1 tablet (12.5 mg total) by mouth in the morning and 1 tablet (12.5 mg total) in the evening. Take with meals. 180 tablet 3 5 11/25/19 26 Active ezetimibe (ZETIA) 10 MG tablet Take 10 mg by mouth 1 (one) time each day Active chlorthalidone 25 MG tablet TAKE 2 TABLETS BY MOUTH 1 TIME EACH DAY. 60 tablet 11 5 Active Dapagliflozin Propanediol 10 MG tablet Take 10 mg by mouth 1 (one) time each day in the morning 30 tablet 11 5 Active losartan (COZAAR) 100 MG tablet TAKE 1/2 TABLET BY MOUTH EVERY MORNING AND 1 TABLET EVERY NIGHT AT BEDTIME 135 tablet 3 5 Active losartan (COZAAR) 100 MG tablet TAKE 1/2 TABLET BY MOUTH EVERY MORNING AND 1 TABLET EVERY NIGHT AT BEDTIME 135 tablet 3 4 08/09/20 25 Discontinu ed(Reorder (does not appear on AVS)) Active Problems Problem Noted Date Diagnosed Date Essential (primary) hypertension 05/30/2020 Type 2 diabetes mellitus Persistent proteinuria Microalbuminuria Dyslipidemia Hypercholesterolemia Encounters Date Type Department Care Team Description 08/09/2025 Refill [facility] [address] [place] [address] Jojo Berry 07/06/2025 Documentation Only [facility] [address] [place] [address] Jojo Berry 06/02/2025 Documentation Only [facility] [address] [place] [address] Jojo Berry 05/30/2025 3:30 PM EDT Office Visit [facility] [address] [place] [address] Jay Jay Jenkins MD Persistent proteinuria (Primary [...] Team (Late st Contact Info) Description 11/24/2025 3:30 PM EST Office Visit [facility] [address] [place] [address] Jay Jay Jenkins MD [address] [place] [address] Health Maintenance Due Date Last Done Comments Breast Cancer Screening 1960 Colorectal Cancer Screening: Annual FOBT 2009 Colorectal Cancer Screening: Colonoscopy 2009 Colorectal Cancer Screening: Sigmoidoscopy 2009 Pneumococcal Vaccine: 50+ Years (2 of 2 - PCV) 11/17/2011 11/17/2010 Diabetes: Ophthalmology Exam 02/07/2020 Diabetes: Pedal Pulse Checked 02/07/2020 Diabetes: Sensory Foot Exam 02/07/2020 Diabetes: Visual Foot Exam 02/07/2020 Diabetes: Hemoglobin A1C 02/24/2024 11/25/2023, 04/0 05/2021 Influenza Vaccine (#1) 2025 , 08/26/2020, 08/23/2018, [...] PM EST) Hemoglobin A1C 7.2(H) (4.0-5.6) % [facility] Comment: MONITORING: In known diabetic patients, hemoglobin A1c targets should be discussed with health care provider. DIAGNOSTIC USE: The [place] Diabetes Association (ADA) and the World Health [...] Supplement 1 Testing performed or reported by [facility], a Service of [facility], [address] [place] [id number] Moi Apple MD, Lobby Porter [facility]# [id number] Blood specimen (specimen) Venous blood / Unknown 11/25/2023 4:07 PM EST 11/25/2023 4:08 PM EST us Jay Jay Jenkins MD LAB BLOOD ORDERABLES Final Re sult [facility] from Last 3 Months or Most Recently Relevant to Health Maintenance Insurance [facility] Care Teams Unemployment Benefits Claims Taker Relationship Specialty Start Date End Date Rebecca Rudolph MD [address] [place] [address] PCP - General Internal Medicine 01/10/22
--- OUTSIDE RECORDS SUMMARY | 2025-08-15 10:10 | XMS_ITS | Encounter Summary ---
Author Organization [facility] Address [address] [place] [address] Phone Care Team Providers Care Gyroscopic Instrument Tester Name Role Phone Rebecca Rudolph MD Primary Care Provider [phone] Reason for Visit * Reason Comments Med Refill Encounter Details Date Type Department Care Team (Late st Contact Info) Description 11/21/2024 Refill [facility] [address] [place] [place] [address] Jay Jay Jenkins MD [address] [address] Social History Tobacco Use Types [...] Office Visit [facility] [address] [place] [address] Jay Jay Jenkins MD [address] [place] [address] documented as of this encounter Visit Diagnoses Not on filedocumented in this encounter Care Teams Gyroscopic Instrument Tester Relationship Specialty Start Date End Date Rebecca Rudolph MD [address] [place], [place] PCP - General Internal Medicine 01/10/22 documented as of this encounter
--- OUTSIDE RECORDS SUMMARY | 2025-08-15 10:10 | XMS_ITS | Encounter Summary ---
Author Organization [facility] [place], Address [address] [place] [address] Phone Care Team Providers Care Felt Finishing Supervisor Name Role Phone Rebecca Rudolph MD Primary Care Provider [phone] Encounter Details Date Type Department Care Team (Late st Contact Info) Description 06/02/2025 Documentation Only [facility] [address] [place] [address] Jojo Berry [address] [place] [phone] Social History Tobacco Use Types Packs/Day [...] Visit [facility] [address] [place] [address] Jay Jay Jenkins MD [address] [place] [address] [place] [address] documented as of this encounter Visit Diagnoses Not on filedocumented in this encounter Care Teams Felt Finishing Supervisor Relationship Specialty Start Date End Date Rebecca Rudolph MD [address] [place], [place] PCP - General Internal Medicine 01/10/22 documented as of this encounter
--- OUTSIDE RECORDS SUMMARY | 2025-08-15 10:10 | XMS_ITS | Patient Health Record ---
Author Organization [facility] Address [address] [place] [address] Care Team Providers Care Supervisor Inspection And Testing Name Role Phone NONE, NONE Primary Care Provider Narendra [place] Unavailable [phone] Reason For Referral No Information Plan Of Treatment No Information
--- OUTSIDE RECORDS SUMMARY | 2025-08-15 10:10 | XMS_ITS | Encounter Summary ---
Author Organization [facility] [place], Address [address] [place] [address] Phone Care Team Providers Care Soda Dry House Operator Name Role Phone Rebecca Rudolph MD Primary Care Provider [phone] Encounter Details Date Type Department Care Team (Late st Contact Info) Description 11/30/2024 Documentation Only [facility] [address] [place] [address] Jojo Berry [address] [place] [phone] Social History Tobacco Use Types Packs/Day [...] Visit [facility] [address] [place] [address] Jay Jay Jenkins MD [address] [place] [address] [place] [address] documented as of this encounter Visit Diagnoses Not on filedocumented in this encounter Care Teams Soda Dry House Operator Relationship Specialty Start Date End Date Rebecca Rudolph MD [address] [place], [place] PCP - General Internal Medicine 01/10/22 documented as of this encounter
--- OUTSIDE RECORDS SUMMARY | 2025-08-15 10:10 | XMS_ITS | Encounter Summary ---
Author Organization [facility] Address [address] [place] [address] Phone Care Team Providers Care Bottle Washing Machine Operator Name Role Phone Rebecca Rudolph MD Primary Care Provider [phone] Reason for Visit * Reason Comments Med Change Request Encounter Details Date Type Department Care Team (Late st Contact Info) Description 11/25/2024 Refill [facility] [address] [place] [address] Jay Jay Jenkins MD [address] [place] [address] Social History Tobacco Use Types [...] Office Visit [facility] [address] [place] [address] Jay Jay Jenkins MD [address] [place] [address] documented as of this encounter Visit Diagnoses Not on filedocumented in this encounter Care Teams Bottle Washing Machine Operator Relationship Specialty Start Date End Date Rebecca Rudolph MD [address] [place], [place] PCP - General Internal Medicine 01/10/22 documented as of this encounter
--- OUTSIDE RECORDS SUMMARY | 2025-08-15 10:10 | XMS_ITS | Encounter Summary ---
Author Organization [facility] Address [address] [place] [address] Phone Care Team Providers Care Top Lift Compressor Name Role Phone Rebecca Rudolph MD Primary Care Provider [phone] Reason for Visit * Reason Comments Med Change Request Encounter Details Date Type Department Care Team (Late st Contact Info) Description 12/01/2024 Refill [facility] [address] [place] [address] Jay Jay Jenkins MD [address] [place] [address] Social History Tobacco Use Types [...] Office Visit [facility] [address] [place] [place] [address] Jay Jay Jenkins MD [address] [place] [address] documented as of this encounter Visit Diagnoses Not on filedocumented in this encounter Care Teams Top Lift Compressor Relationship Specialty Start Date End Date Rebecca Rudolph MD [address] [place], [place] PCP - General Internal Medicine 01/10/22 documented as of this encounter
--- OUTSIDE RECORDS SUMMARY | 2025-08-15 10:10 | XMS_ITS | Encounter Summary ---
Author Organization [facility] [place], Address [address] [place] [address] Phone Care Team Providers Care Special Client Bus Driver Name Role Phone Rebecca Rudolph MD Primary Care Provider [phone] Encounter Details Date Type Department Care Team (Late st Contact Info) Description 05/24/2024 Documentation Only [facility] [place], [address] [place] [address] Jojo Berry [address] [place] [phone] Social History Tobacco Use Types Packs/Day [...] Services [facility] [address] [place] [address] Jay Jay Jenkins MD [address] [place] [address] [place] [address] documented as of this encounter Visit Diagnoses Not on filedocumented in this encounter Care Teams Special Client Bus Driver Relationship Specialty Start Date End Date Rebecca Rudolph MD [address] [place], [place] PCP - General Internal Medicine 01/10/22 documented as of this encounter
--- OUTSIDE RECORDS SUMMARY | 2025-08-15 10:10 | XMS_ITS | Encounter Summary ---
Author Organization [facility] [place], Address [address] [place] [address] Phone Care Team Providers Care Travel Services Professional Name Role Phone Rebecca Rudolph MD Primary Care Provider Encounter Details Date Type Department Care Team (Late st Contact Info) Description 07/06/2025 Documentation Only [facility] [address] [place] [address] Jojo Berry [address] [place] [phone] Social History Tobacco Use Types Packs/Day [...] Services [facility] [address] [place] [address] Jay Jay Jenkins MD [address] [place] [address] [place] [address] documented as of this encounter Visit Diagnoses Not on filedocumented in this encounter Care Teams Travel Services Professional Relationship Specialty Start Date End Date Rebecca Rudolph MD [address] [place], [place] PCP - General Internal Medicine 01/10/22 documented as of this encounter
--- OUTSIDE RECORDS SUMMARY | 2025-08-15 10:10 | XMS_ITS | Encounter Summary ---
Author Organization [facility] [place], Address [address] [place] [address] Phone Care Team Providers Care Wiring Mechanic Name Role Phone Rebecca Rudolph MD Primary Care Provider [phone] Encounter Details Date Type Department Care Team (Late st Contact Info) Description 12/14/2024 Documentation Only [facility] [address] [place] [place] [address] Jojo Berry [address] [place] [phone] Social History Tobacco Use Types Packs/Day [...] Visit [facility] [address] [place] [place] [address] Jay Jay Jenkins MD [address] [place] [address] [place] [address] documented as of this encounter Visit Diagnoses Not on filedocumented in this encounter Care Teams Wiring Mechanic Relationship Specialty Start Date End Date Rebecca Rudolph MD [address] [place], [place] PCP - General Internal Medicine 01/10/22 documented as of this encounter
--- OUTSIDE RECORDS SUMMARY | 2025-08-15 10:10 | XMS_ITS | Encounter Summary ---
Author Organization [facility] [place], Address [address] [place] [address] Phone Care Team Providers Care Software Qa System Specialist Name Role Phone Rebecca Rudolph MD Primary Care Provider [phone] Encounter Details Date Type Department Care Team (Late st Contact Info) Description 12/17/2019 Orders Only [facility] [place] [address] [place] [phone] Jocelin Lester [address] [place] [phone] Social History Tobacco Use Types Packs/Day Years [...] Visit [facility] [place], [address] [place] [address] Jay Jay Jenkins MD [address] [place] [address] documented as of this encounter Visit Diagnoses Not on filedocumented in this encounter Care Teams Software Qa System Specialist Relationship Specialty Start Date End Date Rebecca Rudolph MD [address] [place], [place] PCP - General Internal Medicine 01/10/22 documented as of this encounter
--- OUTSIDE RECORDS SUMMARY | 2025-08-15 10:10 | XMS_ITS | Encounter Summary ---
Author Organization [facility] [place], Address [address] [place] [address] Phone Care Team Providers Care Chisel Mortiser Operator Name Role Phone Rebecca Rudolph MD Primary Care Provider [phone] Encounter Details Date Type Department Care Team (Late st Contact Info) Description 05/24/2024 Documentation Only [facility] [place], [address] [place] [address] Jojo Berry [address] [place] [phone] Social History Tobacco Use Types Packs/Day [...] [facility] [address] [place] [address] Jay Jay Jenkins MD [address] [place] [address] [place] [address] documented as of this encounter Visit Diagnoses Not on filedocumented in this encounter Care Teams Chisel Mortiser Operator Relationship Specialty Start Date End Date Rebecca Rudolph MD [address] [place], [place] PCP - General Internal Medicine 01/10/22 documented as of this encounter
== END 2025-08-15 09:53 | disposition home or self-care (01) ==
LOC: HO.ENCR 09:25
PROVIDERS: PCP Internal Medicine; Visit Provider Physician Assistant
DX: E11.65 Type 2 diabetes mellitus with hyperglycemia (principal); I95.9 Hypotension, unspecified

== ENCOUNTER → 2025-08-15 09:24 | Outpatient (BNVA) | payer OTHER, SELFPAY | PROVIDERS: PCP Internal Medicine; Visit Provider Physician Assistant | DX: E11.65 Type 2 diabetes mellitus with hyperglycemia (principal); I95.9 Hypotension, unspecified; E78.5 Hyperlipidemia, unspecified; Z79.84 Long term (current) use of oral hypoglycemic drugs | CPT/HCPCS: 82947 ==

== ENCOUNTER 2025-09-05 08:07 | Outpatient (AMB) | payer OTHER, SELFPAY ==
--- OUTSIDE RECORDS SUMMARY | 2025-09-05 08:13 | XMS_ITS | Encounter Summary ---
Author Organization [facility] Address [address] [place] [address] Phone Care Team Providers Care Immersion Metalcleaner Name Role Phone Rebecca Rudolph MD Primary Care Provider Reason for Visit * Reason Comments Med Refill Encounter Details Date Type Department Care Team (Late st Contact Info) Description 11/21/2024 Refill [facility] [address] [address] Jay Jay Jenkins MD [address] [place] [address] Social History Tobacco Use Types [...] Office Visit [facility] [address] [facility] [address] Jay Jay Jenkins MD [address] [place] [address] documented as of this encounter Visit Diagnoses Not on filedocumented in this encounter Care Teams Immersion Metalcleaner Relationship Specialty Start Date End Date Rebecca Rudolph MD [address] [place], [place] PCP - General Internal Medicine 01/10/22 documented as of this encounter
--- OUTSIDE RECORDS SUMMARY | 2025-09-05 08:13 | XMS_ITS | Encounter Summary ---
Author Organization [facility] [place], Address [address] [place] [address] Phone Care Team Providers Care Supervisor Cell Maintenance Name Role Phone Rebecca Rudolph MD Primary Care Provider [phone] Encounter Details Date Type Department Care Team (Late st Contact Info) Description 06/02/2025 Documentation Only [facility] [address] [place] [address] Jojo Berry [address] [place] [phone] Social History Tobacco Use Types Packs/Day [...] Visit [facility] [address] [place] [address] Jay Jay Jenkins MD [address] [place] [address] [place] [address] documented as of this encounter Visit Diagnoses Not on filedocumented in this encounter Care Teams Supervisor Cell Maintenance Relationship Specialty Start Date End Date Rebecca Rudolph MD [address] [place], [place] PCP - General Internal Medicine 01/10/22 documented as of this encounter
--- OUTSIDE RECORDS SUMMARY | 2025-09-05 08:13 | XMS_ITS | Encounter Summary ---
Author Organization [facility] [place], Address [address] [place] [address] Phone Care Team Providers Care Full Time Paramedic Name Role Phone Rebecca Rudolph MD Primary Care Provider [phone] Encounter Details Date Type Department Care Team (Late st Contact Info) Description 12/17/2019 Orders Only [facility] [place] [address] [place] [phone] Jocelin Lester [address] [place] [phone] Social History Tobacco Use Types Packs/Day Years [...] Visit [facility] [place], [address] [address] Jay Jay Jenkins MD [address] [place] [address] documented as of this encounter Visit Diagnoses Not on filedocumented in this encounter Care Teams Full Time Paramedic Relationship Specialty Start Date End Date Rebecca Rudolph MD [address] [place], [place] PCP - General Internal Medicine 01/10/22 documented as of this encounter
--- OUTSIDE RECORDS SUMMARY | 2025-09-05 08:14 | XMS_ITS | Encounter Summary ---
Author Organization [facility] [place], Address [address] [place] [address] Phone Care Team Providers Care Placement Manager Name Role Phone Rebecca Rudolph MD Primary Care Provider [phone] Encounter Details Date Type Department Care Team (Late st Contact Info) Description 11/30/2024 Documentation Only [facility] [address] [place] [address] Jojo Berry [address] [place] [phone] Social History Tobacco Use Types Packs/Day [...] Visit [facility] [address] [place] [address] Jay Jay Jenkins MD [address] [place] [address] [place] [address] documented as of this encounter Visit Diagnoses Not on filedocumented in this encounter Care Teams Placement Manager Relationship Specialty Start Date End Date Rebecca Rudolph MD [address] [place], [place] PCP - General Internal Medicine 01/10/22 documented as of this encounter
--- OUTSIDE RECORDS SUMMARY | 2025-09-05 08:14 | XMS_ITS | Encounter Summary ---
Author Organization [facility] Address [address] [place] [address] Phone Care Team Providers Care Wood Grinder Operator Name Role Phone Rebecca Rudolph MD Primary Care Provider [phone] Reason for Visit * Reason Comments Med Change Request Encounter Details Date Type Department Care Team (Late st Contact Info) Description 12/01/2024 Refill [facility] [address] [place] [address] Jay Jay Jenkins MD [address] [facility] [address] [place] [address] Social History Tobacco Use Types [...] Office Visit [facility] [address] [place] [address] Jay Jay Jenkins MD [address] [address] [place] [address] documented as of this encounter Visit Diagnoses Not on filedocumented in this encounter Care Teams Wood Grinder Operator Relationship Specialty Start Date End Date Rebecca Rudolph MD [address] [place], [place] PCP - General Internal Medicine 01/10/22 documented as of this encounter
--- OUTSIDE RECORDS SUMMARY | 2025-09-05 08:14 | XMS_ITS | Encounter Summary ---
Author Organization [facility] [place], Address [address] [place] [address] Phone Care Team Providers Care Social Worker School Name Role Phone Rebecca Rudolph MD Primary Care Provider Encounter Details Date Type Department Care Team (Late st Contact Info) Description 05/24/2024 Documentation Only [facility] [place], [address] [place] [address] Jojo Berry [address] [place] [phone] Social History Tobacco Use Types Packs/Day [...] Visit [facility] [address] [place] [address] Jay Jay Jenkins MD [address] [place] [address] [place] [address] documented as of this encounter Visit Diagnoses Not on filedocumented in this encounter Care Teams Social Worker School Relationship Specialty Start Date End Date Rebecca Rudolph MD [address] [place], [place] PCP - General Internal Medicine 01/10/22 documented as of this encounter
--- OUTSIDE RECORDS SUMMARY | 2025-09-05 08:14 | XMS_ITS | Encounter Summary ---
Author Organization [facility] [place], Address [address] [place] [address] Phone Care Team Providers Care Customer Assistance Associate Name Role Phone Rebecca Rudolph MD Primary Care Provider [phone] Encounter Details Date Type Department Care Team (Late st Contact Info) Description 12/14/2024 Documentation Only [facility] [address] [place] [address] Jojo Berry [address] [place] [phone] Social History Tobacco Use Types Packs/Day [...] Visit [facility] [address] [place] [address] Jay Jay Jenkins MD [address] [place] [address] [place] [address] documented as of this encounter Visit Diagnoses Not on filedocumented in this encounter Care Teams Customer Assistance Associate Relationship Specialty Start Date End Date Rebecca Rudolph MD [address] [place], [place] PCP - General Internal Medicine 01/10/22 documented as of this encounter
--- OUTSIDE RECORDS SUMMARY | 2025-09-05 08:14 | XMS_ITS | Encounter Summary ---
Author Organization [facility] [place], Address [address] [place] [address] Phone Care Team Providers Care Dba Manager Name Role Phone Rebecca Rudolph MD Primary Care Provider [phone] Encounter Details Date Type Department Care Team (Late st Contact Info) Description 05/24/2024 Documentation Only [facility] [place], [address] [place] [place] [address] Jojo Berry [address] [place] [phone] Social History Tobacco Use Types Packs/Day [...] Visit [facility] [address] [place] [address] Jay Jay Jenkins MD [address] [place] [address] [place] [address] documented as of this encounter Visit Diagnoses Not on filedocumented in this encounter Care Teams Dba Manager Relationship Specialty Start Date End Date Rebecca Rudolph MD [address] [place], [place] PCP - General Internal Medicine 01/10/22 documented as of this encounter
--- OUTSIDE RECORDS SUMMARY | 2025-09-05 08:14 | XMS_ITS | Patient Health Record ---
Author Organization [facility] Address [address] [place] [address] Care Team Providers Care Project Surveyor Name Role Phone NONE, NONE Primary Care Provider Narendra Wilson Unavailable [phone] Reason For Referral No Information Plan Of Treatment No Information
--- OUTSIDE RECORDS SUMMARY | 2025-09-05 08:14 | XMS_ITS | Encounter Summary ---
Author Organization [facility] [place], Address [address] [place] [address] Phone Care Team Providers Care Hybrid Tester Name Role Phone Rebecca Rudloph MD Primary Care Provider [phone] Encounter Details Date Type Department Care Team (Late st Contact Info) Description 07/06/2025 Documentation Only [facility] [address] [place] [address] Jojo Berry [address] [place] [phone] Social History Tobacco Use Types Packs/Day [...] Services [facility] [address] [place] [address] Jay Jay Jenkins MD [address] [place] [address] [place] [address] documented as of this encounter Visit Diagnoses Not on filedocumented in this encounter Care Teams Hybrid Tester Relationship Specialty Start Date End Date Rebecca Rudolph MD [address] [place], [place] PCP - General Internal Medicine 01/10/22 documented as of this encounter
--- OUTSIDE RECORDS SUMMARY | 2025-09-05 08:14 | XMS_ITS | Clinical Summary ---
Author Organization [facility], Address [address] [place] [address] Phone Care Team Providers Care Anvil Worker Name Role Phone Rebecca Rudolph MD Primary Care Provider [phone] Allergies Active Allergy Reactions Criticality Noted Date [...] Refill [facility] [address] [place] [address] Jojo Berry 07/06/2025 Documentation Only [facility] [address] [place] [address] Jojo Berry from Last 3 Months Immunizations [...] Visit [facility] [place], [address] [place] [address] Jay Jay Jenkins MD [address] [place] [phone] Health Maintenance Due Date Last Done Comments [...] with health care provider. DIAGNOSTIC USE: The [place] [employer] (ADA) and the World Health [...] Supplement 1 Testing performed or reported by [facility] [employer], a Service of [facility], [address] [place] [address] Moi Apple MD, Charge Gang Weigher [facility]# [id number] Blood specimen (specimen) Venous blood / Unknown 11/25/2023 4:07 PM EST 11/25/2023 4:08 PM EST us Jay Jay Jenkins MD LAB BLOOD ORDERABLES Final Re sult [facility] from Last 3 Months or Most Recently Relevant to Health Maintenance Insurance [facility] Care Teams Anvil Worker Relationship Specialty Start Date End Date Rebecca Rudolph MD [address] [place] [address] PCP - General Internal Medicine 01/10/22
--- OUTSIDE RECORDS SUMMARY | 2025-09-05 08:14 | XMS_ITS | Encounter Summary ---
Author Organization [facility] Address [address] [place] [address] Phone Care Team Providers Care Ophthalmic Nurse Name Role Phone Rebecca Rudolph MD Primary Care Provider [phone] Reason for Visit * Reason Comments Med Change Request Encounter Details Date Type Department Care Team (Late st Contact Info) Description 11/25/2024 Refill [facility] [address] [place] [address] Jay Jay Jnekins MD [address] [facility] [address] [place] [address] Social History Tobacco Use Types [...] Office Visit [facility] [address] [place] [address] Jay Jay Jenkins MD [address] [facility] [address] [place] [address] documented as of this encounter Visit Diagnoses Not on filedocumented in this encounter Care Teams Ophthalmic Nurse Relationship Specialty Start Date End Date Rebecca Rudolph MD [address] [place], [place] PCP - General Internal Medicine 01/10/22 documented as of this encounter
--- NOTE | 2025-09-05 08:17 | A.OFFVIS_ITS ---
Intake Visit Reasons: Renal cyst Intake Note: New patient presents today for initial visit for renal cyst Urology Medication:Potassium Blood Thinner:None Antibiotic Allergies:Cipro Allergies ciprofloxacin (From CIPRO) Allergy (Severe, Verified 09/05/25 08:17) ANAPHYLAXIS; RASH semaglutide (From Rybelsus) Adverse Reaction (Intermediate, Verified 09/05/25 08:17) blurry vision HPI Comments Details: 09/05/25--Taisha is a 65-year-old female who is here as a new patient evaluation for renal cyst, MRI kidney. The patient had an MRI of the kidney in April 2025. IMPRESSION: Markedly limited study as above. Large right renal cyst. Small hypointense lesion lower pole left kidney is indeterminate. The patient denies any lower urinary tract symptoms, denies hematuria. I have discussed re-evaluation with CT abdomen with and without IV contrast. [facility] Medical History Acute hypokalemia Suicidal ideation Depression CAD (coronary artery disease) PAC (premature atrial contraction) Tricuspid valve regurgitation Physical exam Screen for colon cancer Tachycardia Murmur Dyspnea Microalbuminuria Obesity (BMI 30.0-34.9) Dyslipidemia Hypertension Encounter for diabetic foot exam High cholesterol High blood pressure Diabetes mellitus Surgical History Stented coronary artery History of coronary artery stent placement S/P skin biopsy History of hernia repair S/P BLAIR-BSO (total abdominal hysterectomy and bilateral salpingo-oophorectomy) History of removal of cyst History of bladder surgery Family History Father CAD (coronary artery disease) CVD (cardiovascular disease) Myocardial infarction Substance use disorder Mother CVD (cardiovascular disease) Hypertension Brother Hypertension Sister Hypertension Daughter Obese Social History Household Members: Spouse Housing: Condominium Do you presently have visiting nurse or other home services: No Alcohol intake: current Alcohol intake frequency: holidays/special occasions only Alcohol type: hard liquor Patient Tobacco Use Status: Never used Tobacco Tobacco use type: Cigarette e-Cigarette/Vaping Use: Never Used Second Hand Smoke Exposure: No service: No Current occupational status: employed Current occupational exposures/hazards: No Sexual orientation: Straight/Heterosexual Cognitive needs: No Hearing needs: No Vision needs: Yes Review of Systems Const All systems reviewed & are unremarkable except as noted in HPI and below Reports no additional complaints Eyes Reports no additional complaints ENT Reports no additional complaints Card Reports no additional complaints Resp Reports no additional complaints GI Reports no additional complaints Reports as per HPI Musc Reports no additional complaints Skin/Breast Reports system reviewed and no additional complaints, except as documented Neuro Reports no additional complaints Psych Reports no additional complaints Endo Reports no additional complaints Tee/Lymph Reports no additional complaints Aller/Immun Reports no additional complaints Physical Exam Const General: cooperative, healthy appearing and no acute distress Orientation/consciousness: patient oriented x3 HEENT Head: Yes normal to inspection, Yes normocephalic and Yes atraumatic Eyes Conjunctivae: conjunctivae normal Neck Neck: Yes normal visual inspection and Yes trachea midline Chest Chest palpation & inspection: normal inspection of the chest Resp Effort & Inspection: normal respiratory effort GI Inspection: Yes normal to inspection Neuro General: patient oriented x3 Psych Appearance: grossly normal Results Reviewed Results Reviewed: Date of Service: 05/02/25 MR abdomen without gadolinium Comparison: None Findings: The visualized lungs are unremarkable. This is a markedly limited examination as the patient was claustrophobic and aborted the examination before completion. Only 1 sequences provided a coronal T2 weighted sequence demonstrating a large benign cyst arising from the upper pole of the right kidney measuring up to 6.6 cm in greatest diameter. A small hypointense lesion is seen in the lower pole of the left kidney measuring up to 9 mm in greatest diameter. This could represent a hemorrhagic cyst. The rest of the solid organs are unremarkable. The gallbladder is unremarkable. There are scattered colonic diverticula. No ascites. The patient is status post hysterectomy. The bones and soft tissues are within normal limits. IMPRESSION: Markedly limited study as above. Large right renal cyst. Small hypointense lesion lower pole left kidney is indeterminate but likely represents a hemorrhagic cyst. Assessment & Plan Assessment & Plan (1) Bilateral renal cysts: Code(s): N28.1 - Cyst of kidney, acquired Category: Medical (2) Renal mass of unknown nature: Code(s): N28.89 - Other specified disorders of kidney and ureter Category: Medical Plan I have discussed re-evaluation with CT abdomen with and without IV contrast. Orders: Orders CT abdomen wo/w IV con Today N28.1 - Cyst of kidney, acquired, N28.89 - Other specified disorders of kidney and ureter Patient Instructions: The patient had an opportunity to ask questions regarding treatment plan. The patient expressed understanding and agreement with the above treatment plan. The patient is aware they should contact our office by phone for worsening of their current condition or the appearance of new symptoms. Compliance is en couraged with any medications and followup testing that is ordered. It is a privilege to be allowed the opportunity to participate in the urologic care of your patient. If you have any questions or concerns regarding treatment for the above conditions please do not hesitate to contact me. The office telephone contact is [phone]. This note is constructed in part using voice recognition software. While every effort has been made to ensure accuracy insulation hoseman errors may have been included. Yours sincerely, Clayton Jung MD Coding Level of Care Code New Pt Level 4 (40414) Diagnoses Bilateral renal cysts N28.1 Renal mass of unknown nature N28.89
== END 2025-09-05 08:59 | disposition home or self-care (01) ==
LOC: HO.HUSH 08:08
PROVIDERS: PCP Student in an Organized Health Care Education/Training Program; Visit Provider Urology
DX: N28.1 Cyst of kidney, acquired (principal); N28.89 Other specified disorders of kidney and ureter
CPT/HCPCS: 99204

== ENCOUNTER → 2025-09-05 08:07 | Outpatient (BNVA) | payer OTHER, SELFPAY | PROVIDERS: PCP Student in an Organized Health Care Education/Training Program; Visit Provider Urology | DX: N28.1 Cyst of kidney, acquired (principal) | CPT/HCPCS: 81003 ==

== ENCOUNTER 2025-09-12 09:40 | Outpatient (AMB) | payer OTHER, SELFPAY ==
[2025-09-12 09:48] VITALS: BP 88/44; PULSE 78; O2SAT 98; BMI 27.7
--- NOTE | 2025-09-12 09:48 | A.OFFVIS_ITS ---
Vital Signs 09/12/25 09:48 Height 5 ft 1 in Weight 146 lb 6.191 oz BMI 27.7 BP 88/44 L Blood Pressure Location Rt brachial Position Sitting Pulse 78 Pulse Source Pulse Oximeter Pulse Oximetry (%) 98 Oxygen Delivery Method Room Air Intake Visit Reasons: DM Intake Note: Patient present today for Type 2 Diabetes Mellitus Last Diabetic eye exam: Last exam was on 09/2024 Last Podiatry Visit: Doesn't have one Random Glucose: 211 mg/dl HgA1C: 6.7% 06/23/25 Administrative Law Judge Required: No Accompanied by: Self / Same As Patient Allergies ciprofloxacin (From CIPRO) Allergy (Severe, Verified 09/12/25 09:53) ANAPHYLAXIS; RASH semaglutide (From Rybelsus) Adverse Reaction (Intermediate, Verified 09/12/25 09:53) blurry vision Medication List - Last Reconciled 09/12/25 by Cass Bateman PA-C aspirin 81 mg PO DAILY atorvastatin 40 mg PO BEDTIME blood sugar diagnostic (FreeStyle Lite Strips) Use 1 test strip once a day blood-glucose sensor (FreeStyle Chloe 3 Plus Sensor device) Use daily As directed to monitor glucose carvedilol 12.5 mg PO BIDWM chlorthalidone 25 mg PO DAILY 90 days dapagliflozin propanediol (Farxiga) 10 mg PO DAILY 30 days ezetimibe 10 mg PO DAILY isosorbide mononitrate ER 30 mg PO DAILY losartan 100 mg PO BEDTIME potassium chloride 20 mEq PO DAILY sertraline 25 mg PO DAILY ticagrelor 90 mg PO BID tirzepatide (Mounjaro) 5 mg (0.5 mL) subcut QWEEK HPI HPI DM: Details: Patient is a 65-year-old female with a significant past medical history of hypertension, dyslipidemia, CAD, proteinuria, ckd and type 2 diabetes presenting today for a diabetic consultation. Endo: Dm-diagnosed with diabetes around 2018 per pt. A1c was 6.9. She is currently on farixga 10 mg daily and mounjaro 2.5 mg weekly. -she does have nausea with the Trulicity at the higher doses. She says that she does feel sick for a few days with it and would be worried to increase her dose She does not tolerate higher doses of metformin. Tried semaglutide in the past and was very nauseous with this and had blurred vision with a Rybelsus. She has tried Farxiga in the past and was having UTIs and yeast infections so was taken off of this but recently restarted on it. She does not have any more sx. -rybelsus caused blurry vision (did see ophthamology who reports normal exam) cgm-avg glucose 140, gmi 6.7%, variability 22%. 1% very hyperglycemic. 10% hyperglycemic, 89% in range, 0% hypoglycemia States that sometimes her sensor tells her that she is low at night but when she checks her blood sugars she is really 120. Fam hx of t2dm CV: Blood pressure today is 88/44. I repeated this a few times and it is si milar. and is managed with losartan 100 mg a day, carvedilol 12.5 mg twice a day, and chlorthalidone 25 mg daily. At our last visit I lowered her losartan dosing. Sometimes during the day she is getting lightheaded. Bps upon waking up in the morning around systolic 120-140/60-80 and HR low 60s. She did take all of her medications today. She rarely checks bp after taking medications or while feeling lighteaded. She has lost 20 lbs this past year being on trulicity, ozempic and now mounjaro. She is seeing cardiology Friday. She is on atorvastatin 40 mg and Zetia 10 mg. Takes a daily aspirin. 08/22 she had a cardiac cath and had a balloon angioplasty. ON LICENSE OF [facility] Medical History Acute hypokalemia Suicidal ideation Depression CAD (coronary artery disease) PAC (premature atrial contraction) Tricuspid valve regurgitation Physical exam Screen for colon cancer Tachycardia Murmur Dyspnea Microalbuminuria Obesity (BMI 30.0-34.9) Dyslipidemia Hypertension Encounter for diabetic foot exam High cholesterol High blood pressure Diabetes mellitus Surgical History Stented coronary artery History of coronary artery stent placement S/P skin biopsy History of hernia repair S/P BLAIR-BSO (total abdominal hysterectomy and bilateral salpingo-oophorectomy) History of removal of cyst History of bladder surgery Family History Father CAD (coronary artery disease) CVD (cardiovascular disease) Myocardial infarction Substance use disorder Mother CVD (cardiovascular disease) Hypertension Brother Hypertension Sister Hypertension Daughter Obese Social History Household Members: Spouse Housing: Condominium Do you presently have visiting nurse or other home services: No Alcohol intake: current Alcohol intake frequency: holidays/special occasions only Alcohol type: hard liquor Patient Tobacco Use Status: Never used Tobacco Tobacco use type: Cigarette e-Cigarette/Vaping Use: Never Used Second Hand Smoke Exposure: No service: No Current occupational status: employed Current occupational exposures/hazards: No Sexual orientation: Straight/Heterosexual Cognitive needs: No Hearing needs: No Vision needs: Yes Physical Exam Vital Signs: Last Vital Signs Pulse 78 09/12/25 09:48 BP 88/44 L 09/12/25 09:48 Pulse Ox 98 09/12/25 09:48 Oxygen Delivery Method Room Air 09/12/25 09:48 BMI result Body Mass Index 27.7 Const Orientation/consciousness: patient oriented x3 HEENT Ears: hearing grossly normal bilaterally Neck Neck: Yes no lymphadenopathy Thyroid: Thyroid normal Carotids: no bruits Lymphatic: no lymphadenopathy noted Resp Auscultation: clear to auscultation bilaterally Cardio Rate: regular rate Rhythm: regular rhythm Heart sounds: S1 normal heart sound present and S2 normal heart sound present Peripheral pulses: dorsalis pedis present Skin General skin exam: no rashes or lesions noted Neuro General: patient oriented x3, gait normal and no focal motor deficits Extrem Other: Monofilament sensation intact bilaterally. Vibratory sensation intact bilaterally. Skin intact. General: Yes normal to inspection Results Reviewed Results Reviewed: Laboratory Tests 05/07/25 06/23/25 07/22/25 08:50 07:56 10:01 Sodium 139 Potassium 3.4 Chloride 100 Carbon Dioxide 27 Anion Gap 15 BUN 16 Creatinine 0.77 Estimated GFR > 60 Glucose (Clinic) Random Glucose 126 H Hemoglobin A1c % 6.7 H AST 30 ALT 39 H Triglycerides 91 Cholesterol 103 LDL Cholesterol, Calc 44 HDL Cholesterol 41 Urine Creatinine 103.37 Urine Microalbumin 74.0 Microalb/Creat Ratio 71.5 H 08/15/25 09:32 Sodium Potassium Chloride Carbon Dioxide Anion Gap BUN Creatinine Estimated GFR Glucose (Clinic) 154 H Random Glucose Hemoglobin A1c % AST ALT Triglycerides Cholesterol LDL Cholesterol, Calc HDL Cholesterol Urine Creatinine Urine Microalbumin Microalb/Creat Ratio Assessment & Plan Assessment & Plan (1) Uncontrolled type 2 diabetes mellitus with hyperglycemia: Code(s): E11.65 - Type 2 diabetes mellitus with hyperglycemia Category: Medical Plan: increase mounjaro to 5 mg weekly continue farxiga 10 mg (2) Hypotension: Code(s): I95.9 - Hypotension, unspecified Category: Medical Plan: continue losartan 100 mg daily continue carvedilol 12.5 mg bid continue isosorbide 30 mg daily d/c chlorthalidone and potassium she will follow up with cardiology Friday Medications: New tirzepatide (Mounjaro) 5 mg (0.5 mL) subcut QWEEK 2 mL 3RF Discontinued chlorthalidone Discontinued Reason: Doctor's Order 25 mg PO DAILY 90 days 90 tabs 1RF tirzepatide (Mounjaro) for 4 weeks Discontinued Reason: Doctor's Order 2.5 mg (0.5 mL) subcut QWEEK 2 mL 3RF potassium chloride Discontinued Reason: Doctor's Order 20 mEq PO DAILY 30 ea 2RF Patient Instructions: increase mounjaro to 5 mg weekly continue farxiga 10 mg continue losartan 100 mg daily continue carvedilol 12.5 mg bid continue isosorbide 30 mg daily d/c chlorthalidone and potassium she will follow up with cardiology Friday Coding Level of Care Code Est Pt Level 4 (07091) Complex EM visit Add On G2211 Diagnoses Uncontrolled type 2 diabetes mellitus with hyperglycemia E11.65 Hypotension I95.9
[2025-09-12 10:02] LABS: Glucose, Whole Blood 211 mg/dL (60-115)
--- OUTSIDE RECORDS SUMMARY | 2025-09-12 10:59 | XMS_ITS | Encounter Summary ---
Author Organization [facility], Address [address] [place] [address] Phone Care Team Providers Care Metal Buildings Assembler Name Role Phone Rebecca Rudolph MD Primary Care Provider [phone] Encounter Details Date Type Department Care Team (Late st Contact Info) Description 12/17/2019 Orders Only [facility] [address] [place] [phone] Jocelin Lester [address] [place] [phone] Social History Tobacco Use Types Packs/Day Years [...] Visit [facility], [address] [place] [address] Jay Jay Jenkins MD [address] [place] [address] documented as of this encounter Visit Diagnoses Not on filedocumented in this encounter Care Teams Metal Buildings Assembler Relationship Specialty Start Date End Date Rebecca Rudolph MD [address] [place], [place] PCP - General Internal Medicine 01/10/22 documented as of this encounter
--- OUTSIDE RECORDS SUMMARY | 2025-09-12 10:59 | XMS_ITS | Encounter Summary ---
Author Organization [facility], Address [address] [place] [address] Phone Care Team Providers Care Film Printer Name Role Phone Rebecca Rudolph MD Primary Care Provider [phone] Encounter Details Date Type Department Care Team (Late st Contact Info) Description 05/24/2024 Documentation Only [facility], [address] [place] [address] Jojo Berry [address] [place] [phone] Social History Tobacco Use Types Packs/Day [...] Visit [facility] [address] [place] [address] Jay Jay Jenkins MD [address] [place] [address] [place] [address] documented as of this encounter Visit Diagnoses Not on filedocumented in this encounter Care Teams Film Printer Relationship Specialty Start Date End Date Rebecca Rudolph MD [address] [place], [place] PCP - General Internal Medicine 01/10/22 documented as of this encounter
--- OUTSIDE RECORDS SUMMARY | 2025-09-12 10:59 | XMS_ITS | Encounter Summary ---
Author Organization [facility], Address [address] [place] [address] Phone Care Team Providers Care Guide Domestic Tour Name Role Phone Rebecca Rudolph MD Primary Care Provider [phone] Encounter Details Date Type Department Care Team (Late st Contact Info) Description 05/24/2024 Documentation Only [facility], [address] [place] [address] Jojo Berry [address] [place] [phone] Social History Tobacco Use Types Packs/Day [...] Of [facility] [address] [place] [address] Jay Jay Jenkins MD [address] [place] [address] [place] [address] documented as of this encounter Visit Diagnoses Not on filedocumented in this encounter Care Teams Guide Domestic Tour Relationship Specialty Start Date End Date Rebecca Rudolph MD [address] [place], [place] PCP - General Internal Medicine 01/10/22 documented as of this encounter
--- OUTSIDE RECORDS SUMMARY | 2025-09-12 10:59 | XMS_ITS | Encounter Summary ---
Author Organization [facility] Address [address] [place] [address] Phone Care Team Providers Care Relay Shop Tester Name Role Phone Rebecca Rudolph MD Primary Care Provider [phone] Reason for Visit * Reason Comments Med Change Request Encounter Details Date Type Department Care Team (Late st Contact Info) Description 11/25/2024 Refill [facility] [address] [place] [address] Jay Jay Jenkins MD [address] [place] [address] Social History Tobacco Use Types [...] Office Visit [facility] [address] [place] [address] Jay Jay Jenkins MD [address] [place] [address] documented as of this encounter Visit Diagnoses Not on filedocumented in this encounter Care Teams Relay Shop Tester Relationship Specialty Start Date End Date Rebecca Rudolph MD [address] [place], [place] PCP - General Internal Medicine 01/10/22 documented as of this encounter
--- OUTSIDE RECORDS SUMMARY | 2025-09-12 10:59 | XMS_ITS | Encounter Summary ---
Author Organization [facility] [place], Address [address] [place] [address] Phone Care Team Providers Care Methods Time Analyst Name Role Phone Rebecca Rudolph MD Primary Care Provider [phone] Encounter Details Date Type Department Care Team (Late st Contact Info) Description 06/02/2025 Documentation Only [facility] [address] [place] [address] Jojo Berry [address] [place] [phone] Social History Tobacco Use Types Packs/Day [...] Visit [facility] [address] [place] [address] Jay Jay Jenkins MD [address] [place] [address] [place] [address] documented as of this encounter Visit Diagnoses Not on filedocumented in this encounter Care Teams Methods Time Analyst Relationship Specialty Start Date End Date Rebecca Rudolph MD [address] [place], [place] PCP - General Internal Medicine 01/10/22 documented as of this encounter
--- OUTSIDE RECORDS SUMMARY | 2025-09-12 10:59 | XMS_ITS | Encounter Summary ---
Author Organization [facility] [place], Address [address] [place] [address] Phone Care Team Providers Care Muffler Mechanic Name Role Phone Rebecca Rudolph MD Primary Care Provider [phone] Encounter Details Date Type Department Care Team (Late st Contact Info) Description 07/06/2025 Documentation Only [facility] [address] [place] [address] Jojo Berry [address] [place] [phone] Social History Tobacco Use Types Packs/Day [...] Visit [facility] [address] [place] [address] Jay Jay Jenkins MD [address] [place] [address] [place] [address] documented as of this encounter Visit Diagnoses Not on filedocumented in this encounter Care Teams Muffler Mechanic Relationship Specialty Start Date End Date Rebecca Rudolph MD [address] [place], [place] PCP - General Internal Medicine 01/10/22 documented as of this encounter
--- OUTSIDE RECORDS SUMMARY | 2025-09-12 10:59 | XMS_ITS | Encounter Summary ---
Author Organization [facility] Address [address] [place] [address] Phone Care Team Providers Care Chancellor Name Role Phone Rebecca Rudolph MD Primary Care Provider Reason for Visit * Reason Comments Med Refill Encounter Details Date Type Department Care Team (Late st Contact Info) Description 11/21/2024 Refill [facility] [address] [place] [address] Jay Jay Jenkins MD [address] [place] [address] Social History Tobacco Use Types [...] [facility] [address] [place] [address] Jay Jay Jenkins MD [address] [place] [address] documented as of this encounter Visit Diagnoses Not on filedocumented in this encounter Care Teams Chancellor Relationship Specialty Start Date End Date Rebecca Rudolph MD [address] [place], [place] PCP - General Internal Medicine 01/10/22 documented as of this encounter
--- OUTSIDE RECORDS SUMMARY | 2025-09-12 10:59 | XMS_ITS | Patient Health Record ---
Author Organization [facility] Address [address] [place] [phone] Care Team Providers Care Deputy County Counsel Name Role Phone NONE, NONE Primary Care Provider Narendra Wilson Unavailable [phone] Reason For Referral No Information Plan Of Treatment No Information
--- OUTSIDE RECORDS SUMMARY | 2025-09-12 10:59 | XMS_ITS | Encounter Summary ---
Author Organization [facility] Address [address] [place] [address] Phone Care Team Providers Care Senior Java Software Engineer Name Role Phone Rebecca Rudolph MD Primary Care Provider [phone] Reason for Visit * Reason Comments Med Change Request Encounter Details Date Type Department Care Team (Late st Contact Info) Description 12/01/2024 Refill [facility] [address] [place] [address] Jay Jay Jenkins MD [address] [place] [address] Social History Tobacco Use Types [...] Office Visit [facility] [address] [place] [address] Jay Jay Jenkins MD [address] [place] [address] documented as of this encounter Visit Diagnoses Not on filedocumented in this encounter Care Teams Senior Java Software Engineer Relationship Specialty Start Date End Date Rebecca Rudolph MD [address] [place], [place] PCP - General Internal Medicine 01/10/22 documented as of this encounter
--- OUTSIDE RECORDS SUMMARY | 2025-09-12 10:59 | XMS_ITS | Encounter Summary ---
Author Organization [facility] [place], Address [address] [place] [address] Phone Care Team Providers Care Carpenter Supervisor Name Role Phone Rebecca Rudolph MD Primary Care Provider [phone] Encounter Details Date Type Department Care Team (Late st Contact Info) Description 11/30/2024 Documentation Only [facility] [address] [address] Jojo Berry [address] [place] [phone] Social History Tobacco Use Types Packs/Day [...] Visit [facility] [address] [address] Jay Jay Jenkins MD [address] [place] [address] [place] [address] documented as of this encounter Visit Diagnoses Not on filedocumented in this encounter Care Teams Carpenter Supervisor Relationship Specialty Start Date End Date Rebecca Rudolph MD [address] [place], [place] PCP - General Internal Medicine 01/10/22 documented as of this encounter
--- OUTSIDE RECORDS SUMMARY | 2025-09-12 10:59 | XMS_ITS | Encounter Summary ---
Author Organization [facility] [place], Address [address] [place] [address] Phone Care Team Providers Care Camp Dishwasher Name Role Phone Rebecca Rudolph MD Primary Care Provider [phone] Encounter Details Date Type Department Care Team (Late st Contact Info) Description 12/14/2024 Documentation Only [facility] [address] [place] [address] Jojo Berry [address] [place] [phone] Social History Tobacco Use Types Packs/Day [...] Visit [facility] [address] [place] [address] Jay Jay Jenkins MD [address] [place] [address] [place] [address] documented as of this encounter Visit Diagnoses Not on filedocumented in this encounter Care Teams Camp Dishwasher Relationship Specialty Start Date End Date Rebecca Rudolph MD [address] [place], [place] PCP - General Internal Medicine 01/10/22 documented as of this encounter
--- OUTSIDE RECORDS SUMMARY | 2025-09-12 10:59 | XMS_ITS | Clinical Summary ---
Author Organization [facility], Address [address] [place] [address] Phone Care Team Providers Care Internet Marketing Analyst Name Role Phone Rebecca Rudolph MD Primary Care Provider [phone] Allergies Active Allergy Reactions Criticality Noted Date [...] EVERY DAY WITH EVENING MEAL 01/24/2020 Active carvedilol (COREG) 12.5 MG tablet Take [...] the morning 30 tablet 11 05/30/2025 Active losartan (COZAAR) 100 MG tablet TAKE 1/2 TABLET BY MOUTH EVERY MORNING AND 1 TABLET EVERY NIGHT AT BEDTIME 135 tablet 3 08/09/2025 Active Active Problems Problem Noted Date Diagnosed Date Essential (primary) hypertension 05/30/2020 Type 2 diabetes mellitus Persistent proteinuria Microalbuminuria Dyslipidemia Hypercholesterolemia Encounters Date Type Department Care Team Description 08/09/2025 Refill [facility] [address] [address] Jojo Berry 07/06/2025 Documentation Only [facility] [address] [place] [address] Jojo Berry from Last 3 Months Immunizations [...] Visit [facility] [place], [address] [place] [address] Jay Jay Jenkins MD [address] [place] [address] Health Maintenance Due Date Last [...] Exam 02/07/2020 Diabetes: Hemoglobin A1C 02/24/2024 11/25/2023, 040 05/2021 Influenza Vaccine (#1) 2025 , 08/26/2020, [...] PM EST) Hemoglobin A1C 7.2(H) (4.0-5.6) % [facility] Comment: MONITORING: In known diabetic patients, hemoglobin A1c targets should be discussed with health care provider. DIAGNOSTIC USE: The [place] [employer] (ADA) and the World Health [...] Supplement 1 Testing performed or reported by [facility], a Service of [facility], [address] [place] [address] Moi Apple MD, Procedure Writer [facility]# [id number] Blood specimen (specimen) Venous blood / Unknown 11/25/2023 4:07 PM EST 11/25/2023 4:08 PM EST us Jay Jay Jenkins MD LAB BLOOD ORDERABLES Final Re sult [facility] from Last 3 Months or Most Recently Relevant to Health Maintenance Insurance [id number] Care Teams Internet Marketing Analyst Relationship Specialty Start Date End Date Rebecca Rudolph MD [address] [place], [place] PCP - General Internal Medicine 01/10/22
== END 2025-09-12 10:25 | disposition home or self-care (01) ==
LOC: HO.ENCR 09:41
PROVIDERS: PCP Internal Medicine; Visit Provider Physician Assistant
DX: E11.65 Type 2 diabetes mellitus with hyperglycemia (principal); I95.9 Hypotension, unspecified

== ENCOUNTER → 2025-09-12 09:40 | Outpatient (BNVA) | payer OTHER, SELFPAY | PROVIDERS: PCP Internal Medicine; Visit Provider Physician Assistant | DX: E11.65 Type 2 diabetes mellitus with hyperglycemia (principal); I10 Essential (primary) hypertension; E78.5 Hyperlipidemia, unspecified; I95.9 Hypotension, unspecified; Z79.84 Long term (current) use of oral hypoglycemic drugs; Z79.899 Other long term (current) drug therapy | CPT/HCPCS: 82947 ==

== ENCOUNTER 2025-09-14 13:42 | Outpatient (AMB) | payer OTHER, SELFPAY ==
--- NOTE | 2025-09-14 13:43 | MHC.OFFVIS ---
Vital Signs 09/14/25 13:44 Height 5 ft 1 in Weight 145 lb 8.081 oz BMI 27.5 BP 100/52 L Position Sitting Pulse 61 Pulse Source Pulse Oximeter Intake Visit Reasons: (Cardiac cath) Wound check f/u News Reporter Required: No Accompanied by: Self / Same As Patient Allergies ciprofloxacin (From CIPRO) Allergy (Severe, Verified 09/14/25 13:48) ANAPHYLAXIS; RASH semaglutide (From Rybelsus) Adverse Reaction (Intermediate, Verified 09/14/25 13:48) blurry vision Medication List - Last Reconciled 09/14/25 by Rick Wilkes NP aspirin 81 mg PO DAILY atorvastatin 40 mg PO BEDTIME blood sugar diagnostic (FreeStyle Lite Strips) Use 1 test strip once a day blood-glucose sensor (FreeStyle Chloe 3 Plus Sensor device) Use daily As directed to monitor glucose carvedilol 12.5 mg PO BIDWM dapagliflozin propanediol (Farxiga) 10 mg PO DAILY 30 days ezetimibe 10 mg PO DAILY isosorbide mononitrate ER 30 mg PO DAILY losartan 100 mg PO BEDTIME sertraline 25 mg PO DAILY ticagrelor 90 mg PO BID tirzepatide (Mounjaro) 5 mg (0.5 mL) subcut QWEEK HPI Comments Details: This is a 65-year-old female patient coming in for a follow-up status post cardiac catheterization. Patient with a history of hypertension, hyperlipidemia, coronary artery disease with prior PCI in 2021, and diabetes who has been reporting some shortness of breath with exertion and underwent a myocardial perfusion study that showed a small area of moderately intensity distal lateral inferior apical ischemia for which patient was referred out to cardiac catheterization and is now status post PCI placement. Today, patient is reporting feeling better overall without any symptoms of exertional chest pain, shortness of breath, palpitations, dizziness, orthopnea, PND, leg edema, presyncope or syncope. Patient reports that recently at her endocrinology visit, patient's blood pressure was noted to be low and therefore they stopped her chlorthalidone. Patient is otherwise reporting compliance with all medications. [facility] Medical History (Updated 09/13/25 @ 09:04 by Heidi Yu Dipak) Contraindication to percutaneous coronary intervention (PCI) Acute hypokalemia Suicidal ideation Depression CAD (coronary artery disease) PAC (premature atrial contraction) Tricuspid valve regurgitation Physical exam Screen for colon cancer Tachycardia Murmur Dyspnea Microalbuminuria Obesity (BMI 30.0-34.9) Dyslipidemia Hypertension Encounter for diabetic foot exam High cholesterol High blood pressure Diabetes mellitus Surgical History Status post angioplasty with stent Stented coronary artery History of coronary artery stent placement S/P skin biopsy History of hernia repair S/P BLAIR-BSO (total abdominal hysterectomy and bilateral salpingo-oophorectomy) History of removal of cyst History of bladder surgery Family History Father CAD (coronary artery disease) CVD (cardiovascular disease) Myocardial infarction Substance use disorder Mother CVD (cardiovascular disease) Hypertension Brother Hypertension Sister Hypertension Daughter Obese Social History Household Members: [facility] Do you presently have visiting nurse or other home services: No Alcohol intake: current Alcohol intake frequency: holidays/special occasions only Alcohol type: hard liquor Patient Tobacco Use Status: Never used Tobacco Tobacco use type: Cigarette e-Cigarette/Vaping Use: Never Used Second Hand Smoke Exposure: No service: No Current occupational status: employed Current occupational exposures/hazards: No Sexual orientation: Straight/Heterosexual Cognitive needs: No Hearing needs: No Vision needs: Yes Review of Systems Const Denies daytime sleepiness, Denies difficulty sleeping, Denies snoring, Denies stops breathing during sleep and Denies weakness Card Denies chest pain, Denies rapid heart rate, Denies irregular heart rhythm, Denies claudication, Denies leg edema, Denies lightheadedness, Denies palpitations, Reports dyspnea, Reports dyspnea on exertion, Denies orthopnea, Denies paroxysmal nocturnal dyspnea and Denies slow heart rate Resp Denies cough, Reports dyspnea, Reports dyspnea on exertion and Denies snoring GI Reports no additional complaints, Denies hematochezia, Denies change in stool character and Denies dyspepsia Musc Denies abnormal gait, Denies muscle weakness and Denies numbness Neuro Denies abnormal gait, Denies numbness and Denies weakness Endo Denies palpitations Physical Exam Vital Signs: Last Vital Signs Pulse 61 09/14/25 13:44 BP 100/52 L 09/14/25 13:44 BMI result Body Mass Index 27.5 Const General: cooperative, healthy appearing, comfortable and no acute distress Orientation/consciousness: patient oriented x3 HEENT Head: Yes normal to inspection Neck Neck: Yes normal visual inspection, Yes trachea midline and Yes supple Chest Chest palpation & inspection: normal inspection of the chest Resp Effort & Inspection: normal respiratory effort Auscultation: clear to auscultation bilaterally, no crackles, no rales, no rhonchi and no wheezes Cardio Jugular venous distension: no JVD Palpation: normal PMI Rate: regular rate Rhythm: regular rhythm Heart sounds: S1 normal heart sound present, S2 normal heart sound present, no click, no gallops, no murmurs and no rubs Peripheral pulses: Peripheral pulses 2+ throughout GI Inspection: Yes normal to inspection Palpation (GI): Soft to palpation Auscultation: normal bowel sounds Skin General skin exam: no rashes or lesions noted Neuro General: patient oriented x3 Extrem General: Yes normal to inspection, No no pedal edema and No calf tenderness Psych Appearance: grossly normal Mental Status: mental status grossly normal Speech and movement: Normal speech and movement present Assessment & Plan Assessment & Plan (1) CAD (coronary artery disease): Code(s): I25.10 - Atherosclerotic heart disease of [place] coronary artery without angina pectoris Category: Medical Plan: 04/15/2025-echo study showed a normal LV systolic function with an ejection fraction between 60-65% with pseudo normal filling pattern. 05/18/2025-myocardial perfusion study showed a small area of moderate intensity distal lateral and inferior apical ischemia. For the stress portion of the test, patient developed shortness of breath and chest tightness with ST-depression inferiorly and in leads V4 to V6. Patient with a history of coronary artery disease with prior PCI to RCA and LCX [place] [address] Sanchez. Given above finding, patient was referred out to cardiac catheterization. 08/22/2025-patient underwent cardiac catheterization with Dr. Kruse at [facility] that showed minimal luminal irregularities in LMCA, lad, left circumflex and patent stent in the proximal circumflex. RCA with previous mid RCA stent that was treated with balloon angioplasty and hs drug coated balloon. Due to significant radial spasms, catheter exercise was switched to groin. Fading bruises noted otherwise catheter insertion sites are well healed. Continue with lifelong aspirin therapy. Continue Brilinta of uninterrupted for at least 12 months. Patient has already been referred out cardiac rehab in his planning to start this in a few weeks. Continue carvedilol, isosorbide, high-dose statin, and Zetia therapy. We will periodically monitor her kidney function. (2) Status post cardiac catheterization: Code(s): Z98.890 - Other specified postprocedural states Category: Surgical Plan: As above. (3) PAC (premature atrial contraction): Code(s): I49.1 - Atrial premature depolarization Category: Medical Plan: History of PACs. 04/15/2025-Holter study showed baseline rhythm of sinus with an average rate of 71 beats per minute, rare supraventricular ectopy with a burden of 0.9%, short runs noted, and rare ventricular ectopies. (4) Hypertension: Code(s): I10 - Essential (primary) hypertension Category: Medical Qualifiers: Hypertension type: unspecified Qualified Code(s): I10 - Essential (primary) hypertension Plan: Blood pressure today is on the low-normal side. Patient brings her home log of blood pressures that have been stable in between 120-140 systolic. At a recent endocrinology visit, patient's blood pressure was noted to be systolically in the 80s and therefore her chlorthalidone was discontinued alongside potassium supplement. This change was made 2 days ago and therefore we will wait to make any changes in medications at this time. We will bring patient back in for a blood pressure visit with the nurse in 2 weeks. If patient continues to have low blood pressures then we can adjust medications accordingly. Advised to continue monitoring blood pressures at home with a goal less than 130/80. (5) Hyperlipidemia LDL goal <70: Code(s): E78.5 - Hyperlipidemia, unspecified Category: Medical Plan: As above. Ideally, LDL goal less than 70. (6) Diabetes mellitus, without long-term current use of insulin: Code(s): E11.9 - Type 2 diabetes mellitus without complications Category: Medical Plan: Continue aggressive diabetes management with an A1c goal less than 7%. By endocrinology. Advised on heart healthy diet, regular exercise, med compliance, and aggressive management of vascular risk factors. Follow up in 4 months. In the interim, patient will call the office with any concerns or change in symptoms. This note was generated using voice recognition software. While every effort has been made to ensure accuracy and proper machine edge bander, there may be occasional errors that could affect the content or meaning of the described symptoms. Coding Level of Care Code Est Pt Level 4 (13409) Complex EM visit Add On G2211 Diagnoses CAD (coronary artery disease) I25.10 Status post cardiac catheterization Z98.890 PAC (premature atrial contraction) I49.1 Hypertension, unspecified type I10 Hypertension type: unspecified Hyperlipidemia LDL goal <70 E78.5 Diabetes mellitus, without long-term current use of insulin E11.9 Time Spent (min) 32 Comment Time spent in reviewing the chart, test results, assessment, counseling and documentation.
[2025-09-14 13:44] VITALS: BP 100/52; PULSE 61; BMI 27.5
--- OUTSIDE RECORDS SUMMARY | 2025-09-14 17:30 | XMS_ITS | Patient Health Record ---
Author Organization [facility] Address [address] [place] [address] Care Team Providers Care Flying Teacher Name Role Phone NONE, NONE Primary Care Provider Narendra Wilson Unavailable [phone] Reason For Referral No Information Plan Of Treatment No Information
--- OUTSIDE RECORDS SUMMARY | 2025-09-14 17:30 | XMS_ITS | Encounter Summary ---
Author Organization [facility], Address [address] [place] [address] Phone Care Team Providers Care Data Governance Analyst Name Role Phone Rebecca Rudolph MD Primary Care Provider [phone] Encounter Details Date Type Department Care Team (Late st Contact Info) Description 05/24/2024 Documentation Only [facility], [address] [place] [address] Jojo Berry [address] [place] [phone] Social History Tobacco Use Types Packs/Day [...] Visit [facility] [address] [place] [address] Jay Jay Jenkins MD [address] [place] [address] [place] [address] documented as of this encounter Visit Diagnoses Not on filedocumented in this encounter Care Teams Data Governance Analyst Relationship Specialty Start Date End Date Rebecca Rudolph MD [address] [place], [place] PCP - General Internal Medicine 01/10/22 documented as of this encounter
--- OUTSIDE RECORDS SUMMARY | 2025-09-14 17:30 | XMS_ITS | Clinical Summary ---
Author Organization [facility], Address [address] [place] [address] Phone Care Team Providers Care Mixer Runner Name Role Phone Rebecca Rudolph MD Primary Care Provider [phone] Allergies Active Allergy Reactions Criticality Noted Date [...] Refill [facility] [address] [place] [address] Jojo Berry 07/06/2025 Documentation Only [facility] [address] [place] [address] Jojo Berry from Last 3 Months Immunizations [...] Visit [facility] [place], [address] [place] [address] Jay Jay Jenkins MD [address] [place] [address] Health Maintenance Due Date Last [...] PM EST) Hemoglobin A1C 7.2(H) (4.0-5.6) % [facility] Comment: MONITORING: In known diabetic patients, hemoglobin A1c targets should be discussed with health care provider. DIAGNOSTIC USE: The [place] [employer] (ADA) and the World [...] Supplement 1 Testing performed or reported by [facility], a Service of [facility], [address] [place] [address] Moi Apple MD, Operator Assistant I Cementing [facility]# [id number] Blood specimen (specimen) Venous blood / Unknown 11/25/2023 4:07 PM EST 11/25/2023 4:08 PM EST us Jay Jay Jenkins MD LAB BLOOD ORDERABLES Final Re sult [facility] from Last 3 Months or Most Recently Relevant to Health Maintenance Insurance [id number] Care Teams Mixer Runner Relationship Specialty Start Date End Date Rebecca Rudolph MD [address] [place], [place] PCP - General Internal Medicine 01/10/22
--- OUTSIDE RECORDS SUMMARY | 2025-09-14 17:30 | XMS_ITS | Encounter Summary ---
Author Organization [facility] Address [address] [place] [address] Phone Care Team Providers Care Opto Mechanical Engineer Name Role Phone Rebecca Rudolph MD Primary Care Provider [phone] Reason for Visit * Reason Comments Med Change Request Encounter Details Date Type Department Care Team (Late st Contact Info) Description 12/01/2024 Refill [facility] [address] [place] [address] Jay Jay Jenkins MD [address] [place] [address] Social History Tobacco Use Types [...] Office Visit [facility] [address] [place] [address] Jay Jay Jenkins MD [address] [place] [address] documented as of this encounter Visit Diagnoses Not on filedocumented in this encounter Care Teams Opto Mechanical Engineer Relationship Specialty Start Date End Date Rebecca Rudolph MD [address] [place], [place] PCP - General Internal Medicine 01/10/22 documented as of this encounter
--- OUTSIDE RECORDS SUMMARY | 2025-09-14 17:30 | XMS_ITS | Encounter Summary ---
Author Organization [facility] Address [address] [place] [address] Phone Care Team Providers Care Department Store Salesperson Name Role Phone Rebecca Rudolph MD Primary Care Provider Reason for Visit * Reason Comments Med Refill Encounter Details Date Type Department Care Team (Late st Contact Info) Description 11/21/2024 Refill [facility] [address] [place] [address] Jay Jay Jenkins MD [address] [place] [address] Social History Tobacco Use Types [...] Office Visit [facility] [address] [place] [address] Jay Jay Jenkins MD [address] [place] [address] documented as of this encounter Visit Diagnoses Not on filedocumented in this encounter Care Teams Department Store Salesperson Relationship Specialty Start Date End Date Rebecca Rudolph MD [address] [place], [place] PCP - General Internal Medicine 01/10/22 documented as of this encounter
--- OUTSIDE RECORDS SUMMARY | 2025-09-14 17:30 | XMS_ITS | Encounter Summary ---
Author Organization [facility] [place], Address [address] [place] [address] Phone Care Team Providers Care Suction Plate Roller Hand Name Role Phone Rebecca Rudolph MD Primary Care Provider [phone] Encounter Details Date Type Department Care Team (Late st Contact Info) Description 06/02/2025 Documentation Only [facility] [address] [address] Jojo Berry [address] [place] [phone] Social History Tobacco Use Types Packs/Day [...] Visit [facility] [address] [address] Jay Jay Jenkins MD [address] [place] [address] [place] [address] documented as of this encounter Visit Diagnoses Not on filedocumented in this encounter Care Teams Suction Plate Roller Hand Relationship Specialty Start Date End Date Rebecca Rudolph MD [address] [place], [place] PCP - General Internal Medicine 01/10/22 documented as of this encounter
--- OUTSIDE RECORDS SUMMARY | 2025-09-14 17:30 | XMS_ITS | Encounter Summary ---
Author Organization [facility] [place], Address [address] [place] [address] Phone Care Team Providers Care Tug Boat Engineer Name Role Phone Rebecca Rudolph MD Primary Care Provider [phone] Encounter Details Date Type Department Care Team (Late st Contact Info) Description 12/14/2024 Documentation Only [facility] [address] [address] Jojo Berry [address] [place] [phone] Social History Tobacco Use Types Packs/Day [...] Visit [facility] [address] [address] Jay Jay Jenkins MD [address] [place] [address] [place] [address] documented as of this encounter Visit Diagnoses Not on filedocumented in this encounter Care Teams Tug Boat Engineer Relationship Specialty Start Date End Date Rebecca Rudolph MD [address] [place], [place] PCP - General Internal Medicine 01/10/22 documented as of this encounter
--- OUTSIDE RECORDS SUMMARY | 2025-09-14 17:30 | XMS_ITS | Encounter Summary ---
Author Organization [facility] [place], Address [address] [place] [address] Phone Care Team Providers Care Redrawer Name Role Phone Rebecca Rudolph MD Primary Care Provider [phone] Encounter Details Date Type Department Care Team (Late st Contact Info) Description 05/24/2024 Documentation Only [facility] [place], [address] [place] [address] Jojo Berry [address] [place] [phone] Social History Tobacco Use Types Packs/Day [...] Visit [facility] [address] [place] [address] Jay Jay Jenkins MD [address] [place] [address] [place] [address] documented as of this encounter Visit Diagnoses Not on filedocumented in this encounter Care Teams Redrawer Relationship Specialty Start Date End Date Rebecca Rudolph MD [address] [place], [place] PCP - General Internal Medicine 01/10/22 documented as of this encounter
--- OUTSIDE RECORDS SUMMARY | 2025-09-14 17:30 | XMS_ITS | Encounter Summary ---
Author Organization [facility] [place], Address [address] [place] [address] Phone Care Team Providers Care Velvet Steamer Name Role Phone Rebecca Rudolph MD Primary Care Provider [phone] Encounter Details Date Type Department Care Team (Late st Contact Info) Description 07/06/2025 Documentation Only [facility] [address] [place] [address] Jojo Berry [address] [place] [phone] Social History Tobacco Use Types Packs/Day [...] Visit [facility] [address] [place] [address] Jay Jay Jenkins MD [address] [place] [address] [place] [address] documented as of this encounter Visit Diagnoses Not on filedocumented in this encounter Care Teams Velvet Steamer Relationship Specialty Start Date End Date Rebecca Rudolph MD [address] [place], [place] PCP - General Internal Medicine 01/10/22 documented as of this encounter
--- OUTSIDE RECORDS SUMMARY | 2025-09-14 17:30 | XMS_ITS | Encounter Summary ---
Author Organization [facility] [place], Address [address] [place] [address] Phone Care Team Providers Care Statistical Developer Name Role Phone Rebecca Rudolph MD Primary Care Provider [phone] Encounter Details Date Type Department Care Team (Late st Contact Info) Description 11/30/2024 Documentation Only [facility] [address] [place] [address] Jojo Berry [address] [place] [phone] Social History Tobacco Use Types Packs/Day [...] [facility] [address] [place] [place] [address] Jay Jay Jenkins MD [address] [place] [address] [place] [address] documented as of this encounter Visit Diagnoses Not on filedocumented in this encounter Care Teams Statistical Developer Relationship Specialty Start Date End Date Rebecca Rudolph MD [address] [place], [place] PCP - General Internal Medicine 01/10/22 documented as of this encounter
--- OUTSIDE RECORDS SUMMARY | 2025-09-14 17:30 | XMS_ITS | Encounter Summary ---
Author Organization [facility] Address [address] [place] [address] Phone Care Team Providers Care Infrastructure Tech Name Role Phone Rebecca Rudolph MD Primary Care Provider [phone] Reason for Visit * Reason Comments Med Change Request Encounter Details Date Type Department Care Team (Late st Contact Info) Description 11/25/2024 Refill [facility] [address] [place] [address] Jay Jay Jenkins MD [address] [place] [address] Social History Tobacco Use Types [...] [facility] [address] [place] [address] Jay Jay Jenkins MD [address] [place] [address] documented as of this encounter Visit Diagnoses Not on filedocumented in this encounter Care Teams Infrastructure Tech Relationship Specialty Start Date End Date Rebecca Rudolph MD [address] [place], [place] PCP - General Internal Medicine 01/10/22 documented as of this encounter
--- OUTSIDE RECORDS SUMMARY | 2025-09-14 17:30 | XMS_ITS | Encounter Summary ---
Author Organization [facility], Address [address] [place] [address] Phone Care Team Providers Care Care Partner Name Role Phone Rebecca Rudolph MD Primary Care Provider [phone] Encounter Details Date Type Department Care Team (Late st Contact Info) Description 12/17/2019 Orders Only [facility] [address] [place] [phone] Jocelin Lester [address] [place] [phone] Social History Tobacco Use Types Packs/Day Years [...] Visit [facility], [address] [place] [address] Jay Jay Jenkins MD [address] [place] [address] documented as of this encounter Visit Diagnoses Not on filedocumented in this encounter Care Teams Care Partner Relationship Specialty Start Date End Date Rebecca Rudolph MD [address] [place], [place] PCP - General Internal Medicine 01/10/22 documented as of this encounter
== END 2025-09-14 14:14 | disposition home or self-care (01) ==
LOC: HO.HCS 13:43
PROVIDERS: PCP Internal Medicine
DX: I25.10 Atherosclerotic heart disease of native coronary artery without angina pectoris (principal); Z98.890 Other specified postprocedural states; I49.1 Atrial premature depolarization; I10 Essential (primary) hypertension; E78.5 Hyperlipidemia, unspecified; E11.9 Type 2 diabetes mellitus without complications
CPT/HCPCS: 99214; G2211

== ENCOUNTER 2025-09-17 10:06 | Outpatient (REF) | payer OTHER, SELFPAY ==
--- OUTSIDE RECORDS SUMMARY | 2025-09-17 10:10 | XMS_ITS | Patient Health Record ---
Author Organization [facility] Address [address] [place] [address] Care Team Providers Care Harness Racing Handicapper Name Role Phone NONE, NONE Primary Care Provider Narendra Wilson Unavailable [phone] Reason For Referral No Information Plan Of Treatment No Information
[2025-09-17 10:32] LABS: MANUAL DIFF FLAG NO
[2025-09-17 10:45] LABS: Hematocrit 47.4 % (37.0-47.0); Hemoglobin 15.0 g/dl (12.0-16.0); Imm Gran Abs Auto 0.02 X10*3/uL (0.00-0.03); Imm Gran Pct Auto 0.2 % (0.0-0.4); Lymphocytes Absolute Auto 2.9 X10*3/uL (1.2-4.9); Mean Corpuscular HGB Conc 31.6 g/dl (31.0-35.0); Mean Corpuscular Hemoglobin 28.3 pg (27.0-33.0); Mean Corpuscular Volume 89.4 fL (80.0-98.0); NRBC Abs Auto 0.000 X10*3/uL (0.0-0.012); NRBC Pct Auto 0.0 /100WBC (0.0-0.2); Platelet Count 336 X10*3/uL (160-400); Red Blood Count 5.30 X10*6/uL (4.20-5.50); White Blood Count 9.2 X10*3/uL (4.8-10.8)
[2025-09-17 10:56] LABS: Appearance Urine Clear; Glucose Urine UA >=1000 mg/dL (Negative); PH 6.5 (5.0-9.0); Specific Gravity - Urine >= 1.030 (1.005-1.025); UMIC TRIGGER UACC YES
[2025-09-17 11:00] LABS: Renal w Reflex Lab Use Only Order verified
[2025-09-17 11:16] LABS: Alanine Aminotransferase 20 U/L (0-31); Albumin Level 4.5 g/dL (3.5-5.0); Alkaline Phosphatase 90 U/L (39-117); Anion Gap 15 (12-20); Aspartate Amino Transferase 23 U/L (5-31); Blood Urea Nitrogen 17 mg/dL (9-16); Calcium 9.1 mg/dL (8.4-10.2); Carbon Dioxide 21 mmol/L (22-29); Chloride 110 mmol/L (96-108); Cholesterol 131 mg/dL (<200); Estimated Glomerular Filt Rate > 60; HDL Cholesterol 45 mg/dL (>40); Potassium 3.7 mmol/L (3.3-5.1); Sodium 142 mmol/L (135-145); Total Protein 7.9 g/dL (6.5-8.0); Triglycerides 93 mg/dL (<150)
[2025-09-17 12:03] LABS: Microalbum/Creatinine Ratio Ur 108.9 ug/mg cr (<30); Protein/Creatinine Ratio, Ur 0.25 (<0.2); Total Protein Urine Random 21 mg/dL (<12)
== END 2025-09-17 10:07 | disposition home or self-care (01) ==
LOC: HO.LAB 10:06
PROVIDERS: Absent Provider Internal Medicine Nephrology; PCP Internal Medicine; Visit Provider Internal Medicine
DX: E11.65 Type 2 diabetes mellitus with hyperglycemia (principal); E78.5 Hyperlipidemia, unspecified; R80.1 Persistent proteinuria, unspecified; Z13.21 Encounter for screening for nutritional disorder
CPT/HCPCS: 36415; 80051; 80053; 80061; 81001; 82043; 82306; 82310; 82565; 82570; 84100; 84156; 84520; 85025

== ENCOUNTER 2025-09-20 07:59 | Outpatient (AMB) | payer OTHER, SELFPAY ==
--- OUTSIDE RECORDS SUMMARY | 2025-09-20 08:05 | XMS_ITS | Encounter Summary ---
Author Organization [facility], Address [address] [place] [address] Phone Care Team Providers Care Emergency Medical Dispatcher Name Role Phone Rebecca Rudolph MD Primary Care Provider [phone] Encounter Details Date Type Department Care Team (Late st Contact Info) Description 06/02/2025 Documentation Only [facility] [address] [place] [address] Jojo Berry [address] [place] [phone] Social History Tobacco Use Types Packs/Day [...] Visit [facility] [address] [place] [address] Jay Jay Jenkins MD [address] [place] [address] [place] [address] documented as of this encounter Visit Diagnoses Not on filedocumented in this encounter Care Teams Emergency Medical Dispatcher Relationship Specialty Start Date End Date Rebecca Rudolph MD [address] [place], [place] PCP - General Internal Medicine 01/10/22 documented as of this encounter
--- OUTSIDE RECORDS SUMMARY | 2025-09-20 08:05 | XMS_ITS | Patient Health Record ---
Author Organization [facility] Address [address] [place] [address] Care Team Providers Care Port Captain Name Role Phone NONE, NONE Primary Care Provider Narendra Wilson Unavailable [phone] Reason For Referral No Information Plan Of Treatment No Information
--- OUTSIDE RECORDS SUMMARY | 2025-09-20 08:05 | XMS_ITS | Encounter Summary ---
Author Organization [facility], Address [address] [place] [address] Phone Care Team Providers Care Chain Saw Mechanic Name Role Phone Rebecca Rudolph MD Primary Care Provider [phone] Encounter Details Date Type Department Care Team (Late st Contact Info) Description 12/17/2019 Orders Only [facility] [address] [place] [phone] Jocelin Lester [address] [place] [phone] Social History Tobacco Use Types Packs/Day Years [...] Visit [facility], [address] [place] [address] Jay Jay Jenkins MD [address] [place] [address] documented as of this encounter Visit Diagnoses Not on filedocumented in this encounter Care Teams Chain Saw Mechanic Relationship Specialty Start Date End Date Rebecca Rudolph MD [address] [place], [place] PCP - General Internal Medicine 01/10/22 documented as of this encounter
--- OUTSIDE RECORDS SUMMARY | 2025-09-20 08:05 | XMS_ITS | Encounter Summary ---
Author Organization [facility] Address [address] [place] [address] Phone Care Team Providers Care Traffic Manager Name Role Phone Rebecca Rudolph MD Primary Care Provider [phone] Reason for Visit * Reason Comments Med Refill Encounter Details Date Type Department Care Team (Late st Contact Info) Description 11/21/2024 Refill [facility] [address] [place] [address] Jay Jay Jenkins MD [address] [place] [address] Social History Tobacco Use Types [...] Office Visit [facility] [address] [place] [address] Jay Jay Jenkins MD [address] [place] [address] documented as of this encounter Visit Diagnoses Not on filedocumented in this encounter Care Teams Traffic Manager Relationship Specialty Start Date End Date Rebecca Rudolph MD [address] [place], [place] PCP - General Internal Medicine 01/10/22 documented as of this encounter
--- OUTSIDE RECORDS SUMMARY | 2025-09-20 08:05 | XMS_ITS | Encounter Summary ---
Author Organization [facility] [place], Address [address] [place] [address] Phone Care Team Providers Care Track Sweeper Name Role Phone Rebecca Rudolph MD Primary Care Provider [phone] Encounter Details Date Type Department Care Team (Late st Contact Info) Description 05/24/2024 Documentation Only [facility] [place], [address] [place] [place] [address] Jojo Berry [address] [place] [phone] Social History Tobacco Use Types Packs/Day [...] Visit [facility] [address] [place] [address] Jay Jay Jenkins MD [address] [place] [address] [place] [address] documented as of this encounter Visit Diagnoses Not on filedocumented in this encounter Care Teams Track Sweeper Relationship Specialty Start Date End Date Rebecca Rudolph MD [address] [place], [place] PCP - General Internal Medicine 01/10/22 documented as of this encounter
--- OUTSIDE RECORDS SUMMARY | 2025-09-20 08:05 | XMS_ITS | Encounter Summary ---
Author Organization [facility] [place], Address [address] [place] [address] Phone Care Team Providers Care Color Technician Name Role Phone Rebecca Rudolph MD Primary Care Provider [phone] Encounter Details Date Type Department Care Team (Late st Contact Info) Description 05/24/2024 Documentation Only [facility], [address] [place] [address] Jojo Berry [address] [place] [phone] Social History Tobacco Use Types Packs/Day [...] Visit [facility] [address] [place] [address] Jay Jay Jenkins MD [address] [place] [address] [place] [address] documented as of this encounter Visit Diagnoses Not on filedocumented in this encounter Care Teams Color Technician Relationship Specialty Start Date End Date Rebecca Rudolph MD [address] [place], [place] PCP - General Internal Medicine 01/10/22 documented as of this encounter
--- OUTSIDE RECORDS SUMMARY | 2025-09-20 08:06 | XMS_ITS | Encounter Summary ---
Author Organization [facility] [place], Address [address] [place] [address] Phone Care Team Providers Care Retail Office Associate Name Role Phone Rebecca Rudolph MD Primary Care Provider [phone] Encounter Details Date Type Department Care Team (Late st Contact Info) Description 11/30/2024 Documentation Only [facility] [address] [place] [address] Jojo Berry [address] [place] [phone] Social History Tobacco Use Types Packs/Day [...] Visit [facility] [address] [place] [address] Jay Jay Jenkins MD [address] [place] [address] [place] [address] documented as of this encounter Visit Diagnoses Not on filedocumented in this encounter Care Teams Retail Office Associate Relationship Specialty Start Date End Date Rebecca Rudolph MD [address] [place], [place] PCP - General Internal Medicine 01/10/22 documented as of this encounter
--- OUTSIDE RECORDS SUMMARY | 2025-09-20 08:06 | XMS_ITS | Clinical Summary ---
Author Organization [facility], Address [address] [address] Phone Care Team Providers Care Washing Machine Striper Name Role Phone Rebecca Rudolph MD Primary Care Provider [phone] Allergies Active Allergy Reactions Criticality Noted Date [...] Refill [facility] [address] [place] [address] Jojo Berry 07/06/2025 Documentation Only [facility] [address] [place] [address] Jojo Berry from Last 3 Months Immunizations [...] Visit [facility] [place], [address] [address] Jay Jay Jenkins MD [address] [place] [address] Health Maintenance Due Date Last [...] PM EST) Hemoglobin A1C 7.2(H) (4.0-5.6) % [facility] Comment: MONITORING: In known diabetic patients, hemoglobin A1c targets should be discussed with health care provider. DIAGNOSTIC USE: The [place] [employer] (ADA) and the World Health [...] Supplement 1 Testing performed or reported by [facility], a Service of [facility], [address] [place] [address] Moi Apple MD, Development Lead [facility]# [id number] Blood specimen (specimen) Venous blood / Unknown 11/25/2023 4:07 PM EST 11/25/2023 4:08 PM EST us Jay Jay Jenkins MD LAB BLOOD ORDERABLES Final Re sult [facility] from Last 3 Months or Most Recently Relevant to Health Maintenance Insurance [id number] Care Teams Washing Machine Striper Relationship Specialty Start Date End Date Rebecca Rudolph MD [address] [place], [place] PCP - General Internal Medicine 01/10/22
--- OUTSIDE RECORDS SUMMARY | 2025-09-20 08:06 | XMS_ITS | Encounter Summary ---
Author Organization [facility] Address [address] [place] [address] Phone Care Team Providers Care German Teacher Name Role Phone Rebecca Rudolph MD Primary Care Provider [phone] Reason for Visit * Reason Comments Med Change Request Encounter Details Date Type Department Care Team (Late st Contact Info) Description 11/25/2024 Refill [facility] [address] [place] [address] Jay Jay Jenkins MD [address] [place] [address] Social History Tobacco Use Types [...] Office Visit [facility] [address] [place] [address] Jay Jay Jenkins MD [address] [place] [address] documented as of this encounter Visit Diagnoses Not on filedocumented in this encounter Care Teams German Teacher Relationship Specialty Start Date End Date Rebecca Rudolph MD [address] [place], [place] PCP - General Internal Medicine 01/10/22 documented as of this encounter
--- OUTSIDE RECORDS SUMMARY | 2025-09-20 08:06 | XMS_ITS | Encounter Summary ---
Author Organization [facility] [place], Address [address] [place] [address] Phone Care Team Providers Care Welt Stitcher Name Role Phone Rebecca Rudolph MD Primary Care Provider [phone] Encounter Details Date Type Department Care Team (Late st Contact Info) Description 07/06/2025 Documentation Only [facility] [address] [place] [address] Jojo Berry [address] [place] [phone] Social History Tobacco Use Types Packs/Day [...] Visit [facility] [address] [place] [place] [address] Jay Jay Jenkins MD [address] [place] [address] [place] [address] documented as of this encounter Visit Diagnoses Not on filedocumented in this encounter Care Teams Welt Stitcher Relationship Specialty Start Date End Date Rebecca Rudolph MD [address] [place], [place] PCP - General Internal Medicine 01/10/22 documented as of this encounter
--- OUTSIDE RECORDS SUMMARY | 2025-09-20 08:06 | XMS_ITS | Encounter Summary ---
Author Organization [facility] Address [address] [place] [address] Phone Care Team Providers Care Sales Development Representative Name Role Phone Rebecca Rudolph MD Primary Care Provider [phone] Reason for Visit * Reason Comments Med Change Request Encounter Details Date Type Department Care Team (Late st Contact Info) Description 12/01/2024 Refill [facility] [address] [place] [address] Jay Jay Jenkins MD [address] [place] [address] Social History Tobacco Use Types [...] Office Visit [facility] [address] [place] [address] Jay Jay Jenkins MD [address] [place] [address] documented as of this encounter Visit Diagnoses Not on filedocumented in this encounter Care Teams Sales Development Representative Relationship Specialty Start Date End Date Rebecca Rudolph MD [address] [place], [place] PCP - General Internal Medicine 01/10/22 documented as of this encounter
--- OUTSIDE RECORDS SUMMARY | 2025-09-20 08:06 | XMS_ITS | Encounter Summary ---
Author Organization [facility] [place], Address [address] [place] [address] Phone Care Team Providers Care Certified Surgical First Assistant Name Role Phone Rebecca Rudolph MD Primary Care Provider [phone] Encounter Details Date Type Department Care Team (Late st Contact Info) Description 12/14/2024 Documentation Only [facility] [address] [place] [address] Jojo Berry [address] [place] [phone] Social History Tobacco Use Types Packs/Day [...] Visit [facility] [address] [place] [address] Jay Jay Jenkins MD [address] [place] [address] [place] [address] documented as of this encounter Visit Diagnoses Not on filedocumented in this encounter Care Teams Certified Surgical First Assistant Relationship Specialty Start Date End Date Rebecca Rudolph MD [address] [place], [place] PCP - General Internal Medicine 01/10/22 documented as of this encounter
--- NOTE | 2025-09-20 08:10 | MHC.PC.OV ---
Vital Signs 09/20/25 08:13 Height 5 ft 1 in Weight 149 lb BMI 28.2 BP 120/64 Blood Pressure Location Lt brachial Position Sitting Pulse 72 Pulse Source Pulse Oximeter Temp 97.3 F Temp Source Temporal Artery Scan Pulse Oximetry (%) 98 Oxygen Delivery Method Room Air Intake Visit Reasons: dm Intake Note: Patient is here to follow up on DM. [employer] Required: No Home Care Music Therapist: Not Required per policy Accompanied by: Self / Same As Patient Allergies ciprofloxacin (From CIPRO) Allergy (Severe, Verified 09/20/25 08:27) ANAPHYLAXIS; RASH semaglutide (From Rybelsus) Adverse Reaction (Intermediate, Verified 09/20/25 08:27) blurry vision Medication List - Last Reconciled 09/20/25 by Rebecca Perera MD aspirin 81 mg PO DAILY atorvastatin 40 mg PO BEDTIME blood sugar diagnostic (FreeStyle Lite Strips) Use 1 test strip once a day blood-glucose sensor (FreeStyle Chloe 3 Plus Sensor device) Use daily As directed to monitor glucose carvedilol 12.5 mg PO BIDWM dapagliflozin propanediol (Farxiga) 10 mg PO DAILY 30 days ezetimibe 10 mg PO DAILY hydroxyzine HCl 25 mg PO BEDTIME isosorbide mononitrate ER 30 mg PO DAILY losartan 100 mg PO BEDTIME sertraline 25 mg PO DAILY ticagrelor 90 mg PO BID tirzepatide (Mounjaro) 5 mg (0.5 mL) subcut QWEEK Tobacco use date assessed: 09/20/25 Fall risk assessment: No Falls in past year Last assessed Fall Risk: 09/20/25 Dental Screening Dental Screen Date: 05/19/25 HPI HPI Comments History of Present Illness Details The patient is a 65-year-old female presenting for a follow-up on her chronic conditions including diabetes, hypertension, and hyperlipidemia. Her HbA1c is 6.2%, blood pressure is within goal at less than 130/80 mmHg, and her LDL cholesterol is less than 70 mg/dL. She is currently taking Mounjaro 2.5 mg and is scheduled to increase the dose to 5 mg. The patient has a history of coronary artery disease and had two stents placed in 2021. On August 22, she underwent a cardiac catheterization for a malfunctioning stent, which revealed mild diffuse disease; an angioplasty was performed instead of placing another stent. The procedure was complicated by an arm spasm during an attempt at wrist access. The patient has a history of depression with anxiety, for which she takes sertraline 25 mg and sees a therapist. She reports feeling anxious about returning to work. Past medical history is also significant for microalbuminuria, for which she sees a camp head counselor, with her next appointment in November. Her vitamin D level was within normal limits, and she was advised to discontinue her supplement. She also has diabetes mellitus type 2 with an A1c of 6.2% which is within goal today. Has hyperlipidemia and use statins and her LDL is within goal being less than 70. Has hypertension on losartan and her blood pressure is also within goal being less than 130/80. She has known allergies to Cipro and Rybelsus. Her current medications include baby aspirin, atorvastatin 40 mg, carvedilol twice a day, Farxiga, ezetimibe 10 mg, hydroxyzine, isosorbide mononitrate, losartan 100 mg, sertraline 25 mg, and ticagrelor. Her immunizations are up-to-date for tetanus, which she received in December 2023, and zoster. [facility] Medical History (Updated 09/20/25 @ 10:32 by Rebecca Perera MD) Contraindication to percutaneous coronary intervention (PCI) Acute hypokalemia Suicidal ideation Depression CAD (coronary artery disease) PAC (premature atrial contraction) Tricuspid valve regurgitation Physical exam Screen for colon cancer Tachycardia Murmur Dyspnea Microalbuminuria Obesity (BMI 30.0-34.9) Dyslipidemia Hypertension Encounter for diabetic foot exam High cholesterol High blood pressure Diabetes mellitus Surgical History History of cardiac catheterization Status post angioplasty with stent Stented coronary artery History of coronary artery stent placement S/P skin biopsy History of hernia repair S/P BLAIR-BSO (total abdominal hysterectomy and bilateral salpingo-oophorectomy) History of removal of cyst History of bladder surgery Family History Father CAD (coronary artery disease) CVD (cardiovascular disease) Myocardial infarction Substance use disorder Mother CVD (cardiovascular disease) Hypertension Brother Hypertension Sister Hypertension Daughter Obese Social History (Reviewed 09/20/25 @ 08:10 by ROSS Oleary Household Members: Spouse Housing: Condominium Do you presently have visiting nurse or other home services: No Alcohol intake: current Alcohol intake frequency: holidays/special occasions only Alcohol type: hard liquor Patient Tobacco Use Status: Never used Tobacco Tobacco use type: Cigarette e-Cigarette/Vaping Use: Never Used Second Hand Smoke Exposure: No service: No Current occupational status: employed Current occupational exposures/hazards: No Sexual orientation: Straight/Heterosexual Cognitive needs: No Hearing needs: No Vision needs: Yes Questionnaire Thrive Questionnaire Date Thrive assessed: 06/23/25 ANDREA-7 AMB Questionnaire ANDREA-7 Date ANDREA - 7 assessed: 01/11/25 Source: Developed by Drs. Narendra Biggs, Puja Vidal, Edison Tapia and colleagues, with an educational leland from [employer]. Review of Systems Const All systems reviewed & are unremarkable except as noted in HPI and below Card Denies chest pain at rest, Denies chest pain with activity, Denies edema, Denies irregular heart rhythm, Denies claudication, Denies dyspnea, Denies dyspnea on exertion, Denies orthopnea, Denies paroxysmal nocturnal dyspnea and Denies slow heart rate Resp Denies cough, Denies dyspnea and Denies dyspnea on exertion Physical exam (Primary Care) Vital Signs: Last Vital Signs Temp 97.3 F 09/20/25 08:13 Pulse 72 09/20/25 08:13 BP 120/64 09/20/25 08:13 Pulse Ox 98 09/20/25 08:13 Oxygen Delivery Method Room Air 09/20/25 08:13 BMI result Body Mass Index 28.2 Tobacco/Smoking Status: Tobacco use Status Tobacco use date assessed 09/20/25 09/20/25 08:20 Patient Tobacco Use Status Never used Tobacco 09/20/25 08:11 Tobacco use type Cigarette 09/20/25 08:11 e-Cigarette/Vaping Use Never Used 09/20/25 08:11 Thrive Assessment: Date of Thrive Assessment Date Thrive assessed 06/23/25 09/20/25 08:11 Resp Effort & Inspection: normal respiratory effort Auscultation: clear to auscultation bilaterally Cardio Jugular venous distension: no JVD Rate: regular rate Rhythm: regular rhythm Heart sounds: S1 normal heart sound present and S2 normal heart sound present Extrem General: Yes full ROM Office Procedures Flu Questionnaire Does the patient have a severe egg allergy?: No Does the patient have severe life threatening allergies?: No Does the patient have a fever or illness today?: No Has the patient ever had Guillain-Reading Syndrome?: No Has the patient ever had any past reaction to a flu shot?: No Results AMB Hemoglobin A1c AMB Hemoglobin A1c 6.2 % Last Edit by KEILA Oleary on 09/20/25 08:28 Immunizations Fluarix [id number] (PF) 45 mcg (15 mcg x 3)/0.5 mL IM syringe Performing Provider: Rebecca Perera MD [place] [facility] Administered by: Erin Payne LPN on 09/20/25 08:56 Dose Route Admin Location Dispensed Lot Number Expiration Date ND [employer] 0.5 mL IM Left Deltoid 0.5 mL [id number] 05/16/26 91472-807-86 C[employer] VIS Given Date VIS Provided VIS Publication Date 09/20/25 Single Vaccine 24 Eligibility Eligibility Date Funding Source Not VFC Eligible 09/20/25 Private pneumoc 20-chiqui conj-dip cr(PF) 0.5 mL IM syringe Performing Provider: Rebecca Perera MD Performing Location: [facility] Administered by: Erin Payne LPN on 09/20/25 08:56 Dose Route Admin Location Dispensed Lot Number Expiration Date NDC [employer] Set [employer] Operator 0.5 mL IM Left Deltoid 0.5 mL [id number] 08/16/26 6415-8592-62 [employer] Total Dispensed Waste 0.5 mL 0 % VIS Given Date VIS Provided VIS Publication Date 09/20/25 Single Vaccine 25 Eligibility Eligibility Date Funding Source Not VFC Eligible 09/20/25 Private Results Reviewed Results Reviewed: Laboratory Last Values Hgb A1c (Clinic) 6.2 % (4.0-6.0) H 09/20/25 08:12 Coding Level of Care Code Est Pt Level 4 (37854) Complex EM visit Add On G2211 Diagnoses CAD (coronary artery disease) I25.10 Hyperlipidemia LDL goal <70 E78.5 Diabetes mellitus, without long-term current use of insulin E11.9 Microalbuminuria R80.9 Essential hypertension I10 Mild recurrent major depression F33.0 Time Spent (min) 22 Assessment & Plan Assessment & Plan (1) CAD (coronary artery disease): Code(s): I25.10 - Atherosclerotic heart disease of [place] coronary artery without angina pectoris Category: Medical (2) Hyperlipidemia LDL goal <70: Code(s): E78.5 - Hyperlipidemia, unspecified Category: Medical (3) Diabetes mellitus, without long-term current use of insulin: Code(s): E11.9 - Type 2 diabetes mellitus without complications Category: Medical (4) Microalbuminuria: Code(s): R80.9 - Proteinuria, unspecified Category: Medical (5) Essential hypertension: Code(s): I10 - Essential (primary) hypertension Category: Medical (6) Mild recurrent major depression: Code(s): F33.0 - Major depressive disorder, recurrent, mild Category: Medical Plan Plan 1. Chronic Condition Management (Diabetes, Hypertension, Hyperlipidemia) The patient's diabetes, hypertension, and hyperlipidemia are well-controlled with an HbA1c of 6.2%, and blood pressure and LDL cholesterol levels at goal. She will continue her current medications and increase her Mounjaro dose from 2.5 mg to 5 mg with the next refill. 2. Depression with Anxiety The patient reports anxiety about returning to work and is currently in therapy. A letter will be provided to extend her medical leave from October 10 to November 07. 3. Preventative Care: Immunizations The patient is due for the PCV20 pneumonia vaccine and the seasonal influenza vaccine, as she is 65 years old and has not yet received them this season. Both vaccines will be administered during today's visit. The patient was advised to obtain the new COVID vaccine at a pharmacy. 4. Microalbuminuria The patient has a known history of microalbuminuria. She will continue to follow up with her camp head counselor and has an appointment scheduled for November. 5. Coronary Artery Disease The patient has a history of coronary artery disease, s/p stenting in 2021, and a recent angioplasty in August 2023. Continue current medical management, including baby aspirin and ticagrelor. Orders: Orders Lipid Panel 4 Months E78.5 - Hyperlipidemia, unspecified Vitamin D 25-OH Total 4 Months E55.9 - Vitamin D deficiency, unspecified Comprehensive [place]. Panel Fast 4 Months E11.9 - Type 2 diabetes mellitus without complications Pneumococcal 20 Immunization Today Z23 - Encounter for immunization AMB Hemoglobin A1c Today E11.65 - Type 2 diabetes mellitus with hyperglycemia, E11.9 - Type 2 diabetes mellitus without complications Microalbumin, Random (w Creat) 4 Months R80.9 - Proteinuria, unspecified Influenza [id number] Immunization Today Z23 - Encounter for immunization
[2025-09-20 08:13] VITALS: BP 120/64; PULSE 72; TEMP 36.3; O2SAT 98; BMI 28.2
== END 2025-09-20 08:53 | disposition home or self-care (01) ==
LOC: HO.HMCH 07:59
PROVIDERS: PCP Internal Medicine; Visit Provider Internal Medicine
DX: I25.10 Atherosclerotic heart disease of native coronary artery without angina pectoris (principal); E78.5 Hyperlipidemia, unspecified; E11.9 Type 2 diabetes mellitus without complications; R80.9 Proteinuria, unspecified; I10 Essential (primary) hypertension; F33.0 Major depressive disorder, recurrent, mild; E11.65 Type 2 diabetes mellitus with hyperglycemia; Z23 Encounter for immunization

== ENCOUNTER → 2025-09-20 07:59 | Outpatient (BNVA) | payer OTHER, SELFPAY | PROVIDERS: PCP Internal Medicine; Visit Provider Internal Medicine | DX: E11.9 Type 2 diabetes mellitus without complications (principal); I10 Essential (primary) hypertension; E78.5 Hyperlipidemia, unspecified; I25.10 Atherosclerotic heart disease of native coronary artery without angina pectoris; F41.9 Anxiety disorder, unspecified; R80.9 Proteinuria, unspecified; F33.0 Major depressive disorder, recurrent, mild; Z23 Encounter for immunization; Z79.899 Other long term (current) drug therapy | CPT/HCPCS: 83036; 90471; 90472; 90656; 90677 ==

== ENCOUNTER 2025-10-17 08:15 | Outpatient (REF) | payer OTHER, SELFPAY ==
--- NOTE | ~2025-10-17 | CT_ITS ---
EXAMINATION: CT ABDOMEN WITHOUT AND WITH CONTRAST CLINICAL INFORMATION: Renal cyst. Indeterminate MRI due to claustrophobia on 05/02/2025. Other specified disorders of kidney and ureter. COMPARISON: MR abdomen 05/02/2025. TECHNIQUE: Contiguous axial thin section helical images of the abdomen were performed before and after the administration of 85 mL of Omnipaque 350 intravenous contrast. The data set was reformatted in the coronal and sagittal planes and reviewed on an independent workstation. This CT examination was performed using dose optimization techniques as appropriate, variously including the following: *Automated exposure control *Adjustment of mA and/or kV according to patient size (this includes techniques or standardized protocols for targeted exams where dose is matched to indication/reason for exam; i.e. extremities or head) *Use of iterative reconstruction technique FINDINGS: LUNG BASES: Clear bilaterally. No effusions. Heart size is normal. No pericardial effusion. Normal GE junction. LIVER, GALLBLADDER, AND BILIARY TREE: Mild focal fatty infiltration abutting the falciform ligament. In segment 6 peripherally, there is a hemangioma with discontinuous peripheral enhancement measuring 2.8 x 1.0 x 1.0 cm. Liver otherwise normal in attenuation and enhancement. No intra or extrahepatic biliary dilatation. The gallbladder appears normal. PANCREAS: Normal. SPLEEN: Normal. ADRENAL GLANDS AND KIDNEYS: In the superior pole of the right kidney, there is a simple cyst measuring 6.6 x 6.6 x 6.4 cm. There is a tiny 9 mm hemorrhagic cyst in the lower pole. Right kidney otherwise images normally without hydronephrosis, mass, calculus, or hydroureter. The left kidney demonstrates a hemorrhagic cyst in the lateral lower pole measuring 11 mm in diameter. This measures 70 maximal Hounsfield units on the precontrast exam, and 74 Hounsfield units on the postcontrast examination. There is no appreciable enhancement. Left kidney otherwise image is normally without hydronephrosis, mass, calculus, or hydroureter. BOWEL LOOPS: Normal in appearance. A normal appendix is noted. LYMPH NODES: There is no abnormal lymphadenopathy. VASCULAR: Moderate atheromatous calcification of the aorta and proximal iliac arteries noted, without aneurysm. OSSEOUS STRUCTURES: No suspicious lytic or blastic bone lesions. No acute finding. There are mild to moderate degenerative changes of the spine most notable at L4-S1. CT/CT abdomen wo/w IV con IMPRESSION: 1. The RIGHT kidney demonstrates a large simple cyst measuring up to 6.6 cm. No hydronephrosis, calculus, or mass. 2. The LEFT kidney demonstrates a 11 mm nonenhancing hemorrhagic cyst in the lower pole. No hydronephrosis, calculus, or mass. 3. Additional ancillary findings as discussed in the body of the report. Electronically signed by: Jasvir Peña MD 10/17/2025 10:26 AM LEOBARDO
--- OUTSIDE RECORDS SUMMARY | 2025-10-17 08:26 | XMS_ITS | Patient Health Record ---
Author Organization [facility] Address [address] [place] [id number] Care Team Providers Care Salesperson Driver Name Role Phone NONE, NONE Primary Care Provider Narendra Wilson Unavailable [phone] Reason For Referral No Information Plan Of Treatment No Information
[2025-10-17] MEDS: iohexoL 350 MG/ML 100 ML INFUS..BTL 85 ML IV (09:29)
== END 2025-10-17 08:16 | disposition home or self-care (01) ==
LOC: HO.CT 08:15
PROVIDERS: PCP Internal Medicine; Visit Provider Urology
DX: N28.89 Other specified disorders of kidney and ureter (principal); N28.1 Cyst of kidney, acquired
CPT/HCPCS: 74170; Q9967

== ENCOUNTER → 2025-10-17 08:16 | Outpatient (BNV) | payer OTHER, SELFPAY | PROVIDERS: PCP Internal Medicine; Visit Provider Radiology Diagnostic Radiology | DX: N28.1 Cyst of kidney, acquired (principal) | CPT/HCPCS: 74170 ==

== ENCOUNTER 2025-10-31 10:06 | Outpatient (AMB) | payer OTHER, SELFPAY ==
--- NOTE | 2025-10-31 10:11 | MHC.OFFVIS ---
Intake Visit Reasons: 8w/CT (set)UA) Intake Note: Patient presents today for 8w/CT 10/[address] Urology Medication:Potassium Blood Thinner:None Antibiotic Allergies:Cipro Allergies ciprofloxacin (From CIPRO) Allergy (Severe, Verified 10/31/25 10:12) ANAPHYLAXIS; RASH semaglutide (From Rybelsus) Adverse Reaction (Intermediate, Verified 10/31/25 10:12) blurry vision HPI Comments Details: 10/31/25--History of Present Illness The patient is a 65-year-old female presenting for a follow-up visit to review imaging results for renal cysts. She was last seen for a new patient evaluation on 09/05/2025. An MRI performed on 05/02/2025 noted a large right renal cyst and a small, indeterminate hypointense lesion in the lower pole of the left kidney. 30 minutes spent in review of records pertaining to this visit and including [id number] discussion with the patient and documentation of this visit. Results - Imaging - MRI (05/02/2025): Showed a large right renal cyst and a small, indeterminate hypointense lesion in the lower pole of the left kidney. - CT Scan (10/17/2025): Confirmed a simple right renal cyst measuring 6.6 cm; the lesion in the left kidney was consistent with a non-enhancing hemorrhagic cyst, which is benign. - Labs - Urinalysis: leukocytes neg, blood negative PFSH Medical History Contraindication to percutaneous coronary intervention (PCI) Acute hypokalemia Suicidal ideation Depression CAD (coronary artery disease) PAC (premature atrial contraction) Tricuspid valve regurgitation Physical exam Screen for colon cancer Tachycardia Murmur Dyspnea Microalbuminuria Obesity (BMI 30.0-34.9) Dyslipidemia Hypertension Encounter for diabetic foot exam High cholesterol High blood pressure Diabetes mellitus Surgical History History of cardiac catheterization Status post angioplasty with stent Stented coronary artery History of coronary artery stent placement S/P skin biopsy History of hernia repair S/P BLAIR-BSO (total abdominal hysterectomy and bilateral salpingo-oophorectomy) History of removal of cyst History of bladder surgery Family History Father CAD (coronary artery disease) CVD (cardiovascular disease) Myocardial infarction Substance use disorder Mother CVD (cardiovascular disease) Hypertension Brother Hypertension Sister Hypertension Daughter Obese Social History Household Members: Spouse [facility] Do you presently have visiting nurse or other home services: No Alcohol intake: current Alcohol intake frequency: holidays/special occasions only Alcohol type: hard liquor Patient Tobacco Use Status: Never used Tobacco Tobacco use type: Cigarette e-Cigarette/Vaping Use: Never Used Second Hand Smoke Exposure: No service: No Current occupational status: employed Current occupational exposures/hazards: No Sexual orientation: Straight/Heterosexual Cognitive needs: No Hearing needs: No Vision needs: Yes Review of Systems Const All systems reviewed & are unremarkable except as noted in HPI and below Reports no additional complaints Eyes Reports no additional complaints ENT Reports no additional complaints Card Reports no additional complaints Resp Reports no additional complaints GI Reports no additional complaints Reports as per HPI Musc Reports no additional complaints Skin/Breast Reports system reviewed and no additional complaints, except as documented Neuro Reports no additional complaints Psych Reports no additional complaints Endo Reports no additional complaints Tee/Lymph Reports no additional complaints Aller/Immun Reports no additional complaints Results Reviewed Results Reviewed: Date of Service: 10/17/25 Reason for Exam: N28.89 - Other specified disorders of kidney and ureter EXAMINATION: CT ABDOMEN WITHOUT AND WITH CONTRAST CLINICAL INFORMATION: Renal cyst. Indeterminate MRI due to claustrophobia on 05/02/2025. Other specified disorders of kidney and ureter. COMPARISON: MR abdomen 05/02/2025. TECHNIQUE: Contiguous axial thin section helical images of the abdomen were performed before and after the administration of 85 mL of Omnipaque 350 intravenous contrast. The data set was reformatted in the coronal and sagittal planes and reviewed on an independent workstation. This CT examination was performed using dose optimization techniques as appropriate, variously including the following: *Automated exposure control *Adjustment of mA and/or kV according to patient size (this includes techniques or standardized protocols for targeted exams where dose is matched to indication/reason for exam; i.e. extremities or head) *Use of iterative reconstruction technique FINDINGS: LUNG BASES: Clear bilaterally. No effusions. Heart size is normal. No pericardial effusion. Normal GE junction. LIVER, GALLBLADDER, AND BILIARY TREE: Mild focal fatty infiltration abutting the falciform ligament. In segment 6 peripherally, there is a hemangioma with discontinuous peripheral enhancement measuring 2.8 x 1.0 x 1.0 cm. Liver otherwise normal in attenuation and enhancement. No intra or extrahepatic biliary dilatation. The gallbladder appears normal. PANCREAS: Normal. SPLEEN: Normal. ADRENAL GLANDS AND KIDNEYS: In the superior pole of the right kidney, there is a simple cyst measuring 6.6 x 6.6 x 6.4 cm. There is a tiny 9 mm hemorrhagic cyst in the lower pole. Right kidney otherwise images normally without hydronephrosis, mass, calculus, or hydroureter. The left kidney demonstrates a hemorrhagic cyst in the lateral lower pole measuring 11 mm in diameter. This measures 70 maximal Hounsfield units on the precontrast exam, and 74 Hounsfield units on the postcontrast examination. There is no appreciable enhancement. Left kidney otherwise image is normally without hydronephrosis, mass, calculus, or hydroureter. BOWEL LOOPS: Normal in appearance. A normal appendix is noted. LYMPH NODES: There is no abnormal lymphadenopathy. VASCULAR: Moderate atheromatous calcification of the aorta and proximal iliac arteries noted, without aneurysm. OSSEOUS STRUCTURES: No suspicious lytic or blastic bone lesions. No acute finding. There are mild to moderate degenerative changes of the spine most notable at L4-S1. IMPRESSION: 1. The RIGHT kidney demonstrates a large simple cyst measuring up to 6.6 cm. No hydronephrosis, calculus, or mass. 2. The LEFT kidney demonstrates a 11 mm nonenhancing hemorrhagic cyst in the lower pole. No hydronephrosis, calculus, or mass. 3. Additional ancillary findings as discussed in the body of the report. Date of Service: 05/02/25 MR abdomen without gadolinium Comparison: None Findings: The visualized lungs are unremarkable. This is a markedly limited examination as the patient was claustrophobic and aborted the examination before completion. Only 1 sequences provided a coronal T2 weighted sequence demonstrating a large benign cyst arising from the upper pole of the right kidney measuring up to 6.6 cm in greatest diameter. A small hypointense lesion is seen in the lower pole of the left kidney measuring up to 9 mm in greatest diameter. This could represent a hemorrhagic cyst. The rest of the solid organs are unremarkable. The gallbladder is unremarkable. There are scattered colonic diverticula. No ascites. The patient is status post hysterectomy. The bones and soft tissues are within normal limits. IMPRESSION: Markedly limited study as above. Large right renal cyst. Small hypointense lesion lower pole left kidney is indeterminate but likely represents a hemorrhagic cyst. Assessment & Plan Assessment & Plan (1) Bilateral renal cysts: Code(s): N28.1 - Cyst of kidney, acquired Category: Medical Plan Plan 1. Renal Cysts - The follow-up CT scan confirmed the findings from the previous MRI. - The large cyst in the right kidney is a simple, thin-walled cyst, and the smaller lesion in the left kidney is a non-enhancing hemorrhagic cyst; both are benign findings. - The results are reassuring, and no further follow-up is necessary for these findings. - The patient was advised to follow up on an as-needed (PRN) basis. Patient Instructions: The patient had an opportunity to ask questions regarding treatment plan. The patient expressed understanding and agreement with the above treatment plan. The patient is aware they should contact our office by phone for worsening of their current condition or the appearance of new symptoms. Compliance is encouraged with any medications and followup testing that is ordered. It is a privilege to be allowed the opportunity to participate in the urologic care of your patient. If you have any questions or concerns regarding treatment for the above conditions please do not hesitate to contact me. The office telephone contact is [phone]. This note is constructed in part using voice recognition software. While every effort has been made to ensure accuracy director of financial planning errors may have been included. Yours sincerely, Clayton Jung MD Scribe Plan - Not visible on output: Patient was informed and verbally consented to the use of an ambient scribe for clinic note documentation during this visit. Coding Level of Care Code Est Pt Level 4 (91321) Diagnoses Bilateral renal cysts N28.1
== END 2025-10-31 10:35 | disposition home or self-care (01) ==
LOC: HO.HUSH 10:07
PROVIDERS: PCP Student in an Organized Health Care Education/Training Program; Visit Provider Urology
DX: N28.1 Cyst of kidney, acquired (principal)
CPT/HCPCS: 99214

== ENCOUNTER → 2025-10-31 10:06 | Outpatient (BNVA) | payer OTHER, SELFPAY | PROVIDERS: PCP Student in an Organized Health Care Education/Training Program; Visit Provider Urology | DX: N28.1 Cyst of kidney, acquired (principal) | CPT/HCPCS: 81003 ==